=== PATIENT | female | born 1975 | race Caucasian/White ===

== ENCOUNTER 2022-02-15 11:32 | Emergency (ER) | payer BC, OTHER ==
[~2022-02-15] VITALS: Ht 163 cm; Wt 106.0 kg
--- NOTE | 2022-02-15 11:35 | ED Abdominal Pain ---
General Stated Complaint: ABD PAIN Source of Information: Patient, EMS Exam Limitations: No Limitations (BARBRA POPE) History of Present Illness Date Seen by Provider: Feb 15, 2022 Time Seen by Provider: 11:16 Initial Comments Patient to the ER by EMS from [facility] with chief complaint she started having pain last night in her right groin from her right nephrostomy tube and her back down. Mild tenderness in her back most of her pain is severe in her groin. Constant and worsening. She took Tylenol with no improvement. She had a nephrostomy tube for history of ureteral stenosis and kidney stones. This work was done in [place]. She recently moved here in January. She does not have a urologist locally yet. She is having nausea without vomiting. EMS made an attempt at IV unsuccessfully on route. Not having fevers or chills. She has had her gallbladder out, tubal ligation, tonsils and adenoids. (BARBRA POPE) Allergies and Home Medications Allergies Coded Allergies: shellfish derived (Verified Allergy, Severe, 02/15/22) Iodinated Contrast Media (Verified Allergy, Unknown, 02/15/22) aspirin (Verified Allergy, Unknown, 02/15/22) Uncoded Allergies: IODINE CONTRAST (Allergy, Mild, 02/15/22) Patient Home Medication List Home Medication List Reviewed: Yes (BARBRA POPE) Review of Systems Review of Systems Constitutional: No chills, No fever, No malaise EENTM: No Blurred Vision, No Double Vision Respiratory: Denies Cough, Denies Shortness of Air Cardiovascular: Denies Chest Pain, Denies Lightheadedness Gastrointestinal: Denies Constipated, Denies Diarrhea; Nausea; Denies Poor Fluid Intake, Denies Vomiting Genitourinary: Denies Burning, Denies Discharge, Denies Drainage Musculoskeletal: No back pain, No joint pain (BARBRA POPE) All Other Systems Reviewed Negative Unless Noted: Yes (BARBRA POPE) Past Ohdlxnm-Mnlcqj-Fafmfg Hx Patient Social History Tobacco Use?: No Use of E-Cig and/or Vaping dev: No (BARBRA POPE) Physical Exam Vital Signs Vital Signs - First Documented 02/15/22 11:35 Temp 36.8 Pulse 90 Resp 22 B/P (MAP) 211/145 (167) Pulse Ox 98 O2 Delivery Room Air (KATHI PAK MD) Vital Signs Capillary Refill : (BARBRA POPE) Height/Weight/BMI Height: '" Weight: lbs. oz. kg; BMI Method: General Appearance: WD/WN, no apparent distress HEENT: PERRL/EOMI, pharynx normal Neck: full range of motion, normal inspection Respiratory: lungs clear, normal breath sounds, no respiratory distress, no accessory muscle use Cardiovascular: normal peripheral pulses, regular rate, rhythm, tachycardia Peripheral Pulses: 2+ Radial Pulses (R), 2+ Radial Pulses (L) Gastrointestinal: normal bowel sounds, no organomegaly; No distended; tenderness Extremities: normal range of motion, non-tender, normal capillary refill Back: normal inspection, no vertebral tenderness, CVA tenderness (R) Neurologic/Psychiatric: alert, normal mood/affect, oriented x 3 (BARBRA POPE) Focused Exam Lactate Level 02/15/22 11:40: Lactic Acid Level 2.74*H 02/15/22 14:00: Lactic Acid Level 1.41 (KATHI PAK MD) Lactic Acid Level Laboratory Tests Test 02/15/22 11:40 02/15/22 14:00 Lactic Acid Level 2.74 MMOL/L (0.50-2.00) *H 1.41 MMOL/L (0.50-2.00) (KATHI PAK MD) Progress/Results/Core Measures Results/Orders Lab Results Laboratory Tests Test 02/15/22 11:40 02/15/22 12:29 02/15/22 14:00 Range/Units White Blood Count 13.6 H 4.3-11.0 10^3/uL Red Blood Count 4.84 3.80-5.11 10^6/uL Hemoglobin 15.1 11.5-16.0 g/dL Hematocrit 42 35-52 % Mean Corpuscular Volume 88 80-99 fL Mean Corpuscular Hemoglobin 31 25-34 pg Mean Corpuscular Hemoglobin Concent 36 32-36 g/dL Red Cell Distribution Width 13.3 10.0-14.5 % Platelet Count 349 130-400 10^3/uL Mean Platelet Volume 9.8 9.0-12.2 fL Immature Granulocyte % (Auto) 0 % Neutrophils (%) (Auto) 72 42-75 % Lymphocytes (%) (Auto) 19 12-44 % Monocytes (%) (Auto) 6 0-12 % Eosinophils (%) (Auto) 3 0-10 % Basophils (%) (Auto) 1 0-10 % Neutrophils # (Auto) 9.7 H 1.8-7.8 10^3/uL Lymphocytes # (Auto) 2.5 1.0-4.0 10^3/uL Monocytes # (Auto) 0.8 0.0-1.0 10^3/uL Eosinophils # (Auto) 0.4 H 0.0-0.3 10^3/uL Basophils # (Auto) 0.1 0.0-0.1 10^3/uL Immature Granulocyte # (Auto) 0.1 0.0-0.1 10^3/uL Prothrombin Time 21.4 H 12.2-14.7 SEC INR Comment 1.8 H 0.8-1.4 Activated Partial Thromboplast Time 46 H 24-35 SEC Sodium Level 139 135-145 MMOL/L Potassium Level 3.9 3.6-5.0 MMOL/L Chloride Level 107 98-107 MMOL/L Carbon Dioxide Level 19 L 21-32 MMOL/L Anion Gap 13 5-14 MMOL/L Blood Urea Nitrogen 13 7-18 MG/DL Creatinine 0.86 0.60-1.30 MG/DL Estimat Glomerular Filtration Rate 85 BUN/Creatinine Ratio 15 Glucose Level 121 H 70-105 MG/DL Lactic Acid Level 2.74 *H 1.41 0.50-2.00 MMOL/L Calcium Level 9.7 8.5-10.1 MG/DL Corrected Calcium 9.5 8.5-10.1 MG/DL Total Bilirubin 0.4 0.1-1.0 MG/DL Aspartate Amino Transf (AST/SGOT) 24 5-34 U/L Alanine Aminotransferase (ALT/SGPT) 23 0-55 U/L Alkaline Phosphatase 98 40-136 U/L Total Protein 8.1 6.4-8.2 GM/DL Albumin 4.2 3.2-4.5 GM/DL Urine Color YELLOW Urine Clarity CLOUDY Urine pH 6.0 5-9 Urine Specific [place] >=1.030 1.016-1.022 Urine Protein TRACE H NEGATIVE Urine Glucose (UA) NEGATIVE NEGATIVE Urine Ketones NEGATIVE NEGATIVE Urine Nitrite NEGATIVE NEGATIVE Urine Bilirubin NEGATIVE NEGATIVE Urine Urobilinogen 0.2 < = 1.0 MG/DL Urine Leukocyte Esterase NEGATIVE NEGATIVE Urine RBC (Auto) 1+ H NEGATIVE Urine RBC 2-5 H /HPF Urine WBC RARE /HPF Urine Squamous Epithelial Cells 5-10 /HPF Urine Crystals NONE /LPF Urine Bacteria FEW H /HPF Urine Casts NONE /LPF Urine Mucus SMALL H /LPF Urine Culture Indicated NO (KATHI PAK MD) My Orders Orders - KATHI PAK MD Ketamine Injection (Ketalar Injection) (02/15/22 18:15) (KATHI PAK MD) Medications Given in ED Current Medications Medications Dose Ordered Sig/Faustino Route Start Time Stop Time Status Last Admin Dose Admin Cefepime HCl 1000 mg/Sodium Chloride 50 ml @ 100 mls/hr ONCE ONCE IV 02/15/22 11:45 02/15/22 12:14 DC 02/15/22 12:19 100 MLS/HR Fentanyl Citrate 50 mcg ONCE ONCE IVP 02/15/22 11:45 02/15/22 11:46 DC 02/15/22 11:49 50 MCG Fentanyl Citrate 50 mcg ONCE ONCE IVP 02/15/22 12:45 02/15/22 12:46 DC 02/15/22 12:43 50 MCG Fentanyl Citrate 75 mcg ONCE ONCE IVP 02/15/22 15:45 02/15/22 15:46 DC 02/15/22 15:45 75 MCG Hydromorphone HCl 0.25 mg ONCE ONCE IVP 02/15/22 13:15 02/15/22 13:18 DC 02/15/22 13:23 0.25 MG Hydromorphone HCl 0.5 mg ONCE ONCE IV 02/15/22 17:30 02/15/22 17:31 DC 02/15/22 17:56 0.5 MG Ketamine HCl 25 mg ONCE ONCE IV 02/15/22 14:15 02/15/22 14:16 DC 02/15/22 14:20 25 MG Ketamine HCl 25 mg ONCE ONCE IV 02/15/22 15:45 02/15/22 15:46 DC 02/15/22 16:12 25 MG Ondansetron HCl 8 mg ONCE ONCE IVP 02/15/22 11:45 02/15/22 11:46 DC 02/15/22 11:48 8 MG Promethazine HCl 25 mg ONCE ONCE IVP 02/15/22 13:45 02/15/22 13:46 DC 02/15/22 13:45 25 MG Sodium Chloride 1,000 ml @ 0 mls/hr Q0M ONCE IV 02/15/22 11:45 02/15/22 11:46 DC 02/15/22 11:48 1,000 MLS/HR (KATHI PAK MD) Vital Signs/I&O 02/15/22 02/15/22 02/15/22 02/15/22 11:35 12:43 13:23 15:45 Temp 36.8 36.8 36.8 36.8 Pulse 90 Resp 22 B/P (MAP) 211/145 (167) Pulse Ox 98 O2 Delivery Room Air 02/15/22 17:56 Temp 36.8 (KATHI PAK MD) Progress Progress Note : Time: 14:15 Progress Note After fentanyl, dilaudid pain is only temporarily controlled. BP down to 112 systolic so Ketamine 25mg for pain. Zofran 8 mg and Phenergan 25mg. Septic workup revealed lactate elevated. 20 mL/kg of fluid bolus 2 L was ordered. She is working on her second liter now. Cefepime for antibiotics. The CT reveals that there is a little bit of air in the renal pelvis and hydronephrosis making me suspicious that her nephrostomy tube is not draining. She is putting out very little urine through the nephrostomy tube. She only has about 15 or 20 cc in the bag and she states that she drained it at 730 this morning. We will transfer her to a facility with appropriate IR services so she can get the tube either unblocked or replaced. (BARBRA POPE) Progress Note #1: Time: 18:09 Progress Note Patient is awaiting transfer. Pain has been difficult to control. Nursing staff has requested additional orders for pain medication. It has been a few hours since she has had ketamine. Another dose of ketamine 25 mg has been ordered. Progress Note #2: Time: 18:14 Progress Note Additional nausea medicine was also requested. She last received Zofran around noon. An additional Zofran 8 mg dose is being given now. The ketamine will be administered on any infuser while in route. (KATHI PAK MD) Diagnostic Imaging Diagonstic Imaging: CT Plain Films/CT/US/NM/MRI: abdomen, pelvis Comments [facility]. [place], [place] NAME: RUDY THIBODEAUX [facility] REC#: [id number] PT STATUS: REG ER : 1975 PHYSICIAN: BARBRA POPE MD ADMIT DATE: 02/15/22/ER Signed Date of Exam:02/15/22 CT ABDOMEN/PELVIS WO PROCEDURE: CT abdomen and pelvis without contrast. TECHNIQUE: Multiple contiguous axial images were obtained through the abdomen and pelvis without the use of intravenous contrast. Auto Exposure Controls were utilized during the CT exam to meet ALARA standards for radiation dose reduction. INDICATION: Indwelling percutaneous nephrostomy tube. Severe abdominal pain. COMPARISON: None FINDINGS: Included portions of the lung bases are clear. Small hiatal hernia is noted. CT ABDOMEN: There is colonic diverticulosis, but no CT evidence of acute diverticulitis. Small bowel loops are nondistended. Normal appendix is identified. Right-sided percutaneous nephrostomy tube is identified. Patency of the tube cannot be assessed on this exam, but the tube does appear to be in appropriate position. There is moderate distention of the renal pelvis and mild distention of the calyces. Right ureter is nondistended. Small amount of gas is noted within the non-gravity dependent portion of the renal pelvis. Punctate nonobstructive calculus is identified within the inferior pole. There is no evidence of hemorrhage within the renal collecting system. No perinephric hemorrhage is identified. Left kidney has an unremarkable noncontrast CT appearance. The adrenal glands, spleen, pancreas, and liver have an unremarkable noncontrast CT appearance as well. There is no loculated fluid collection, free fluid or free air within the abdomen. No abnormal mesenteric adenopathy is seen. Mildly prominent retroperitoneal lymph node is seen interposed between the aorta and IVC at the level of L3-L4. It measures 1.2 x 1.4 cm. Osseous structures show no acute abnormalities. CT PELVIS: Urinary bladder is unopacified and nondistended. No calculi are seen within urinary bladder. There is no loculated fluid collection, free fluid or free air within the pelvis. No abnormal lymph nodes are seen. Osseous structures show no acute abnormalities. IMPRESSION: 1. Indwelling right-sided percutaneous nephrostomy tube is identified. Tube appears to be in appropriate position, but despite its presence, there is persistent or recurrent moderate right-sided hydronephrosis. This does raise potential for malfunction the tube. Injection of the tube with contrast under fluoroscopy may be of benefit to assess patency. 2. Mildly enlarged retroperitoneal lymph node of uncertain clinical significance and etiology. Dictated by: Dictated on workstation # [id number] Dict: 02/15/22 1253 Trans: 02/15/22 1826 [id number] Interpreted by: LUIS ASTORGA MD Electronically signed by: LUIS ASTORGA MD 02/15/221825 Reviewed: Reviewed by Me Diagonstic Imaging: Xray Plain Films/CT/US/NM/MRI: chest Comments [facility]. [place], [place] NAME: RUDY THIBODEAUX [facility] REC#: [id number] PT STATUS: REG ER : 1975 PHYSICIAN: BARBRA POPE MD ADMIT DATE: 02/15/22/ER Signed Date of Exam:02/15/22 CHEST 1 VIEW, AP/PA ONLY HISTORY: Sepsis. COMPARISON: None. TECHNIQUE: Frontal view of the chest. FINDINGS: Lung volumes are normal. There is eventration of the right hemidiaphragm. No focal consolidation is seen. There is no pleural effusion or pneumothorax. The cardiac silhouette is normal in size. IMPRESSION: 1. No acute pulmonary abnormality. Dictated by: Dictated on workstation # [id number] Dict: 02/15/22 1258 Trans: 02/15/22 160 [id number] Interpreted by: JAIRO JENNINGS MD Electronically signed by: JAIRO JENNINGS MD 02/15/221602 Reviewed: Reviewed by Me (BARBRA POPE) Departure Impression Primary Impression: Urinary tract infection Qualified Codes: T83.512A - Infection and inflammatory reaction due to nephrostomy catheter, initial encounter; N39.0 - Urinary tract infection, site not specified Additional Impressions: Severe sepsis Obstructed nephrostomy tube Disposition: T-TRM HOSP Condition: Stable Transfer Transfer Reason: Exceeds level of care (No IR) Time Spoke to Accepting Phy: 14:30 Transfer Progress Notes 1415: Discussed the case with Rick and they will have Dr. Javier call us back. 1430: Dr. Javier accepts the patient. Transfer Time: 18:30 Transfer Facility: [place], [place] Method of Transfer: EMS (BARBRA POPE) BARBRA POPE Feb 15, 2022 11:35 KATHI PAK MD Feb 15, 2022 18:11
[2022-02-15] MEDS ORDERED: NS IV 1000 ML 1,000 ML IV ONE (11:45)
[2022-02-15] MEDS ORDERED: fentaNYL INJ 100 MCG/2 ML AMP ONE (11:45)
[2022-02-15] MEDS ORDERED: fentaNYL INJ 100 MCG/2 ML AMP IVP ONE ×3 (11:45→15:45)
[2022-02-15] MEDS ORDERED: ONDANSETRON 4 MG/2 ML (SDV) Z0FRAN IVP ONE ×2 (11:45→18:15)
[2022-02-15] MEDS ORDERED: CEFEPIME INJECTION 1,000 MG in NS (IVPB) 50 ML IV ONE (11:45)
[2022-02-15] MEDS ORDERED: NS IV 1000 ML 1,000 ML IV SCH (11:45)
[2022-02-15] MEDS ORDERED: NS IV 1000 ML 1,000 ML ONE (11:45)
[2022-02-15] MEDS ORDERED: ONDANSETRON 4 MG/2 ML (SDV) Z0FRAN ONE (11:45)
[2022-02-15 11:48] LABS: BASOPHILS # (AUTO) 0.1 10^3/uL (0.0-0.1); BASOPHILS % (AUTO) 1 % (0-10); EOSINOPHILS # (AUTO) 0.4 10^3/uL (0.0-0.3); EOSINOPHILS % (AUTO) 3 % (0-10); HEMATOCRIT 42 % (35-52); HEMOGLOBIN 15.1 g/dL (11.5-16.0); LYMPHOCYTES # (AUTO) 2.5 10^3/uL (1.0-4.0); LYMPHOCYTES % (AUTO) 19 % (12-44); MEAN CORPUSCULAR HEMOGLOBIN 31 pg (25-34); MEAN CORPUSCULAR HGB CONC 36 g/dL (32-36); MEAN CORPUSCULAR VOLUME 88 fL (80-99); MEAN PLATELET VOLUME 9.8 fL (9.0-12.2); MONOCYTES # (AUTO) 0.8 10^3/uL (0.0-1.0); MONOCYTES % (AUTO) 6 % (0-12); NEUTROPHILS # (AUTO) 9.7 10^3/uL (1.8-7.8); NEUTROPHILS % (AUTO) 72 % (42-75); PLATELET COUNT 349 10^3/uL (130-400); WHITE BLOOD COUNT 13.6 10^3/uL (4.3-11.0)
[2022-02-15 12:01] LABS: ALBUMIN 4.2 GM/DL (3.2-4.5); POTASSIUM 3.9 MMOL/L (3.6-5.0)
[2022-02-15 12:02] LABS: CALCIUM 9.7 MG/DL (8.5-10.1)
[2022-02-15 12:03] LABS: INR 1.8 (0.8-1.4); PROTHROMBIN TIME PATIENT 21.4 SEC (12.2-14.7); TOTAL PROTEIN 8.1 GM/DL (6.4-8.2)
[2022-02-15 12:05] LABS: BILIRUBIN,TOTAL 0.4 MG/DL (0.1-1.0)
[2022-02-15 12:07] LABS: CREATININE SERUM 0.86 MG/DL (0.60-1.30)
[2022-02-15 12:35] LABS: BILIRUBIN,URINE NEGATIVE (NEGATIVE); CLARITY,URINE CLOUDY; COLOR,URINE YELLOW; GLUCOSE, URINE (UA) NEGATIVE (NEGATIVE); KETONES,URINE NEGATIVE (NEGATIVE); LEUKOCYTE ESTERASE ,URINE NEGATIVE (NEGATIVE); NITRITE,URINE NEGATIVE (NEGATIVE); PROTEIN,URINE TRACE (NEGATIVE)
[2022-02-15 12:46] LABS: BACTERIA,URINE FEW /HPF; WBC,URINE RARE /HPF
--- NOTE | 2022-02-15 13:01 | Diagnostic Imaging Report ---
HISTORY: Sepsis. COMPARISON: None. TECHNIQUE: Frontal view of the chest. FINDINGS: Lung volumes are normal. There is eventration of the right hemidiaphragm. No focal consolidation is seen. There is no pleural effusion or pneumothorax. The cardiac silhouette is normal in size. IMPRESSION: 1. No acute pulmonary abnormality. Dictated by: Dictated on workstation # [id number]
--- NOTE | 2022-02-15 13:04 | Diagnostic Imaging Report ---
PROCEDURE: CT abdomen and pelvis without contrast. TECHNIQUE: Multiple contiguous axial images were obtained through the abdomen and pelvis without the use of intravenous contrast. Auto Exposure Controls were utilized during the CT exam to meet ALARA standards for radiation dose reduction. INDICATION: Indwelling percutaneous nephrostomy tube. Severe abdominal pain. COMPARISON: None FINDINGS: Included portions of the lung bases are clear. Small hiatal hernia is noted. CT ABDOMEN: There is colonic diverticulosis, but no CT evidence of acute diverticulitis. Small bowel loops are nondistended. Normal appendix is identified. Right-sided percutaneous nephrostomy tube is identified. Patency of the tube cannot be assessed on this exam, but the tube does appear to be in appropriate position. There is moderate distention of the renal pelvis and mild distention of the calyces. Right ureter is nondistended. Small amount of gas is noted within the non-gravity dependent portion of the renal pelvis. Punctate nonobstructive calculus is identified within the inferior pole. There is no evidence of hemorrhage within the renal collecting system. No perinephric hemorrhage is identified. Left kidney has an unremarkable noncontrast CT appearance. The adrenal glands, spleen, pancreas, and liver have an unremarkable noncontrast CT appearance as well. There is no loculated fluid collection, free fluid or free air within the abdomen. No abnormal mesenteric adenopathy is seen. Mildly prominent retroperitoneal lymph node is seen interposed between the aorta and IVC at the level of L3-L4. It measures 1.2 x 1.4 cm. Osseous structures show no acute abnormalities. CT PELVIS: Urinary bladder is unopacified and nondistended. No calculi are seen within urinary bladder. There is no loculated fluid collection, free fluid or free air within the pelvis. No abnormal lymph nodes are seen. Osseous structures show no acute abnormalities. IMPRESSION: 1. Indwelling right-sided percutaneous nephrostomy tube is identified. Tube appears to be in appropriate position, but despite its presence, there is persistent or recurrent moderate right-sided hydronephrosis. This does raise potential for malfunction the tube. Injection of the tube with contrast under fluoroscopy may be of benefit to assess patency. 2. Mildly enlarged retroperitoneal lymph node of uncertain clinical significance and etiology. Dictated by: Dictated on workstation # [id number]
[2022-02-15] MEDS ORDERED: HYDROmorphone 2 MG/ML VIAL (DILAUDID) IVP ONE (13:15)
[2022-02-15] MEDS ORDERED: PROMETHAZINE INJ 25 MG/ML (PHENERGAN) AMP IVP ONE (13:45)
[2022-02-15] MEDS ORDERED: KETAMINE 50 MG/5 ML SYRINGE IV ONE ×2 (14:15→15:45)
[2022-02-15] MEDS ORDERED: HYDROmorphone 2 MG/ML VIAL (DILAUDID) IV ONE (17:30)
[2022-02-15] MEDS ORDERED: KETAMINE HCL 100 MG/ML 5 ML VIAL IV ONE (18:15)
[2022-02-15 18:33] VITALS: BP 147/110
== END 2022-02-15 18:33 | disposition short-term general hospital (02) ==
LOC: EDUNIT# 11:32 → ER 11:34
DX: T83.092A Other mechanical complication of nephrostomy catheter, initial encounter (principal); N13.6 Pyonephrosis; A41.9 Sepsis, unspecified organism; R65.20 Severe sepsis without septic shock; Z90.49 Acquired absence of other specified parts of digestive tract; Z87.442 Personal history of urinary calculi; Z87.448 Personal history of other diseases of urinary system
CPT/HCPCS: 36415; 71045; 74176; 80053; 81000; 83605; 85025; 85610; 85730; 87040; 87088; 96361; 96365; 96375; 96376

== ENCOUNTER 2022-02-19 20:01 | Emergency (ER) | payer SELFPAY ==
[~2022-02-19] VITALS: Ht 162.6 cm; Wt 107.2 kg
[2022-02-19 22:28] LABS: BILIRUBIN,URINE NEGATIVE (NEGATIVE); CLARITY,URINE CLEAR; COLOR,URINE YELLOW; GLUCOSE, URINE (UA) NEGATIVE (NEGATIVE); KETONES,URINE NEGATIVE (NEGATIVE); LEUKOCYTE ESTERASE ,URINE TRACE (NEGATIVE); NITRITE,URINE NEGATIVE (NEGATIVE); PROTEIN,URINE TRACE (NEGATIVE)
[2022-02-19 22:35] LABS: BACTERIA,URINE NEGATIVE /HPF; SQUAMOUS EPITHELIAL CELL,UR 0-2 /HPF
--- NOTE | 2022-02-19 22:39 | ED Abdominal Pain ---
General Chief Complaint: General Problems/Pain Stated Complaint: CHEST PAIN,FEVER,SIDE PAIN,WEAK Nursing Triage Note: Pt states that she just got out of [facility] in [place] yesterday and has not had any urine output from her right nephrostomy tube since she left the hospital. She also has in indwelling catheter. She was being treated for sepsis and states that she feels like what she did when she was admitted. She is having some weakness, shakiness, sweating, some chest pain and reports feeling like she is running a fever at home. She is taking Cipro currently and she sees Dr. Hennessy for nephrology. Source of Information: Patient Exam Limitations: No Limitations History of Present Illness Date Seen by Provider: Feb 19, 2022 Time Seen by Provider: 21:56 Initial Comments Patient ER by private conveyance from home with chief complaint she is got dismissed from [facility] after having a nephrostomy tube placed yesterday. She has not had any output in her urostomy/nephrostomy tube for the past 24 hours. She still putting out urine through her Wise catheter. She is having some pain centered around her right back. She had these placed initially in [place] but she moved up here so she did not complete a work-up. 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 No stent was placed. She is not having a ny fevers nausea vomiting just malaise. Allergies and Home Medications Allergies Coded Allergies: shellfish derived (Verified Allergy, Severe, 02/15/22) Iodinated Contrast Media (Verified Allergy, Unknown, 02/15/22) aspirin (Verified Allergy, Unknown, 02/15/22) Uncoded Allergies: IODINE CONTRAST (Allergy, Mild, 02/15/22) Patient Home Medication List Home Medication List Reviewed: Yes Review of Systems Review of Systems Constitutional: No chills, No diaphoresis, No fever; malaise EENTM: No Blurred Vision, No Double Vision Respiratory: Denies Cough, Denies Orthopnea, Denies Shortness of Air Cardiovascular: Denies Chest Pain, Denies Lightheadedness Gastrointestinal: See HPI, Abdominal Pain; Denies Constipated, Denies Diarrhea, Denies Nausea Genitourinary: See HPI; Denies Burning, Denies Discharge Musculoskeletal: see HPI, back pain; No joint pain All Other Systems Reviewed Negative Unless Noted: Yes Past Nimkfhp-Tldfeh-Hizrnw Hx Patient Social History Tobacco Use?: Yes Tobacco type used: Cigarettes Smoking Status: Current Everyday Smoker Use of E-Cig and/or Vaping dev: No Substance use?: No Alcohol Use?: No Pt feels they are or have been: No Immunizations Up To Date Third COVID19 Vaccination Date: 09/24/2021 Past Medical History Surgery/Hospitalization HX: RT KIDNEY DRAIN, HX OF KIDNEY DISEASE, HYPERTENSION, T&A, LYMPH NODES REMOVED FROM GROIN, GALLBLADDER, TUBAL LIGATION Last Menstrual Period: Jan 22, 2022 Physical Exam Vital Signs Vital Signs - First Documented 02/19/22 20:38 Temp 36.5 Pulse 65 Resp 18 B/P (MAP) 155/104 (121) Pulse Ox 98 O2 Delivery Room Air Capillary Refill : Less Than 3 Seconds Height/Weight/BMI Height: '" Weight: lbs. oz. kg; 40.00 BMI Method: General Appearance: WD/WN, moderate distress HEENT: PERRL/EOMI, pharynx normal Neck: full range of motion, normal inspection Respiratory: lungs clear, normal breath sounds, no respiratory distress, no accessory muscle use Cardiovascular: normal peripheral pulses, regular rate, rhythm, no edema Peripheral Pulses: 2+ Radial Pulses (R), 2+ Radial Pulses (L) Gastrointestinal: normal bowel sounds, non tender, soft Back: normal inspection, CVA tenderness (R) Neurologic/Psychiatric: alert, normal mood/affect, oriented x 3 Skin: normal color, warm/dry, other (Skin around the right nephrostomy tube unremarkable without discharge or drainage) Progress/Results/Core Measures Results/Orders Lab Results Laboratory Tests Test 02/19/22 21:00 02/19/22 22:22 02/19/22 23:56 Range/Units Influenza Type A (RT-PCR) Not Detected Not Detecte Influenza Type B (RT-PCR) Not Detected Not Detecte SARS-CoV-2 RNA (RT-PCR) Not Detected Not Detecte Urine Color YELLOW Urine Clarity CLEAR Urine pH 6.0 5-9 Urine Specific Craig 1.020 1.016-1.022 Urine Protein TRACE H NEGATIVE Urine Glucose (UA) NEGATIVE NEGATIVE Urine Ketones NEGATIVE NEGATIVE Urine Nitrite NEGATIVE NEGATIVE Urine Bilirubin NEGATIVE NEGATIVE Urine Urobilinogen 1.0 < = 1.0 MG/DL Urine Leukocyte Esterase TRACE H NEGATIVE Urine RBC (Auto) 1+ H NEGATIVE Urine RBC 5-10 H /HPF Urine WBC 5-10 H /HPF Urine Squamous Epithelial Cells 0-2 /HPF Urine Renal Epithelial Cells NONE /HPF Urine Crystals NONE /LPF Urine Bacteria NEGATIVE /HPF Urine Casts NONE /LPF Urine Mucus SMALL H /LPF Urine Culture Indicated YES White Blood Count 10.8 4.3-11.0 10^3/uL Red Blood Count 4.03 3.80-5.11 10^6/uL Hemoglobin 12.5 11.5-16.0 g/dL Hematocrit 35 35-52 % Mean Corpuscular Volume 87 80-99 fL Mean Corpuscular Hemoglobin 31 25-34 pg Mean Corpuscular Hemoglobin Concent 36 32-36 g/dL Red Cell Distribution Width 13.2 10.0-14.5 % Platelet Count 296 130-400 10^3/uL Mean Platelet Volume 9.2 9.0-12.2 fL Immature Granulocyte % (Auto) 1 % Neutrophils (%) (Auto) 58 42-75 % Lymphocytes (%) (Auto) 28 12-44 % Monocytes (%) (Auto) 9 0-12 % Eosinophils (%) (Auto) 4 0-10 % Basophils (%) (Auto) 1 0-10 % Neutrophils # (Auto) 6.2 1.8-7.8 10^3/uL Lymphocytes # (Auto) 3.0 1.0-4.0 10^3/uL Monocytes # (Auto) 1.0 0.0-1.0 10^3/uL Eosinophils # (Auto) 0.4 H 0.0-0.3 10^3/uL Basophils # (Auto) 0.1 0.0-0.1 10^3/uL Immature Granulocyte # (Auto) 0.1 0.0-0.1 10^3/uL Sodium Level 141 135-145 MMOL/L Potassium Level 3.2 L 3.6-5.0 MMOL/L Chloride Level 103 98-107 MMOL/L Carbon Dioxide Level 23 21-32 MMOL/L Anion Gap 15 H 5-14 MMOL/L Blood Urea Nitrogen 15 7-18 MG/DL Creatinine 0.90 0.60-1.30 MG/DL Estimat Glomerular Filtration Rate 81 BUN/Creatinine Ratio 17 Glucose Level 85 70-105 MG/DL Calcium Level 8.8 8.5-10.1 MG/DL Corrected Calcium 9.3 8.5-10.1 MG/DL Total Bilirubin 0.3 0.1-1.0 MG/DL Aspartate Amino Transf (AST/SGOT) 15 5-34 U/L Alanine Aminotransferase (ALT/SGPT) 15 0-55 U/L Alkaline Phosphatase 83 40-136 U/L Troponin I 0.032 H <0.028 NG/ML C-Reactive Protein High Sensitivity 3.08 H 0.00-0.50 MG/DL Total Protein 6.6 6.4-8.2 GM/DL Albumin 3.4 3.2-4.5 GM/DL My Orders Orders - BARBRA POPE Covid 19 Inhouse Test (02/19/22 20:24) Influenza A And B By Pcr (02/19/22 20:24) Ekg Tracing (02/19/22 20:45) Ua Culture If Indicated (02/19/22 21:01) Urine Bedside (02/19/22 21:01) Cbc With Automated Diff (02/19/22 21:01) Comprehensive Metabolic Panel (02/19/22 21:01) Hs C Reactive Protein (02/19/22 21:01) Troponin I [place]ica (02/19/22 21:02) Urine Culture (02/19/22 22:22) Fentanyl Inj (Sublimaze Injection) (02/19/22 22:45) Ed Iv/Invasive Line Start (02/19/22 22:35) Ns Iv 1000 Ml (Sodium Chloride 0.9%) (02/19/22 22:45) Ct Abdomen/Pelvis Wo (02/19/22 22:36) Blood Culture (02/19/22 23:56) Ceftriaxone 1 Gm Pre-Mix (Rocephin 1 Gm (02/20/22 00:30) Morphine Injection (Morphine Injection (02/20/22 02:32) Nothing By Mouth (02/20/22 Breakfast) Medications Given in ED Current Medications Medications Dose Ordered Sig/Faustino Route Start Time Stop Time Status Last Admin Dose Admin Ceftriaxone Sodium/Dextrose 50 ml @ 100 mls/hr ONCE ONCE IV 02/20/22 00:30 02/20/22 00:59 DC 02/20/22 02:07 100 MLS/HR Fentanyl Citrate 50 mcg ONCE ONCE IVP 02/19/22 22:45 02/19/22 22:46 DC 02/20/22 00:00 50 MCG Vital Signs/I&O 02/19/22 20:38 Temp 36.5 Pulse 65 Resp 18 B/P (MAP) 155/104 (121) Pulse Ox 98 O2 Delivery Room Air Blood Pressure Mean: 121 Progress Progress Note #1: Time: 22:38 Progress Note Give her 50 mcg of fentanyl, liter of fluids and check some labs to see what her kidney functions doing. When she was here before her kidney function was okay. Says she has been to [facility] and if symptoms or not improving it may be cordero to send her for higher echelon of care. Get a CT of her abdomen pelvis. We did check a COVID and influenza since she was at the hospital and those were both negative. Her lungs sound clear and her vital signs are aseptic. Progress Note #2: Time: 00:17 Progress Note Discussed going to a higher level of care for nephrostomy tube replacement and the patient is in agreement with this plan. Her pain is better after some pain medicines. Initial ECG Impression Date: Feb 19, 2022 Initial ECG Impression Time: 20:47 Initial ECG Rate: 62 Initial ECG Rhythm: Normal Sinus Initial ECG Intervals: Normal Initial ECG Impression: Normal Comment Normal sinus rhythm without clinically relevant ST elevation or depression Diagnostic Imaging Diagonstic Imaging: CT (noncontrast) Plain Films/CT/US/NM/MRI: abdomen, pelvis Comments [facility] [place] NAME: RUDY THIBODEAUX [facility] REC#: [id number] PT STATUS: REG ER : 1975 PHYSICIAN: BARBRA POPE MD ADMIT DATE: 02/19/22/ER Draft Date of Exam:02/19/22 CT ABDOMEN/PELVIS WO PROCEDURE: CT abdomen and pelvis without contrast. TECHNIQUE: Multiple contiguous axial images were obtained through the abdomen and pelvis without the use of intravenous contrast. Auto Exposure Controls were utilized during the CT exam to meet ALARA standards for radiation dose reduction. DATE: February 19, 2022. COMPARISON: CT abdomen and pelvis of February 15, 2022. INDICATION: 46-year-old female, nephrostomy pain and decreased urine output. Sepsis. FINDINGS: There are limitations for evaluation of the abdominal organs, neoplastic processes, abscess, and limited evaluation of the vasculature relating to the lack of intravenous contrast. There is mild atelectasis in the right lower lobe. The heart is not enlarged. There is no pericardial effusion. The liver is unremarkable in size and contour. The gallbladder is surgically absent. There is no biliary ductal dilation. The main pancreatic duct is not grossly dilated. Limited noncontrast assessment of the pancreatic parenchyma is unremarkable. The spleen is normal in size. The adrenal glands are unremarkable. The right-sided nephrostomy tube is at the level of the right posterior abdominal wall and does not extend within the urinary collecting system. There is a nonobstructing right renal stone measuring 8 mm in size. The nephrostomy tube has changed in position since the comparison study. There is mild to moderate right hydronephrosis. There is inflammatory stranding adjacent to the renal pelvis. There is gas in the right urinary collecting system. There is no identified ureteral stone. The Wise catheter may not necessarily extend within the urinary bladder. Urinary bladder is collapsed and not well evaluated. There is no left hydronephrosis. The intestinal tract is not distended. There is no evidence to suggest acute appendicitis. There is no free intraperitoneal air. There is no drainable fluid collection. There is no free fluid in the abdomen or pelvis. There is no identified abnormally enlarged lymph node in the abdomen or pelvis which meets CT size criteria for adenopathy. There are degenerative changes of the spine. There is no identified acute bony abnormality. IMPRESSION: CT ABDOMEN AND PELVIS. 1. The right-sided nephrostomy tube has been retracted in location and does not enter the abdominal cavity currently. 2. [id number] right hydronephrosis with small focus of gas in the collecting system. The hydronephrosis is largely similar to the prior exam. There is stranding at the level of the renal pelvis and proximal ureter. Correlation for possible upper tract infection is recommended. 3. A 6 mm nonobstructing right renal stone. 4. Wise catheter appears somewhat low in position. This may not necessarily be within the urinary bladder. Consider repositioning. Dictated on workstation # [id number] Dict: 02/19/22 [id number] Trans: 02/19/22 [id number] [facility] [id number] Interpreted by: ELENI FREDERICK MD Electronically signed by: Reviewed: Reviewed by Me Transfer of Care Time: 06:30 Care transferred to: Dr. Rutledge Departure Impression Primary Impression: Nephrostomy tube displaced Disposition: 02 XFER SHT-TRM HOSP Condition: Stable Transfer Transfer Reason: Exceeds level of care (no IR) Time Spoke to Accepting Phy: 01:54 Transfer Progress Notes 0015: [facility] Transfer initiated. Dr. Hudson, urology accepts the patient in transfer to [facility]. Transfer Facility: [facility] Method of Transfer: EMS Departure-Patient Inst. Referrals: [facility] (PCP/Family) Primary Care Physician BARBRA POPE Feb 19, 2022 22:39
[2022-02-19] MEDS ORDERED: fentaNYL INJ 100 MCG/2 ML AMP IVP ONE (22:45)
[2022-02-19] MEDS ORDERED: NS IV 1000 ML 1,000 ML IV SCH (22:45)
--- NOTE | 2022-02-19 23:17 | Diagnostic Imaging Report ---
PROCEDURE: CT abdomen and pelvis without contrast. TECHNIQUE: Multiple contiguous axial images were obtained through the abdomen and pelvis without the use of intravenous contrast. Auto Exposure Controls were utilized during the CT exam to meet ALARA standards for radiation dose reduction. DATE: February 19, 2022. COMPARISON: CT abdomen and pelvis of February 15, 2022. INDICATION: 46-year-old female, nephrostomy pain and decreased urine output. Sepsis. FINDINGS: There are limitations for evaluation of the abdominal organs, neoplastic processes, abscess, and limited evaluation of the vasculature relating to the lack of intravenous contrast. There is mild atelectasis in the right lower lobe. The heart is not enlarged. There is no pericardial effusion. The liver is unremarkable in size and contour. The gallbladder is surgically absent. There is no biliary ductal dilation. The main pancreatic duct is not grossly dilated. Limited noncontrast assessment of the pancreatic parenchyma is unremarkable. The spleen is normal in size. The adrenal glands are unremarkable. The right-sided nephrostomy tube is at the level of the right posterior abdominal wall and does not extend within the urinary collecting system. There is a nonobstructing right renal stone measuring 8 mm in size. The nephrostomy tube has changed in position since the comparison study. There is mild to moderate right hydronephrosis. There is inflammatory stranding adjacent to the renal pelvis. There is gas in the right urinary collecting system. There is no identified ureteral stone. The Wise catheter may not necessarily extend within the urinary bladder. Urinary bladder is collapsed and not well evaluated. There is no left hydronephrosis. The intestinal tract is not distended. There is no evidence to suggest acute appendicitis. There is no free intraperitoneal air. There is no drainable fluid collection. There is no free fluid in the abdomen or pelvis. There is no identified abnormally enlarged lymph node in the abdomen or pelvis which meets CT size criteria for adenopathy. There are degenerative changes of the spine. There is no identified acute bony abnormality. IMPRESSION: CT ABDOMEN AND PELVIS. 1. The right-sided nephrostomy tube has been retracted in location and does not enter the abdominal cavity currently. 2. [id number] right hydronephrosis with small focus of gas in the collecting system. The hydronephrosis is largely similar to the prior exam. There is stranding at the level of the renal pelvis and proximal ureter. Correlation for possible upper tract infection is recommended. 3. A 6 mm nonobstructing right renal stone. 4. Wise catheter appears somewhat low in position. This may not necessarily be within the urinary bladder. Consider repositioning. Dictated by: Dictated on workstation # [id number]
[2022-02-20 00:06] LABS: BASOPHILS # (AUTO) 0.1 10^3/uL (0.0-0.1); BASOPHILS % (AUTO) 1 % (0-10); EOSINOPHILS # (AUTO) 0.4 10^3/uL (0.0-0.3); EOSINOPHILS % (AUTO) 4 % (0-10); HEMATOCRIT 35 % (35-52); HEMOGLOBIN 12.5 g/dL (11.5-16.0); LYMPHOCYTES % (AUTO) 28 % (12-44); MEAN CORPUSCULAR HEMOGLOBIN 31 pg (25-34); MEAN CORPUSCULAR HGB CONC 36 g/dL (32-36); MEAN CORPUSCULAR VOLUME 87 fL (80-99); MEAN PLATELET VOLUME 9.2 fL (9.0-12.2); MONOCYTES % (AUTO) 9 % (0-12); NEUTROPHILS # (AUTO) 6.2 10^3/uL (1.8-7.8); NEUTROPHILS % (AUTO) 58 % (42-75); PLATELET COUNT 296 10^3/uL (130-400); WHITE BLOOD COUNT 10.8 10^3/uL (4.3-11.0)
[2022-02-20 00:15] LABS: ALBUMIN 3.4 GM/DL (3.2-4.5); POTASSIUM 3.2 MMOL/L (3.6-5.0)
[2022-02-20 00:16] LABS: CALCIUM 8.8 MG/DL (8.5-10.1)
[2022-02-20 00:17] LABS: TOTAL PROTEIN 6.6 GM/DL (6.4-8.2)
[2022-02-20 00:19] LABS: BILIRUBIN,TOTAL 0.3 MG/DL (0.1-1.0)
[2022-02-20 00:21] LABS: CREATININE SERUM 0.9 MG/DL (0.60-1.30)
[2022-02-20] MEDS ORDERED: cefTRIAXone 1 GM PRE-MIX 50 ML IV ONE (00:30)
[2022-02-20] MEDS ORDERED: morphine INJ 10 MG/ML 1ML (SYR OR VIAL) IVP STA ×2 (02:32→08:44)
[2022-02-20] MEDS ORDERED: ONDANSETRON 4 MG/2 ML (SDV) Z0FRAN IVP ONE (08:45)
[2022-02-20 09:20] VITALS: BP 108/76
== END 2022-02-20 09:20 | disposition short-term general hospital (02) ==
LOC: EDUNIT# 20:01 → ER 20:03
DX: T83.022A Displacement of nephrostomy catheter, initial encounter (principal); F17.210 Nicotine dependence, cigarettes, uncomplicated; Z87.442 Personal history of urinary calculi; Z87.448 Personal history of other diseases of urinary system; Z20.822 Contact with and (suspected) exposure to COVID-19
CPT/HCPCS: 36415; 74176; 80053; 81000; 84484; 84703; 85025; 86141; 87040; 87088; 87636; 93005

== ENCOUNTER 2022-02-25 16:21 | Emergency (ER) | payer SELFPAY ==
[~2022-02-25] VITALS: Ht 162.6 cm; Wt 104.3 kg
[2022-02-25 17:00] LABS: BASOPHILS # (AUTO) 0.1 10^3/uL (0.0-0.1); BASOPHILS % (AUTO) 1 % (0-10); EOSINOPHILS # (AUTO) 0.4 10^3/uL (0.0-0.3); EOSINOPHILS % (AUTO) 3 % (0-10); HEMATOCRIT 44 % (35-52); HEMOGLOBIN 15.2 g/dL (11.5-16.0); LYMPHOCYTES # (AUTO) 4.3 X 10^3 (1.0-4.0); LYMPHOCYTES % (AUTO) 35 % (12-44); MEAN CORPUSCULAR HEMOGLOBIN 31 pg (25-34); MEAN CORPUSCULAR HGB CONC 35 g/dL (32-36); MEAN CORPUSCULAR VOLUME 88 fL (80-99); MONOCYTES # (AUTO) 0.7 X 10^3 (0.0-1.0); MONOCYTES % (AUTO) 6 % (0-12); NEUTROPHILS # (AUTO) 6.7 X 10^3 (1.8-7.8); NEUTROPHILS % (AUTO) 54 % (42-75); PLATELET COUNT 507 10^3/uL (130-400); WHITE BLOOD COUNT 12.3 10^3/uL (4.3-11.0)
[2022-02-25] MEDS ORDERED: NS IV 1000 ML 1,000 ML IV SCH (17:00)
[2022-02-25] MEDS ORDERED: KETOROLAC 30 MG/ML VIAL IVP ONE (17:00)
[2022-02-25] MEDS ORDERED: HYDROmorphone 2 MG/ML VIAL (DILAUDID) IV ONE ×3 (17:00→19:15)
[2022-02-25 17:01] LABS: ALBUMIN 4.3 GM/DL (3.2-4.5); POTASSIUM 3.4 MMOL/L (3.6-5.0)
--- NOTE | 2022-02-25 17:01 | ED General ---
General Chief Complaint: General Problems/Pain Stated Complaint: ABD PAIN/PAIN AT KIDNEY DRAIN TUBE SITE Source of Information: Patient Exam Limitations: No Limitations History of Present Illness Date Seen by Provider: Feb 25, 2022 Time Seen by Provider: 16:56 Initial Comments To ER with reports of right flank pain. She has a history of right nephrostomy tube placed in December of this year, revision at [facility] with new insertion site and new tube on Monday of this past week, 02/21/2022. She accidentally caught this on a table last night and felt it pull. She has had increased pain since then. No fevers or chills. 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 Timing/Duration: 1-2 Days Severity: Moderate Associated Systoms: Denies Symptoms Allergies and Home Medications Allergies Coded Allergies: shellfish derived (Verified Allergy, Severe, 02/15/22) Iodinated Contrast Media (Verified Allergy, Unknown, 02/15/22) aspirin (Verified Allergy, Unknown, 02/15/22) Uncoded Allergies: IODINE CONTRAST (Allergy, Mild, 02/15/22) Patient Home Medication List Home Medication List Reviewed: Yes Review of Systems Review of Systems Constitutional: see HPI; No chills, No fever EENTM: see HPI Respiratory: no symptoms reported Cardiovascular: no symptoms reported Genitourinary: no symptoms reported Musculoskeletal: no symptoms reported Skin: no symptoms reported Psychiatric/Neurological: No Symptoms Reported Hematologic/Lymphatic: No Symptoms Reported Past Qndltaw-Glhixv-Zhlfvt Hx Patient Social History Tobacco Use?: Yes Tobacco type used: Cigarettes Smoking Status: Current Everyday Smoker Smokeless Tobacco Frequency: Never a User Use of E-Cig and/or Vaping dev: No Substance use?: No Alcohol Use?: No Pt feels they are or have been: No Immunizations Up To Date Third COVID19 Vaccination Date: 09/24/2021 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 oz. kg; 40.00 BMI Method: General Appearance: No Apparent Distress, WD/WN Eyes: Bilateral Eye Normal Inspection, Bilateral Eye PERRL, Bilateral Eye EOMI Neck: Full Range of Motion, Normal Inspection Respiratory: No Accessory Muscle Use, No Respiratory Distress Cardiovascular: Regular Rate, Rhythm, Normal Peripheral Pulses Gastrointestinal: Non Tender, Soft Back: Other (Percutaneous nephrostomy noted. Old insertion site clean dry without drainage or surrounding erythema. Current percutaneous drain site is clean dry intact. no surrounding cellulitis. Currently at a depth of 17cm, suture remains in place. Well) Extremity: Normal Capillary Refill, Normal Inspection Neurologic/Psychiatric: Alert, Oriented x3 Skin: Normal Color, Warm/Dry Progress/Results/Core Measures Suspected Sepsis SIRS Temperature: Pulse: Respiratory Rate: Laboratory Tests 02/25/22 16:30: White Blood Count 12.3H Blood Pressure / Mean: Laboratory Tests 02/25/22 16:30: Creatinine 1.00, Platelet Count 507H, Total Bilirubin 0.3 Results/Orders Lab Results Laboratory Tests Test 02/25/22 16:30 02/25/22 16:54 Range/Units White Blood Count 12.3 H 4.3-11.0 10^3/uL Red Blood Count 4.99 3.80-5.11 10^6/uL Hemoglobin 15.2 11.5-16.0 g/dL Hematocrit 44 35-52 % Mean Corpuscular Volume 88 80-99 fL Mean Corpuscular Hemoglobin 31 25-34 pg Mean Corpuscular Hemoglobin Concent 35 32-36 g/dL Red Cell Distribution Width 13.4 10.0-14.5 % Platelet Count 507 H 130-400 10^3/uL Mean Platelet Volume 9.0 9.0-12.2 fL Immature Granulocyte % (Auto) 1 % Neutrophils (%) (Auto) 54 42-75 % Lymphocytes (%) (Auto) 35 12-44 % Monocytes (%) (Auto) 6 0-12 % Eosinophils (%) (Auto) 3 0-10 % Basophils (%) (Auto) 1 0-10 % Neutrophils # (Auto) 6.7 1.8-7.8 X 10^3 Lymphocytes # (Auto) 4.3 H 1.0-4.0 X 10^3 Monocytes # (Auto) 0.7 0.0-1.0 X 10^3 Eosinophils # (Auto) 0.4 H 0.0-0.3 10^3/uL Basophils # (Auto) 0.1 0.0-0.1 10^3/uL Immature Granulocyte # (Auto) 0.1 0.0-0.1 10^3/uL Sodium Level 141 135-145 MMOL/L Potassium Level 3.4 L 3.6-5.0 MMOL/L Chloride Level 100 98-107 MMOL/L Carbon Dioxide Level 26 21-32 MMOL/L Anion Gap 15 H 5-14 MMOL/L Blood Urea Nitrogen 15 7-18 MG/DL Creatinine 1.00 0.60-1.30 MG/DL Estimat Glomerular Filtration Rate 71 BUN/Creatinine Ratio 15 Glucose Level 128 H 70-105 MG/DL Calcium Level 10.3 H 8.5-10.1 MG/DL Corrected Calcium 10.1 8.5-10.1 MG/DL Total Bilirubin 0.3 0.1-1.0 MG/DL Aspartate Amino Transf (AST/SGOT) 23 5-34 U/L Alanine Aminotransferase (ALT/SGPT) 21 0-55 U/L Alkaline Phosphatase 99 40-136 U/L Total Protein 8.7 H 6.4-8.2 GM/DL Albumin 4.3 3.2-4.5 GM/DL Urine Color YELLOW Urine Clarity SL CLOUDY Urine pH 7.0 5-9 Urine Specific [place] 1.020 1.016-1.022 Urine Protein 3+ H NEGATIVE Urine Glucose (UA) NEGATIVE NEGATIVE Urine Ketones NEGATIVE NEGATIVE Urine Nitrite NEGATIVE NEGATIVE Urine Bilirubin NEGATIVE NEGATIVE Urine Urobilinogen 0.2 < = 1.0 MG/DL Urine Leukocyte Esterase 1+ H NEGATIVE Urine RBC (Auto) 3+ H NEGATIVE Urine RBC >100 H /HPF Urine WBC 10-25 H /HPF Urine Squamous Epithelial Cells NONE /HPF Urine Crystals NONE /LPF Urine Bacteria FEW H /HPF Urine Casts NONE /LPF Urine Mucus NEGATIVE /LPF Urine Other /HPF Urine Culture Indicated YES My Orders Orders - 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[employer] Cbc With Automated Diff (02/25/22 16:48) Comprehensive Metabolic Panel (02/25/22 16:48) Ed Iv/Invasive Line Start (02/25/22 16:48) Ct Abd/Pelvis Wo(Kidney Stone) (02/25/22 16:48) Ns Iv 1000 Ml (Sodium Chloride 0.9%) (02/25/22 17:00) Ketorolac Injection (Toradol Injection) (02/25/22 17:00) Hydromorphone Injection (Dilaudid Inject (02/25/22 17:00) Ua Culture If Indicated (02/25/22 16:48) Urine Culture (02/25/22 16:54) Cefepime Injection (Maxipime Injection) (02/25/22 18:00) Hydromorphone Injection (Dilaudid Inject (02/25/22 19:15) Ondansetron Injection (Zofran Injectio (02/25/22 19:15) Hydromorphone Injection (Dilaudid Inject (02/25/22 19:15) Medications Given in ED Current Medications Medications Dose Ordered Sig/Faustino Route Start Time Stop Time Status Last Admin Dose Admin Cefepime HCl 1000 mg/Sodium Chloride 50 ml @ 100 mls/hr ONCE ONCE IV 02/25/22 18:00 02/25/22 18:29 DC 02/25/22 18:08 100 MLS/HR Hydromorphone HCl 1 mg ONCE ONCE IV 02/25/22 17:00 02/25/22 17:01 DC 02/25/22 17:06 1 MG Ketorolac Tromethamine 15 mg ONCE ONCE IVP 02/25/22 17:00 02/25/22 17:01 DC 02/25/22 17:06 15 MG Vital Signs/I&O 02/25/22 16:30 Temp 36.2 Pulse 97 Resp 18 B/P (MAP) 201/146 (164) O2 Delivery Room Air Capillary Refill : Departure Communication (Admissions) NAME: RUDY THIBODEAUX [facility] REC#: [id number] PT STATUS: REG ER : 1975 PHYSICIAN: NADIYA ALVAREZ APRN ADMIT DATE: 02/25/22/ER Draft Date of Exam:02/25/22 CT ABD/PELVIS WO(KIDNEY STONE) CLINICAL INDICATION: Patient with pain at left nephrostomy site. Patient reports pain after insertion on Monday at [facility] and states she pulled on tube yesterday causing pain to increase. Exam: CT exam of the abdomen and pelvis is performed without IV or oral contrast using stone protocol. Coronal and sagittal reformatted images were created. Auto Exposure Controls were utilized during the CT exam to meet ALARA standards for radiation dose reduction. COMPARISONS: CT scan of the abdomen and pelvis without contrast dated 02/19/2022. FINDINGS: The right nephrostomy tube is in good position within the right renal collecting system. There is no perinephric fat stranding or fluid collection. There is no right hydronephrosis. There is no stone within the right ureter. Stable 8 mm nonobstructive stone involving the inferior aspect of the right kidney. Right kidney is unremarkable. Left kidney is stable with no hydronephrosis and no urinary tract stone. Bladder is partially fluid filled with no stone or mass. The liver, spleen, pancreas, and adrenal glands are unremarkable. Gallbladder is surgically absent, similar to the prior study. There is no intestinal obstruction. There is no intra-abdominal free air or free fluid. There is no significant lymphadenopathy. Uterus and adnexal structures are unremarkable. The extra-abdominal and extrapelvic soft tissue structures are unremarkable. The remainder of this exam shows no significant interval change compared to the prior study of comparison. IMPRESSION: 1: Right nephrostomy tube is in good position. There is no right hydronephrosis or significant right perinephric fluid. 2: Stable nonobstructive stone involving the right kidney. 3: The remainder of this exam shows no significant interval change compared to the prior study of comparison. Dictated on workstation # [id number] Dict: 02/25/22 1716 Trans: 02/25/22 1723 [id number] Interpreted by: KRUPA FRAZIER MD Electronically signed by: Impression Primary Impression: Flank pain Additional Impression: Urinary tract infection Disposition: HOME, SELF-CARE Condition: Stable Departure-Patient Inst. Decision time for Depature: 18:01 Referrals: [facility] (PCP/Family) Primary Care Physician Patient Instructions: Urinary Tract Infection, Adult (DC) NADIYA ALVAREZ APRN Feb 25, 2022 17:01
[2022-02-25 17:02] LABS: CALCIUM 10.3 MG/DL (8.5-10.1)
[2022-02-25 17:03] LABS: TOTAL PROTEIN 8.7 GM/DL (6.4-8.2)
[2022-02-25 17:05] LABS: BILIRUBIN,TOTAL 0.3 MG/DL (0.1-1.0)
[2022-02-25 17:05] LABS: BILIRUBIN,URINE NEGATIVE (NEGATIVE); CLARITY,URINE SL CLOUDY; COLOR,URINE YELLOW; GLUCOSE, URINE (UA) NEGATIVE (NEGATIVE); KETONES,URINE NEGATIVE (NEGATIVE); LEUKOCYTE ESTERASE ,URINE 1+ (NEGATIVE); NITRITE,URINE NEGATIVE (NEGATIVE); PROTEIN,URINE 3+ (NEGATIVE)
--- NOTE | 2022-02-25 17:24 | Diagnostic Imaging Report ---
CLINICAL INDICATION: Patient with pain at left nephrostomy site. Patient reports pain after insertion on Monday at [facility] and states she pulled on tube yesterday causing pain to increase. Exam: CT exam of the abdomen and pelvis is performed without IV or oral contrast using stone protocol. Coronal and sagittal reformatted images were created. Auto Exposure Controls were utilized during the CT exam to meet ALARA standards for radiation dose reduction. COMPARISONS: CT scan of the abdomen and pelvis without contrast dated 02/19/2022. FINDINGS: The right nephrostomy tube is in good position within the right renal collecting system. There is no perinephric fat stranding or fluid collection. There is no right hydronephrosis. There is no stone within the right ureter. Stable 8 mm nonobstructive stone involving the inferior aspect of the right kidney. Right kidney is unremarkable. Left kidney is stable with no hydronephrosis and no urinary tract stone. Bladder is partially fluid filled with no stone or mass. The liver, spleen, pancreas, and adrenal glands are unremarkable. Gallbladder is surgically absent, similar to the prior study. There is no intestinal obstruction. There is no intra-abdominal free air or free fluid. There is no significant lymphadenopathy. Uterus and adnexal structures are unremarkable. The extra-abdominal and extrapelvic soft tissue structures are unremarkable. The remainder of this exam shows no significant interval change compared to the prior study of comparison. IMPRESSION: 1: Right nephrostomy tube is in good position. There is no right hydronephrosis or significant right perinephric fluid. 2: Stable nonobstructive stone involving the right kidney. 3: The remainder of this exam shows no significant interval change compared to the prior study of comparison. Dictated by: Dictated on workstation # [id number]
[2022-02-25 17:45] LABS: BACTERIA,URINE FEW /HPF; RBC,URINE >100 /HPF
[2022-02-25] MEDS ORDERED: CEFEPIME INJECTION 1,000 MG in NS (IVPB) 50 ML IV ONE (18:00)
[2022-02-25] MEDS ORDERED: ONDANSETRON 4 MG/2 ML (SDV) Z0FRAN IVP ONE (19:15)
[2022-02-25 19:19] VITALS: BP 144/92
== END 2022-02-25 19:19 | disposition home or self-care (01) ==
LOC: EDUNIT# 16:21 → ER 16:24
DX: N39.0 Urinary tract infection, site not specified (principal); F17.210 Nicotine dependence, cigarettes, uncomplicated
CPT/HCPCS: 36415; 74176; 80053; 81000; 85025; 87088

== ENCOUNTER 2022-03-15 08:33 | Emergency (ER) | payer SELFPAY ==
[~2022-03-15] VITALS: Ht 162.5 cm; Wt 104.3 kg
[2022-03-15 09:18] LABS: BILIRUBIN,URINE NEGATIVE (NEGATIVE); CLARITY,URINE CLEAR; COLOR,URINE YELLOW; GLUCOSE, URINE (UA) NEGATIVE (NEGATIVE); KETONES,URINE NEGATIVE (NEGATIVE); LEUKOCYTE ESTERASE ,URINE NEGATIVE (NEGATIVE); NITRITE,URINE NEGATIVE (NEGATIVE); PROTEIN,URINE NEGATIVE (NEGATIVE)
[2022-03-15] MEDS ORDERED: morphine INJ 10 MG/ML 1ML (SYR OR VIAL) IVP STA ×2 (09:23→15:46)
[2022-03-15] MEDS ORDERED: LACTATED RINGERS 1,000 ML IV ONE (09:30)
[2022-03-15] MEDS ORDERED: ONDANSETRON 4 MG (ZOFRAN) ORAL DISSOLVE TAB SL ONE (09:30)
[2022-03-15 09:56] LABS: BACTERIA,URINE NEGATIVE /HPF; RBC,URINE RARE /HPF; WBC,URINE RARE /HPF
[2022-03-15 09:57] LABS: BACTERIA,URINE MODERATE /HPF; BILIRUBIN,URINE NEGATIVE (NEGATIVE); CLARITY,URINE CLEAR; COLOR,URINE YELLOW; GLUCOSE, URINE (UA) NEGATIVE (NEGATIVE); KETONES,URINE NEGATIVE (NEGATIVE); LEUKOCYTE ESTERASE ,URINE 2+ (NEGATIVE); NITRITE,URINE NEGATIVE (NEGATIVE); PROTEIN,URINE 2+ (NEGATIVE)
[2022-03-15 10:20] LABS: BASOPHILS # (AUTO) 0.1 10^3/uL (0.0-0.1); BASOPHILS % (AUTO) 1 % (0-10); EOSINOPHILS # (AUTO) 0.5 10^3/uL (0.0-0.3); EOSINOPHILS % (AUTO) 4 % (0-10); HEMATOCRIT 40 % (35-52); HEMOGLOBIN 14.2 g/dL (11.5-16.0); LYMPHOCYTES # (AUTO) 2.9 10^3/uL (1.0-4.0); LYMPHOCYTES % (AUTO) 21 % (12-44); MEAN CORPUSCULAR HEMOGLOBIN 31 pg (25-34); MEAN CORPUSCULAR HGB CONC 35 g/dL (32-36); MEAN CORPUSCULAR VOLUME 89 fL (80-99); MEAN PLATELET VOLUME 9.6 fL (9.0-12.2); MONOCYTES # (AUTO) 1.1 10^3/uL (0.0-1.0); MONOCYTES % (AUTO) 8 % (0-12); NEUTROPHILS # (AUTO) 9.2 10^3/uL (1.8-7.8); NEUTROPHILS % (AUTO) 66 % (42-75); PLATELET COUNT 323 10^3/uL (130-400); WHITE BLOOD COUNT 13.9 10^3/uL (4.3-11.0)
--- NOTE | 2022-03-15 10:36 | Diagnostic Imaging Report ---
PROCEDURE: CT abdomen and pelvis without contrast. TECHNIQUE: Multiple contiguous axial images were obtained through the abdomen and pelvis without the use of intravenous contrast. Auto Exposure Controls were utilized during the CT exam to meet ALARA standards for radiation dose reduction. INDICATION: Right-sided flank pain. Right nephrostomy. COMPARISON: 02/25/2022. FINDINGS: The heart is unremarkable. The lung bases are clear. Stable right-sided nephrostomy tube is in place. There is a small amount of air in the collecting system, similar to the prior exam. No hydronephrosis bilaterally. The urinary bladder is nondistended. The liver, spleen, pancreas, and adrenal glands have a normal noncontrast CT appearance. The gallbladder is surgically absent. There is no pathologically enlarged mesenteric or retroperitoneal adenopathy. The bowel loops are nondilated. The appendix is visualized in the right lower quadrant and has a normal appearance. There is no free fluid or free air. No acute osseous abnormalities. A small fat-containing left inguinal hernia is seen. There is no free air, loculated collection, or adenopathy in the pelvis. IMPRESSION: 1. Stable appearance of the right-sided nephrostomy. No evidence of hydronephrosis. 2. No acute abnormalities in the abdomen and pelvis. Dictated by: Dictated on workstation # [id number]
[2022-03-15] MEDS ORDERED: fentaNYL INJ 100 MCG/2 ML AMP IVP ONE (11:15)
[2022-03-15 11:18] LABS: ALBUMIN 4.4 GM/DL (3.2-4.5)
[2022-03-15 11:20] LABS: CALCIUM 9.7 MG/DL (8.5-10.1)
[2022-03-15 11:21] LABS: TOTAL PROTEIN 8.3 GM/DL (6.4-8.2)
[2022-03-15 11:23] LABS: BILIRUBIN,TOTAL 0.3 MG/DL (0.1-1.0)
[2022-03-15 11:25] LABS: CREATININE SERUM 0.79 MG/DL (0.60-1.30)
[2022-03-15] MEDS ORDERED: ORPHENADRINE 60 MG/2 ML (NORFLEX) AMP (ED ONLY) IV ONE (13:15)
[2022-03-15] MEDS ORDERED: KETOROLAC 30 MG/ML VIAL IVP ONE (14:45)
[2022-03-15] MEDS ORDERED: cefTRIAXone 1 GM PRE-MIX 50 ML IV STA (15:46)
--- NOTE | 2022-03-15 15:58 | ED Abdominal Pain ---
General Chief Complaint: Abdominal/GI Problems Stated Complaint: RIGHT SIDE ABD PAIN Nursing Triage Note: PT AMB TO [facility] WITH COMPLAINT OF RIGHT SIDE ABD PAIN. STATES WOKE UP AT 4 AM WITH THE PAIN. PT HAS NEPHROSTOMY ON RIGHT SIDE. Source of Information: Patient, Old Records Exam Limitations: No Limitations History of Present Illness Date Seen by Provider: Mar 15, 2022 Allergies and Home Medications Allergies Coded Allergies: shellfish derived (Verified Allergy, Severe, 02/15/22) Iodinated Contrast Media (Verified Allergy, Unknown, 02/15/22) aspirin (Verified Allergy, Unknown, 02/15/22) Uncoded Allergies: IODINE CONTRAST (Allergy, Mild, 02/15/22) Past Xvldsbt-Nvegmp-Molhro Hx Patient Social History Tobacco Use?: Yes Tobacco type used: Cigarettes Smoking Status: Current Everyday Smoker Use of E-Cig and/or Vaping dev: No Substance use?: No Alcohol Use?: No Pt feels they are or have been: No Immunizations Up To Date First/Initial COVID19 Vaccinat: 09/24/2021 Second COVID19 Vaccination Rafita: 09/24/2021 Third COVID19 Vaccination Date: 09/24/2021 Past Medical History Surgery/Hospitalization HX: RT KIDNEY DRAIN, HX OF KIDNEY DISEASE, HYPERTENSION, T&A, LYMPH NODES REMOVED FROM GROIN, GALLBLADDER, TUBAL LIGATION Physical Exam Vital Signs Vital Signs - First Documented 03/15/22 08:40 Temp 36.8 Pulse 94 Resp 16 B/P (MAP) 202/140 (160) Pulse Ox 95 O2 Delivery Room Air Capillary Refill : Less Than 3 Seconds Height/Weight/BMI Height: '" Weight: lbs. oz. kg; 39.00 BMI Method: Progress/Results/Core Measures Results/Orders Lab Results Laboratory Tests Test 03/15/22 08:52 03/15/22 10:11 03/15/22 10:57 Range/Units Urine Color YELLOW Urine Clarity CLEAR Urine pH 6.0 5-9 Urine Specific [place] >=1.030 1.016-1.022 Urine Protein 2+ H NEGATIVE Urine Glucose (UA) NEGATIVE NEGATIVE Urine Ketones NEGATIVE NEGATIVE Urine Nitrite NEGATIVE NEGATIVE Urine Bilirubin NEGATIVE NEGATIVE Urine Urobilinogen 0.2 < = 1.0 MG/DL Urine Leukocyte Esterase 2+ H NEGATIVE Urine RBC (Auto) 2+ H NEGATIVE Urine RBC 2-5 H /HPF Urine WBC 5-10 H /HPF Urine Squamous Epithelial Cells NONE /HPF Urine Crystals NONE /LPF Urine Bacteria MODERATE H /HPF Urine Casts NONE /LPF Urine Mucus NEGATIVE /LPF Urine Culture Indicated YES Urine Test NEGATIVE NEGATIVE White Blood Count 13.9 H 4.3-11.0 10^3/uL Red Blood Count 4.52 3.80-5.11 10^6/uL Hemoglobin 14.2 11.5-16.0 g/dL Hematocrit 40 35-52 % Mean Corpuscular Volume 89 80-99 fL Mean Corpuscular Hemoglobin 31 25-34 pg Mean Corpuscular Hemoglobin Concent 35 32-36 g/dL Red Cell Distribution Width 13.3 10.0-14.5 % Platelet Count 323 130-400 10^3/uL Mean Platelet Volume 9.6 9.0-12.2 fL Immature Granulocyte % (Auto) 0 % Neutrophils (%) (Auto) 66 42-75 % Lymphocytes (%) (Auto) 21 12-44 % Monocytes (%) (Auto) 8 0-12 % Eosinophils (%) (Auto) 4 0-10 % Basophils (%) (Auto) 1 0-10 % Neutrophils # (Auto) 9.2 H 1.8-7.8 10^3/uL Lymphocytes # (Auto) 2.9 1.0-4.0 10^3/uL Monocytes # (Auto) 1.1 H 0.0-1.0 10^3/uL Eosinophils # (Auto) 0.5 H 0.0-0.3 10^3/uL Basophils # (Auto) 0.1 0.0-0.1 10^3/uL Immature Granulocyte # (Auto) 0.0 0.0-0.1 10^3/uL Percent Immature Platelet Fraction 2.3 0.0-7.6 % Sodium Level 140 135-145 MMOL/L Potassium Level 4.0 3.6-5.0 MMOL/L Chloride Level 107 98-107 MMOL/L Carbon Dioxide Level 17 L 21-32 MMOL/L Anion Gap 16 H 5-14 MMOL/L Blood Urea Nitrogen 14 7-18 MG/DL Creatinine 0.79 0.60-1.30 MG/DL Estimat Glomerular Filtration Rate 95 BUN/Creatinine Ratio 18 Glucose Level 84 70-105 MG/DL Calcium Level 9.7 8.5-10.1 MG/DL Corrected Calcium 9.4 8.5-10.1 MG/DL Total Bilirubin 0.3 0.1-1.0 MG/DL Aspartate Amino Transf (AST/SGOT) 21 5-34 U/L Alanine Aminotransferase (ALT/SGPT) 18 0-55 U/L Alkaline Phosphatase 94 40-136 U/L C-Reactive Protein High Sensitivity 1.22 H 0.00-0.50 MG/DL Total Protein 8.3 H 6.4-8.2 GM/DL Albumin 4.4 3.2-4.5 GM/DL Lipase 43 8-78 U/L My Orders Orders - KATHI PAK MD Ua Culture If Indicated (03/15/22 08:38) Cbc With Automated Diff (03/15/22 09:23) Comprehensive Metabolic Panel (03/15/22 09:23) Hs C Reactive Protein (03/15/22 09:23) Lipase (03/15/22 09:23) Ed Iv/Invasive Line Start (03/15/22 09:23) Lactated Ringers (Lr 1000 Ml Iv Solution (03/15/22 09:30) Ondansetron Oral Dissolve Tab (Zofran (03/15/22 09:30) Morphine Injection (Morphine Injection (03/15/22 09:23) Urinalysis (03/15/22 08:52) Urine Culture (03/15/22 08:52) Ct Abdomen/Pelvis Wo (03/15/22 10:09) Fentanyl Inj (Sublimaze Injection) (03/15/22 11:15) Orphenadrine Inj (Ed Only) (Norflex Inje (03/15/22 13:15) Ketorolac Injection (Toradol Injection) (03/15/22 14:45) Hcg,Qualitative Urine (03/15/22 14:48) Ceftriaxone 1 Gm Pre-Mix (Rocephin 1 Gm (03/15/22 15:46) Morphine Injection (Morphine Injection (03/15/22 15:46) Diphenhydramine Injection (Benadryl Inje (03/15/22 16:15) Medications Given in ED Current Medications Medications Dose Ordered Sig/Faustino Route Start Time Stop Time Status Last Admin Dose Admin Fentanyl Citrate 75 mcg ONCE ONCE IVP 03/15/22 11:15 03/15/22 11:16 DC 03/15/22 11:09 75 MCG Ketorolac Tromethamine 30 mg ONCE ONCE IVP 03/15/22 14:45 03/15/22 14:46 DC 03/15/22 14:51 30 MG Lactated Ringer's 1,000 ml @ 0 mls/hr Q0M ONCE IV 03/15/22 09:30 03/15/22 09:31 DC 03/15/22 10:16 0 MLS/HR Ondansetron HCl 8 mg ONCE ONCE SL 03/15/22 09:30 03/15/22 09:31 DC 03/15/22 10:16 8 MG Orphenadrine Citrate 60 mg ONCE ONCE IV 03/15/22 13:15 03/15/22 13:16 DC 03/15/22 13:12 60 MG Vital Signs/I&O 03/15/22 08:40 Temp 36.8 Pulse 94 Resp 16 B/P (MAP) 202/140 (160) Pulse Ox 95 O2 Delivery Room Air Blood Pressure Mean: 160 Departure Impression Primary Impression: Right sided abdominal pain Additional Impressions: Right flank pain Urinary (tract) obstruction Complication of nephrostomy Allergic reaction to drug Qualified Codes: T78.40XA - Allergy, unspecified, initial encounter Disposition: HOME, SELF-CARE Condition: Stable Departure-Patient Inst. Decision time for Depature: 15:55 Referrals: [facility] [place] (PCP/Family) Primary Care Physician Patient Instructions: How to Care for Your Nephrostomy Tube, Urinary Tract Infection, Adult ED Add. Discharge Instructions: Complete your antibiotics as prescribed. Your culture results should be available by Monday. You may call the emergency room to check on culture results to ensure you are taking the most appropriate antibiotic for the type of infection you may have. Take Percocet as prescribed for pain management. Contact your urologist and/or conveyor monitor as soon as possible to discuss your symptoms. Drink plenty of clear liquids to stay well-hydrated. Return to the ER if you have worsening symptoms despite following these instructions. All discharge instructions reviewed with patient and/or family. Voiced understanding. Scripts Hydrocodone/Acetaminophen (Hydrocodone-Acetamin 5-325 mg) 5 Mg-325 Mg Tablet 1-2 TAB PO Q6H PRN for PAIN-MODERATE (5-7), #30 TAB Prov: KATHI PAK MD 03/15/22 Cefdinir (Cefdinir) 300 Mg Capsule 300 MG PO BID, #14 CAP 0 Refills Prov: KATHI PAK MD 03/15/22 KATHI PAK MD Mar 15, 2022 15:58
[2022-03-15] MEDS ORDERED: CEFD300C3 PO (16:09)
[2022-03-15] MEDS ORDERED: ACHD5005 PO (16:10)
[2022-03-15] MEDS ORDERED: diphenhydrAMINE 50 MG/ML INJ (BENADRYL) IVP ONE (16:15)
[2022-03-15] MEDS ORDERED: FAMOTIDINE 20 MG (PEPCID) TABLET PO ONE (16:45)
[2022-03-15 17:15] VITALS: BP 155/128
[2022-03-15] MEDS ORDERED: cloNIDine 0.1 MG (CATAPRES) TAB PO ONE (17:15)
== END 2022-03-15 17:15 | disposition home or self-care (01) ==
LOC: EDUNIT# 08:33 → ER 08:35
DX: N13.9 Obstructive and reflux uropathy, unspecified (principal); T83.092A Other mechanical complication of nephrostomy catheter, initial encounter; T78.40XA Allergy, unspecified, initial encounter; F17.210 Nicotine dependence, cigarettes, uncomplicated
CPT/HCPCS: 36415; 74176; 80053; 81000; 83690; 84703; 85025; 86141; 87077; 87088

== ENCOUNTER 2022-03-25 16:54 | Emergency (ER) | payer SELFPAY ==
[~2022-03-25] VITALS: Ht 162.6 cm; Wt 106.1 kg
[~2022-03-25 16:54] MED LIST: ACHD5005 PO; CEFD300C3 PO
--- NOTE | 2022-03-25 17:23 | ED Back Pain ---
General Chief Complaint: Back Problems Stated Complaint: BACK PAIN Nursing Triage Note: PT AMBULATE TO TRIAGE WITH C/O RIGHT SIDE FLANK PAIN. PT HAS A RIGHT SIDE NEPHROSTOMY TUBE AND STILL URINATES ON THE LEFT. PT STATES SHE WAS SENT FROM PCP. PCP THINK NEPHROSTOMY SITE IS INFECTED. PT REPORTS NEPHROSTOMY IS TO BE REMOVED 04/29/22. PT DENIES PAIN/BURNING WITH URINATION. History of Present Illness Date Seen by Provider: Mar 25, 2022 Time Seen by Provider: 17:23 Initial Comments Patient presents to the emergency department for right sided flank pain and possible infection from nephrostomy tube site. Reports that she had low grade fever today. Is scheduled to have kidney out on the 29 of April. States that they are waiting so long because she had a blood clot in her arm. Has not taken her pain medication since this AM. Denies nausea, vomiting or dysuria. Reports that this nephrostomy tube has been in place since February 19. Is currently on Cefdinir. Severity: Moderate Pain/Injury Location: Back (right flank) Associated Symptoms: fever (low grade); No lower back pain, No loss of bladder control Allergies and Home Medications Allergies Coded Allergies: shellfish derived (Verified Allergy, Severe, 02/15/22) morphine (Verified Allergy, Intermediate, Hives, 03/15/22) Hives and itching locally at IV site Iodinated Contrast Media (Verified Allergy, Unknown, 02/15/22) aspirin (Verified Allergy, Unknown, 02/15/22) Uncoded Allergies: IODINE CONTRAST (Allergy, Mild, 02/15/22) Patient Home Medication List Home Medication List Reviewed: Yes Cefdinir (Cefdinir) 300 Mg Capsule, 300 MG PO BID Prescribed by: KATHI JACKSON on 03/15/22 160 Hydrocodone Bit/Acetaminophen (HYDROcodone/APAP 5 MG/325 MG TAB) 1 Tab Tab, 1 TAB PO Q6H Prescribed by: Kareen Higginbotham on 03/25/222028 Hydrocodone/Acetaminophen (Hydrocodone-Acetamin 5-325 mg) 5 Mg-325 Mg Tablet, 1- 2 TAB PO Q6H PRN for PAIN-MODERATE (5-7) Prescribed by: KATHI JACKSON on 03/15/22 161 Review of Systems Constitutional: No chills, No dizziness; fever (low grade) EENTM: no symptoms reported Respiratory: no symptoms reported Cardiovascular: no symptoms reported Gastrointestinal: No abdominal pain, No constipation, No diarrhea, No nausea, No vomiting Genitourinary: No dysuria, No frequency, No hematuria Musculoskeletal: back pain (right sided flank pain) Skin: no symptoms reported All Other Systems Reviewed Negative Unless Noted: Yes Past Qiidevw-Ywrnzy-Tsrlvc Hx Patient Social History Tobacco Use?: Yes Smoking Status: Current Everyday Smoker Smokeless Tobacco Frequency: Never a User Use of E-Cig and/or Vaping dev: No Use of E-Cig and/or Vaping Fabian: Never a User Substance use?: No Alcohol Use?: No Pt feels they are or have been: No Immunizations Up To Date First/Initial COVID19 Vaccinat: 09/24/2021 Second COVID19 Vaccination Rafita: 09/24/2021 Third COVID19 Vaccination Date: 09/24/2021 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 oz. kg; 40.00 BMI Method: General Appearance: No Apparent Distress, WD/WN Cardiovascular: Regular Rate, Rhythm, No Edema Respiratory: Chest Non Tender, Lungs Clear, Normal Breath Sounds, No Accessory Muscle Use, No Respiratory Distress Gastrointestinal: Normal Bowel Sounds, Non Tender, Soft Back: CVA Tenderness (R) (at insertion site of nephrostomy tube, no drainage, no redness, no signs of infection) Extremity: Normal Capillary Refill, Normal Inspection, Normal Range of Motion, Non Tender, No Calf Tenderness Neurologic/Psychiatric: Alert, Oriented x3, Normal Mood/Affect Skin: Normal Color, Warm/Dry Progress/Results/Core Measures Results/Orders Lab Results Laboratory Tests Test 03/25/22 18:05 03/25/22 19:35 Range/Units Urine Color YELLOW Urine Clarity CLEAR Urine pH 6.0 5-9 Urine Specific Fleming 1.020 1.016-1.022 Urine Protein 2+ H NEGATIVE Urine Glucose (UA) NEGATIVE NEGATIVE Urine Ketones NEGATIVE NEGATIVE Urine Nitrite POSITIVE H NEGATIVE Urine Bilirubin NEGATIVE NEGATIVE Urine Urobilinogen 0.2 < = 1.0 MG/DL Urine Leukocyte Esterase 1+ H NEGATIVE Urine RBC (Auto) 3+ H NEGATIVE Urine RBC 10-25 H /HPF Urine WBC 5-10 H /HPF Urine Squamous Epithelial Cells 0-2 /HPF Urine Crystals NONE /LPF Urine Bacteria MODERATE H /HPF Urine Casts NONE /LPF Urine Mucus NEGATIVE /LPF Urine Culture Indicated YES White Blood Count 9.9 4.3-11.0 10^3/uL Red Blood Count 4.34 3.80-5.11 10^6/uL Hemoglobin 13.3 11.5-16.0 g/dL Hematocrit 39 35-52 % Mean Corpuscular Volume 89 80-99 fL Mean Corpuscular Hemoglobin 31 25-34 pg Mean Corpuscular Hemoglobin Concent 35 32-36 g/dL Red Cell Distribution Width 13.1 10.0-14.5 % Platelet Count 274 130-400 10^3/uL Mean Platelet Volume 9.3 9.0-12.2 fL Immature Granulocyte % (Auto) 0 % Neutrophils (%) (Auto) 60 42-75 % Lymphocytes (%) (Auto) 29 12-44 % Monocytes (%) (Auto) 7 0-12 % Eosinophils (%) (Auto) 3 0-10 % Basophils (%) (Auto) 1 0-10 % Neutrophils # (Auto) 5.9 1.8-7.8 10^3/uL Lymphocytes # (Auto) 2.9 1.0-4.0 10^3/uL Monocytes # (Auto) 0.7 0.0-1.0 10^3/uL Eosinophils # (Auto) 0.3 0.0-0.3 10^3/uL Basophils # (Auto) 0.1 0.0-0.1 10^3/uL Immature Granulocyte # (Auto) 0.0 0.0-0.1 10^3/uL Sodium Level 139 135-145 MMOL/L Potassium Level 4.0 3.6-5.0 MMOL/L Chloride Level 108 H 98-107 MMOL/L Carbon Dioxide Level 21 21-32 MMOL/L Anion Gap 10 5-14 MMOL/L Blood Urea Nitrogen 12 7-18 MG/DL Creatinine 0.84 0.60-1.30 MG/DL Estimat Glomerular Filtration Rate 88 BUN/Creatinine Ratio 14 Glucose Level 79 70-105 MG/DL Calcium Level 8.9 8.5-10.1 MG/DL Corrected Calcium 9.0 8.5-10.1 MG/DL Total Bilirubin 0.2 0.1-1.0 MG/DL Aspartate Amino Transf (AST/SGOT) 17 5-34 U/L Alanine Aminotransferase (ALT/SGPT) 17 0-55 U/L Alkaline Phosphatase 84 40-136 U/L Total Protein 7.2 6.4-8.2 GM/DL Albumin 3.9 3.2-4.5 GM/DL My Orders Orders - KAREEN HIGGINBOTHAM APRN Cbc With Automated Diff (03/25/22 17:29) Comprehensive Metabolic Panel (03/25/22 17:29) Ua Culture If Indicated (03/25/22 17:29) Hydrocodone/Apap 5/325 Tablet (Lortab 5 (03/25/22 17:45) Urine Culture (03/25/22 18:05) Ceftriaxone (Rocephin) (03/25/22 20:30) Lidocaine 1% Inj 20 Ml (Xylocaine 1% Inj (03/25/22 20:30) Medications Given in ED Current Medications Medications Dose Ordered Sig/Faustino Route Start Time Stop Time Status Last Admin Dose Admin Acetaminophen/ Hydrocodone Bitart 2 ea ONCE ONCE PO 03/25/22 17:45 03/25/22 17:46 DC 03/25/22 18:18 2 EA Ceftriaxone Sodium 2,000 mg ONCE ONCE IM 03/25/22 20:30 03/25/22 20:31 DC 03/25/22 20:52 2,000 MG Lidocaine HCl 4.2 ml ONCE ONCE INJ 03/25/22 20:30 03/25/22 20:31 DC 03/25/22 20:52 4.2 ML Vital Signs/I&O 03/25/22 17:04 Temp 37.4 Pulse 53 Resp 16 B/P (MAP) 178/126 (143) O2 Delivery Room Air Blood Pressure Mean: 143 Progress Progress Note : Progress Note Patient sent in by PCP to have nephrostomy site checked out to make sure it was not infected. Reports that she had a low grade fever at home this morning. Is scheduled to have her kidney removed on the 29 of April. Will check labs and urine and determine further treatment from there. Is currently on Cefdinir. 2020: Spoke to patient in regards to labs. Will give 2 grams of IM rocephin prior to discharge. Kidney function looks okay. WBC count is also normal. Has two pills of Cefdinir to take at this time. Instructed to stop that medication. Will go ahead and start on Bactrim BID for 10 days. Patient also requesting pain medication to get thru the weekend. Instructed that I will supply 20 pills at this time. Instructed to follow up with PCP/Urologist next week. Return here if worse or concerns. Departure Impression Primary Impression: Urinary tract infection Qualified Codes: T83.512A - Infection and inflammatory reaction due to nephrostomy catheter, initial encounter; N39.0 - Urinary tract infection, site not specified Disposition: HOME, SELF-CARE Condition: Stable Departure-Patient Inst. Decision time for Depature: 20:26 [place]: [facility] [place] ([place]P/Family) Primary Care Physician Add. Discharge Instructions: 1. Stop the Cefdinir that you were taking. Start the Bactrim and take as directed until finished. 2. Push fluids. 3. Alternate Tylenol/Ibuprofen as needed for pain. Do not take additional Tylenol while taking the Hydrocodone. 4. Hydrocodone as needed for severe pain. This medication can cause constipation so consider taking a stool softner while on this medication. No driving while taking this medication. 5. Follow up with PCP/Urologist next week. 6. Return here if worse or concerns. All discharge instructions reviewed with patient and/or family. Voiced un derstanding. Scripts Hydrocodone Bit/Acetaminophen (HYDROcodone/APAP 5 MG/325 MG TAB) 1 Tab Tab 1 TAB PO Q6H for Pain, #20 TAB 0 Refills Prov: KAREEN HIGGINBOTHAM APRN 03/25/22 KAREEN HIGGINBOTHAM APRN Mar 25, 2022 17:23
[2022-03-25] MEDS ORDERED: HYDROcodone/APAP 5 MG/325 MG (LORTAB) TAB PO ONE (17:45)
[2022-03-25 18:24] LABS: BILIRUBIN,URINE NEGATIVE (NEGATIVE); CLARITY,URINE CLEAR; COLOR,URINE YELLOW; GLUCOSE, URINE (UA) NEGATIVE (NEGATIVE); KETONES,URINE NEGATIVE (NEGATIVE); LEUKOCYTE ESTERASE ,URINE 1+ (NEGATIVE); NITRITE,URINE POSITIVE (NEGATIVE); PROTEIN,URINE 2+ (NEGATIVE)
[2022-03-25 18:32] LABS: BACTERIA,URINE MODERATE /HPF; SQUAMOUS EPITHELIAL CELL,UR 0-2 /HPF
[2022-03-25 19:39] LABS: BASOPHILS # (AUTO) 0.1 10^3/uL (0.0-0.1); BASOPHILS % (AUTO) 1 % (0-10); EOSINOPHILS # (AUTO) 0.3 10^3/uL (0.0-0.3); EOSINOPHILS % (AUTO) 3 % (0-10); HEMATOCRIT 39 % (35-52); HEMOGLOBIN 13.3 g/dL (11.5-16.0); LYMPHOCYTES # (AUTO) 2.9 10^3/uL (1.0-4.0); LYMPHOCYTES % (AUTO) 29 % (12-44); MEAN CORPUSCULAR HEMOGLOBIN 31 pg (25-34); MEAN CORPUSCULAR HGB CONC 35 g/dL (32-36); MEAN CORPUSCULAR VOLUME 89 fL (80-99); MEAN PLATELET VOLUME 9.3 fL (9.0-12.2); MONOCYTES # (AUTO) 0.7 10^3/uL (0.0-1.0); MONOCYTES % (AUTO) 7 % (0-12); NEUTROPHILS # (AUTO) 5.9 10^3/uL (1.8-7.8); NEUTROPHILS % (AUTO) 60 % (42-75); PLATELET COUNT 274 10^3/uL (130-400); WHITE BLOOD COUNT 9.9 10^3/uL (4.3-11.0)
[2022-03-25 20:14] LABS: ALBUMIN 3.9 GM/DL (3.2-4.5); BILIRUBIN,TOTAL 0.2 MG/DL (0.1-1.0); CALCIUM 8.9 MG/DL (8.5-10.1); CREATININE SERUM 0.84 MG/DL (0.60-1.30); TOTAL PROTEIN 7.2 GM/DL (6.4-8.2)
[2022-03-25] MEDS ORDERED: ACHD5005 PO (20:28)
[2022-03-25] MEDS ORDERED: cefTRIAXone 2,000 MG VIAL IM ONE (20:30)
[2022-03-25] MEDS ORDERED: LIDOCAINE 1% INJ 20 ML VIAL INJ ONE (20:30)
[2022-03-25 20:56] VITALS: BP 134/89
== END 2022-03-25 20:56 | disposition home or self-care (01) ==
LOC: EDUNIT# 16:54 → ER 16:56
DX: N39.0 Urinary tract infection, site not specified (principal); F17.200 Nicotine dependence, unspecified, uncomplicated; Z98.890 Other specified postprocedural states
CPT/HCPCS: 36415; 80053; 81000; 85025; 87077; 87088; 87186; 99284

== ENCOUNTER 2022-04-03 15:46 | Emergency (ER) | payer SELFPAY ==
[~2022-04-03] VITALS: Ht 162.5 cm; Wt 104.3 kg
[2022-04-03] MEDS ORDERED: ACHD5005 PO (16:11)
--- NOTE | 2022-04-03 16:12 | ED GU-Female ---
General Chief Complaint: - Reproductive Stated Complaint: KIDNEY PAIN Nursing Triage Note: PT AMB TO RM 7 WITH COMPLAINT OF RUQ PAIN. PT HAS NEPHROSTOMY IN RIGHT KINDEY. STATES PAIN STARTED THIS MORNING. STATES RAN OUT OF HER HYDROCODONE YESTERDAY. IS SUPPOSE TO HAVE KIDNEY REMOVED IN APRIL. History of Present Illness Date Seen by Provider: Apr 03, 2022 Time Seen by Provider: 16:00 Initial Comments Patient arrives to the emergency department for right sided flank pain. Was seen here on the for the same complaints. Currently has a nephrostomy tube in right kidney. Is scheduled to have her kidney removed on the of next month. States that she has tried to get pain medication from her doctor over the phone in and they won't prescribe it for her. States that she was told to go see a physician in [place] but states that her grand mother can not drive that far as the she (the patient) does not currently drive. Was seen here on the by myself and was given 20 Hydrocodone at that time. States that she just recently ran out of the medications. No change in symptoms otherwise. Is currently on Cipro for an infection in the urine. Timing/Duration: constant Severity/Quality: moderate Location: right flank Radiation: none Activities at Onset: none Prior Genitourinary Problems: similar symptoms Modifying Factors: Improves With Analgesics (hydrocodone helps) Associated Symptoms: No dysuria, No fever/chills Allergies and Home Medications Allergies Coded Allergies: shellfish derived (Verified Allergy, Severe, 02/15/22) morphine (Verified Allergy, Intermediate, Hives, 03/15/22) Hives and itching locally at IV site Iodinated Contrast Media (Verified Allergy, Unknown, 02/15/22) Sulfa (Sulfonamide Antibiotics) (Verified Allergy, Unknown, 04/03/22) aspirin (Verified Allergy, Unknown, 02/15/22) Uncoded Allergies: IODINE CONTRAST (Allergy, Mild, 02/15/22) Patient Home Medication List Home Medication List Reviewed: Yes Cefdinir (Cefdinir) 300 Mg Capsule, 300 MG PO BID Prescribed by: KATHI JACKSON on 03/15/221608 Hydrocodone Bit/Acetaminophen (HYDROcodone/APAP 5 MG/325 MG TAB) 1 Tab Tab, 1 TAB PO Q6H Prescribed by: Kareen Higginbotham on 03/25/222028 Hydrocodone Bit/Acetaminophen (HYDROcodone/APAP 5 MG/325 MG TAB) 1 Tab Tab, 1 TAB PO Q6H Prescribed by: Kareen Higginbotham on 04/03/221611 Hydrocodone/Acetaminophen (Hydrocodone-Acetamin 5-325 mg) 5 Mg-325 Mg Tablet, 1- 2 TAB PO Q6H PRN for PAIN-MODERATE (5-7) Prescribed by: KATHI JACKSON on 03/15/221610 Review of Systems Review of Systems Constitutional: No chills, No dizziness, No fever EENTM: no symptoms reported Respiratory: no symptoms reported Cardiovascular: no symptoms reported Gastrointestinal: no symptoms reported Genitourinary: no symptoms reported Musculoskeletal: back pain (right flank) All Other Systemes Reviewed Negative Unless Noted: Yes Past Zuiinpo-Evolxv-Oygqgy Hx Patient Social History Tobacco Use?: Yes Smoking Status: Current Everyday Smoker Use of E-Cig and/or Vaping dev: No Substance use?: No Alcohol Use?: No Pt feels they are or have been: No Immunizations Up To Date First/Initial COVID19 Vaccinat: 09/24/2021 Second COVID19 Vaccination Rafita: 09/24/2021 Third COVID19 Vaccination Date: 09/24/2021 Past Medical History Surgery/Hospitalization HX: RT KIDNEY DRAIN, HX OF KIDNEY DISEASE, HYPERTENSION, T&A, LYMPH NODES REMOVED FROM GROIN, GALLBLADDER, TUBAL LIGATION Family Medical History Reviewed Nursing Family Hx Physical Exam Vital Signs Vital Signs - First Documented 04/03/22 15:52 Pulse 66 Resp 17 B/P (MAP) 201/117 (145) Pulse Ox 100 O2 Delivery Room Air Capillary Refill : Less Than 3 Seconds Height, Weight, BMI Height: '" Weight: lbs. oz. kg; 39.00 BMI Method: General Appearance: WD/WN, no apparent distress Cardiovascular: normal peripheral pulses, regular rate, rhythm Respiratory: chest non-tender, lungs clear, normal breath sounds, no respiratory distress, no accessory muscle use Gastrointestinal: normal bowel sounds, non tender, soft Back: CVA tenderness (R); No CVA tenderness (L); other (nephrostomy tube to right kidney, no signs of infection at insertion site, tube intact and urine draining.) Extremities: normal range of motion, non-tender Neurologic/Psychiatric: alert, normal mood/affect, oriented x 3 Skin: normal color, warm/dry Progress/Results/Core Measures Suspected Sepsis SIRS Temperature: Pulse: 66 Respiratory Rate: 17 Blood Pressure 201 /117 Mean: 145 Results/Orders My Orders Orders - KAREEN HIGGINBOTHAM APRN Hydrocodone/Apap 5/325 Tablet (Lortab 5 (04/03/22 16:15) Medications Given in ED Current Medications Medications Dose Ordered Sig/Faustino Route Start Time Stop Time Status Last Admin Dose Admin Acetaminophen/ Hydrocodone Bitart 1 ea ONCE ONCE PO 04/03/22 16:15 04/03/22 16:16 DC 04/03/22 16:13 1 EA Vital Signs/I&O 04/03/22 04/03/22 15:52 16:15 Pulse 66 66 Resp 17 17 B/P (MAP) 201/117 (145) 182/101 Pulse Ox 100 100 O2 Delivery Room Air Room Air Capillary Refill : Less Than 3 Seconds Blood Pressure Mean: 145 Progress Note : Progress Note K tracs was utilized on patient. She has had 50 Hydrocodone since the of last month. Her OD risk score was 490. I explained to her that this is the last time that she will receive narcotics from the emergency department. Instructed that she needs to follow up with her physicians that are managing her nephrostomy tube. She states that she has been trying to get them to give her medications but they won't because she is trying to get them over the phone. Also is unable to go to [place] to be seen because she does not drive. States that her grandmother drives for her. Instructed that she will get a Hydrocodone here and 8 more and then no additional narcotics will be given as this is an ongoing issue and not acute. She verbalized understanding. Departure Impression Primary Impression: Right flank pain Disposition: HOME, SELF-CARE Condition: Stable Departure-Patient Inst. Decision time for Depature: 16:10 Referrals: [facility] – [place] (PCP/Family) Primary Care Physician Add. Discharge Instructions: 1. This is the last time that you will receive narcotic pain medication from the emergency department. 2. You need to follow up with your physicians for further narcotic pain man agement. 3. Return here if worse or concerns. All discharge instructions reviewed with patient and/or family. Voiced understanding. Scripts Hydrocodone Bit/Acetaminophen (HYDROcodone/APAP 5 MG/325 MG TAB) 1 Tab Tab 1 TAB PO Q6H for Pain, #8 TAB 0 Refills Prov: KAREEN HIGGINBOTHAM APRN 04/03/22 KAREEN HIGGINBOTHAM APRN Apr 03, 2022 16:12
[2022-04-03 16:15] VITALS: BP 182/101
[2022-04-03] MEDS ORDERED: HYDROcodone/APAP 5 MG/325 MG (LORTAB) TAB PO ONE (16:15)
== END 2022-04-03 16:17 | disposition home or self-care (01) ==
LOC: EDUNIT# 15:46 → ER 15:48
DX: R10.9 Unspecified abdominal pain (principal); F17.200 Nicotine dependence, unspecified, uncomplicated; Z93.6 Other artificial openings of urinary tract status; Z88.5 Allergy status to narcotic agent; Z87.448 Personal history of other diseases of urinary system
CPT/HCPCS: 99283

== ENCOUNTER 2022-06-10 13:38 | Emergency (ER) | payer SELFPAY ==
[~2022-06-10] VITALS: Ht 162.6 cm; Wt 110.2 kg
--- NOTE | 2022-06-10 14:35 | ED General ---
General Chief Complaint: Catheter/Drain/Tube Problems Stated Complaint: BLOOD COMING OUT NEPH TUBE Nursing Triage Note: PT AMB TO TRIAGE W C/O BLOOD IN NEPHROSTOMY TUBE SX NIGHT OF 06/08/22. PT ALSO C/O RIGHT FLANK PAIN, STATES "IT FEELS LIKE MY KIDNEY IS FULL AND NOT DRAINING WELL." PT REPORTS UTI LAST WK, STILL TAKING ABX. PT A&OX4. Source of Information: Patient Exam Limitations: No Limitations History of Present Illness Date Seen by Provider: Jun 10, 2022 Time Seen by Provider: 14:25 Initial Comments Patient is a 46-year-old female who presents to the emergency department for evaluation after partially dislodging her right nephrostomy tube when she got it stuck on a chair at home 2 days ago. She states she has had severe pain in the area and her output has been bloody in character. Denies any fever. States the nephrostomy has been in place since January. States she is scheduled for a nephrectomy at in June. Her primary urologist is at . She states her right kidney is atrophied and the tube was placed due to obstruction of the ureter. Denies any nausea/vomiting. Allergies and Home Medications Allergies Coded Allergies: shellfish derived (Verified Allergy, Severe, 02/15/22) morphine (Verified Allergy, Intermediate, Hives, 03/15/22) Hives and itching locally at IV site Iodinated Contrast Media (Verified Allergy, Unknown, 02/15/22) Sulfa (Sulfonamide Antibiotics) (Verified Allergy, Unknown, 04/03/22) aspirin (Verified Allergy, Unknown, 02/15/22) Uncoded Allergies: IODINE CONTRAST (Allergy, Mild, 02/15/22) Patient Home Medication List Home Medication List Reviewed: Yes Cefdinir (Cefdinir) 300 Mg Capsule, 300 MG PO BID Prescribed by: KATHI JACKSON on 03/15/22 160 Hydrocodone Bit/Acetaminophen (HYDROcodone/APAP 5 MG/325 MG TAB) 1 Tab Tab, 1 TAB PO Q6H Prescribed by: Kareen Garcia on 03/25/222028 Hydrocodone Bit/Acetaminophen (HYDROcodone/APAP 5 MG/325 MG TAB) 1 Tab Tab, 1 TAB PO Q6H Prescribed by: Kareen Garcia on 04/03/22 161 Hydrocodone/Acetaminophen (Hydrocodone-Acetamin 5-325 mg) 5 Mg-325 Mg Tablet, 1- 2 TAB PO Q6H PRN for PAIN-MODERATE (5-7) Prescribed by: KATHI JACKSON on 03/15/22 1611 Oxycodone HCl/Acetaminophen (Percocet 7.5-325 mg Tablet) 1 Each Tablet, 1 TAB PO Q6H PRN for PAIN-MODERATE Prescribed by: Dameon Tyler on 06/11/22 1206 Last Action: New Order Review of Systems Review of Systems Constitutional: no symptoms reported EENTM: no symptoms reported Respiratory: no symptoms reported Cardiovascular: no symptoms reported Gastrointestinal: see HPI Genitourinary: see HPI Musculoskeletal: no symptoms reported Skin: no symptoms reported Psychiatric/Neurological: No Symptoms Reported Hematologic/Lymphatic: No Symptoms Reported Immunological/Allergic: no symptoms reported Past Mhhtnjv-[place]-Uosqhc Hx Patient Social History Tobacco Use?: Yes Tobacco type used: Cigarettes Smoking Status: Current Everyday Smoker Use of E-Cig and/or Vaping dev: No Substance use?: No Alcohol Use?: No Immunizations Up To Date Influenza Vaccine Up-to-Date: Yes; Up-to-Date First/Initial COVID19 Vaccinat: 02/2021 Second COVID19 Vaccination Rafita: 02/2021 Third COVID19 Vaccination Date: 09/2021 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 oz. kg; 41.00 BMI Method: General Appearance: No Apparent Distress, WD/WN HEENT: PERRL/EOMI, TMs Normal, Normal ENT Inspection, Pharynx Normal Neck: Full Range of Motion, Normal Inspection, Non Tender, Supple Respiratory: Chest Non Tender, Lungs Clear, Normal Breath Sounds Cardiovascular: Regular Rate, Rhythm Gastrointestinal: Soft, Tenderness Neurologic/Psychiatric: Alert, Oriented x3, No Motor/Sensory Deficits, Normal Mood/Affect Skin: Normal Color, Warm/Dry Comments R flank TTP noted; nephrostomy tube appears partially dislodged Progress/Results/Core Measures Suspected Sepsis SIRS Temperature: Pulse: 100 Respiratory Rate: 20 Laboratory Tests 06/10/22 16:47: White Blood Count 11.4H Blood Pressure 149 /106 Mean: 120 Laboratory Tests 06/10/22 16:47: Creatinine 0.74, Platelet Count 293, Total Bilirubin 0.2 Results/Orders Lab Results Laboratory Tests Test 06/10/22 15:00 06/10/22 16:47 Range/Units Urine Color RED H Urine Clarity CLEAR Urine pH 7.0 5-9 Urine Specific [place] 1.020 1.016-1.022 Urine Protein 3+ H NEGATIVE Urine Glucose (UA) NEGATIVE NEGATIVE Urine Ketones 1+ H NEGATIVE Urine Nitrite POSITIVE H NEGATIVE Urine Bilirubin 2+ H NEGATIVE Urine Urobilinogen 2.0 < = 1.0 MG/DL Urine Leukocyte Esterase 2+ H NEGATIVE Urine RBC (Auto) 3+ H NEGATIVE Urine RBC TNTC H /HPF Urine WBC TNTC H /HPF Urine Squamous Epithelial Cells 5-10 /HPF Urine Crystals NONE /LPF Urine Bacteria LARGE H /HPF Urine Casts NONE /LPF Urine Mucus NEGATIVE /LPF Urine Culture Indicated YES White Blood Count 11.4 H 4.3-11.0 10^3/uL Red Blood Count 4.63 3.80-5.11 10^6/uL Hemoglobin 13.8 11.5-16.0 g/dL Hematocrit 40 35-52 % Mean Corpuscular Volume 86 80-99 fL Mean Corpuscular Hemoglobin 30 25-34 pg Mean Corpuscular Hemoglobin Concent 35 32-36 g/dL Red Cell Distribution Width 12.8 10.0-14.5 % Platelet Count 293 130-400 10^3/uL Mean Platelet Volume 9.5 9.0-12.2 fL Immature Granulocyte % (Auto) 0 % Neutrophils (%) (Auto) 75 42-75 % Lymphocytes (%) (Auto) 15 12-44 % Monocytes (%) (Auto) 6 0-12 % Eosinophils (%) (Auto) 4 0-10 % Basophils (%) (Auto) 1 0-10 % Neutrophils # (Auto) 8.6 H 1.8-7.8 10^3/uL Lymphocytes # (Auto) 1.7 1.0-4.0 10^3/uL Monocytes # (Auto) 0.7 0.0-1.0 10^3/uL Eosinophils # (Auto) 0.4 H 0.0-0.3 10^3/uL Basophils # (Auto) 0.1 0.0-0.1 10^3/uL Immature Granulocyte # (Auto) 0.0 0.0-0.1 10^3/uL Sodium Level 139 135-145 MMOL/L Potassium Level 4.0 3.6-5.0 MMOL/L Chloride Level 108 H 98-107 MMOL/L Carbon Dioxide Level 21 21-32 MMOL/L Anion Gap 10 5-14 MMOL/L Blood Urea Nitrogen 16 7-18 MG/DL Creatinine 0.74 0.60-1.30 MG/DL Estimat Glomerular Filtration Rate 102 BUN/Creatinine Ratio 22 Glucose Level 79 70-105 MG/DL Calcium Level 8.9 8.5-10.1 MG/DL Corrected Calcium 9.0 8.5-10.1 MG/DL Total Bilirubin 0.2 0.1-1.0 MG/DL Aspartate Amino Transf (AST/SGOT) 16 5-34 U/L Alanine Aminotransferase (ALT/SGPT) 13 0-55 U/L Alkaline Phosphatase 91 40-136 U/L Total Protein 7.1 6.4-8.2 GM/DL Albumin 3.9 3.2-4.5 GM/DL Micro Results Microbiology 06/10/22 Urine Culture - Preliminary, Resulted Escherichia coli My Orders Orders - DAMEON TYLER APRN Cbc With Automated Diff (06/10/22 14:29) Comprehensive Metabolic Panel (06/10/22 14:29) Abdomen/Kub 1view (06/10/22 14:29) Ua Culture If Indicated (06/10/22 14:29) Urine Culture (06/10/22 15:00) Fentanyl Inj (Sublimaze Injection) (06/10/22 16:15) Oxycodone/Acet 10/325mg Tablet (Percocet (06/10/22 17:15) Medications Given in ED Vital Signs/I&O 06/10/22 06/10/22 13:45 17:48 Temp 37.2 Pulse 100 104 Resp 20 18 B/P (MAP) 149/106 (120) 174/122 Pulse Ox 97 98 O2 Delivery Room Air Room Air Capillary Refill : Less Than 3 Seconds Blood Pressure Mean: 120 Progress Note : Progress Note Patient is nontoxic and well-hydrated on exam. Left nephrostomy tube does appear to have been dislodged. The sutures on the tube appear to have been pulled approximately 6 inches away from the skin. The area is not erythematous or markedly swollen on exam. Vital signs are reassuring without fever. Laboratory evaluation reassuring without anemia or evidence of kidney dysfunction. Urinalysis was obtained that is difficult to interpret. We will wait on urine culture for further guidance. Patient states she has been Augmentin for a UTI for the last several days and is currently still taking it. KUB shows the right nephrostomy tube appears to still be coiled in the area of the right kidney. Patient has been successfully able to flush the tube without issue. I spoke with patient's primary urologist at , Dr. Gonzalez, who states as long as patient is able to flush the tube and there is continued drainage that it is reasonable to secure the tube in place with dressing and have her follow-up with them. This was relayed to the patient who verbalized understanding. Return precautions for urgent symptomology discussed. Patient verbalized understanding. Consults Consults : Consults Notes Spoke with Dr. Gonzalez with urology who stated as long as the nephrostomy tube was able to be flushed and was still draining but there was no need for acute intervention; if the tube becomes unable to be flushed it will likely need to be replaced by interventional radiology Departure Impression Primary Impression: Nephrostomy tube displaced Disposition: 01 HOME, SELF-CARE Condition: Stable Departure-Patient Inst. Decision time for Depature: 17:25 Referrals: [facility] [place] ([place]) Primary Care Physician Patient Instructions: Flank Pain ED Add. Discharge Instructions: You have been given a short prescription of a stronger pain medication to help with your pain over the weekend. It is very important you follow-up with your regular doctor as soon as possible for discussion of further treatment. Your nephrostomy tube has been taped down. It is no longer sutured in. It is important that you are very careful to avoid further dislodgment of the tube. If you are unable to flush the tube successfully you will need to be reevaluated and likely have the tube replaced. All discharge instructions reviewed with patient and/or family. Voiced understanding. Scripts Oxycodone HCl/Acetaminophen (Percocet 7.5-325 mg Tablet) 1 Each Tablet 1 TAB PO Q6H PRN for PAIN-MODERATE MDD 4 TABS for 4 Days, #16 TAB 0 Refills Prov: DAMEON TYLER APRN 06/11/22 DAMEON TYLER APRN Jun 10, 2022 14:35
[2022-06-10] MEDS ORDERED: fentaNYL INJ 100 MCG/2 ML AMP IVP ONE (14:45)
[2022-06-10 15:11] LABS: CLARITY,URINE CLEAR; COLOR,URINE RED; GLUCOSE, URINE (UA) NEGATIVE (NEGATIVE); KETONES,URINE 1+ (NEGATIVE); LEUKOCYTE ESTERASE ,URINE 2+ (NEGATIVE); NITRITE,URINE POSITIVE (NEGATIVE); PROTEIN,URINE 3+ (NEGATIVE)
[2022-06-10 15:22] LABS: BACTERIA,URINE LARGE /HPF; RBC,URINE TNTC /HPF; WBC,URINE TNTC /HPF
[2022-06-10 16:01] LABS: BILIRUBIN,URINE 2+ (NEGATIVE)
[2022-06-10] MEDS ORDERED: fentaNYL INJ 100 MCG/2 ML AMP IM ONE (16:15)
--- NOTE | 2022-06-10 16:17 | Diagnostic Imaging Report ---
REASON FOR EXAM: Concern for dislodgment of a right-sided nephrostomy tube. COMPARISON: 03/15/2022. TECHNIQUE: Two views of the abdomen FINDINGS: A pigtail right-sided nephrostomy tube is visualized overlying the right kidney. No evidence of bowel obstruction. No free air. No acute osseous abnormalities are seen. IMPRESSION: Right-sided nephrostomy tube overlying the right kidney. Dictated by: Dictated on workstation # [id number]
[2022-06-10 16:54] LABS: BASOPHILS # (AUTO) 0.1 10^3/uL (0.0-0.1); BASOPHILS % (AUTO) 1 % (0-10); EOSINOPHILS # (AUTO) 0.4 10^3/uL (0.0-0.3); EOSINOPHILS % (AUTO) 4 % (0-10); HEMATOCRIT 40 % (35-52); HEMOGLOBIN 13.8 g/dL (11.5-16.0); LYMPHOCYTES # (AUTO) 1.7 10^3/uL (1.0-4.0); LYMPHOCYTES % (AUTO) 15 % (12-44); MEAN CORPUSCULAR HEMOGLOBIN 30 pg (25-34); MEAN CORPUSCULAR HGB CONC 35 g/dL (32-36); MEAN CORPUSCULAR VOLUME 86 fL (80-99); MEAN PLATELET VOLUME 9.5 fL (9.0-12.2); MONOCYTES # (AUTO) 0.7 10^3/uL (0.0-1.0); MONOCYTES % (AUTO) 6 % (0-12); NEUTROPHILS # (AUTO) 8.6 10^3/uL (1.8-7.8); NEUTROPHILS % (AUTO) 75 % (42-75); PLATELET COUNT 293 10^3/uL (130-400); WHITE BLOOD COUNT 11.4 10^3/uL (4.3-11.0)
[2022-06-10 17:07] LABS: ALBUMIN 3.9 GM/DL (3.2-4.5)
[2022-06-10 17:08] LABS: CALCIUM 8.9 MG/DL (8.5-10.1)
[2022-06-10 17:10] LABS: TOTAL PROTEIN 7.1 GM/DL (6.4-8.2)
[2022-06-10 17:11] LABS: BILIRUBIN,TOTAL 0.2 MG/DL (0.1-1.0)
[2022-06-10 17:13] LABS: CREATININE SERUM 0.74 MG/DL (0.60-1.30)
[2022-06-10] MEDS ORDERED: oxyCODONE/APAP 10/325MG (PERCOCET 10) TABLET PO ONE (17:15)
[2022-06-10] MEDS ORDERED: OXYC1TAB16 PO (17:27)
[2022-06-10 17:48] VITALS: BP 174/122
[2022-06-11] MEDS ORDERED: OXYC1TAB16 PO (12:05)
== END 2022-06-10 17:57 | disposition home or self-care (01) ==
LOC: EDUNIT# 13:38 → ER 13:40
DX: T83.022A Displacement of nephrostomy catheter, initial encounter (principal); F17.210 Nicotine dependence, cigarettes, uncomplicated; Z87.448 Personal history of other diseases of urinary system; Z88.5 Allergy status to narcotic agent; Z88.6 Allergy status to analgesic agent
CPT/HCPCS: 36415; 74018; 80053; 81000; 85025; 87077; 87088; 87186

== ENCOUNTER 2022-07-07 03:05 | Emergency (ER) | payer OTHER ==
[~2022-07-07 03:05] MED LIST changes: +OXYC1TAB16 PO
[2022-07-07] MEDS ORDERED: fentaNYL INJ 100 MCG/2 ML AMP IVP STA ×2 (03:38→04:29)
[2022-07-07 03:43] LABS: BASOPHILS # (AUTO) 0.1 10^3/uL (0.0-0.1); BASOPHILS % (AUTO) 1 % (0-10); EOSINOPHILS # (AUTO) 0.4 10^3/uL (0.0-0.3); EOSINOPHILS % (AUTO) 5 % (0-10); HEMATOCRIT 37 % (35-52); HEMOGLOBIN 13.2 g/dL (11.5-16.0); LYMPHOCYTES # (AUTO) 2.9 10^3/uL (1.0-4.0); LYMPHOCYTES % (AUTO) 33 % (12-44); MEAN CORPUSCULAR HEMOGLOBIN 30 pg (25-34); MEAN CORPUSCULAR HGB CONC 36 g/dL (32-36); MEAN CORPUSCULAR VOLUME 84 fL (80-99); MONOCYTES # (AUTO) 0.7 10^3/uL (0.0-1.0); MONOCYTES % (AUTO) 8 % (0-12); NEUTROPHILS # (AUTO) 4.8 10^3/uL (1.8-7.8); NEUTROPHILS % (AUTO) 54 % (42-75); PLATELET COUNT 333 10^3/uL (130-400); WHITE BLOOD COUNT 8.9 10^3/uL (4.3-11.0)
[2022-07-07 03:52] LABS: ALBUMIN 3.8 GM/DL (3.2-4.5); POTASSIUM 3.7 MMOL/L (3.6-5.0)
[2022-07-07 03:53] LABS: CALCIUM 8.9 MG/DL (8.5-10.1)
[2022-07-07 03:54] LABS: TOTAL PROTEIN 7.2 GM/DL (6.4-8.2)
[2022-07-07 03:55] LABS: BILIRUBIN,URINE NEGATIVE (NEGATIVE); CLARITY,URINE CLOUDY; COLOR,URINE YELLOW; GLUCOSE, URINE (UA) NEGATIVE (NEGATIVE); KETONES,URINE NEGATIVE (NEGATIVE); LEUKOCYTE ESTERASE ,URINE 3+ (NEGATIVE); NITRITE,URINE POSITIVE (NEGATIVE); PH,URINE 6.5 (5-9); PROTEIN,URINE TRACE (NEGATIVE)
[2022-07-07 03:56] LABS: BILIRUBIN,TOTAL 0.2 MG/DL (0.1-1.0)
[2022-07-07 03:58] LABS: CREATININE SERUM 0.87 MG/DL (0.60-1.30)
[2022-07-07 04:03] LABS: BACTERIA,URINE LARGE /HPF; RBC,URINE 0-2 /HPF; WBC,URINE 50-100 /HPF
[2022-07-07] MEDS ORDERED: cefTRIAXone 1 GM PRE-MIX 50 ML IV ONE (04:15)
[2022-07-07] MEDS ORDERED: KETOROLAC 30 MG/ML VIAL IVP STA (04:29)
[2022-07-07] MEDS ORDERED: ONDANSETRON 4 MG/2 ML (SDV) Z0FRAN IVP ONE (04:30)
--- NOTE | 2022-07-07 04:37 | ED GU-Female ---
General Chief Complaint: Catheter/Drain/Tube Problems Stated Complaint: LOWER BACK PAIN Nursing Triage Note: TO ED VIA [facility] FROM HOME TO ROOM 6. PT STATES SHE WOKE UP AT APPROX 0200 WITH SEVERE PAIN IN AREA OF RIGHT UROSTOMY. PT STATES SHE TRIED FLUSHING TUBE, BUT "IT JUST WENT DOWN MY BACK". PT EMPTIED APPROX 200CC FROM UROSTOMY BAG AT 2300 LAST NOC. PT STATES MULTIPLE TIMES, "MY KIDNEY IS FULL". UROLOGIST IS AT AND PT IS SCHEDULED FOR RIGHT NEPHRECTOMY LATER THIS MONTH. PT STATES LAST MONDAY SHE HAD E COLI IN URINE AND "[facility] WANTED PCP TO TREAT IT AND PCP WANTED [facility] TO TREAT IT" SO PT STATES SHE "SELF MEDICATED" WITH OLD RX OF CEFDINIR. Source: patient History of Present Illness Date Seen by Provider: Jul 07, 2022 Time Seen by Provider: 03:08 Initial Comments PT ARRIVES VIA POV FROM HOME PT HAS HAD A RIGHT NEPHROSTOMY TUBE IN PLACE SINCE JANUARY, FOR ATROPHIC AND OBSTRUCTED RIGHT KIDNEY. SHE IS SCHEDULED TO HAVE A NEPHRECTOMY 07/22/22 AT , AND HAS A "TELE-HEALTH" VISIT TODAY WITH THE UROLOGIST. SHE WAS SEEN HERE 06/10/22 WHEN IT BECAME DISPLACED, AFTER CATCHING IT ON A CHAIR AND THE SUTURES HAD COME OUT. IT HAD BEEN FUNCTIONING FINE, AND FLUSHED EASILY SHE HAS NOT HAD ANY PROBLEMS WITH IT UNTIL TONIGHT. SHE EMPTIED APPROXIMATELY 200 ML URINE FROM THE UROSTOMY BAG AROUND 2300 BEFORE SHE WENT TO SLEEP SHE WOKE UP AT 0200 WITH SEVERE PAIN IN HER RIGHT FLANK AND HAS BEEN UNABLE TO FLUSH THE TUBE--STATES WATER JUST COMES BACK OUT AROUND THE TUBE AND DOWN HER BACK. STATES THAT HER RIGHT KIDNEY "FEELS FULL" NO FEVER. NO NAUSEA/VOMITING SHE HAS A FUNCTIONING LEFT KIDNEY AND URINATES A NORMALLY, IN ADDITION TO MAKING URINE WITH HER RIGHT KIDNEY WHICH DRAINS INTO THE RIGHT UROSTOMY. SHE HAS NOT HAD ANY TYPICAL UTI SYMPTOMS WHEN SHE URINATES HER URINE FROM HER BLADDER AND FROM HER UROSTOMY HAS BEEN A NORMAL COLOR SHE HAS HAD A PREVIOUS URINE CULTURE THAT GREW OUT E.COLI, AND ON MONDAY SHE STARTED TAKING SOME LEFT OVER CEFDINIR--SELF-TREATED, SHE STATES THAT BOTH AND HER PCP DEFERRED TO THE OTHER FOR TREATMENT. SHE HAS HYDROCODONE AT HOME, BUT SHE HAS NOT TAKEN ANY SINCE SHE WOKE UP AT 0200 SHE HAS BEEN HERE SEVERAL TIMES, IN THE LAST FEW MONTHS, FOR COMPLAINTS OF FLANK PAIN OR ISSUES RELATED TO UROSTOMY. SHE HAS RECEIVED MULTIPLE RX'S FOR NARCOTICS FROM ER. SHE HAS STATED ON PREVIOUS VISITS, THAT SHE WAS SUPPOSED TO HAVE HAD A NEPHRECTOMY 04/29/22. PT DOES NOT MENTION THIS TO ME-STATES TO ME THAT IT IS SCHEDULED FOR JULY 22. PCP: [facility] Allergies and Home Medications Allergies Coded Allergies: shellfish derived (Verified Allergy, Severe, 02/15/22) morphine (Verified Allergy, Intermediate, Hives, 03/15/22) Hives and itching locally at IV site Iodinated Contrast Media (Verified Allergy, Unknown, 02/15/22) Sulfa (Sulfonamide Antibiotics) (Verified Allergy, Unknown, 04/03/22) aspirin (Verified Allergy, Unknown, 02/15/22) Uncoded Allergies: IODINE CONTRAST (Allergy, Mild, 02/15/22) Patient Home Medication List Home Medication List Reviewed: Yes Cefdinir (Cefdinir) 300 Mg Capsule, 300 MG PO BID Prescribed by: KATHI JACKSON on 03/15/22 1609 Cefdinir (Cefdinir) 300 Mg Capsule, 300 MG PO BID Prescribed by: SHANNON ROCHA on 07/07/22 0439 Hydrocodone Bit/Acetaminophen (HYDROcodone/APAP 5 MG/325 MG TAB) 1 Tab Tab, 1 TAB PO Q6H Prescribed by: Kareen Garcia on 03/25/22 202 Hydrocodone Bit/Acetaminophen (HYDROcodone/APAP 5 MG/325 MG TAB) 1 Tab Tab, 1 TAB PO Q6H Prescribed by: Kareen Garcia on 04/03/22 1612 Hydrocodone/Acetaminophen (Hydrocodone-Acetamin 5-325 mg) 5 Mg-325 Mg Tablet, 1- 2 TAB PO Q6H PRN for PAIN-MODERATE (5-7) Prescribed by: KATHI JACKSON on 03/15/22 1611 Hydrocodone/Acetaminophen (Hydrocodone-Acetamin 10-325 mg) 10 Mg-325 Mg Tablet, 1 EACH PO Q4H Prescribed by: SHANNON ROCHA on 07/07/22 0440 Ondansetron (Ondansetron Odt) 8 Mg Tab.rapdis, 8 MG PO Q6H Prescribed by: SHANNON ROCHA on 07/07/22 0439 Oxycodone HCl/Acetaminophen (Percocet 7.5-325 mg Tablet) 1 Each Tablet, 1 TAB PO Q6H PRN for PAIN-MODERATE Prescribed by: Dameon Tyler on 06/11/22 1206 Review of Systems Review of Systems Constitutional: no symptoms reported; No fever Respiratory: no symptoms reported Cardiovascular: no symptoms reported Gastrointestinal: No abdominal pain, No nausea, No vomiting Genitourinary: see HPI, flank pain Musculoskeletal: see HPI, back pain Skin: no symptoms reported Psychiatric/Neurological: No Symptoms Reported Endocrine: No Symptoms Reported Hematologic/Lymphatic: No Symptoms Reported Past Bhqspvy-Ttvzzk-Xtnrlt Hx Patient Social History Tobacco Use?: Yes Tobacco type used: Cigarettes Smoking Status: Current Everyday Smoker Substance use?: No Alcohol Use?: No Immunizations Up To Date Influenza Vaccine Up-to-Date: No; Not Current First/Initial COVID19 Vaccinat: 02/2021 Second COVID19 Vaccination Rafita: 02/2021 Third COVID19 Vaccination Date: 09/2021 Past Medical History Surgery/Hospitalization HX: RT KIDNEY DRAIN, HX OF KIDNEY DISEASE, HYPERTENSION, T&A, LYMPH NODES REMOVED FROM GROIN, GALLBLADDER, TUBAL LIGATION Surgeries: Yes Gallbladder, Renal, Tubal Ligation Respiratory: No Cardiac: Yes (DVT RIGHT ARM IN 2021. `) Deep Vein Thrombosis, Hypertension Neurological: No Genitourinary: Yes (RIGHT KIDNEY OBSTRUCTED AND ATROPHIC. ) UTI-Chronic Gastrointestinal: No Musculoskeletal: No Endocrine: No HEENT: No Cancer: No Physical Exam Vital Signs Vital Signs - First Documented 07/07/22 03:08 Temp 36.3 Pulse 89 Resp 22 B/P (MAP) 198/154 (169) Pulse Ox 100 O2 Delivery Room Air Capillary Refill : Less Than 3 Seconds Height, Weight, BMI Height: '" Weight: lbs. oz. kg; 41.00 BMI Method: General Appearance: WD/WN, other (CRYING, MOANING. ROCKING BACK AND FORTH. ) Neck: normal inspection Cardiovascular: regular rate, rhythm, no murmur Respiratory: normal breath sounds, no respiratory distress, no accessory muscle use Gastrointestinal: non tender, soft Back: other (NEPHROSTOMY TUBE TO RIGHT FLANK AREA, WITH NO PURULENCE, OR SIGNS OF INFECTION TO SURROUNDING SKIN. THERE ARE NO SUTURES PRESENT. UNABLE TO ADVANCE OR RETRACT THE TUBE. ) Extremities: normal inspection Neurologic/Psychiatric: health information coder II-XII nml as tested, no motor/sensory deficits, alert, oriented x 3 Skin: normal color, warm/dry Progress/Results/Core Measures Suspected Sepsis SIRS Temperature: Pulse: 89 Respiratory Rate: 22 Laboratory Tests 07/07/22 03:32: White Blood Count 8.9 Blood Pressure 198 /154 Mean: 169 Laboratory Tests 07/07/22 03:32: Creatinine 0.87, Platelet Count 333, Total Bilirubin 0.2 Results/Orders Lab Results Laboratory Tests Test 07/07/22 03:32 07/07/22 03:50 Range/Units White Blood Count 8.9 4.3-11.0 10^3/uL Red Blood Count 4.41 3.80-5.11 10^6/uL Hemoglobin 13.2 11.5-16.0 g/dL Hematocrit 37 35-52 % Mean Corpuscular Volume 84 80-99 fL Mean Corpuscular Hemoglobin 30 25-34 pg Mean Corpuscular Hemoglobin Concent 36 32-36 g/dL Red Cell Distribution Width 12.8 10.0-14.5 % Platelet Count 333 130-400 10^3/uL Mean Platelet Volume 9.0 9.0-12.2 fL Immature Granulocyte % (Auto) 0 % Neutrophils (%) (Auto) 54 42-75 % Lymphocytes (%) (Auto) 33 12-44 % Monocytes (%) (Auto) 8 0-12 % Eosinophils (%) (Auto) 5 0-10 % Basophils (%) (Auto) 1 0-10 % Neutrophils # (Auto) 4.8 1.8-7.8 10^3/uL Lymphocytes # (Auto) 2.9 1.0-4.0 10^3/uL Monocytes # (Auto) 0.7 0.0-1.0 10^3/uL Eosinophils # (Auto) 0.4 H 0.0-0.3 10^3/uL Basophils # (Auto) 0.1 0.0-0.1 10^3/uL Immature Granulocyte # (Auto) 0.0 0.0-0.1 10^3/uL Sodium Level 140 135-145 MMOL/L Potassium Level 3.7 3.6-5.0 MMOL/L Chloride Level 108 H 98-107 MMOL/L Carbon Dioxide Level 20 L 21-32 MMOL/L Anion Gap 12 5-14 MMOL/L Blood Urea Nitrogen 15 7-18 MG/DL Creatinine 0.87 0.60-1.30 MG/DL Estimat Glomerular Filtration Rate 84 BUN/Creatinine Ratio 17 Glucose Level 114 H 70-105 MG/DL Calcium Level 8.9 8.5-10.1 MG/DL Corrected Calcium 9.1 8.5-10.1 MG/DL Total Bilirubin 0.2 0.1-1.0 MG/DL Aspartate Amino Transf (AST/SGOT) 17 5-34 U/L Alanine Aminotransferase (ALT/SGPT) 12 0-55 U/L Alkaline Phosphatase 93 40-136 U/L Total Protein 7.2 6.4-8.2 GM/DL Albumin 3.8 3.2-4.5 GM/DL Urine Color YELLOW Urine Clarity CLOUDY Urine pH 6.5 5-9 Urine Specific [place] 1.025 H 1.016-1.022 Urine Protein TRACE H NEGATIVE Urine Glucose (UA) NEGATIVE NEGATIVE Urine Ketones NEGATIVE NEGATIVE Urine Nitrite POSITIVE H NEGATIVE Urine Bilirubin NEGATIVE NEGATIVE Urine Urobilinogen 0.2 < = 1.0 MG/DL Urine Leukocyte Esterase 3+ H NEGATIVE Urine RBC (Auto) 1+ H NEGATIVE Urine RBC 0-2 /HPF Urine WBC 50-100 H /HPF Urine Squamous Epithelial Cells 2-5 /HPF Urine Crystals NONE /LPF Urine Bacteria LARGE H /HPF Urine Casts NONE /LPF Urine Mucus NEGATIVE /LPF Urine Culture Indicated YES My Orders Orders - SHANNON ROCHA DO Ed Iv/Invasive Line Start (07/07/22 03:38) Cbc With Automated Diff (07/07/22 03:38) Comprehensive Metabolic Panel (07/07/22 03:38) Ua Culture If Indicated (07/07/22 03:38) Fentanyl Inj (Sublimaze Injection) (07/07/22 03:38) Urine Culture (07/07/22 03:50) Ceftriaxone 1 Gm Pre-Mix (Rocephin 1 Gm (07/07/22 04:15) Ondansetron Injection (Zofran Injectio (07/07/22 04:30) Fentanyl Inj (Sublimaze Injection) (07/07/22 04:29) Ketorolac Injection (Toradol Injection) (07/07/22 04:29) Hydralazine Injection (Apresoline Inject (07/07/22 04:45) Medications Given in ED Vital Signs/I&O Capillary Refill : Less Than 3 Seconds Blood Pressure Mean: 169 Progress Note : Progress Note ATTEMPTED TO FLUSH THE NEPHROSTOMY TUBE WITH STERILE SALINE, WITHOUT SUCCESS. SALINE LEAKS OUT AROUND THE SITE, BUT NO RESISTANCE ON FLUSHING. NO SWELLING OF TISSUES ON IRRITATION ATTEMPTS. GIVEN -TORADOL AND FENTANYL FOR PAIN -ZOFRAN FOR NAUSEA -ROCEPHIN FOR UTI -HYDRALAZINE FOR HTN. NO SIGNS OF SEPSIS NO DETERIORATION IN PT'S CONDITION DURING ER STAY PAIN IS IMPROVED WITH MEDICATIONS, AND BP IS COMING DOWN. WE DO NOT HAVE UROLOGY OR INTERVENTIONAL RADIOLOGY AT THIS TIME AT THIS FACILITY. DISCUSSED OPTIONS WITH PT, CANNOT ACCEPT HER IN TRANSFER AT THIS TIME, AND NEITHER CAN [facility]. SHE DOES NOT WISH TO TRY OTHER FACILITIES, SHE IS ALREADY ESTABLISHED AT FOR THIS PROBLEM SHE IS SCHEDULED TO HAVE A TELE-HEALTH VISIT TODAY, AND SCHEDULED NEPHRECTOMY THIS MONTH, ADVISED HER TO KEEP THE VISIT TODAY, AND ENCOURAGED HER TO GO DIRECTLY TO IF HER SYMPTOMS WORSEN. WILL SEND HER HOME WITH TAKE HOME MEDICATIONS FOR PAIN AND NAUSEA, AND RX FOR HIGHER DOSE HYDROCODONE. ( PT STATES THAT [facility] WILL NOT FILL PRESCRIPTIONS OTHER THAN FOR HYDROCODONE ) Departure Communication (Admissions) 0313--CALLED , THEY ARE [facility] [place] AND CANNOT ACCEPT THE PATIENT. NO INTERVENTIONAL RADIOLOGY AVAILABLE AT THIS TIME FOR CONSULT. ADVISE PT TO KEEP APPOINTMENT TODAY 0317--CALLED [facility], THEY ARE AT [facility], AND CANNOT ACCEPT THE PATIENT, BUT WILL PAGE UROLOGIST FOR CONSULT. 0335--SPOKE WITH DR. HALEY, UROLOGIST AT [facility]. HE ADVISES THAT PT WOULD NEED INTERVENTIONAL RADIOLOGY, WHICH [facility] DOES NOT CURRENTLY HAVE. HE ADVISES TO HAVE PT FOLLOW UP WITH TOMORROW. Impression Primary Impression: Obstructed nephrostomy tube Additional Impressions: Urinary tract infection HTN (hypertension) Disposition: 01 HOME, SELF-CARE Condition: Stable Departure-Patient Inst. Decision time for Depature: 04:33 Referrals: [facility] (PCP/Family) Primary Care Physician Patient Instructions: How to Care for Your Urostomy or Continent Diversion, Urinary Tract Infection, Adult (DC) Add. Discharge Instructions: CALL YOUR UROLOGIST AT THIS MORNING FOR FURTHER INSTRUCTIONS--KEEP YOUR TELE- HEALTH VISIT TODAY, OR YOU MAY GO TO ER IF YOUR SYMPTOMS WORSEN. CONTINUE YOUR REGULAR MEDICATIONS PRESCRIBED. All discharge instructions reviewed with patient and/or family. Voiced understanding. Scripts Ondansetron (Ondansetron Odt) 8 Mg Tab.rapdis 8 MG PO Q6H, #10 TAB Prov: SHANNON ROCHA DO 07/07/22 Cefdinir (Cefdinir) 300 Mg Capsule 300 MG PO BID, #20 CAP Prov: SHANNON ROCHA DO 07/07/22 Hydrocodone/Acetaminophen (Hydrocodone-Acetamin 10-325 mg) 10 Mg-325 Mg Tablet 1 EACH PO Q4H for Pain, #15 TAB Prov: SHANNON ROCHA DO 07/07/22 SHANNON ROCHA DO Jul 07, 2022 04:37
[2022-07-07] MEDS ORDERED: ONDA8TAB13 PO (04:39)
[2022-07-07] MEDS ORDERED: CEFD300C3 PO (04:39)
[2022-07-07] MEDS ORDERED: HYDR-3820 PO (04:39)
[2022-07-07] MEDS ORDERED: hydrALAZINE (APESOLINE) 20 MG/ML VIAL IV ONE (04:45)
[2022-07-07 05:30] VITALS: BP 189/116
[2022-07-08] MEDS ORDERED: CEFD300C3 PO (14:57)
== END 2022-07-07 05:30 | disposition home or self-care (01) ==
LOC: EDUNIT# 03:05 → ER 03:06
DX: N99.528 Other complication of incontinent external stoma of urinary tract (principal); N39.0 Urinary tract infection, site not specified; I10 Essential (primary) hypertension; F17.210 Nicotine dependence, cigarettes, uncomplicated; Z88.5 Allergy status to narcotic agent; Z88.2 Allergy status to sulfonamides; Z88.6 Allergy status to analgesic agent
CPT/HCPCS: 36415; 80053; 81000; 85025; 87077; 87088; 87186; 99283

== ENCOUNTER 2022-07-08 10:31 | Emergency (ER) | payer OTHER ==
[~2022-07-08] VITALS: Ht 162 cm; Wt 108.8 kg
[~2022-07-08 10:31] MED LIST changes: +HYDR-3820 PO; +ONDA8TAB13 PO
[2022-07-08] MEDS ORDERED: fentaNYL INJ 100 MCG/2 ML AMP IVP ONE ×3 (11:00→14:15)
--- NOTE | 2022-07-08 11:05 | ED GU-Female ---
General Chief Complaint: - Reproductive Stated Complaint: ABD ISSUES Nursing Triage Note: PT PRESENTS TO ED WITH COMPLAINTS OF DECREASED URINATION FROM R NEPHROSTOMY TUBE X 2-3 DAYS. PT ALSO REPORST R FLANK PAIN. Source: patient Exam Limitations: no limitations History of Present Illness Date Seen by Provider: Jul 08, 2022 Time Seen by Provider: 11:02 Initial Comments To ER with right flank pain for the past 2 days no fevers or chills. This will be her second nephrostomy tube each of which placed at [facility] for a right ureteral obstruction which she reports is from "scar tissue". She was here within the past 48 hours and there were no beds at , she called her doctor at and was told to come up there but she does not have a car so she would like us to send her up there by ambulance. She provides her own history. Timing/Duration: constant Severity/Quality: moderate Location: unknown Radiation: none Activities at Onset: none Prior Genitourinary Problems: none Allergies and Home Medications Allergies Coded Allergies: shellfish derived (Verified Allergy, Severe, 02/15/22) morphine (Verified Allergy, Intermediate, Hives, 03/15/22) Hives and itching locally at IV site Iodinated Contrast Media (Verified Allergy, Unknown, 02/15/22) Sulfa (Sulfonamide Antibiotics) (Verified Allergy, Unknown, 04/03/22) aspirin (Verified Allergy, Unknown, 02/15/22) Uncoded Allergies: IODINE CONTRAST (Allergy, Mild, 02/15/22) Patient Home Medication List Home Medication List Reviewed: Yes Cefdinir (Cefdinir) 300 Mg Capsule, 300 MG PO BID Prescribed by: KATHI JACKSON on 03/15/221608 Cefdinir (Cefdinir) 300 Mg Capsule, 300 MG PO BID Prescribed by: SHANNON ROCHA on 07/07/22 0439 Hydrocodone Bit/Acetaminophen (HYDROcodone/APAP 5 MG/325 MG TAB) 1 Tab Tab, 1 TAB PO Q6H Prescribed by: Kareen Garcia on 03/25/222028 Hydrocodone Bit/Acetaminophen (HYDROcodone/APAP 5 MG/325 MG TAB) 1 Tab Tab, 1 TAB PO Q6H Prescribed by: Kareen Garcia on 04/03/22 161 Hydrocodone/Acetaminophen (Hydrocodone-Acetamin 5-325 mg) 5 Mg-325 Mg Tablet, 1- 2 TAB PO Q6H PRN for PAIN-MODERATE (5-7) Prescribed by: KATHI JACKSON on 03/15/22 1611 Hydrocodone/Acetaminophen (Hydrocodone-Acetamin 10-325 mg) 10 Mg-325 Mg Tablet, 1 EACH PO Q4H Prescribed by: SHANNON ROCHA on 07/07/22 0440 Ondansetron (Ondansetron Odt) 8 Mg Tab.rapdis, 8 MG PO Q6H Prescribed by: SHANNON ROCHA on 07/07/22 0439 Oxycodone HCl/Acetaminophen (Percocet 7.5-325 mg Tablet) 1 Each Tablet, 1 TAB PO Q6H PRN for PAIN-MODERATE Prescribed by: Dameon Tyler on 06/11/22 1206 Review of Systems Review of Systems Constitutional: see HPI; No chills, No fever Past Wffqqry-Wgkqri-Hghaaq Hx Patient Social History Tobacco Use?: Yes Tobacco type used: Cigarettes Smoking Status: Current Everyday Smoker Substance use?: No Alcohol Use?: No Pt feels they are or have been: No Immunizations Up To Date First/Initial COVID19 Vaccinat: 02/2021 Second COVID19 Vaccination Rafita: 02/2021 Third COVID19 Vaccination Date: 09/2021 Past Medical History Surgery/Hospitalization HX: RT KIDNEY DRAIN, HX OF KIDNEY DISEASE, HYPERTENSION, T&A, LYMPH NODES REMOVED FROM GROIN, GALLBLADDER, TUBAL LIGATION, R NEPHROSTOMY TUBE Surgeries: Yes Gallbladder, Renal, Tubal Ligation Respiratory: No Cardiac: Yes (DVT RIGHT ARM IN 2021. `) Deep Vein Thrombosis, Hypertension Neurological: No Genitourinary: Yes (RIGHT KIDNEY OBSTRUCTED AND ATROPHIC. ) UTI-Chronic Gastrointestinal: No Musculoskeletal: No Endocrine: No HEENT: No Cancer: No Physical Exam Vital Signs Vital Signs - First Documented 07/08/22 10:54 Temp 36.3 Pulse 74 Resp 16 B/P (MAP) 169/108 (128) Pulse Ox 99 Capillary Refill : Less Than 3 Seconds Height, Weight, BMI Height: '" Weight: lbs. oz. kg; 41.00 BMI Method: General Appearance: WD/WN, no apparent distress, other (No distress alert and oriented no tachycardia afebrile) HEENT: PERRL/EOMI, normal ENT inspection Neck: non-tender, full range of motion Respiratory: no respiratory distress, no accessory muscle use Gastrointestinal: normal bowel sounds, non tender Back: normal inspection, other (Nephrostomy tube at the right costovertebral angle. There is no surrounding erythema. When I try to flush the nephrostomy tube this does drain from around the insertion site at the skin. However I am able to aspirate about 10 mL of urine. ) Neurologic/Psychiatric: alert, normal mood/affect, oriented x 3 Skin: normal color, warm/dry Progress/Results/Core Measures Suspected Sepsis SIRS Temperature: Pulse: 74 Respiratory Rate: 16 Laboratory Tests 07/08/22 11:37: White Blood Count 8.7 Blood Pressure 169 /108 Mean: 128 Laboratory Tests 07/08/22 11:37: Creatinine 0.99, Platelet Count 330, Total Bilirubin 0.3 Results/Orders Lab Results Laboratory Tests Test 07/08/22 10:57 07/08/22 11:37 Range/Units Urine Color YELLOW Urine Clarity CLEAR Urine pH 5.5 5-9 Urine Specific [place] >=1.030 1.016-1.022 Urine Protein 2+ H NEGATIVE Urine Glucose (UA) NEGATIVE NEGATIVE Urine Ketones NEGATIVE NEGATIVE Urine Nitrite NEGATIVE NEGATIVE Urine Bilirubin NEGATIVE NEGATIVE Urine Urobilinogen 0.2 < = 1.0 MG/DL Urine Leukocyte Esterase 2+ H NEGATIVE Urine RBC (Auto) 3+ H NEGATIVE Urine RBC 50-100 H /HPF Urine WBC >100 H /HPF Urine Crystals PRESENT H /LPF Urine Amorphous Sediment FEW RUBY URATES H /LPF Urine Bacteria MODERATE H /HPF Urine Casts NONE /LPF Urine Mucus NEGATIVE /LPF Urine Culture Indicated YES White Blood Count 8.7 4.3-11.0 10^3/uL Red Blood Count 4.39 3.80-5.11 10^6/uL Hemoglobin 13.1 11.5-16.0 g/dL Hematocrit 38 35-52 % Mean Corpuscular Volume 86 80-99 fL Mean Corpuscular Hemoglobin 30 25-34 pg Mean Corpuscular Hemoglobin Concent 35 32-36 g/dL Red Cell Distribution Width 13.1 10.0-14.5 % Platelet Count 330 130-400 10^3/uL Mean Platelet Volume 9.3 9.0-12.2 fL Immature Granulocyte % (Auto) 0 % Neutrophils (%) (Auto) 64 42-75 % Lymphocytes (%) (Auto) 24 12-44 % Monocytes (%) (Auto) 6 0-12 % Eosinophils (%) (Auto) 4 0-10 % Basophils (%) (Auto) 1 0-10 % Neutrophils # (Auto) 5.6 1.8-7.8 10^3/uL Lymphocytes # (Auto) 2.1 1.0-4.0 10^3/uL Monocytes # (Auto) 0.6 0.0-1.0 10^3/uL Eosinophils # (Auto) 0.4 H 0.0-0.3 10^3/uL Basophils # (Auto) 0.1 0.0-0.1 10^3/uL Immature Granulocyte # (Auto) 0.0 0.0-0.1 10^3/uL Sodium Level 141 135-145 MMOL/L Potassium Level 3.6 3.6-5.0 MMOL/L Chloride Level 108 H 98-107 MMOL/L Carbon Dioxide Level 21 21-32 MMOL/L Anion Gap 12 5-14 MMOL/L Blood Urea Nitrogen 18 7-18 MG/DL Creatinine 0.99 0.60-1.30 MG/DL Estimat Glomerular Filtration Rate 72 BUN/Creatinine Ratio 18 Glucose Level 146 H 70-105 MG/DL Calcium Level 9.2 8.5-10.1 MG/DL Corrected Calcium 9.2 8.5-10.1 MG/DL Total Bilirubin 0.3 0.1-1.0 MG/DL Aspartate Amino Transf (AST/SGOT) 21 5-34 U/L Alanine Aminotransferase (ALT/SGPT) 14 0-55 U/L Alkaline Phosphatase 91 40-136 U/L Total Protein 7.4 6.4-8.2 GM/DL Albumin 4.0 3.2-4.5 GM/DL My Orders Orders - NADIYA ALVAREZ [employer] Cbc With Automated Diff (07/08/22 11:00) Comprehensive Metabolic Panel (07/08/22 11:00) Ua Culture If Indicated (07/08/22 11:00) Ed Iv/Invasive Line Start (07/08/22 11:00) Fentanyl Inj (Sublimaze Injection) (07/08/22 11:00) Ct Abd/Pelvis Wo(Kidney Stone) (07/08/22 11:00) Urine Culture (07/08/22 10:57) Fentanyl Inj (Sublimaze Injection) (07/08/22 12:30) Medications Given in ED Current Medications Medications Dose Ordered Sig/Faustino Route Start Time Stop Time Status Last Admin Dose Admin Ceftriaxone Sodium/Dextrose 50 ml @ 100 mls/hr ONCE ONCE IV 07/08/22 12:00 07/08/22 12:29 DC 07/08/22 12:02 100 MLS/HR Clonidine HCl 0.2 mg ONCE ONCE PO 07/08/22 14:15 07/08/22 14:16 DC 07/08/22 14:15 0.2 MG Fentanyl Citrate 50 mcg ONCE ONCE IVP 07/08/22 11:00 07/08/22 11:02 DC 07/08/22 11:40 50 MCG Fentanyl Citrate 50 mcg ONCE ONCE IVP 07/08/22 12:30 07/08/22 12:31 DC 07/08/22 13:00 50 MCG Fentanyl Citrate 75 mcg ONCE ONCE IVP 07/08/22 14:15 07/08/22 14:16 DC 07/08/22 14:15 75 MCG Vital Signs/I&O 07/08/22 10:54 Temp 36.3 Pulse 74 Resp 16 B/P (MAP) 169/108 (128) Pulse Ox 99 Capillary Refill : Less Than 3 Seconds Blood Pressure Mean: 128 Departure Communication (Admissions) [id number] spoken with Dr. Conner from neurology services. He is reviewed the patient's case, agrees that she does need to come up to for interventional radiology to perform a nephrostomy tube exchange. This would preferentially be done today if possible. She could come to the emergency room then go to interventional radiology and possible discharge this evening. We do not have an ambulance available to transport, only 2 trucks in the [facility]. She does not warrant a flight to the [facility]. I spoke with [facility] sade Jimenez who could transport today if the patient could pay guerrero as she is not able to bill insurance yet. Spoke with the patient, she states she has no guerrero and could not pay. She states she has no family member to transport her. I will speak with [facility] to see if they have some sort of transportation service. [id number] spoke with [facility], the will be sending out a girl by the name of Valery Watts to transport the patient by private vehicle to the [facility]. Blood pressure down to 157/100, she has no hypertensive emergency. Safe to be transported by private car. Will discharge from the ER. I will give her a prescription for Omnicef 300 mg p.o. twice daily to start tomorrow based on previous urine culture showing sensitive E. coli in May 2022. Patient has multiple social factors such as limited social support and limited financial resources that complicate her care a great deal. Impression Primary Impression: Complication of nephrostomy Additional Impression: Urinary tract infection Disposition: HOME, SELF-CARE Condition: Stable Departure-Patient Inst. Decision time for Depature: 14:56 Referrals: EUFEMIA OSHEA APRN (PCP) Primary Care Physician [facility] (Family) Primary Care Physician Patient Instructions: Urinary Obstruction (DC) Add. Discharge Instructions: Antibiotics twice a day starting tomorrow. I sent this to [facility]. Continue current pain medication. Go directly from here to the emergency [facility]. All discharge instructions reviewed with patient and/or family. Voiced understanding. Scripts Cefdinir (Cefdinir) 300 Mg Capsule 300 MG PO BID, #14 CAP Prov: NADIYA ALVAREZ APRN 07/08/22 Copy Copies To 1: SUNITA SAAVEDRA PETER J APRN Jul 08, 2022 11:05
[2022-07-08 11:06] LABS: BILIRUBIN,URINE NEGATIVE (NEGATIVE); CLARITY,URINE CLEAR; COLOR,URINE YELLOW; GLUCOSE, URINE (UA) NEGATIVE (NEGATIVE); KETONES,URINE NEGATIVE (NEGATIVE); LEUKOCYTE ESTERASE ,URINE 2+ (NEGATIVE); NITRITE,URINE NEGATIVE (NEGATIVE); PH,URINE 5.5 (5-9); PROTEIN,URINE 2+ (NEGATIVE)
[2022-07-08 11:30] LABS: BACTERIA,URINE MODERATE /HPF; RBC,URINE 50-100 /HPF; WBC,URINE >100 /HPF
[2022-07-08 11:31] LABS: AMORPHOUS SEDIMENT,UR FEW AMOR URATES /LPF
--- NOTE | 2022-07-08 11:31 | Diagnostic Imaging Report ---
CT ABD/PELVIS WO (KIDNEY STONE) TECHNIQUE: Unenhanced CT imaging of the abdomen and pelvis was performed. 2-D reformats are created and submitted for interpretation. Automatic exposure controls were utilized to optimize patient dose. INDICATION: Nephrostomy tube placement evaluation. COMPARISON: None available. FINDINGS: Lower chest: The lung bases are clear. No pericardial or pleural effusion. Peritoneum: No free intraperitoneal air or fluid. Liver and biliary system: Unenhanced liver is normal. Cholecystectomy. No biliary duct dilatation. Spleen and Pancreas: Spleen is normal. Unenhanced pancreas is grossly normal. Adrenals: Normal. tract: Stable mild atrophy in the right kidney. The nephrostomy catheter has been retracted now with the metallic marker at the level of the intercostal space and the tip coiled in the lateral margin of the intrarenal pelvis/major calyx. No renal calculi have developed on either side. No hydronephrosis on either side. Urinary bladder is partially filled without wall thickening. The uterus is unremarkable. GI tract: Stomach is partially filled with fluid and food debris. No bowel obstruction. Descending and sigmoid colonic diverticulosis without diverticulitis. Normal appendix. Vasculature and Lymph nodes: Normal caliber aorta. No abdominal or pelvic lymphadenopathy. Musculoskeletal: No concerning osseous lesion. IMPRESSION: 1. No obstructive uropathy has developed. 2. The right-sided percutaneous nephrostomy tube has been partially retracted since prior examination and now is coiled in the margin of the intrarenal pelvis. This repositioning may account for the diminished output. Dictated by: Dictated on workstation # [id number]
[2022-07-08 11:42] LABS: BASOPHILS # (AUTO) 0.1 10^3/uL (0.0-0.1); BASOPHILS % (AUTO) 1 % (0-10); EOSINOPHILS # (AUTO) 0.4 10^3/uL (0.0-0.3); EOSINOPHILS % (AUTO) 4 % (0-10); HEMATOCRIT 38 % (35-52); HEMOGLOBIN 13.1 g/dL (11.5-16.0); LYMPHOCYTES # (AUTO) 2.1 10^3/uL (1.0-4.0); LYMPHOCYTES % (AUTO) 24 % (12-44); MEAN CORPUSCULAR HEMOGLOBIN 30 pg (25-34); MEAN CORPUSCULAR HGB CONC 35 g/dL (32-36); MEAN CORPUSCULAR VOLUME 86 fL (80-99); MEAN PLATELET VOLUME 9.3 fL (9.0-12.2); MONOCYTES # (AUTO) 0.6 10^3/uL (0.0-1.0); MONOCYTES % (AUTO) 6 % (0-12); NEUTROPHILS # (AUTO) 5.6 10^3/uL (1.8-7.8); NEUTROPHILS % (AUTO) 64 % (42-75); PLATELET COUNT 330 10^3/uL (130-400); WHITE BLOOD COUNT 8.7 10^3/uL (4.3-11.0)
[2022-07-08] MEDS ORDERED: cefTRIAXone 1 GM PRE-MIX 50 ML IV ONE (12:00)
[2022-07-08 12:06] LABS: POTASSIUM 3.6 MMOL/L (3.6-5.0)
[2022-07-08 12:08] LABS: CALCIUM 9.2 MG/DL (8.5-10.1)
[2022-07-08 12:09] LABS: TOTAL PROTEIN 7.4 GM/DL (6.4-8.2)
[2022-07-08 12:11] LABS: BILIRUBIN,TOTAL 0.3 MG/DL (0.1-1.0)
[2022-07-08 12:12] LABS: CREATININE SERUM 0.99 MG/DL (0.60-1.30)
[2022-07-08] MEDS ORDERED: cloNIDine 0.2 MG (CATAPRES) TAB PO ONE (14:15)
[2022-07-08] MEDS ORDERED: CEFD300C3 PO (14:57)
[2022-07-08 15:04] VITALS: BP 162/122
== END 2022-07-08 15:04 | disposition home or self-care (01) ==
LOC: EDUNIT# 10:31 → ER 10:33
DX: N99.528 Other complication of incontinent external stoma of urinary tract (principal); N39.0 Urinary tract infection, site not specified; F17.210 Nicotine dependence, cigarettes, uncomplicated; Z88.2 Allergy status to sulfonamides; Z88.6 Allergy status to analgesic agent
CPT/HCPCS: 36415; 74176; 80053; 81000; 85025; 87077; 87088

== ENCOUNTER 2022-08-17 16:05 | Inpatient (IN) | payer OTHER ==
[~2022-08-17] VITALS: Ht 162.6 cm; Wt 110.6 kg
--- NOTE | 2022-08-17 16:36 | ED Abdominal Pain ---
General Chief Complaint: Post OP Complications/Pain Stated Complaint: KIDNEY PAIN FROM REMOVAL Nursing Triage Note: PT AMBULATE TO ROOM 05 WITHOUT DIFFICULTY WITH C/O RIGHT SIDE PAIN X3 DAYS RELATED TO RIGHT KIDNEY REMOVAL 08/05/22. PT STATES SHE CALLED [facility] AND WAS TOLD TO COME TO ED. PT REPORTS OXYCODONE 5MG Q6H FOR PAIN. PT REPORTS TAKING ROBAXIN AND GABAPENTIN. Source of Information: Patient Exam Limitations: No Limitations (KATHI PAK MD) History of Present Illness Date Seen by Provider: Aug 17, 2022 Time Seen by Provider: 16:27 Initial Comments This 46-year-old woman presents to the emergency room with complaints of severe right-sided abdominal pain after nephrectomy. She states her pain has never really been very well controlled since being discharged from [facility] August 14. Her nephrectomy was on August 05. Her urologist at [facility] is Dr. Jarvis. She has been taking oxycodones as prescribed but those are not sufficient for treating her pain. In addition to pain she has had some diarrhea and nausea. She has had some sweats but denies fever. There is a firm fullness superior to the largest incision on her right abdomen. This area is mildly erythematous and washer machine comparison to the surrounding skin. There is no drainage from any of the incisions. Pain has been escalating since discharge from the hospital. Patient's nephrectomy was performed due to ureteral obstruction resulting in nephrostomy tube placement. She had multiple complications including infections with the nephrostomy tubing. Nephrectomy was eventually pursued to alleviate these problems. (KATHI PAK MD) Allergies and Home Medications Allergies Coded Allergies: shellfish derived (Verified Allergy, Severe, 02/15/22) morphine (Verified Allergy, Intermediate, Hives; pt has tolerated diluadid and lortab, 08/18/22) Hives and itching locally at IV site Iodinated Contrast Media (Verified Allergy, Unknown, 02/15/22) Sulfa (Sulfonamide Antibiotics) (Verified Allergy, Unknown, 04/03/22) aspirin (Verified Allergy, Unknown, 02/15/22) Uncoded Allergies: IODINE CONTRAST (Allergy, Mild, 02/15/22) Patient Home Medication List Home Medication List Reviewed: Yes (KATHI PAK MD) Amlodipine Besylate (Amlodipine Besylate) 10 Mg Tablet, 10 MG PO HS, (Reported) Entered as Reported by: CHEY CUMMINGS on 08/18/221537 Last Action: Continued Amoxicillin/Potassium Clav (Amox Tr-K Clv 875-125 mg Tab) 875 Mg-125 Mg Tablet, 1 EACH PO BID Prescribed by: SOLO HICKS on 08/23/22 1305 Atorvastatin Calcium (Atorvastatin Calcium) 20 Mg Tablet, 20 MG PO DAILY, (Reported) Entered as Reported by: CHEY CUMMINGS on 08/18/221536 Last Action: Continued Clonidine (Clonidine TTS 3 Patch) 0.3 Mg/24 Hour Patch.tdwk, 0.3 MG TD WEEK, (Reported) Entered as Reported by: CHEY CUMMINGS on 08/18/221536 Last Action: Held Clonidine HCl (Clonidine HCl) 0.2 Mg Tablet, 0.2 MG PO Q6H PRN for SYSTOLIC BLOOD PRESSURE, (Reported) Entered as Reported by: CHEY CUMMINGS on 08/18/221536 Last Action: Continued Desvenlafaxine Succinate (Pristiq ER) 50 Mg Tab.er.24h, 50 MG PO DAILY, (Reported) Entered as Reported by: CHEY CUMMINGS on 08/18/221536 Last Action: Converted Gabapentin (Gabapentin) 100 Mg Capsule, 100 MG PO Q8H, (Reported) Entered as Reported by: CHEY CUMMINGS on 08/18/221536 Last Action: Continued Hydrocodone/Acetaminophen (Hydrocodone-Acetamin 7.5-325) 7.5 Mg-325 Mg Tablet, 1 EACH PO Q4H Prescribed by: SOLO HICKS on 08/23/22 1305 Methocarbamol (Methocarbamol) 750 Mg Tablet, 750 MG PO Q12H PRN for PAIN BREAKTROUGH, (Reported) Entered as Reported by: CHEY CUMMINGS on 08/18/221536 Last Action: Continued Olmesartan Medoxomil (Olmesartan Medoxomil) 20 Mg Tablet, 20 MG PO DAILY, (Reported) Entered as Reported by: CHEY CUMMINGS on 08/18/221536 Last Action: Converted Ondansetron (Ondansetron Odt) 4 Mg Tab.rapdis, 4 MG PO Q8H PRN for NAUSEA/VOMITING-1ST LINE, (Reported) Entered as Reported by: CHEY CUMMINGS on 08/18/221536 Last Action: Continued Oxycodone HCl (Oxycodone HCl) 5 Mg Tablet, 5 MG PO Q6H, (Reported) Entered as Reported by: CHEY CUMMINGS on 08/18/221536 Last Action: Continued Discontinued Medications Cefdinir (Cefdinir) 300 Mg Capsule, 300 MG PO BID Discontinued Reason: Duplicate Order Prescribed by: KATHI JACKSON on 03/15/22 1609 Last Action: Discontinued Cefdinir (Cefdinir) 300 Mg Capsule, 300 MG PO BID Discontinued Reason: Duplicate Order Prescribed by: SHANNON ROCHA on 07/07/22438 Last Action: Discontinued Cefdinir (Cefdinir) 300 Mg Capsule, 300 MG PO BID Discontinued Reason: Duplicate Order Prescribed by: NADIYA ALVAREZ on 07/08/22 145 Last Action: Discontinued Hydrocodone Bit/Acetaminophen (HYDROcodone/APAP 5 MG/325 MG TAB) 1 Tab Tab, 1 TAB PO Q6H Discontinued Reason: Duplicate Order Prescribed by: Kareen Garcia on 03/25/222028 Last Action: Discontinued Hydrocodone Bit/Acetaminophen (HYDROcodone/APAP 5 MG/325 MG TAB) 1 Tab Tab, 1 TAB PO Q6H Discontinued Reason: Duplicate Order Prescribed by: Kareen Garcia on 04/03/22 161 Last Action: Discontinued Hydrocodone/Acetaminophen (Hydrocodone-Acetamin 5-325 mg) 5 Mg-325 Mg Tablet, 1- 2 TAB PO Q6H PRN for PAIN-MODERATE (5-7) Discontinued Reason: Duplicate Order Prescribed by: KATHI JACKSON on 03/15/22 161 Last Action: Discontinued Hydrocodone/Acetaminophen (Hydrocodone-Acetamin 10-325 mg) 10 Mg-325 Mg Tablet, 1 EACH PO Q4H Discontinued Reason: Duplicate Order Prescribed by: SAHNNON ROCHA on 07/07/22 044 Last Action: Discontinued Ondansetron (Ondansetron Odt) 8 Mg Tab.rapdis, 8 MG PO Q6H Discontinued Reason: Duplicate Order Prescribed by: SHANNON ROCHA on 07/07/22438 Last Action: Discontinued Oxycodone HCl/Acetaminophen (Percocet 7.5-325 mg Tablet) 1 Each Tablet, 1 TAB PO Q6H PRN for PAIN-MODERATE Discontinued Reason: Duplicate Order Prescribed by: Dameon Tyler on 06/11/22 1206 Last Action: Discontinued Review of Systems Review of Systems Constitutional: see HPI EENTM: No Symptoms Reported Respiratory: No Symptoms Reported Cardiovascular: No Symptoms Reported Gastrointestinal: See HPI Genitourinary: See HPI Musculoskeletal: no symptoms reported Skin: no symptoms reported Psychiatric/Neurological: No Symptoms Reported Endocrine: No Symptoms Reported Hematologic/Lymphatic: No Symptoms Reported (KATHI PAK MD) Past Jisehhf-Lwomfd-Lmeebw Hx Patient Social History Tobacco Use?: Yes Tobacco type used: Cigarettes Smoking Status: Heavy Tobacco Smoker Smokeless Tobacco Frequency: Never a User Use of E-Cig and/or Vaping dev: No Use of E-Cig and/or Vaping Fabian: Never a User Substance use?: No Alcohol Use?: No Pt feels they are or have been: No (KATHI PAK MD) Immunizations Up To Date First/Initial COVID19 Vaccinat: 02/2021 Second COVID19 Vaccination Rafita: 02/2021 Third COVID19 Vaccination Date: 09/2021 (KATHI PAK MD) Past Medical History Surgery/Hospitalization HX: RT KIDNEY DRAIN, HX OF KIDNEY DISEASE, HYPERTENSION, T&A, LYMPH NODES REMOVED FROM GROIN, GALLBLADDER, TUBAL LIGATION, R NEPHROSTOMY TUBE Surgeries: Yes Adenoidectomy, Gallbladder, Nephrectomy (Right), Renal, Tonsillectomy, Tubal Ligation Respiratory: No Cardiac: Yes (DVT RIGHT ARM IN 2021. `) Deep Vein Thrombosis, Hypertension Neurological: No : No Genitourinary: Yes (RIGHT KIDNEY OBSTRUCTED AND ATROPHIC followed by nephrectomy) UTI-Chronic Gastrointestinal: No Musculoskeletal: No Endocrine: No HEENT: No Cancer: No Psychosocial: No (KATHI PAK MD) Physical Exam Vital Signs Capillary Refill : Less Than 3 Seconds (KATHI PAK MD) Height/Weight/BMI Height: '" Weight: lbs. oz. kg; 42.00 BMI Method: General Appearance: WD/WN, severe distress, obese HEENT: PERRL/EOMI, normal ENT inspection Neck: normal inspection Respiratory: lungs clear, normal breath sounds, no respiratory distress Cardiovascular: regular rate, rhythm, no edema, no murmur Gastrointestinal: soft, tenderness, other (There is generalized tenderness on the right side of the abdomen, particularly focused around the largest of her surgical incisions. The incision is intact with glue without any drainage. There is mild erythema and warmth surrounding the incision. The area of superior and medial to the incision feels full or firmly indurated.) Extremities: normal inspection, no pedal edema Neurologic/Psychiatric: no motor/sensory deficits, alert, oriented x 3 Skin: warm/dry, other (See above) (KATHI PAK MD) Focused Exam Lactate Level 08/17/22 17:30: Lactic Acid Level 1.50 (WANDA SOLORZANO DO) Lactic Acid Level Laboratory Tests Test 08/17/22 17:30 Lactic Acid Level 1.50 MMOL/L (0.50-2.00) (WANDA SOLORZANO DO) Progress/Results/Core Measures Results/Orders Lab Results Laboratory Tests Test 08/17/22 17:30 Range/Units White Blood Count 18.1 H 4.3-11.0 10^3/uL Red Blood Count 4.03 3.80-5.11 10^6/uL Hemoglobin 11.9 11.5-16.0 g/dL Hematocrit 36 35-52 % Mean Corpuscular Volume 88 80-99 fL Mean Corpuscular Hemoglobin 30 25-34 pg Mean Corpuscular Hemoglobin Concent 33 32-36 g/dL Red Cell Distribution Width 13.8 10.0-14.5 % Platelet Count 421 H 130-400 10^3/uL Mean Platelet Volume 9.4 9.0-12.2 fL Immature Granulocyte % (Auto) 0 % Neutrophils (%) (Auto) 71 42-75 % Lymphocytes (%) (Auto) 15 12-44 % Monocytes (%) (Auto) 8 0-12 % Eosinophils (%) (Auto) 5 0-10 % Basophils (%) (Auto) 0 0-10 % Neutrophils # (Auto) 12.9 H 1.8-7.8 10^3/uL Lymphocytes # (Auto) 2.7 1.0-4.0 10^3/uL Monocytes # (Auto) 1.5 H 0.0-1.0 10^3/uL Eosinophils # (Auto) 0.9 H 0.0-0.3 10^3/uL Basophils # (Auto) 0.1 0.0-0.1 10^3/uL Immature Granulocyte # (Auto) 0.1 0.0-0.1 10^3/uL Neutrophils % (Manual) 75 % Lymphocytes % (Manual) 15 % Monocytes % (Manual) 4 % Eosinophils % (Manual) 6 % Blood Morphology Comment NORMAL Prothrombin Time 13.3 12.2-14.7 SEC INR Comment 1.0 0.8-1.4 Activated Partial Thromboplast Time 36 H 24-35 SEC Sodium Level 137 135-145 MMOL/L Potassium Level 4.3 3.6-5.0 MMOL/L Chloride Level 106 98-107 MMOL/L Carbon Dioxide Level 22 21-32 MMOL/L Anion Gap 9 5-14 MMOL/L Blood Urea Nitrogen 14 7-18 MG/DL Creatinine 1.03 0.60-1.30 MG/DL Estimat Glomerular Filtration Rate 69 BUN/Creatinine Ratio 14 Glucose Level 104 70-105 MG/DL Lactic Acid Level 1.50 0.50-2.00 MMOL/L Calcium Level 8.7 8.5-10.1 MG/DL Corrected Calcium 9.0 8.5-10.1 MG/DL Total Bilirubin 0.2 0.1-1.0 MG/DL Aspartate Amino Transf (AST/SGOT) 17 5-34 U/L Alanine Aminotransferase (ALT/SGPT) 12 0-55 U/L Alkaline Phosphatase 85 40-136 U/L C-Reactive Protein High Sensitivity 10.44 H 0.00-0.50 MG/DL Total Protein 7.2 6.4-8.2 GM/DL Albumin 3.6 3.2-4.5 GM/DL (WANDA SOLORZANO DO) Micro Results Microbiology 08/17/22 Blood Culture - Final, Complete No growth 08/17/22 Blood Culture - Final, Complete No growth (WANDA SOLORZANO DO) My Orders Orders - WANDA SOLORZANO DO Ed Admission (Communication) (08/17/22 21:13) (WANDA SOLORZANO DO) Blood Pressure Mean: 141 Progress Progress Note : Time: 18:10 Progress Note Patient was interviewed and examined. Labs were obtained. CBC demonstrated significant leukocytosis with WBC of 18,000. CMP was unremarkable. CRP was elevated at 10. These labs are suspicious for infection. CT scan of the abdomen and pelvis without contrast was ordered to evaluate for possible abscess. CT was ordered without contrast due to her recent surgery and single kidney after nephrectomy. Care of this patient is being transitioned to Dr. Solorzano at this time. (KATHI PAK MD) Diagnostic Imaging Diagonstic Imaging: CT Plain Films/CT/US/NM/MRI: abdomen, pelvis Comments NAME: [facility] REC#: [id number] PT STATUS: REG ER : 1975 PHYSICIAN: KATHI PAK MD ADMIT DATE: 08/17/22/ER Draft Date of Exam:08/17/22 CT ABDOMEN/PELVIS WO Clinical indication: Patient with right-sided pain x 2 days related to right kidney removal on 08/05/2022. Patient describes a burning feeling, cramping and pain with movement. Exam: CT exam of the abdomen and pelvis is performed without IV or oral contrast using stone protocol. Coronal and sagittal reformatted images were created. Auto Exposure Controls were utilized during the CT exam to meet ALARA standards for radiation dose reduction. Comparisons: CT scan of the abdomen and pelvis performed without IV contrast dated 03/15/2022. Findings: Visualized lung bases are clear. There are small spurs involving both hips. There are lower lumbar spine degenerative spurs. There is lower lumbar spine facet arthropathy. Gallbladder is surgically absent which is noted on prior study. The liver, spleen, pancreas and adrenal glands are unremarkable. Right kidney has been surgically resected in the interim. There is no fluid collection in the right nephrectomy bed. Left kidney is unremarkable with no stone, mass or hydronephrosis. Bladder is fluid-filled and otherwise unremarkable. The uterus and adnexal structures are unremarkable. There is no intra-abdominal free air or free fluid. There is a small to moderate amount of stool throughout the colon. Appendix is unremarkable. There is no lymphadenopathy. There is no intestinal obstruction. There is diverticulosis involving the transverse colon with no CT evidence of diverticulitis. There is interval development of soft tissue fat stranding along the right side of the abdomen and upper pelvis in the extra-abdominal region. There is a small to moderate amount of air within the subcutaneous fat and within the anterior right lateral musculature superficial layer. There is no drainable fluid collection seen. This finding is concerning for infectious process. Impression: 1: There is interval development of a moderate amount of fat stranding involving the extra-abdominal right anterior lateral upper to mid and right upper pelvis region. There is small to moderate amount of air within the subcutaneous fat of the extra-abdominal region. There is also air within the outer muscle layer of the anterior lateral right abdominal musculature of the lower abdomen. There is no drainable fluid collection seen. These findings are concerning for infectious process. This infectious process does not extend intraperitoneal. Given the amount of air in the subcutaneous fat, necrotizing fasciitis should be excluded. 2: There is interval right nephrectomy with no fluid collection in the right renal bed. Dictated on workstation # [id number] Dict: 08/17/22 1825 Trans: 08/17/22 1840 [facility] [id number] Interpreted by: KRUPA FRAZIER MD (KATHI PAK MD) Departure Communication (Admissions) Time/Spoke to Admitting Phy: 21:13 Dr. Azul (KATHI PAK MD) The patient remains tachycardic but is otherwise hemodynamically stable. She does have significant cellulitis with significant pain on exam. CT scan shows no evidence for abscess but does show significant cellulitis. There is some air in the abdominal wall, concern for possible necrotizing fasciitis. She does have a significant leukocytosis however she has been here for significant period of time that her symptoms are unchanged however given the significant amount of pain she is having I am concerned about possible necrotizing fasciitis. I did discuss this with the surgeon after finding air in the area on his CT scan. Dr. Hicks recommends admission for close observation and serial exams. I spoke with Dr. Avila. She wished that I contact [facility] to ensure they do not want her transferred for a postoperative complication. I spoke with them and they state that the patient is fine to be admitted here and actually they are at capacity so could not take her anyway. Spoke with Dr. Avila once again then she excepts the patient in admission. She has had broad-spectrum antibiotics. Lactic acid and cultures were both obtained prior to antibiotic administration. She has been provided pain medication with some improvement. She has been given some IV fluids as well and her tachycardia is only marginally improved. She is admitted in otherwise stable condition. She is comfortable with admission at this time. (WANDA SOLORZANO DO) Impression Primary Impression: Postoperative wound cellulitis Additional Impression: Post-op pain Disposition: ADMITTED INPATIENT Condition: Stable Admissions Decision to Admit Reason: Admit from ER (General) Decision to Admit/Date: Aug 17, 2022 Time/Decision to Admit Time: 21:13 (KATHI PAK MD) Departure-Patient Inst. Referrals: EUFEMIA OSHEA APRN (PCP) Primary Care Physician [facility] (Family) Primary Care Physician Scripts Amoxicillin/Potassium Clav (Amox Tr-K Clv 875-125 mg Tab) 875 Mg-125 Mg Tablet 1 EACH PO BID, #20 TAB Prov: SOLO HICKS MD 08/23/22 Hydrocodone/Acetaminophen (Hydrocodone-Acetamin 7.5-325) 7.5 Mg-325 Mg Tablet 1 EACH PO Q4H, #35 TAB Prov: SOLO HICKS MD 08/23/22 KATHI PAK MD Aug 17, 2022 16:36 WANDA SOLORZANO DO Aug 24, 2022 06:04
[2022-08-17] MEDS ORDERED: fentaNYL INJ 100 MCG/2 ML AMP IVP ONE (16:45)
[2022-08-17] MEDS ORDERED: ONDANSETRON 4 MG/2 ML (SDV) Z0FRAN IVP ONE (16:45)
[2022-08-17 17:41] LABS: BASOPHILS # (AUTO) 0.1 10^3/uL (0.0-0.1); BASOPHILS % (AUTO) 0 % (0-10); EOSINOPHILS # (AUTO) 0.9 10^3/uL (0.0-0.3); EOSINOPHILS % (AUTO) 5 % (0-10); HEMATOCRIT 36 % (35-52); HEMOGLOBIN 11.9 g/dL (11.5-16.0); LYMPHOCYTES # (AUTO) 2.7 10^3/uL (1.0-4.0); LYMPHOCYTES % (AUTO) 15 % (12-44); MEAN CORPUSCULAR HEMOGLOBIN 30 pg (25-34); MEAN CORPUSCULAR HGB CONC 33 g/dL (32-36); MEAN CORPUSCULAR VOLUME 88 fL (80-99); MEAN PLATELET VOLUME 9.4 fL (9.0-12.2); MONOCYTES # (AUTO) 1.5 10^3/uL (0.0-1.0); MONOCYTES % (AUTO) 8 % (0-12); NEUTROPHILS # (AUTO) 12.9 10^3/uL (1.8-7.8); NEUTROPHILS % (AUTO) 71 % (42-75); PLATELET COUNT 421 10^3/uL (130-400); WHITE BLOOD COUNT 18.1 10^3/uL (4.3-11.0)
[2022-08-17 17:53] LABS: ALBUMIN 3.6 GM/DL (3.2-4.5); POTASSIUM 4.3 MMOL/L (3.6-5.0)
[2022-08-17 17:54] LABS: CALCIUM 8.7 MG/DL (8.5-10.1); PROTHROMBIN TIME PATIENT 13.3 SEC (12.2-14.7)
[2022-08-17 17:56] LABS: TOTAL PROTEIN 7.2 GM/DL (6.4-8.2)
[2022-08-17 17:57] LABS: BILIRUBIN,TOTAL 0.2 MG/DL (0.1-1.0)
[2022-08-17 17:59] LABS: CREATININE SERUM 1.03 MG/DL (0.60-1.30)
[2022-08-17 18:16] LABS: EOSINOPHILS % (MANUAL) 6 %; LYMPHOCYTES % (MANUAL) 15 %; MONOCYTES % (MANUAL) 4 %; NEUTROPHILS % (MANUAL) 75 %; RBC MORPH NORMAL
[2022-08-17] MEDS ORDERED: VANCOMYCIN 1000 MG/VIAL ONE (19:01)
[2022-08-17] MEDS ORDERED: PIPERACILLIN/TAZO 4.5 GM VIAL (ZOSYN) IV ONE (19:02)
[2022-08-17] MEDS ORDERED: NS (IVPB) 50 ML ONE (19:02)
[2022-08-17] MEDS ORDERED: NS (IVPB) 250 ML ONE (19:02)
[2022-08-17] MEDS ORDERED: fentaNYL INJ 100 MCG/2 ML AMP ONE (19:45)
--- NOTE | 2022-08-17 19:49 | Diagnostic Imaging Report ---
Clinical indication: Patient with right-sided pain x 2 days related to right kidney removal on 08/05/2022. Patient describes a burning feeling, cramping and pain with movement. Exam: CT exam of the abdomen and pelvis is performed without IV or oral contrast using stone protocol. Coronal and sagittal reformatted images were created. Auto Exposure Controls were utilized during the CT exam to meet ALARA standards for radiation dose reduction. Comparisons: CT scan of the abdomen and pelvis performed without IV contrast dated 03/15/2022. Findings: Visualized lung bases are clear. There are small spurs involving both hips. There are lower lumbar spine degenerative spurs. There is lower lumbar spine facet arthropathy. Gallbladder is surgically absent which is noted on prior study. The liver, spleen, pancreas and adrenal glands are unremarkable. Right kidney has been surgically resected in the interim. There is no fluid collection in the right nephrectomy bed. Left kidney is unremarkable with no stone, mass or hydronephrosis. Bladder is fluid-filled and otherwise unremarkable. The uterus and adnexal structures are unremarkable. There is no intra-abdominal free air or free fluid. There is a small to moderate amount of stool throughout the colon. Appendix is unremarkable. There is no lymphadenopathy. There is no intestinal obstruction. There is diverticulosis involving the transverse colon with no CT evidence of diverticulitis. There is interval development of soft tissue fat stranding along the right side of the abdomen and upper pelvis in the extra-abdominal region. There is a small to moderate amount of air within the subcutaneous fat and within the anterior right lateral musculature superficial layer. There is no drainable fluid collection seen. This finding is concerning for infectious process. Impression: 1: There is interval development of a moderate amount of fat stranding involving the extra-abdominal right anterior lateral upper to mid and right upper pelvis region. There is small to moderate amount of air within the subcutaneous fat of the extra-abdominal region. There is also air within the outer muscle layer of the anterior lateral right abdominal musculature of the lower abdomen. There is no drainable fluid collection seen. These findings are concerning for infectious process. This infectious process does not extend intraperitoneal. Given the amount of air in the subcutaneous fat, necrotizing fasciitis should be excluded. 2: There is interval right nephrectomy with no fluid collection in the right renal bed. Dictated by: Dictated on workstation # [id number]
[2022-08-17 21:44] LABS: BILIRUBIN,URINE NEGATIVE (NEGATIVE); CLARITY,URINE CLOUDY; COLOR,URINE YELLOW; GLUCOSE, URINE (UA) NEGATIVE (NEGATIVE); KETONES,URINE NEGATIVE (NEGATIVE); LEUKOCYTE ESTERASE ,URINE TRACE (NEGATIVE); NITRITE,URINE POSITIVE (NEGATIVE); PROTEIN,URINE NEGATIVE (NEGATIVE)
[2022-08-17 21:57] LABS: BACTERIA,URINE LARGE /HPF
[2022-08-17] MEDS ORDERED: NS IV 1000 ML 1,000 ML ONE (23:57)
[2022-08-17] MEDS: NS IV 1000 ML 1,000 ML IV SCH (23:59)
[2022-08-18] VITALS (7 sets, daily range): BP systolic 91–187; BP diastolic 62–119
[2022-08-18] MEDS ORDERED: ACETAMINOPHEN 325 MG TABLET PO PRN
[2022-08-18] MEDS ORDERED: VANCOMYCIN INJECTION 1,000 MG in NS (IVPB) 250 ML IV SCH ×2
[2022-08-18] MEDS ORDERED: MILK OF MAGNESIA 400 MG/5 ML 30 ML UDC PO PRN
[2022-08-18] MEDS ORDERED: ONDANSETRON 4 MG/2 ML (SDV) Z0FRAN IV PRN
[2022-08-18] MEDS ORDERED: NS IV 500 ML 500 ML IV PRN
[2022-08-18] MEDS ORDERED: diphenhydrAMINE 50 MG/ML INJ (BENADRYL) IVP PRN
[2022-08-18] MEDS ORDERED: ANTACID SUSP 30 ML UDC (MYLANTA) PO PRN
[2022-08-18] MEDS ORDERED: BISACODYL 10 MG SUPP (DULCOLAX) PR PRN
[2022-08-18] MEDS ORDERED: polyethylene glycoL POWDER 17 GM (MIRALAX) PACK PO PRN
[2022-08-18] MEDS ORDERED: CALCIUM CARBONATE 500 MG (TUMS) TAB.CHEW PO PRN
[2022-08-18] MEDS ORDERED: diphenhydrAMINE 25 MG TAB (BENADRYL) PO PRN
[2022-08-18] MEDS ORDERED: LACTULOSE SYRUP 10GM/15ML (ENULOSE) 30ML UDC PO PRN
[2022-08-18] MEDS ORDERED: ONDANSETRON 4 MG (ZOFRAN) ORAL DISSOLVE TAB PO PRN
[2022-08-18] MEDS ORDERED: VANCOMYCIN 1 GM/NS 250 ML IVPB IV ONE ×2 (00:15)
[2022-08-18] MEDS ORDERED: RT-ALBUTEROL SULF 2.5 MG/3 ML PRE-MIX VIAL INH PRN (00:15)
[2022-08-18] MEDS ORDERED: fentaNYL INJ 100 MCG/2 ML AMP IVP PRN (00:30)
--- NOTE | 2022-08-18 00:34 | Tele-ICU Progress Note ---
Progress Note 46F with ureteral obstruction s/p nephrectomy 08/05/22 presented with increasing right side pain since discharge 3 days ago (d/c from [facility] 08/14). She called [facility] who advised ED evaluation. +diarrhea. +nausea. -fever. +sweats. -incisional drainage. Previously had ureteral obstruction secondary to nephrolithiasis and ureteral stenosis requiring neph tube placement. Had complicated course with multiple complications related to the neph tube including recurrent infections. Eventually, nephrectomy done due to these complications. Abdomen with an area of firm fullness just superior to largest incision on her right abdomen, mild erythema and mild warmth. No drainage noted. CT abdomen with findings concerning for infectious process, no fluid collection to drain. Infection does not extend intraperitonea. Can not exclude necrotizing faciitis. 1. sepsis: secondary to post op infection. No discrete abscess. Surgery consulted, per RN report plan is for likely OR with washout tomorrow. Concern for necrotizing fasciitis noted. Will defer to surgery for management, but in my experience patients with necrotizing facisiitis are much sicker and tend to develop severe shock. Clinical suspicion is low. Samueln and jacqueso ongoing. Cultures pending. 2. pain control: pain is severe, requiring multiple medications to control in ED. Has had high opiate requirements in the past. Will give PRN fentanyl for now. May need [employer]. Will give NSAIDs if fentanyl is not adequate, but cautious with recent nephrectomy. Patient assessed via real-time audiovisual communication system. CCT 16 min Focused Exam Lactate Level 08/17/22 17:30: Lactic Acid Level 1.50 Height, Weight, BMI Height: '" Weight: lbs. oz. kg; 42.00 BMI Method: ANTONIO LAWS MD Aug 18, 2022 00:34
[2022-08-18] MEDS: ENOXAPARIN 40 MG/0.4 ML (LOVENOX) SYR SC SCH ×3 (01:10→20:04)
[2022-08-18] MEDS: HYDROmorphone 2 MG/ML VIAL (DILAUDID) IV PRN ×8 (01:11→23:55)
[2022-08-18 01:55] LABS: ABG BASE EXCESS -1.2 MMOL/L (-2.5-2.5); ABG OXYGEN SATURATION 96 % (94-100); ABG PCO2 35 MMHG (35-45); ABG PH 7.43 (7.37-7.43); ABG PO2 73 MMHG (79-93); ABG TCO2 23.6 MMOL/L (21.0-31.0)
[2022-08-18 01:56] LABS: ALLENS TEST YES-POS; INSPIRED O2 ROOM AIR; PATIENT TEMP 37.4; VENTILATOR NO
[2022-08-18] MEDS: PIPERACILLIN SODIUM/TAZOBACTAM 4.5 GM in NS (IVPB) 100 ML IV SCH ×3 (03:00→17:34)
[2022-08-18] MEDS: fentaNYL INJ 100 MCG/2 ML AMP IVP PRN ×7 (03:06→20:04)
[2022-08-18 04:21] LABS: BASOPHILS # (AUTO) 0.1 10^3/uL (0.0-0.1); BASOPHILS % (AUTO) 1 % (0-10); EOSINOPHILS # (AUTO) 0.8 10^3/uL (0.0-0.3); EOSINOPHILS % (AUTO) 5 % (0-10); HEMATOCRIT 31 % (35-52); HEMOGLOBIN 10.4 g/dL (11.5-16.0); LYMPHOCYTES # (AUTO) 2.6 10^3/uL (1.0-4.0); LYMPHOCYTES % (AUTO) 16 % (12-44); MEAN CORPUSCULAR HEMOGLOBIN 30 pg (25-34); MEAN CORPUSCULAR HGB CONC 33 g/dL (32-36); MEAN CORPUSCULAR VOLUME 89 fL (80-99); MEAN PLATELET VOLUME 10.3 fL (9.0-12.2); MONOCYTES # (AUTO) 1.3 10^3/uL (0.0-1.0); MONOCYTES % (AUTO) 8 % (0-12); NEUTROPHILS # (AUTO) 11.3 10^3/uL (1.8-7.8); NEUTROPHILS % (AUTO) 70 % (42-75); PLATELET COUNT 367 10^3/uL (130-400); WHITE BLOOD COUNT 16.1 10^3/uL (4.3-11.0)
[2022-08-18 04:47] LABS: ALBUMIN 3.1 GM/DL (3.2-4.5); POTASSIUM 3.9 MMOL/L (3.6-5.0)
[2022-08-18 04:48] LABS: CALCIUM 8.1 MG/DL (8.5-10.1)
[2022-08-18 04:51] LABS: BILIRUBIN,TOTAL 0.2 MG/DL (0.1-1.0)
[2022-08-18 04:53] LABS: CREATININE SERUM 1.05 MG/DL (0.60-1.30); PHOSPHORUS 2.8 MG/DL (2.3-4.7)
[2022-08-18 04:56] LABS: MAGNESIUM 2.2 MG/DL (1.6-2.4)
[2022-08-18] MEDS: POTASSIUM CL 10MEQ/50ML IVPB 50 ML IV SCH (06:13)
[2022-08-18] MEDS: KCL 20 MEQ TAB (K-DUR) PO SCH (06:13)
[2022-08-18] MEDS: MAGNESIUM 1 GM/100 ML IVPB 100 ML IV SCH (06:13)
[2022-08-18] MEDS ORDERED: KCL 20 MEQ TAB (K-DUR) PO ONE (07:00)
--- NOTE | 2022-08-18 08:06 | Diagnostic Imaging Report ---
EXAM: CHEST 1 VIEW, AP/PA ONLY INDICATION: Fever. COMPARISON: 02/15/2022. FINDINGS: Normal heart size and central pulmonary vascularity. Lungs are clear. No pleural effusion or pneumothorax. No acute osseous findings. IMPRESSION: No acute cardiopulmonary findings. Dictated by: Dictated on workstation # [id number]
[2022-08-18] MEDS: NS IV 1000 ML 1,000 ML IV SCH ×3 (09:22→23:58)
[2022-08-18] MEDS: VANCOMYCIN 1 GM/NS 250 ML IVPB IV SCH ×4 (09:23→20:04)
[2022-08-18] MEDS: SENNOSIDES 8.6 MG (SENOKOT) TAB PO SCH ×2 (09:25→20:04)
[2022-08-18] MEDS: DOCUSATE SODIUM 100 MG (COLACE) CAP PO SCH ×2 (09:25→20:03)
--- NOTE | 2022-08-18 10:46 | Tele-ICU Progress Note ---
Subjective Date Seen by a Provider: Aug 18, 2022 Time Seen by a Provider: 10:45 Subjective/Events-last exam (Tele-ICU Physician , Progress Note ) Service provided via interactive audio and video telecommunCrazidea E-CARE system to a patient admitted to ICU bed in [facility]. Patient is seen today due to persistent need of ICU care Available chart/ vitals / labs / Images reviewed Video assessment done using teleICU camera, rest of exam as per RN Discussed with RN Events overnight : Afebrile hemodynamically stable Respiratory - I/O = + Drips: ns 100 Pressors- no Hospital course: 08/17/22-46F with ureteral obstruction s/p nephrectomy 08/05/22 presented with increasing right side pain since discharge 3 days ago (d/c from [facility] 08/14). She called [facility] who advised ED evaluation. +diarrhea. +nausea. -fever. +sweats. -incisional drainage. Previously had ureteral obstruction secondary to nephrolithiasis and ureteral stenosis requiring neph tube placement. Had complicated course with multiple complications related to the neph tube including recurrent infections. Eventually, nephrectomy done due to these complications. Abdomen with an area of firm fullness just superior to largest incision on her right abdomen, mild erythema and mild warmth. No drainage noted. CT abdomen with findings concerning for infectious process, no fluid collection to drain. Infection does not extend intraperitonea. Can not exclude necrotizing faciitis. A/P sepsis: secondary to post op infection. and UTI -No discrete abscess. -Surgery consulted, per RN -Concern for necrotizing fasciitis noted as per sx -Zosyn and vanco ongoing. Cultures pending. pain control - pain is severe, requiring multiple medications to control in ED. Has had high opiate requirements in the past. Will give PRN fentanyl for now. May need PAINT FACTORY WORKER. Will give NSAIDs if fentanyl is not adequate, but cautious with recent nephrectomy. Lines : periph , (Central Line Necessity Reviewed) Wise: + OG: Nutrition: Analgesia: Anxiety/ delirium VTE Prophylaxis: mayelin 40 Stress Ulcer Prophylaxis: Plans in collaboration with bedside consultants and IM MDs. Discussed with RN to reach out if any questions or concerns A total of 20 minutes of critical care time was devoted to this patient today, required to treat and/or prevent further deterioration of critical care condition ( as above ) . I am remotely monitoring this patient from another state. I am unable to do the bedside exam, and history/physical and pertinent information is taken from other notes in the computer and bedside staff. Sepsis Event Evaluation Height, Weight, BMI Height: '" Weight: lbs. oz. kg; 40.47 BMI Method: Focused Exam Lactate Level 08/17/22 17:30: Lactic Acid Level 1.50 Exam Exam Patient acknowledged, consented, and participated in this virtual visit which was conducted using real time audio/video Vital Signs Date Time Temp Pulse Resp B/P (MAP) Pulse Ox O2 Delivery O2 Flow Rate FiO2 08/18/22 10:00 49 105/71 (82) 97 Room Air 08/18/22 09:00 49 89/69 (76) 97 Room Air 08/18/22 08:00 98 Room Air 08/18/22 08:00 48 111/73 (86) 96 Room Air 08/18/22 07:47 36.5 08/18/22 07:00 45 08/18/22 07:00 45 109/65 (80) 94 Room Air 08/18/22 06:00 48 106/58 (74) 95 Room Air 08/18/22 05:00 52 103/71 (82) 94 Room Air 08/18/22 04:00 46 92/49 (63) 94 Room Air 08/18/22 03:00 50 115/75 (88) 97 Room Air 08/18/22 01:45 52 107/64 (78) 94 Room Air 08/18/22 01:15 63 125/77 (93) 98 Room Air 08/18/22 01:00 60 08/18/22 00:45 56 108/73 (85) 98 Room Air 08/18/22 00:30 59 98 Room Air 08/18/22 00:15 65 97 Room Air 08/18/22 00:07 36.5 83 97 21 08/18/22 00:00 97 Room Air 08/18/22 00:00 65 19 136/88 (104) 97 Room Air 08/17/22 23:45 60 08/17/22 23:40 57 105/59 97 Room Air 08/17/22 16:13 36.5 83 20 187/119 (141) Room Air I & O 08/18/22 07:00 Intake Total 780 ml Output Total 275 ml Balance 505 ml Height & Weight Height: '" Weight: lbs. oz. kg; 40.47 BMI Method: General Appearance: No Apparent Distress Capillary Refill: Less Than 3 Seconds Gastrointestinal: soft, tenderness, other Results Lab Laboratory Tests 08/17/22 17:30 08/18/22 03:12 Assessment/Plan Assessment/Plan 1 GILL GIRARD MD Aug 18, 2022 10:46
[2022-08-18] MEDS ORDERED: proPOfol 200 MG/20 ML (DIPRIVAN) VIAL IV ONE (12:00)
[2022-08-18] MEDS ORDERED: LIDOCAINE PF 2% 5 ML (XYLOCAINE) VIAL ONE (12:00)
[2022-08-18] MEDS ORDERED: fentaNYL INJ 100 MCG/2 ML AMP ONE (12:01)
[2022-08-18] MEDS ORDERED: MIDAZOLAM 2 MG/2 ML (VERSED) VIAL ONE (12:01)
--- NOTE | 2022-08-18 12:03 | Progress Note-Pre Operative ---
Pre-Operative Progress Note Date of Available H&P: Aug 18, 2022 Date H&P Reviewed: Aug 18, 2022 Time H&P Reviewed: 11:00 History & Physical: No changes noted Pre-Operative Diagnosis: right abdominal wall abscess SOLO SWEENEY MD Aug 18, 2022 12:03
[2022-08-18] MEDS ORDERED: BUP/EPI 0.5% 1:200,000 (SENSORCAINE) 30 ML VIAL ONE (12:07)
[2022-08-18] MEDS: LACTATED RINGERS 1,000 ML IV PRN ×2 (12:15→13:29)
[2022-08-18] MEDS ORDERED: ROCURONIUM 50 MG/5 ML (ZEMURON) VIAL IV ONE (12:19)
--- NOTE | 2022-08-18 12:31 | History & Physical-Hospitalist ---
IVETH CHRISTIANSEN 08/18/22 1231: History of Present Illness HPI/Chief Complaint Marilyn Naranjo is a 46F with past medical history of HTN, DVT, recurrent kidney infections and ureteral obstruction s/p R nephrectomy. She presented to the ER complaining of abdominal pain for several days. CT ab/pelv in the ER revealed fat stranding and free air in the subcutaneous tissue in the right abdominal wall. She recently had R nephrectomy done at on 08/05 due to ureteral obstruction and recurrent infection. She was discharged on 08/14 from and has had abdominal pain, warmth, and minimal erythema since. She denies any purulent drainage from her wounds. This morning she is seen at bedside. She reports 03/05 pain at her R abdomen that is improved from arrival. She denies fever or chills overnight. She is draining clear yellow urine via catheter and has not had a BM since admission. Has been made NPO for OR this afternoon. Dr Hicks has seen patient and plans debridement/drainage this afternoon. Source: patient Exam Limitations: no limitations Date Seen 08/18/22 Time Seen by a Provider: 10:00 Attending Physician Madai Parker Aprn PCP Admitting Physician: Robina Duran DO Attending Physician: Robina Duran DO Referring Physician Date of Admission Aug 17, 2022 at 21:13 Home Medications & Allergies Home Medications Reviewed patient Home Medication Reconciliation performed by pharmacy medication reconciliations networking technician and/or nursing. Patients Allergies have been reviewed. Allergies Allergies Coded Allergies shellfish derived (Verified Allergy, Severe, 02/15/22) morphine (Verified Allergy, Intermediate, Hives, 03/15/22) Hives and itching locally at IV site Iodinated Contrast Media (Verified Allergy, Unknown, 02/15/22) Sulfa (Sulfonamide Antibiotics) (Verified Allergy, Unknown, 04/03/22) aspirin (Verified Allergy, Unknown, 02/15/22) Uncoded Allergies IODINE CONTRAST ( Allergy, Mild, 02/15/22) Past Qwozeya-Hmrunr-Rswrvi Hx Patient Social History Tobacco Use?: Yes Tobacco type used: Cigarettes Smoking Status: Current Everyday Smoker (currently smokes less than a pack a day. Smoked for 20 years) Smokeless Tobacco Frequency: Never a User Use of E-Cig and/or Vaping dev: No Use of E-Cig and/or Vaping Fabian: Never a User Substance use?: No Alcohol Use?: No Pt feels they are or have been: No Immunizations Up To Date First/Initial COVID19 Vaccinat: 02/2021 Second COVID19 Vaccination Rafita: 02/2021 Tetanus Booster (TDap): Unknown Current Status status: No status: No Advance Directives: No Communicates: Verbally Primary Language: South Korean Preferred Spoken Language: South Korean Is interpretation needed?: No Sensory deficits: Vision impairment Implanted or Applied Medical D: None Past Medical History Surgeries: Adenoidectomy, Gallbladder, Nephrectomy (Right), Renal, Tonsillectomy, Tubal Ligation Deep Vein Thrombosis, Hypertension UTI-Chronic Family Medical History Cancer (colon cancer in grandparents, no fam hx of kidney cancer or kidney dz) Review of Systems Constitutional: No chills, No fever Respiratory: No cough, No short of breath Cardiovascular: No chest pain, No palpitations, No syncope Gastrointestinal: abdominal pain (RUQ); No jaundice, No vomiting Genitourinary: No hematuria; other (yellow clear urine via catheter) Musculoskeletal: back pain Skin: other (surgical wounds clean dry and intact, no drainage or erythema noted) Psychiatric/Neurological: Denies Headache Physical Exam Physical Exam Vital Signs Vital Signs - First Documented 08/17/22 08/17/22 08/18/22 16:13 23:40 00:07 Temp 36.5 Pulse 83 Resp 20 B/P (MAP) 187/119 (141) Pulse Ox 97 O2 Delivery Room Air FiO2 21 Capillary Refill : Less Than 3 Seconds Height, Weight, BMI Height: '" Weight: lbs. oz. kg; 40.47 BMI Method: General Appearance: No Apparent Distress, WD/WN HEENT: PERRL/EOMI, Moist Mucous Membranes Neck: Supple Respiratory: Chest Non Tender, Lungs Clear, No Accessory Muscle Use Cardiovascular: Regular Rate, Rhythm, Normal Peripheral Pulses Gastrointestinal: Soft, Tenderness (at surgical site. Firm skin around superior incisions) Rectal: Deferred Extremity: Normal Capillary Refill, No Pedal Edema Neurologic/Psychiatric: Alert, Oriented x3, Normal Mood/Affect Skin: Other (incisons clean, dry and itact, no purulence or erythema. Firmness noted on R side of abdomen) Results Results/Procedures Labs Laboratory Tests 08/17/22 17:30 08/18/22 03:12 Patient resulted labs reviewed. Imaging [facility]. [place], [place] NAME: MARILYN NARANJO [facility] REC#: [id number] PT STATUS: REG ER : 1975 PHYSICIAN: KATHI PAK MD ADMIT DATE: 08/17/22/ER Signed Date of Exam:08/17/22 CT ABDOMEN/PELVIS WO Clinical indication: Patient with right-sided pain x 2 days related to right kidney removal on 08/05/2022. Patient describes a burning feeling, cramping and pain with movement. Exam: CT exam of the abdomen and pelvis is performed without IV or oral contrast using stone protocol. Coronal and sagittal reformatted images were created. Auto Exposure Controls were utilized during the CT exam to meet ALARA standards for radiation dose reduction. Comparisons: CT scan of the abdomen and pelvis performed without IV contrast dated 03/15/2022. Findings: Visualized lung bases are clear. There are small spurs involving both hips. There are lower lumbar spine degenerative spurs. There is lower lumbar spine facet arthropathy. Gallbladder is surgically absent which is noted on prior study. The liver, spleen, pancreas and adrenal glands are unremarkable. Right kidney has been surgically resected in the interim. There is no fluid collection in the right nephrectomy bed. Left kidney is unremarkable with no stone, mass or hydronephrosis. Bladder is fluid-filled and otherwise unremarkable. The uterus and adnexal structures are unremarkable. There is no intra-abdominal free air or free fluid. There is a small to moderate amount of stool throughout the colon. Appendix is unremarkable. There is no lymphadenopathy. There is no intestinal obstruction. There is diverticulosis involving the transverse colon with no CT evidence of diverticulitis. There is interval development of soft tissue fat stranding along the right side of the abdomen and upper pelvis in the extra-abdominal region. There is a small to moderate amount of air within the subcutaneous fat and within the anterior right lateral musculature superficial layer. There is no drainable fluid collection seen. This finding is concerning for infectious process. Impression: 1: There is interval development of a moderate amount of fat stranding involving the extra-abdominal right anterior lateral upper to mid and right upper pelvis region. There is small to moderate amount of air within the subcutaneous fat of the extra-abdominal region. There is also air within the outer muscle layer of the anterior lateral right abdominal musculature of the lower abdomen. There is no drainable fluid collection seen. These findings are concerning for infectious process. This infectious process does not extend intraperitoneal. Given the amount of air in the subcutaneous fat, necrotizing fasciitis should be excluded. 2: There is interval right nephrectomy with no fluid collection in the right renal bed. Dictated by: Dictated on workstation # [id number] Dict: 08/17/221824 Trans: 08/17/222320 [id number] Interpreted by: KRUPA FRAZIER MD Electronically signed by: KRUPA FRAZIER MD 08/17/222320 Assessment/Plan Admission Diagnosis R sided cellulitis s/p nephrectomy Admission Status: Inpatient Order (span 2 midnights) Reason for Inpatient Admission: Soft tissue infection s/p R nephrectomy Assessment and Plan Soft tissue infxn S/P R nephrectomy on 08/05 CT revealed soft tissue infxn on right side of abdomen around surgical site General surgery consulted- Dr Hicks plans debridement/drainage this afternoon Elevated WBC at 18.1 on admission now 16.1 Elevated CRP Normal lactic acid On pip/tazo and vanc Fentanyl and dilaudid for pain control as needed UTI Continue abx and fluids Cx grew gram - gordo Chronic/recurrent UTIs in the setting of her kidney hx Hyperglycemia No hx of DM, one mildly elevated value at 148, continue to monitor Anemia Mild, continue to monitor CBC, likely due to dilution ROBINA DURAN DO 08/19/22 0513: Assessment/Plan Admission Diagnosis Sepsis Post op cellulitis/abscess Recent nephrectomy Admission Status: Inpatient Order (span 2 midnights) Reason for Inpatient Admission: sepsis Supervisory-Addendum Brief Verification & Attestation Participated in pt care: history, MDM, physical Personally performed: exam, history, MDM, supervision of care Care discussed with: Medical Student Procedures: n/a Results interpretation: Verified all documentation Verification and Attestation of Medical Student E/M Service A medical student performed and documented this service in my presence. I reviewed and verified all information documented by the medical student and made modifications to such information, when appropriate. I personally performed the physical exam and medical decision making. Robina Duran Aug 19, 2022,05:12 IVETH CHRISTIANSEN Aug 18, 2022 12:31 ROBINA DURAN DO Aug 19, 2022 05:13
--- NOTE | 2022-08-18 13:02 | Progress Note-Post Operative ---
Post-Operative Progess Note Surgeon (s)/Pile Driver Operator Barge Mounted (s) Surgeon SOLO SWEENEY MD Pile Driver Operator Barge Mounted: clive mobley ACCOUNTING MANAGER Pre-Operative Diagnosis right abdominal wall abscess Post-Operative Diagnosis same, no necrotizing fasciitis Procedure & Operative Findings Date of Procedure 08/18/22 Procedure Performed/Findings incision and drainage complex abd wall abscess. Anesthesia Type get Estimated Blood Loss Estimated blood loss (mL): minmal Specimens/Packing Specimens Removed abd wall abscess. SOLO SWEENEY MD Aug 18, 2022 13:02
[2022-08-18] MEDS ORDERED: SUGAMMADEX 500 MG/5 ML VIAL (BRIDION) IV ONE (13:09)
--- NOTE | 2022-08-18 13:27 | CONSULTATION REPORT ---
DATE OF SERVICE: 08/18/2022 ATTENDING SEGMENTAL PAVING SUPERVISOR: Madai Parker APRN. INDICATIONS: The patient is a 46-year-old female with history of severe nephrolithiasis as well as eventual right ureteral obstruction and chronic urinary tract infections. This caused the atrophy of the kidney and on 08/05/2022, she underwent what appears to be a laparoscopic retroperitoneal right nephrectomy at [facility] by Dr. Jarvis. The patient states that she was doing well; however, at the largest right lower abdominal incision, she developed some pain and some hardness in that region. She presented to the Emergency Department where a CT scan was performed, which did show some inflammation of the subcutaneous tissue as well as some subcutaneous air, which may indicate developing abscess versus necrotic debris versus early necrotizing fasciitis. PAST MEDICAL HISTORY: Chronic right severe nephrolithiasis and results in right kidney disease and atrophy, hypertension, history of DVT, chronic urinary tract infection. PAST SURGERIES: Laparoscopic right nephrectomy, tubal ligation, right nephrostomy tube placement and tonsillectomy. ALLERGIES: IV IODINE, SULFA AND ASPIRIN. MEDICATIONS: Cefdinir 300 mg b.i.d., hydrocodone p.r.n. SOCIAL HISTORY: Positive smoke, greater than 40 pack years, negative alcohol. FAMILY HISTORY: Noncontributory. VITAL SIGNS: Temperature 36.5, blood pressure 102/60, pulse 68, respirations 19, pulse ox 95% on room air. REVIEW OF SYSTEMS: A well-nourished female, currently in no acute distress. She is not experiencing any shortness of breath or difficulty breathing. No chest pain, palpitations, diaphoresis. No nausea or vomiting. No diarrhea or constipation. She states there is development of pain in the right lower abdominal quadrant as well as a hardening sensation. She does not report any systemic symptoms of fever, no chills as well as no recent inadvertent weight loss. There is no crepitance along the abdominal wall. Skin is warm, dry. PHYSICAL EXAMINATION: CHEST: Distant breath sounds and scattered wheezes bilaterally. HEART: Regular, no murmurs. EXTREMITIES: No lower extremity edema. Negative Homans sign. HEENT: No scleral icterus. No cervical lymphadenopathy. ABDOMEN: Soft, nontender, nondistended. There is a pain and swelling in the right lower abdominal incision. There was some hardness which may indicate an abscess versus early tissue necrosis. SKIN: Warm and dry. LABS: WBC 16.1, hemoglobin 10.4, hematocrit 31, platelets 367, BUN 13, creatinine 1.05. ASSESSMENT AND PLAN: A 46-year-old female with surgical site infection. Due to the findings on the CT scan, this may indicate early tissue necrosis or early necrotizing fasciitis and we will proceed with incision and drainage and exploration under MAC anesthesia as well as a possible tissue debridement if necessary. Job ID: [id number] DocumentID: [id number] Dictated Date: 08/18/2022 12:31:26 Blood Donor Recruiter Supervisor Date: 08/18/2022 13:25:00 Dictated By: SOLO SWEENEY MD
[2022-08-18] MEDS ORDERED: fentaNYL INJ 100 MCG/2 ML AMP IVP ONE (13:45)
[2022-08-18] MEDS ORDERED: ONDANSETRON 4 MG/2 ML (SDV) Z0FRAN IVP PRN (13:45)
[2022-08-18] MEDS ORDERED: HYDROmorphone 2 MG/ML VIAL (DILAUDID) IV ONE (13:45)
[2022-08-18] MEDS ORDERED: SEVOFLURANE (ULTANE) 15 ML INHAL SOLN ONE (13:49)
--- NOTE | 2022-08-18 13:53 | Anesthesia-General Post-Op ---
General Patient Condition Mental Status/LOC: Same as Preop Cardiovascular: Satisfactory Nausea/Vomiting: Absent Respiratory: Satisfactory Pain: Controlled Complications: Absent Post Op Complications Complications None Follow Up Care/Instructions Patient Instructions None needed. Anesthesia/Patient Condition Patient Condition Patient is doing well in PACU. She does C/O abd pain which is unfortunately to be expected, stable vital signs, no apparent adverse anesthesia problems. No complications reported per nursing. ORACIO STRINGER DO Aug 18, 2022 13:53
[2022-08-18] MEDS ORDERED: CLN.2T PO (15:37)
[2022-08-18] MEDS ORDERED: METH-732 PO (15:37)
[2022-08-18] MEDS ORDERED: CLON1PAT16 TD (15:37)
[2022-08-18] MEDS ORDERED: ONDA4TAB11 PO (15:37)
[2022-08-18] MEDS ORDERED: ATOR20TA66 PO (15:37)
[2022-08-18] MEDS ORDERED: OXYC5TAB PO (15:37)
[2022-08-18] MEDS ORDERED: OLME20TA24 PO (15:37)
[2022-08-18] MEDS ORDERED: DESV50TA PO (15:37)
[2022-08-18] MEDS ORDERED: GABA-486 PO (15:37)
[2022-08-18] MEDS ORDERED: AMLO-251 PO (15:38)
--- NOTE | 2022-08-18 17:09 | OPERATIVE REPORT ---
DATE OF SERVICE: 08/18/2022 ATTENDING PRIMARY QC MANAGER: Madai Parker APRN. PREOPERATIVE DIAGNOSIS: Right abdominal wall abscess versus necrosis versus early necrotizing fasciitis. POSTOPERATIVE DIAGNOSIS: Abdominal wall early abscess. No necrotizing fasciitis. PROCEDURE: Incision and drainage of complex abdominal wall abscess and exploration. SURGEON: Solo Hicks MD WAFER POLISHING LEAD WORKER: Dakota Arias APRN ANESTHESIA: General endotracheal with local. ESTIMATED BLOOD LOSS: Minimal. FINDINGS: A small fluid collections, which were more loculated within subcutaneous tissue. There was turbid fluid. There was no structural loss of integrity of the subcutaneous tissue or necrotic or gangrenous tissue to indicate any necrotizing soft tissue infection. DISPOSITION: The patient tolerated the procedure well . INDICATIONS: The patient is a 46-year-old female who presented to the Emergency Department with right sided abdominal wall pain. She is status post a laparoscopic what appears to be retroperitoneal nephrectomy on 08/05. This was done at [facility] by Dr. Jarvis. She reports that she had initially done well; however, she felt a fullness along the superior aspect of the largest incision along the right lower abdominal quadrant as well as erythema compared to the other skin. A CT scan was performed, which showed air in the subcutaneous tissue, which may have indicated abscess formation versus early necrosis as well as early necrotizing fasciitis. Her white count was 18,000. DESCRIPTION OF PROCEDURE: The patient was brought to the operating room, laid supine on the table. After adequate IV pain and sedative medications and general endotracheal intubation, the abdomen was prepped and draped in standard surgical fashion. 0.5% Marcaine with epinephrine was used to anesthetize the previous incision along the right lower abdominal quadrant and this was opened using a #15 blade. We then proceeded with blunt dissection within the subcutaneous tissue. There were small as of turbid fluid, which may indicate an early infection. There was no necrotic subcutaneous tissue or fascia to indicate any necrotizing soft tissue infection. We dissected superiorly where the air pockets were again no signs of necrotizing fasciitis. The wound cavity was then copiously irrigated with a power copper miner. Good hemostasis was observed and the wound cavity was packed with saline-soaked Kerlix, followed by 4 x 4 gauze followed by ABD pad and abdominal binder. The patient tolerated the procedure well. We will admit her back to the ICU and continue with IV antibiotics and continue with wet-to-dry dressings on a b.i.d. basis and potentially wound VAC for 2 Increased time to closure of the wound, decrease time to closure of the wound. Job ID: [id number] DocumentID: [id number] Dictated Date: 08/18/2022 13:08:45 Salesforce Trainer Date: 08/18/2022 17:07:00 Dictated By: SOLO HICKS MD
[2022-08-19] MEDS: PIPERACILLIN SODIUM/TAZOBACTAM 4.5 GM in NS (IVPB) 100 ML IV SCH ×3 (01:53→17:00)
[2022-08-19] MEDS: HYDROmorphone 2 MG/ML VIAL (DILAUDID) IV PRN ×6 (03:18→19:46)
[2022-08-19] MEDS: POTASSIUM CL 10MEQ/50ML IVPB 50 ML IV SCH (05:39)
[2022-08-19] MEDS: MAGNESIUM 1 GM/100 ML IVPB 100 ML IV SCH (05:39)
[2022-08-19] MEDS: KCL 20 MEQ TAB (K-DUR) PO SCH (05:39)
--- NOTE | 2022-08-19 06:56 | Diagnostic Imaging Report ---
Indication: Shortness of breath Portable chest 4:17 AM Heart size and pulmonary vascularity are normal. Lungs are clear. There are no effusions or pneumothoraces. IMPRESSION: Negative chest Dictated by: Dictated on workstation # [id number]
[2022-08-19] MEDS ORDERED: TROUGH ORDER-PHARMACY XX NR (07:00)
[2022-08-19] MEDS: NS IV 1000 ML 1,000 ML IV SCH ×3 (08:07→20:06)
[2022-08-19] MEDS: ENOXAPARIN 40 MG/0.4 ML (LOVENOX) SYR SC SCH ×2 (08:07→19:46)
[2022-08-19] MEDS: DOCUSATE SODIUM 100 MG (COLACE) CAP PO SCH ×2 (08:07→19:46)
[2022-08-19] MEDS: SENNOSIDES 8.6 MG (SENOKOT) TAB PO SCH ×2 (08:07→19:46)
[2022-08-19 08:41] LABS: BASOPHILS # (AUTO) 0.1 10^3/uL (0.0-0.1); BASOPHILS % (AUTO) 1 % (0-10); EOSINOPHILS # (AUTO) 0.9 10^3/uL (0.0-0.3); EOSINOPHILS % (AUTO) 7 % (0-10); HEMATOCRIT 33 % (35-52); HEMOGLOBIN 10.7 g/dL (11.5-16.0); LYMPHOCYTES # (AUTO) 2.1 10^3/uL (1.0-4.0); LYMPHOCYTES % (AUTO) 16 % (12-44); MEAN CORPUSCULAR HEMOGLOBIN 30 pg (25-34); MEAN CORPUSCULAR HGB CONC 33 g/dL (32-36); MEAN CORPUSCULAR VOLUME 90 fL (80-99); MONOCYTES # (AUTO) 1.3 10^3/uL (0.0-1.0); MONOCYTES % (AUTO) 10 % (0-12); NEUTROPHILS # (AUTO) 8.8 10^3/uL (1.8-7.8); NEUTROPHILS % (AUTO) 66 % (42-75); PLATELET COUNT 332 10^3/uL (130-400); WHITE BLOOD COUNT 13.3 10^3/uL (4.3-11.0)
[2022-08-19 08:42] LABS: SMEAR SCAN COMMENT YES
[2022-08-19] MEDS: fentaNYL INJ 100 MCG/2 ML AMP IVP PRN ×4 (08:49→22:45)
--- NOTE | 2022-08-19 09:03 | Tele-ICU Progress Note ---
Subjective Date Seen by a Provider: Aug 19, 2022 Time Seen by a Provider: 08:58 Subjective/Events-last exam (Tele-ICU Physician , consultation) Available chart/ vitals / labs / Images reviewed H&P is from ER notes Patient's information available about PMH, allergy reviewed in EMR. ROS as per chart and RN report Video assessment done using teleICU camera, rest of exam as per RN Discussed with RN. She is a 46-year-old female who is morbidly obese has a history of for ureteral obstruction for which she underwent nephrectomy on the right side on 08/05/2022 at and now presented with right-sided pain started after 3 days discharge from . CT of the abdomen and pelvis revealed fat stranding and subcutaneous air suggestive of an abscess formation or necrotizing fasciitis for which she underwent incision and drainage and she had found to be having turbid fluid which were sent for cultures. Today she feels sore still she did not have any diarrhea or bowel movement today. Impression 1. Postop subcutaneous abscess possibly anaerobic. Status post I&D. Currently receiving Zosyn and vancomycin. Cultures are pending. Urine cultures grew E. coli. 2. Postoperative pain moderately controlled. 3. VTE prophylaxis. On Lovenox 40 mg subcutaneously. Collaboration of care with bedside consultants and primary care physician. Critical care time 15 minutes. Sepsis Event Evaluation Height, Weight, BMI Height: '" Weight: lbs. oz. kg; 40.73 BMI Method: Focused Exam Lactate Level 08/17/22 17:30: Lactic Acid Level 1.50 Exam Exam Patient acknowledged, consented, and participated in this virtual visit which was conducted using real time audio/video Vital Signs Date Time Temp Pulse Resp B/P (MAP) Pulse Ox O2 Delivery O2 Flow Rate FiO2 08/19/22 08:16 37.3 08/19/22 08:00 98 Room Air 08/19/22 07:00 51 16 97/55 (69) 100 Room Air 08/19/22 07:00 51 08/19/22 06:00 48 12 96/54 (68) 100 Room Air 08/19/22 05:00 48 15 99 Room Air 08/19/22 04:00 49 12 94/57 (69) 99 Room Air 08/19/22 03:20 98 Nasal Cannula 2.00 08/19/22 03:00 52 14 95/63 (74) 99 Room Air 08/19/22 03:00 37.0 58 16 95/63 (74) 98 Room Air 08/19/22 02:00 52 14 95/60 (72) 96 Nasal Cannula 2.00 08/19/22 01:00 55 13 97/56 (70) 96 Nasal Cannula 2.00 08/19/22 01:00 60 08/19/22 00:25 Nasal Cannula 2.00 08/19/22 00:00 59 13 153/84 (107) 96 Room Air 08/18/22 23:45 37.3 57 14 113/79 (90) 97 Room Air 08/18/22 23:40 97 Room Air 08/18/22 23:00 53 11 113/79 (90) 97 Room Air 08/18/22 22:05 96 Room Air 0.00 08/18/22 22:00 52 15 123/76 (92) 94 Room Air 08/18/22 21:00 47 14 112/81 (91) 95 Room Air 08/18/22 20:13 95 Room Air 0.00 08/18/22 20:00 49 13 123/89 (100) 96 Room Air 08/18/22 19:45 96 Room Air 08/18/22 19:00 60 08/18/22 19:00 37.0 50 16 125/78 (94) 96 Room Air 08/18/22 18:00 46 127/74 (91) 94 Room Air 08/18/22 17:00 49 109/66 (80) 95 Room Air 08/18/22 16:15 95 Room Air 08/18/22 16:00 50 35 108/74 (85) 94 Room Air 08/18/22 15:52 36.4 08/18/22 15:15 58 08/18/22 15:14 58 118/72 (87) 92 Room Air 08/18/22 14:15 Room Air 08/18/22 14:10 36.9 16 107/74 (85) 97 Room Air 08/18/22 14:00 OxyMask 2.00 08/18/22 14:00 16 113/79 (90) 95 OxyMask 2.00 08/18/22 13:50 16 125/86 (99) 98 OxyMask 2.00 08/18/22 13:45 OxyMask 4.00 08/18/22 13:40 20 135/83 (100) 98 OxyMask 4.00 08/18/22 13:30 OxyMask 6.00 08/18/22 13:30 14 122/79 (93) 98 OxyMask 6.00 08/18/22 13:17 OxyMask 6.00 08/18/22 13:17 37.4 20 91/62 (72) 98 OxyMask 6.00 08/18/22 12:00 48 103/66 (78) 97 Room Air 08/18/22 12:00 36.8 08/18/22 11:30 97 Room Air 08/18/22 11:00 48 102/60 (74) 95 Room Air 08/18/22 10:00 49 105/71 (82) 97 Room Air 08/18/22 09:00 49 89/69 (76) 97 Room Air I & O 08/19/22 07:00 Intake Total 3950 ml Output Total 2595 ml Balance 1355 ml Height & Weight Height: '" Weight: lbs. oz. kg; 40.73 BMI Method: General Appearance: No Apparent Distress, WD/WN HEENT: PERRL/EOMI, Moist Mucous Membranes Neck: Supple Respiratory: Chest Non Tender, Lungs Clear, No Accessory Muscle Use Cardiovascular: Regular Rate, Rhythm, Normal Peripheral Pulses Capillary Refill: Less Than 3 Seconds Gastrointestinal: soft, tenderness, other (There is generalized tenderness on the right side of the abdomen, particularly focused around the largest of her surgical incisions. The incision is intact with glue without any drainage. There is mild erythema and warmth surrounding the incision. The area of superior and medial to the incision feels full or firmly indurated.) Extremity: Normal Capillary Refill, No Pedal Edema Neurologic/Psychiatric: Alert, Oriented x3, Normal Mood/Affect Skin: Other (incisons clean, dry and itact, no purulence or erythema. Firmness noted on R side of abdomen) Other comments I am remotely monitoring this patient from another state. I am unable to do the bedside exam, and history/physical and pertinent information is taken from other notes in the computer and bedside staff. Results Lab Laboratory Tests 08/17/22 17:30 08/18/22 03:12 08/19/22 08:25 Assessment/Plan Assessment/Plan as above Critical Care: Critically Ill Patient MELANIE MERRILL MD Aug 19, 2022 09:03
[2022-08-19 09:12] LABS: POTASSIUM 4.2 MMOL/L (3.6-5.0)
[2022-08-19 09:16] LABS: BILIRUBIN,TOTAL 0.4 MG/DL (0.1-1.0)
[2022-08-19 09:18] LABS: CREATININE SERUM 1.03 MG/DL (0.60-1.30); PHOSPHORUS 2.9 MG/DL (2.3-4.7)
[2022-08-19] MEDS: VANCOMYCIN 1 GM/NS 250 ML IVPB IV SCH ×2 (09:33)
[2022-08-19] MEDS ORDERED: ONDANSETRON 4 MG (ZOFRAN) ORAL DISSOLVE TAB PO PRN (11:15)
[2022-08-19] MEDS ORDERED: GABAPENTIN 100 MG (NEURONTIN) CAP PO SCH (11:15)
[2022-08-19] MEDS ORDERED: cloNIDine 0.2 MG (CATAPRES) TAB PO PRN (11:15)
--- NOTE | 2022-08-19 11:40 | Progress Note ---
Subjective Date Seen by a Provider: Aug 19, 2022 Time Seen by a Provider: 11:00 Subjective/Events-last exam doing well. no fever/chills. tolerating diet. Focused Exam Lactate Level 08/17/22 17:30: Lactic Acid Level 1.50 Objective Exam Vital Signs Date Time Temp Pulse Resp B/P (MAP) Pulse Ox O2 Delivery O2 Flow Rate FiO2 08/19/22 11:04 100 Room Air 08/19/22 10:00 59 14 115/70 (85) 100 Room Air 08/19/22 09:00 55 13 110/77 (88) 100 Room Air 08/19/22 08:16 37.3 08/19/22 08:00 50 16 146/90 (108) 100 Room Air 08/19/22 08:00 98 Room Air 08/19/22 07:00 51 16 97/55 (69) 100 Room Air 08/19/22 07:00 51 08/19/22 06:00 48 12 96/54 (68) 100 Room Air 08/19/22 05:00 48 15 99 Room Air 08/19/22 04:00 49 12 94/57 (69) 99 Room Air 08/19/22 03:20 98 Nasal Cannula 2.00 08/19/22 03:00 52 14 95/63 (74) 99 Room Air 08/19/22 03:00 37.0 58 16 95/63 (74) 98 Room Air 08/19/22 02:00 52 14 95/60 (72) 96 Nasal Cannula 2.00 08/19/22 01:00 55 13 97/56 (70) 96 Nasal Cannula 2.00 08/19/22 01:00 60 08/19/22 00:25 Nasal Cannula 2.00 08/19/22 00:00 59 13 153/84 (107) 96 Room Air 08/18/22 23:45 37.3 57 14 113/79 (90) 97 Room Air 08/18/22 23:40 97 Room Air 08/18/22 23:00 53 11 113/79 (90) 97 Room Air 08/18/22 22:05 96 Room Air 0.00 08/18/22 22:00 52 15 123/76 (92) 94 Room Air 08/18/22 21:00 47 14 112/81 (91) 95 Room Air 08/18/22 20:13 95 Room Air 0.00 08/18/22 20:00 49 13 123/89 (100) 96 Room Air 08/18/22 19:45 96 Room Air 08/18/22 19:00 60 08/18/22 19:00 37.0 50 16 125/78 (94) 96 Room Air 08/18/22 18:00 46 127/74 (91) 94 Room Air 08/18/22 17:00 49 109/66 (80) 95 Room Air 08/18/22 16:15 95 Room Air 08/18/22 16:00 50 35 108/74 (85) 94 Room Air 08/18/22 15:52 36.4 08/18/22 15:15 58 08/18/22 15:14 58 118/72 (87) 92 Room Air 08/18/22 14:15 Room Air 08/18/22 14:10 36.9 16 107/74 (85) 97 Room Air 08/18/22 14:00 OxyMask 2.00 08/18/22 14:00 16 113/79 (90) 95 OxyMask 2.00 08/18/22 13:50 16 125/86 (99) 98 OxyMask 2.00 08/18/22 13:45 OxyMask 4.00 08/18/22 13:40 20 135/83 (100) 98 OxyMask 4.00 08/18/22 13:30 OxyMask 6.00 08/18/22 13:30 14 122/79 (93) 98 OxyMask 6.00 08/18/22 13:17 OxyMask 6.00 08/18/22 13:17 37.4 20 91/62 (72) 98 OxyMask 6.00 08/18/22 12:00 48 103/66 (78) 97 Room Air 08/18/22 12:00 36.8 I & O 08/19/22 07:00 Intake Total 3950 ml Output Total 2595 ml Balance 1355 ml Capillary Refill : Less Than 3 Seconds General Appearance: No Apparent Distress HEENT: PERRL/EOMI Neck: Full Range of Motion Respiratory: Chest Non Tender, Wheezing Cardiovascular: Regular Rate, Rhythm Gastrointestinal: normal bowel sounds, soft, tenderness Extremity: Normal Capillary Refill Neurologic/Psychiatric: Alert, Oriented x3 Skin: Normal Color Lymphatic: No Adenopathy Results Lab Laboratory Tests 08/19/22 08:25: White Blood Count 13.3H, Red Blood Count 3.62L, Hemoglobin 10.7L, Hematocrit 33L , Mean Corpuscular Volume 90, Mean Corpuscular Hemoglobin 30, Mean Corpuscular Hemoglobin Concent 33, Red Cell Distribution Width 13.8, Platelet Count 332, Mean Platelet Volume 10.0, Immature Granulocyte % (Auto) 1, Neutrophils (%) (Auto) 66, Lymphocytes (%) (Auto) 16, Monocytes (%) (Auto) 10, Eosinophils (%) (Auto) 7, Basophils (%) (Auto) 1, Neutrophils # (Auto) 8.8H, Lymphocytes # (Auto) 2.1, Monocytes # (Auto) 1.3H, Eosinophils # (Auto) 0.9H, Basophils # (Auto) 0.1, Immature Granulocyte # (Auto) 0.1, Percent Immature Platelet Fraction 3.3, Sodium Level 137, Potassium Level 4.2, Chloride Level 108H, Carbon Dioxide Level 19L, Anion Gap 10, Blood Urea Nitrogen 7, Creatinine 1.03, Estimat Glomerular Filtration Rate 69, BUN/Creatinine Ratio 7, Glucose Level 94, Calcium Level 8.0L, Corrected Calcium 8.8, Phosphorus Level 2.9, Magnesium Level 2.0, Total Bilirubin 0.4, Aspartate Amino Transf (AST/SGOT) 20, Alanine Aminotransferase (ALT/SGPT) 13, Alkaline Phosphatase 80, Total Protein 6.0L, Albumin 3.0L, Vancomycin Level Trough 17.5, Smear Scan YES Microbiology 08/18/22 Gram Stain - Final, Resulted 08/18/22 Anaerobic Culture, Resulted Pending 08/18/22 Surgical Culture - Preliminary, Resulted No growth 08/17/22 MRSA Screen - Final, Complete MRSA not isolated 08/17/22 Urine Culture - Final, Complete Escherichia coli 08/17/22 Blood Culture - Preliminary, Resulted No growth Assessment/Plan Assessment/Plan Assess & Plan/Chief Complaint abd wall post surgical complex abscess. cont vac. cont abx. ss for home health. SOLO SWEENEY MD Aug 19, 2022 11:40
--- NOTE | 2022-08-19 12:28 | Progress Note - Hospitalist ---
IVETH CHRISTIANSEN 08/19/22 1228: Subjective HPI/CC On Admission Date Seen by Provider: Aug 19, 2022 Time Seen by Provider: 09:30 Rudy Naranjo is a 46F with past medical history of HTN, DVT, recurrent kidney infections and ureteral obstruction s/p R nephrectomy. She presented to the ER complaining of abdominal pain for several days. CT ab/pelv in the ER revealed fat stranding and free air in the subcutaneous tissue in the right abdominal wall. She recently had R nephrectomy done at on 08/05 due to ureteral obstruction and recurrent infection. She was discharged on 08/14 from and has had abdominal pain, warmth, and minimal erythema since. She denies any purulent drainage from her wounds. This morning she is seen at bedside. She reports 9/10 pain at her R abdomen that is improved from arrival. She denies fever or chills overnight. She is draining clear yellow urine via catheter and has not had a BM since admission. Has been made NPO for OR this afternoon. Dr Hicks has seen patient and plans debridement/drainage this afternoon. Subjective/Events-last exam Rudy Naranjo is lying in bed this morning somewhat comfortably. She reports moderate pain at 9/10 still in the RUQ around incisions. Despite the same 9/10 score she says her pain is improved from yesterday. Wound vac in place and fun ctioning with no issues. She reports no N/V following surgery. No BM yet. Catheter in place and draining clear yellow urine. Reports use of her incentive spirometer 3 or 4 times since her surgery. Review of Systems General: No Chills, No Night Sweats HEENT: No Head Aches Pulmonary: No Dyspnea, No Cough Cardiovascular: No: Chest Pain, Palpitations Gastrointestinal: Abdominal Pain; No: Nausea, Vomiting Genitourinary: No Dysuria, No Hematuria Musculoskeletal: neck pain Neurological: Weakness; No: Confusion Focused Exam Lactate Level 08/17/22 17:30: Lactic Acid Level 1.50 Objective Exam Vital Signs Vital Signs Date Time Temp Pulse Resp B/P (MAP) Pulse Ox O2 Delivery O2 Flow Rate FiO2 08/19/22 11:04 100 Room Air 08/19/22 11:00 56 20 127/74 (91) 08/19/22 08:16 37.3 08/19/22 03:20 2.00 08/18/22 00:07 21 Capillary Refill : Less Than 3 Seconds General Appearance: No Apparent Distress, WD/WN HEENT: PERRL/EOMI, Moist Mucous Membranes Neck: Supple Respiratory: Chest Non Tender, Lungs Clear, No Accessory Muscle Use Cardiovascular: Regular Rate, Rhythm, Normal Peripheral Pulses Gastrointestinal: Soft, Tenderness (worse in RUQ around incisions) Rectal: Deferred Extremity: Pedal Edema (mild pedal edema bilaterally) Neurologic/Psychiatric: Alert, Oriented x3, Normal Mood/Affect Skin: Other (Wound vac in place draining serosanguinous fluid, incisions clean, dry, and intact) Results/Procedures Lab Laboratory Tests 08/19/22 08:25 Patient resulted labs reviewed. Radiology [facility]. [place], [place] NAME: RUDY NARANJO [facility] REC#: [id number] PT STATUS: ADM IN : 1975 PHYSICIAN: FAIZA DURAN DO ADMIT DATE: 08/17/22/ICU Signed Date of Exam:08/19/22 CHEST 1 VIEW, AP/PA ONLY Indication: Shortness of breath Portable chest 4:17 AM Heart size and pulmonary vascularity are normal. Lungs are clear. There are no effusions or pneumothoraces. IMPRESSION: Negative chest Dictated by: Dictated on workstation # [id number] Dict: 08/19/22 0654 Trans: 08/19/22 0655 [id number] Interpreted by: SUDHA ADAIR MD Electronically signed by: SUDHA ADAIR MD 08/19/22 0655 Assessment/Plan Assessment and Plan Assess & Plan/Chief Complaint Soft tissue infxn, POD1 I/D of abscess in R abdominal wall S/P R nephrectomy on 08/05 CT revealed soft tissue infxn on right side of abdomen around surgical site, early abscess General surgery consulted- Dr Hicks performed I/D yesterday Elevated WBC at 18.1 on admission now 13.3 Elevated CRP Normal lactic acid Cantinue pip/tazo and vanc Wound Vac in place Pending anaerobic cx, surg cx no growth Fentanyl and dilaudid for pain control as needed, moderately controlled as of now UTI Continue abx and fluids Cx grew gram - gordo Chronic/recurrent UTIs in the setting of her kidney hx Hyperglycemia No hx of DM, one mildly elevated value at 142, continue to monitor Anemia Mild, continue to monitor CBC, likely due to dilution, Hgb up to 10.7 today Patient will move to 4th floor today FAIZA DURAN DO 08/20/22 0526: Supervisory-Addendum Brief Verification & Attestation Participated in pt care: history, MDM, physical Personally performed: exam, history, MDM, supervision of care Care discussed with: Medical Student Procedures: n/a Results interpretation: Verified all documentation Verification and Attestation of Medical Student E/M Service A medical student performed and documented this service in my presence. I reviewed and verified all information documented by the medical student and made modifications to such information, when appropriate. I personally performed the physical exam and medical decision making. Faiza Duran, Aug 20, 2022,05:26 IVETH CHRISTIANSEN Aug 19, 2022 12:28 FAIZA DURAN DO Aug 20, 2022 05:26
[2022-08-19] MEDS: METHOCARBAMOL 750 MG (ROBAXIN) TAB PO PRN (12:30)
[2022-08-19] MEDS: GABAPENTIN 100 MG (NEURONTIN) CAP PO SCH (19:46)
[2022-08-19] MEDS: MELATONIN 3 MG TABLET PO PRN (19:46)
[2022-08-19] MEDS: VANCOMYCIN 750 MG/NS 250 ML IVPB IV SCH ×2 (20:04)
[2022-08-20] MEDS: HYDROmorphone 2 MG/ML VIAL (DILAUDID) IV PRN ×4 (03:05→20:13)
[2022-08-20] MEDS: GABAPENTIN 100 MG (NEURONTIN) CAP PO SCH ×3 (03:05→20:12)
[2022-08-20] MEDS: PIPERACILLIN SODIUM/TAZOBACTAM 4.5 GM in NS (IVPB) 100 ML IV SCH ×3 (03:05→18:43)
[2022-08-20] MEDS: NS IV 1000 ML 1,000 ML IV SCH (04:59)
[2022-08-20] MEDS: fentaNYL INJ 100 MCG/2 ML AMP IVP PRN ×2 (05:00→08:28)
[2022-08-20 05:12] LABS: BASOPHILS % (AUTO) 0 % (0-10); EOSINOPHILS # (AUTO) 0.9 10^3/uL (0.0-0.3); EOSINOPHILS % (AUTO) 9 % (0-10); HEMATOCRIT 30 % (35-52); HEMOGLOBIN 10.2 g/dL (11.5-16.0); LYMPHOCYTES # (AUTO) 2.1 10^3/uL (1.0-4.0); LYMPHOCYTES % (AUTO) 19 % (12-44); MEAN CORPUSCULAR HEMOGLOBIN 30 pg (25-34); MEAN CORPUSCULAR HGB CONC 34 g/dL (32-36); MEAN CORPUSCULAR VOLUME 89 fL (80-99); MEAN PLATELET VOLUME 9.6 fL (9.0-12.2); MONOCYTES # (AUTO) 1.1 10^3/uL (0.0-1.0); MONOCYTES % (AUTO) 10 % (0-12); NEUTROPHILS # (AUTO) 6.8 10^3/uL (1.8-7.8); NEUTROPHILS % (AUTO) 62 % (42-75); PLATELET COUNT 314 10^3/uL (130-400)
[2022-08-20 05:26] LABS: ALBUMIN 2.8 GM/DL (3.2-4.5); POTASSIUM 4.4 MMOL/L (3.6-5.0)
[2022-08-20 05:27] LABS: CALCIUM 8.4 MG/DL (8.5-10.1)
[2022-08-20 05:28] LABS: TOTAL PROTEIN 6.4 GM/DL (6.4-8.2)
[2022-08-20 05:30] LABS: BILIRUBIN,TOTAL 0.2 MG/DL (0.1-1.0)
[2022-08-20 05:32] LABS: CREATININE SERUM 0.93 MG/DL (0.60-1.30)
--- NOTE | 2022-08-20 05:44 | Progress Note - Hospitalist ---
Subjective HPI/CC On Admission Date Seen by Provider: Aug 20, 2022 Time Seen by Provider: 11:00 Marilyn Naranjo is a 46F with past medical history of HTN, DVT, recurrent kidney infections and ureteral obstruction s/p R nephrectomy. She presented to the ER complaining of abdominal pain for several days. CT ab/pelv in the ER revealed f at stranding and free air in the subcutaneous tissue in the right abdominal wall. She recently had R nephrectomy done at on 08/05 due to ureteral obstruction and recurrent infection. She was discharged on 08/14 from and has had abdominal pain, warmth, and minimal erythema since. She denies any purulent drainage from her wounds. This morning she is seen at bedside. She reports 9/10 pain at her R abdomen that is improved from arrival. She denies fever or chills overnight. She is draining clear yellow urine via catheter and has not had a BM since admission. Has been made NPO for OR this afternoon. Dr Hicks has seen patient and plans debridement/drainage this afternoon. Subjective/Events-last exam Pt doing ok Complains of the right sided abdominal pain Dr Colin will take her back to surgery to explore tomorrow Catheter in place and will keep in place since she has surgery tomorrow Review of Systems General: Fatigue, Malaise Focused Exam Lactate Level Objective Exam Vital Signs Vital Signs Date Time Temp Pulse Resp B/P (MAP) Pulse Ox O2 Delivery O2 Flow Rate FiO2 08/20/22 15:31 36.0 51 16 139/79 (99) 94 Room Air 08/19/22 03:20 2.00 08/18/22 00:07 21 Capillary Refill : Less Than 3 Seconds General Appearance: No Apparent Distress, WD/WN, Chronically ill Respiratory: Lungs Clear, Normal Breath Sounds Cardiovascular: Regular Rate, Rhythm Neurologic/Psychiatric: Alert, Oriented x3, No Motor/Sensory Deficits, Normal Mood/Affect Results/Procedures Lab Laboratory Tests 08/20/22 05:05 Patient resulted labs reviewed. Assessment/Plan Assessment and Plan Assess & Plan/Chief Complaint Soft tissue infxn, s/p I/D of abscess in R abdominal wall S/P R nephrectomy on 08/05 CT revealed soft tissue infxn on right side of abdomen around surgical site, early abscess General surgery consulted- Dr Hicks performed I/D Elevated WBC at 18.1 on admission now improved Elevated CRP Normal lactic acid Cantinue pip/tazo and vanc Wound Vac in place Pending anaerobic cx, surg cx no growth Fentanyl and dilaudid for pain control as needed, moderately controlled as of now UTI Continue abx and fluids Cx grew gram - gordo Chronic/recurrent UTIs in the setting of her kidney hx Hyperglycemia No hx of DM, one mildly elevated value at 142, continue to monitor Anemia Mild, continue to monitor CBC, likely due to dilution, Hgb up to 10.7 today Critical Care Critically Ill Patient FAIZA DURAN DO Aug 20, 2022 05:44
--- NOTE | 2022-08-20 06:39 | Progress Note - Surgery ---
JOSEPH TAVAREZ 08/20/22 0639: Subjective Date Seen by a Provider: Aug 20, 2022 Time Seen by a Provider: 06:34 Subjective/Events-last exam Patient is laying in bed in mild discomfort this morning. She states that her pain is unchanged from yesterday. Still having pain on her incision site on her right side which is a 9/10, and a 10/10 when she moves. She states she feels much improved from when she originally came in. She has not ambulated since surgery because she says it hurts to walk. She is tolerating diet well. She has not has a BM since surgery but is having flatus. Denies any CP, fever, headache or N/V/D. Wound vac is in place. She is using IS sparingly. No other complaints at this time. Review of Systems General: Chills; No Night Sweats; Fatigue HEENT: No Head Aches, No Sore Throat Pulmonary: No Dyspnea, No Cough Cardiovascular: No: Chest Pain, Edema Gastrointestinal: Abdominal Pain; No: Nausea, Vomiting Genitourinary: No Dysuria, No Hematuria Musculoskeletal: No: back pain Neurological: Weakness; No: Numbness Focused Exam Lactate Level 08/17/22 17:30: Lactic Acid Level 1.50 Objective Exam Vital Signs Date Time Temp Pulse Resp B/P (MAP) Pulse Ox O2 Delivery O2 Flow Rate FiO2 08/20/22 03:48 37.0 58 18 169/90 (116) 93 Room Air 08/20/22 00:14 37.1 60 18 153/87 (109) 93 Room Air 08/19/22 20:53 98 Room Air 08/19/22 19:17 37.4 68 18 171/92 (118) 97 Room Air 08/19/22 15:22 36.6 94 22 158/80 (106) 94 Room Air 08/19/22 14:31 37.2 62 18 172/85 (114) 93 Room Air 08/19/22 13:00 52 08/19/22 13:00 52 15 155/93 (113) 98 Room Air 08/19/22 12:00 51 13 131/83 (99) 96 Room Air 08/19/22 11:04 100 Room Air 08/19/22 11:00 56 20 127/74 (91) 96 Room Air 08/19/22 10:00 59 14 115/70 (85) 100 Room Air 08/19/22 09:00 55 13 110/77 (88) 100 Room Air 08/19/22 08:16 37.3 08/19/22 08:00 50 16 146/90 (108) 100 Room Air 08/19/22 08:00 98 Room Air 08/19/22 07:00 51 16 97/55 (69) 100 Room Air 08/19/22 07:00 51 I & O 08/20/22 07:00 Intake Total 3500 ml Output Total 5300 ml Balance -1800 ml Capillary Refill : Less Than 3 Seconds General Appearance: No Apparent Distress, WD/WN, Obese HEENT: PERRL/EOMI, Moist Mucous Membranes Neck: Non Tender, Supple Respiratory: Chest Non Tender, Lungs Clear, No Accessory Muscle Use, No Respiratory Distress Cardiovascular: Regular Rate, Rhythm, No Murmur Peripheral Pulses: 2+ Radial Pulses (R), 2+ Radial Pulses (L) Gastrointestinal: normal bowel sounds, soft; No distended, No guarding, No rebound; tenderness (Tender to palpaton on right side around incision site. Mild induration around wound vac.) Extremity: No Calf Tenderness, No Pedal Edema, Other (Compression wraps on bilaterally) Neurologic/Psychiatric: Alert, Oriented x3 Skin: Normal Color, Diaphoresis, Other (Wound vac in place on RLQ draining serosanguinous fluid, incisions clean, dry, and intact) Lymphatic: No Adenopathy Results Lab Laboratory Tests 08/19/22 08:25: White Blood Count 13.3H, Red Blood Count 3.62L, Hemoglobin 10.7L, Hematocrit 33L , Mean Corpuscular Volume 90, Mean Corpuscular Hemoglobin 30, Mean Corpuscular Hemoglobin Concent 33, Red Cell Distribution Width 13.8, Platelet Count 332, Mean Platelet Volume 10.0, Immature Granulocyte % (Auto) 1, Neutrophils (%) (Auto) 66, Lymphocytes (%) (Auto) 16, Monocytes (%) (Auto) 10, Eosinophils (%) (Auto) 7, Basophils (%) (Auto) 1, Neutrophils # (Auto) 8.8H, Lymphocytes # (Auto) 2.1, Monocytes # (Auto) 1.3H, Eosinophils # (Auto) 0.9H, Basophils # (Auto) 0.1, Immature Granulocyte # (Auto) 0.1, Percent Immature Platelet Fraction 3.3, Sodium Level 137, Potassium Level 4.2, Chloride Level 108H, Carbon Dioxide Level 19L, Anion Gap 10, Blood Urea Nitrogen 7, Creatinine 1.03, Estimat Glomerular Filtration Rate 69, BUN/Creatinine Ratio 7, Glucose Level 94, Calcium Level 8.0L, Corrected Calcium 8.8, Phosphorus Level 2.9, Magnesium Level 2.0, Total Bilirubin 0.4, Aspartate Amino Transf (AST/SGOT) 20, Alanine Aminotrans ferase (ALT/SGPT) 13, Alkaline Phosphatase 80, Total Protein 6.0L, Albumin 3.0L, Vancomycin Level Trough 17.5, Smear Scan YES 08/20/22 05:05: White Blood Count 11.0, Red Blood Count 3.36L, Hemoglobin 10.2L, Hematocrit 30L, Mean Corpuscular Volume 89, Mean Corpuscular Hemoglobin 30, Mean Corpuscular Hemoglobin Concent 34, Red Cell Distribution Width 13.7, Platelet Count 314, Mean Platelet Volume 9.6, Immature Granulocyte % (Auto) 0, Neutrophils (%) (Auto) 62, Lymphocytes (%) (Auto) 19, Monocytes (%) (Auto) 10, Eosinophils (%) (Auto) 9, Basophils (%) (Auto) 0, Neutrophils # (Auto) 6.8, Lymphocytes # (Auto) 2.1, Monocytes # (Auto) 1.1H, Eosinophils # (Auto) 0.9H, Basophils # (Auto) 0.0, Immature Granulocyte # (Auto) 0.0, Sodium Level 140, Potassium Level 4.4, Chloride Level 108H, Carbon Dioxide Level 21, Anion Gap 11, Blood Urea Nitrogen 6L, Creatinine 0.93, Estimat Glomerular Filtration Rate 78, BUN/Creatinine Ratio 6, Glucose Level 117H, Calcium Level 8.4L, Corrected Calcium 9.4, Magnesium Level 2.0, Total Bilirubin 0.2, Aspartate Amino Transf (AST/SGOT) 27, Alanine Aminotransferase (ALT/SGPT) 14, Alkaline Phosphatase 81, Total Protein 6.4, Albumin 2.8L Microbiology 08/18/22 Gram Stain - Final, Resulted 08/18/22 Anaerobic Culture, Resulted Pending 08/18/22 Surgical Culture - Preliminary, Resulted No growth 08/17/22 MRSA Screen - Final, Complete MRSA not isolated 08/17/22 Urine Culture - Final, Complete Escherichia coli 08/17/22 Blood Culture - Preliminary, Resulted No growth Assessment/Plan Assessment/Plan Assessment/Plan Soft tissue infection/Complex abdominal wall abscess- POD #2 I/D of abscess in R abdominal wall S/P R nephrectomy on 08/05 Plan: Continue pain management Continue IV fluids and Abx Continue wound vac IS Encourage ambulation Awaiting anerobic culture to finalize for [facility] JUNIOR COLIN DO 08/20/22 1327: Subjective Time Seen by a Provider: 12:11 Subjective/Events-last exam Pt seen and examined, states she is having some more pain up above current incision and toward flank. She thinks it feels warm and is getting firm. Review of Systems General: Chills; No Night Sweats; Fatigue HEENT: No Head Aches Pulmonary: No Dyspnea, No Cough Cardiovascular: No: Chest Pain Gastrointestinal: Abdominal Pain; No: Nausea, Vomiting Neurological: Weakness Objective Exam General Appearance: Anxious, Obese HEENT: Moist Mucous Membranes Respiratory: Chest Non Tender, Lungs Clear, Normal Breath Sounds, No Accessory Muscle Use, No Respiratory Distress Cardiovascular: Regular Rate, Rhythm, No Murmur Gastrointestinal: No distended, No guarding, No rebound; tenderness (Tender to palpaton on right side around incision site. Mild firmness above wound vac sponge.), other (wound VAC appears to be functioning, no erythema on skin) Extremity: No Calf Tenderness, No Pedal Edema, Other (Compression wraps on bilaterally) Neurologic/Psychiatric: Alert, Oriented x3 Assessment/Plan Assessment/Plan Assessment/Plan Soft tissue infection/Complex abdominal wall abscess- POD #2 I/D of abscess in R abdominal wall S/P R nephrectomy on 08/05 Plan: Continue pain management, IV fluids and Abx, encourage IS and ambulation Awaiting anerobic culture to finalize Pt ate today and this is not an emergency; therefore, will plan for wound exploration and VAC change tomorrow. Will get consent and already discussed case with pt; risks and complications not limited to pain, bleeding, infection, need for further procedure. Supervisory-Addendum Brief Verification & Attestation Participated in pt care: history, MDM, physical Personally performed: exam, history, MDM, supervision of care Care discussed with: Medical Student Procedures: n/a Verification and Attestation of Medical Student E/M Service A medical student performed and documented this service. I then reviewed and verified all information documented by the medical student and made modifications to such information, when appropriate. I personally performed a physical exam, medical decision making and then discussed any differences between the notes and made revisions as necessary to create one note. Junior Colin , 08/20/22 , 13:43 JOSEPH TAVAREZ Aug 20, 2022 06:39 JUNIOR COLIN DO Aug 20, 2022 13:27
[2022-08-20] MEDS: VANCOMYCIN 750 MG/NS 250 ML IVPB IV SCH ×4 (08:25→20:19)
[2022-08-20] MEDS: LOSARTAN 100 MG (COZAAR) TABLET PO SCH (08:26)
[2022-08-20] MEDS: ENOXAPARIN 40 MG/0.4 ML (LOVENOX) SYR SC SCH ×2 (08:26→20:12)
[2022-08-20] MEDS: VENlafaxine XR 75 MG (EFFEXOR XR) CAP PO SCH (08:26)
[2022-08-20] MEDS: SENNOSIDES 8.6 MG (SENOKOT) TAB PO SCH ×2 (08:27→20:12)
[2022-08-20] MEDS: DOCUSATE SODIUM 100 MG (COLACE) CAP PO SCH ×2 (08:27→20:12)
[2022-08-20] MEDS: METHOCARBAMOL 750 MG (ROBAXIN) TAB PO PRN (09:44)
[2022-08-20] MEDS ORDERED: FUROSEMIDE 40 MG/4 ML INJ (LASIX) IVP NR (11:45)
--- NOTE | 2022-08-20 13:15 | Physical Therapy Evaluation ---
PT Evaluation-General Medical Diagnosis Admission Date Aug 17, 2022 at 21:13 Medical Diagnosis: Abdominal Abscess Onset Date: Aug 20, 2022 Therapy Diagnosis Therapy Diagnosis: weakness Precautions Precautions/Isolations: Standard Precautions Referral Physician: Robina Azul Reason for Referral: Evaluation/Treatment Medical History Additional Medical History kidney disease Current History Pt underwent nephrectomy on 08/05/22 at [facility]. She has had unrelenting pain since that time. Presented to the ER at [facility] 08/13 secondary abdominal pain. Underwent exploratory laparotomy with surgical debridement of abdominal wall ab scess on 08/18/21. Reviewed History: Yes Prior Prior Level of Function SCALE: Activities may be completed with or without assistive devices. 5-Jtjskdluzv-gkulybf completes the activity by him/herself with no assistance from a helper. 5-Set-up or Clean-up Assistance-helper sets up or cleans up; patient completes activity. Morris assists only prior to or following the activity. 4-Supervision or Touching Assistance-helper provides verbal cues and/or touching/steadying and/or contact guard assistance as patient completes activity. Assistance may be provided throughout the activity or intermittently. 3-Partial/Moderate Assistance-helper does LESS THAN HALF the effort. Morris lifts, holds or supports trunk or limbs, but provides less than half the effort. 2-Substantial/Maximal Assistance-helper does MORE THAN HALF the effort. Morris lifts or holds trunk or limbs and provides more than half the effort. 4-Dbdmjvaxn-bscexd does ALL the effort. Patient does none of the effort to complete the activity. Or, the assistance of 2 or more helpers is required for the patient to complete the activity. If activity was not attempted, code reason: 7-Patient Refused. 9-Not Applicable-not attempted and the patient did not perform the activity before the current illness, exacerbation or injury. 10-Not Attempted due to Environmental Limitations-(lack of equipment, weather restraints, etc.). 88-Not Attempted due to Medical Conditions or Safety Concerns. Bed Mobility: 6 Transfers (B,C,W/C): 6 Gait: 6 Stairs: 6 PT Evaluation-Current Subjective Pt reports abdominal pain 9/10 when transitioning in/out of bed. Objective Patient Orientation: Normal For Age Attachments: Drains, IV ROM/Strength Strength Lower Extremities 5/5 Sensory Vision: Functional Hearing: Functional Sensation Right Upper Extremit: Intact Sensation Left Upper Extremity: Intact Sensation Right Lower Extremit: Intact Sensation Left Lower Extremity: Intact Transfers Roll Left to Right (QC): 4 Sit to Lying (QC): 4 Lying to Sitting/Side of Bed(Q: 4 Sit to Stand (QC): 4 Chair/Dvf-kd-Pzckc Xfer(QC): 4 Min A for upper body during bed mobility due to pain with abdominal contraction. Gait Gait Assistive Device: FWW Comments/Gait Description Ambulate 125ft with FWW and SBA. Utilized walker to reduce strain on abdomen. Pt showed good stability. Primary limiitation was cramping in the abdominal wall. Balance Sitting Static: Good Sitting Dynamic: Good Standing Static: Good Standing Dynamic: Good Assessment/Needs Pt slow with bed mobility and gait due to pain. She will beneift from PT to promote (I) function and return to home. Rehab Potential: Good PT Natural Resources Extension Educator Goals Natural Resources Extension Educator Goals PT Natural Resources Extension Educator Goals Time Frame: Aug 23, 2022 Roll Left & Right (QC): 6 Sit to Lying (QC): 6 Lying-Sitting on Side/Bed(QC): 6 Sit to Stand (QC): 6 Chair/Kef-ez-Fouic Xfer(QC): 6 Toilet Transfer (QC): 6 Car Transfer (QC): 6 Walk 150 ft (QC): 6 PT Plan Problem List Problem List: Gait, Transfer, Bed Mobility Treatment/Plan Treatment Plan: Continue Plan of Care Treatment Duration: Aug 23, 2022 Frequency: 6 times per week Estimated Hrs Per Day: .25 hour per day Time Time In: 1255 Time Out: 1316 DATE: Aug 20, 2022 Total Billed Treatment Time: 21 Total Billed Treatment visit, evaluation moderate complexity 21 min WOODROW CERRATO PT Aug 20, 2022 13:15
[2022-08-20] MEDS: MELATONIN 3 MG TABLET PO PRN (20:12)
[2022-08-21] VITALS (7 sets, daily range): BP systolic 110–140; BP diastolic 61–91
[2022-08-21] MEDS: PIPERACILLIN SODIUM/TAZOBACTAM 4.5 GM in NS (IVPB) 100 ML IV SCH ×3 (02:23→17:50)
[2022-08-21] MEDS: GABAPENTIN 100 MG (NEURONTIN) CAP PO SCH ×3 (04:07→20:29)
[2022-08-21] MEDS: cloNIDine 0.2 MG (CATAPRES) TAB PO PRN (04:12)
[2022-08-21] MEDS: HYDROmorphone 2 MG/ML VIAL (DILAUDID) IV PRN ×3 (04:12→12:23)
[2022-08-21 04:24] LABS: BASOPHILS # (AUTO) 0.1 10^3/uL (0.0-0.1); BASOPHILS % (AUTO) 1 % (0-10); EOSINOPHILS # (AUTO) 1.3 10^3/uL (0.0-0.3); EOSINOPHILS % (AUTO) 13 % (0-10); HEMATOCRIT 31 % (35-52); HEMOGLOBIN 10.4 g/dL (11.5-16.0); LYMPHOCYTES % (AUTO) 21 % (12-44); MEAN CORPUSCULAR HEMOGLOBIN 30 pg (25-34); MEAN CORPUSCULAR HGB CONC 34 g/dL (32-36); MEAN CORPUSCULAR VOLUME 88 fL (80-99); MEAN PLATELET VOLUME 9.3 fL (9.0-12.2); MONOCYTES # (AUTO) 0.9 10^3/uL (0.0-1.0); MONOCYTES % (AUTO) 10 % (0-12); NEUTROPHILS # (AUTO) 5.3 10^3/uL (1.8-7.8); NEUTROPHILS % (AUTO) 55 % (42-75); PLATELET COUNT 366 10^3/uL (130-400); WHITE BLOOD COUNT 9.6 10^3/uL (4.3-11.0)
--- NOTE | 2022-08-21 04:35 | Progress Note - Surgery ---
JOSEPH TAVAREZ 08/21/22 0435: Subjective Date Seen by a Provider: Aug 21, 2022 Subjective/Events-last exam Patient is laying in bed this morning in no acute distress. She states her pain is unchanged from yesterday still a 9/10 in her RLQ. Worse when moving. She feels like the tissue around her wound vac is more indurated today. She is NPO for surgery this morning. She was able to ambulate yesterday with PT. She does endorse flatus but no BM which she says is "normal" for her. She denies any N/V/D, SOB, chest pain, fever, or chills. Denies any dysuria or hematuria. No other complaints at this time. Review of Systems General: No Chills, No Night Sweats HEENT: Head Aches; No Sore Throat Pulmonary: No Dyspnea; Cough Cardiovascular: No: Chest Pain, Edema Gastrointestinal: Abdominal Pain; No: Nausea, Vomiting Genitourinary: No Dysuria, No Hematuria Musculoskeletal: back pain; No: leg pain Neurological: No: Weakness, Numbness Objective Exam Vital Signs Date Time Temp Pulse Resp B/P (MAP) Pulse Ox O2 Delivery O2 Flow Rate FiO2 08/21/22 00:30 36.4 51 16 159/82 (107) 97 Room Air 08/20/22 20:58 97 Room Air 08/20/22 19:15 100 Room Air 08/20/22 19:14 36.3 55 16 149/84 (105) 94 Room Air 08/20/22 15:31 36.0 51 16 139/79 (99) 94 Room Air 08/20/22 11:29 36.7 58 18 186/112 (136) 95 Room Air 08/20/22 10:30 55 193/110 (137) 94 Room Air 08/20/22 09:00 Room Air 08/20/22 08:32 37.2 54 18 173/100 (124) 94 Room Air I & O 08/21/22 07:00 Intake Total 3020 ml Output Total 3775 ml Balance -755 ml Capillary Refill : Less Than 3 Seconds General Appearance: No Apparent Distress, WD/WN, Obese HEENT: PERRL/EOMI, Moist Mucous Membranes Neck: Non Tender, Supple Respiratory: Lungs Clear, Normal Breath Sounds, No Accessory Muscle Use Cardiovascular: Regular Rate, Rhythm, No Murmur Peripheral Pulses: 2+ Radial Pulses (R), 2+ Radial Pulses (L) Gastrointestinal: No distended, No guarding, No rebound; tenderness (Tender to palpaton on right side around incision site. Mild firmness above wound vac spong e.), other (wound VAC appears to be functioning, no erythema on skin. Minor induration of tissue around wound vac. ) Extremity: No Calf Tenderness, No Pedal Edema, Other (Compression wraps on bilaterally) Neurologic/Psychiatric: Alert, Oriented x3 Skin: Normal Color, Warm/Dry, Other (Wound vac in place. Incisions are clean, dry, intact.) Lymphatic: No Adenopathy Results Lab Laboratory Tests 08/20/22 05:05: White Blood Count 11.0, Red Blood Count 3.36L, Hemoglobin 10.2L, Hematocrit 30L, Mean Corpuscular Volume 89, Mean Corpuscular Hemoglobin 30, Mean Corpuscular Hemoglobin Concent 34, Red Cell Distribution Width 13.7, Platelet Count 314, Mean Platelet Volume 9.6, Immature Granulocyte % (Auto) 0, Neutrophils (%) (Auto) 62, Lymphocytes (%) (Auto) 19, Monocytes (%) (Auto) 10, Eosinophils (%) (Auto) 9, Basophils (%) (Auto) 0, Neutrophils # (Auto) 6.8, Lymphocytes # (Auto) 2.1, Monocytes # (Auto) 1.1H, Eosinophils # (Auto) 0.9H, Basophils # (Auto) 0.0, Immature Granulocyte # (Auto) 0.0, Sodium Level 140, Potassium Level 4.4, Chloride Level 108H, Carbon Dioxide Level 21, Anion Gap 11, Blood Urea Nitrogen 6L, Creatinine 0.93, Estimat Glomerular Filtration Rate 78, BUN/Creatinine Ratio 6, Glucose Level 117H, Calcium Level 8.4L, Corrected Calcium 9.4, Magnesium Level 2.0, Total Bilirubin 0.2, Aspartate Amino Transf (AST/SGOT) 27, Alanine Aminotransferase (ALT/SGPT) 14, Alkaline Phosphatase 81, Total Protein 6.4, Albumin 2.8L 08/21/22 04:17: Microbiology 08/18/22 Gram Stain - Final, Resulted 08/18/22 Anaerobic Culture, Resulted Pending 08/18/22 Surgical Culture - Preliminary, Resulted No growth 08/17/22 MRSA Screen - Final, Complete MRSA not isolated 08/17/22 Urine Culture - Final, Complete Escherichia coli 08/17/22 Blood Culture - Preliminary, Resulted No growth Assessment/Plan Assessment/Plan Assessment/Plan Soft tissue infection/Complex abdominal wall abscess- POD #3 I/D of abscess in R abdominal wall S/P R nephrectomy on 08/05 Plan: Continue pain management, IV fluids and Abx, Continue IS and ambulation Awaiting anerobic culture to finalize Scheduled for wound exploration and vac change this morning. . JUNIOR COLIN DO 08/21/22 1055: Subjective Time Seen by a Provider: 10:31 Subjective/Events-last exam Pt seen and examined, states her abdmomen is the same (has not gotten better or worse). Review of Systems Pulmonary: No Dyspnea; Cough Cardiovascular: No: Chest Pain Gastrointestinal: Abdominal Pain; No: Nausea, Vomiting Objective Exam General Appearance: No Apparent Distress, WD/WN, Obese HEENT: PERRL/EOMI, Moist Mucous Membranes Respiratory: Lungs Clear, Normal Breath Sounds, No Accessory Muscle Use Cardiovascular: Regular Rate, Rhythm, No Murmur Gastrointestinal: No distended, No guarding, No rebound; tenderness (Tender to palpaton on right side around incision site. Mild firmness above wound vac spong e.), other (wound VAC appears to be functioning, no erythema on skin. Minor induration of tissue around wound vac. ) Extremity: Other (Compression wraps on bilaterally) Assessment/Plan Assessment/Plan Assessment/Plan Soft tissue infection/Complex abdominal wall abscess- POD #3 I/D of abscess in R abdominal wall S/P R nephrectomy on 08/05 Plan: Wound exploration and vac change Continue pain management, IV fluids and Abx, Continue IS and ambulation Awaiting anerobic culture to finalize Supervisory-Addendum Brief Verification & Attestation Participated in pt care: history, MDM, physical Personally performed: exam, history, MDM, supervision of care Care discussed with: Medical Student Procedures: n/a Verification and Attestation of Medical Student E/M Service A medical student performed and documented this service. I then reviewed and verified all information documented by the medical student and made modifications to such information, when appropriate. I personally performed a physical exam, medical decision making and then discussed any differences between the notes and made revisions as necessary to create one note. Junior Colin , 08/21/22 , 10:56 JOSEPH TAVAREZ Aug 21, 2022 04:35 JUNIOR COLIN DO Aug 21, 2022 10:55
[2022-08-21 04:36] LABS: POTASSIUM 3.5 MMOL/L (3.6-5.0)
[2022-08-21 04:37] LABS: CALCIUM 8.6 MG/DL (8.5-10.1)
[2022-08-21 04:38] LABS: TOTAL PROTEIN 6.4 GM/DL (6.4-8.2)
[2022-08-21 04:40] LABS: BILIRUBIN,TOTAL 0.3 MG/DL (0.1-1.0)
[2022-08-21 04:42] LABS: CREATININE SERUM 0.99 MG/DL (0.60-1.30)
[2022-08-21 04:45] LABS: MAGNESIUM 1.9 MG/DL (1.6-2.4)
--- NOTE | 2022-08-21 06:18 | Progress Note - Hospitalist ---
Subjective HPI/CC On Admission Date Seen by Provider: Aug 21, 2022 Time Seen by Provider: 12:00 Marilyn Naranjo is a 46F with past medical history of HTN, DVT, recurrent kidney infections and ureteral obstruction s/p R nephrectomy. She presented to the ER complaining of abdominal pain for several days. CT ab/pelv in the ER revealed fat stranding and free air in the subcutaneous tissue in the right abdominal wall. She recently had R nephrectomy done at on 08/05 due to ureteral obstruction and recurrent infection. She was discharged on 08/14 from and has had abdominal pain, warmth, and minimal erythema since. She denies any purulent drainage from her wounds. This morning she is seen at bedside. She reports 9/10 pain at her R abdomen that is improved from arrival. She denies fever or chills overnight. She is draining clear yellow urine via catheter and has not had a BM since admission. Has been made NPO for OR this afternoon. Dr [facility]/drainage this afternoon. Subjective/Events-last exam Improved overall Surgery did not reveal any abscess recurrent type IV abx maintained Will DC catheter tomorrow after she has recovered from anesthesia Review of Systems General: Fatigue, Malaise Objective Exam Vital Signs Vital Signs Date Time Temp Pulse Resp B/P (MAP) Pulse Ox O2 Delivery O2 Flow Rate FiO2 08/22/22 03:29 37.0 51 20 136/74 (94) 95 Nasal Cannula 1.00 08/18/22 00:07 21 Capillary Refill : Less Than 3 Seconds General Appearance: No Apparent Distress, WD/WN, Chronically ill Respiratory: Lungs Clear, Normal Breath Sounds Cardiovascular: Regular Rate, Rhythm Neurologic/Psychiatric: Alert, Oriented x3 Results/Procedures Lab Patient resulted labs reviewed. Assessment/Plan Assessment and Plan Assess & Plan/Chief Complaint Soft tissue infxn, s/p I/D of abscess in R abdominal wall then s/p I&D today without evidence of recurrent abscess S/P R nephrectomy on 08/05 CT revealed soft tissue infxn on right side of abdomen around surgical site, early abscess General surgery consulted- Dr Hicks performed I/D Elevated WBC at 18.1 on admission now improved Elevated CRP Normal lactic acid Cantinue pip/tazo and vanc Wound Vac in place Pending anaerobic cx, surg cx no growth Fentanyl and dilaudid for pain control as needed, moderately controlled as of now UTI Continue abx and fluids Cx grew gram - gordo Chronic/recurrent UTIs in the setting of her kidney hx Hyperglycemia No hx of DM, one mildly elevated value at 142, continue to monitor Anemia Mild, continue to monitor CBC, likely due to dilution, Hgb stable Critical Care Critically Ill Patient FAIZA DURAN DO Aug 21, 2022 06:18
[2022-08-21] MEDS ORDERED: TROUGH ORDER-PHARMACY XX ONE (08:00)
[2022-08-21] MEDS: VENlafaxine XR 75 MG (EFFEXOR XR) CAP PO SCH (08:38)
[2022-08-21] MEDS: LOSARTAN 100 MG (COZAAR) TABLET PO SCH (08:39)
[2022-08-21] MEDS: DOCUSATE SODIUM 100 MG (COLACE) CAP PO SCH ×2 (08:39→20:29)
[2022-08-21] MEDS: METHOCARBAMOL 750 MG (ROBAXIN) TAB PO PRN (08:39)
[2022-08-21] MEDS: SENNOSIDES 8.6 MG (SENOKOT) TAB PO SCH ×2 (08:39→20:30)
[2022-08-21] MEDS: ENOXAPARIN 40 MG/0.4 ML (LOVENOX) SYR SC SCH ×2 (08:40→20:30)
[2022-08-21] MEDS: VANCOMYCIN 750 MG/NS 250 ML IVPB IV SCH ×4 (09:12→20:30)
[2022-08-21] MEDS ORDERED: BUP/EPI 0.5% 1:200,000 (SENSORCAINE) 30 ML VIAL ONE (10:18)
[2022-08-21] MEDS ORDERED: fentaNYL INJ 100 MCG/2 ML AMP ONE (10:30)
[2022-08-21] MEDS ORDERED: proPOfol 200 MG/20 ML (DIPRIVAN) VIAL IV ONE (10:30)
[2022-08-21] MEDS ORDERED: LIDOCAINE PF 2% 5 ML (XYLOCAINE) VIAL ONE (10:30)
[2022-08-21] MEDS ORDERED: MIDAZOLAM 2 MG/2 ML (VERSED) VIAL ONE (10:30)
[2022-08-21] MEDS ORDERED: SEVOFLURANE (ULTANE) 15 ML INHAL SOLN ONE (10:30)
[2022-08-21] MEDS ORDERED: ONDANSETRON 4 MG/2 ML (SDV) Z0FRAN ONE (10:30)
[2022-08-21] MEDS ORDERED: LACTATED RINGERS 1,000 ML IV PRN (10:45)
--- NOTE | 2022-08-21 12:11 | Progress Note-Post Operative ---
Post-Operative Progess Note Surgeon (s)/Remote Sensing Research Scientist (s) Surgeon JONNY ZARAGOZA DO Remote Sensing Research Scientist: MARY JO Santos Pre-Operative Diagnosis right abdominal wall abscess Post-Operative Diagnosis same Procedure & Operative Findings Date of Procedure 08/21/22 Procedure Performed/Findings Wound VAC change, 10x 10cm Anesthesia Type LMA Estimated Blood Loss Estimated blood loss (mL): scant Specimens/Packing Specimens Removed none JONNY ZARAGOZA DO Aug 21, 2022 12:11
--- NOTE | 2022-08-21 19:43 | OPERATIVE REPORT ---
PREOPERATIVE DIAGNOSIS: Right abdominal wall cellulitis with recent possible worsening. POSTOPERATIVE DIAGNOSIS: Right abdominal wall cellulitis with wound VAC. PROCEDURE: Exploration of right abdominal wall and wound VAC placement 10 x 10 cm wound VAC. SURGEON: Dr. Colin. COOKER PIE FILLING: Brice [ ] MS3. ANESTHESIA: LMA. SPECIMEN: None. BLOOD LOSS: Scant. FLUIDS: Per anesthesia. POSTOPERATIVE CONDITION: Stable. INDICATIONS FOR PROCEDURE: The patient is a 46-year-old female who had an abdominal wall cellulitis from her nephrectomy and had a wound VAC placed. She began having increasing pain and increasing firmness above the opening that had been created, it was a little bit warm, but did not appear erythematous, concerned for a possible abscess formation and she need her wound VAC change. FINDINGS: The patient actually did not have any necrotic tissue. Underneath, it would felt was not very firm, did not see any obvious necrotic tissue and no purulent fluid. DESCRIPTION OF PROCEDURE: After informed consent was obtained, the patient was brought to the operating room and placed on the table in supine position. She was sterilely prepped and draped in normal fashion, removed the sponge and looked inside, did not see any necrotic tissue or purulent fluid. There was some firmness distal to the incision, but this appeared to be healing, washed out and then dried it. I elected to then place an approximately 10 x 10 cm black sponge. This laid in nicely and then protected the skin with a nonstick barrier and then covered the sponge with another nonstick and then cut a small hole and connect this up to suction. There were no leaks. The patient tolerated the procedure well and transferred to recovery room in stable condition. Sponge, instrument and needle count correct at the end of the case. Job ID: [id number] DocumentID: [id number] Dictated Date: 08/21/2022 15:59:03 Huc Ob Date: 08/21/2022 19:40:00 Dictated By: JONNY COLIN DO
[2022-08-21] MEDS: MELATONIN 3 MG TABLET PO PRN (20:29)
[2022-08-22] VITALS (8 sets, daily range): BP systolic 136–175; BP diastolic 66–116
[2022-08-22] MEDS: PIPERACILLIN SODIUM/TAZOBACTAM 4.5 GM in NS (IVPB) 100 ML IV SCH ×3 (02:24→17:17)
[2022-08-22] MEDS: GABAPENTIN 100 MG (NEURONTIN) CAP PO SCH ×3 (03:30→19:29)
[2022-08-22] MEDS: HYDROmorphone 2 MG/ML VIAL (DILAUDID) IV PRN ×5 (03:30→19:32)
[2022-08-22 06:24] LABS: BASOPHILS # (AUTO) 0.1 10^3/uL (0.0-0.1); BASOPHILS % (AUTO) 1 % (0-10); EOSINOPHILS % (AUTO) 11 % (0-10); HEMATOCRIT 29 % (35-52); HEMOGLOBIN 9.9 g/dL (11.5-16.0); LYMPHOCYTES # (AUTO) 1.6 10^3/uL (1.0-4.0); LYMPHOCYTES % (AUTO) 19 % (12-44); MEAN CORPUSCULAR HEMOGLOBIN 30 pg (25-34); MEAN CORPUSCULAR HGB CONC 34 g/dL (32-36); MEAN CORPUSCULAR VOLUME 88 fL (80-99); MEAN PLATELET VOLUME 9.6 fL (9.0-12.2); MONOCYTES # (AUTO) 0.7 10^3/uL (0.0-1.0); MONOCYTES % (AUTO) 9 % (0-12); NEUTROPHILS # (AUTO) 5.1 10^3/uL (1.8-7.8); NEUTROPHILS % (AUTO) 60 % (42-75); PLATELET COUNT 338 10^3/uL (130-400); WHITE BLOOD COUNT 8.6 10^3/uL (4.3-11.0)
[2022-08-22 06:38] LABS: ALBUMIN 2.8 GM/DL (3.2-4.5); BILIRUBIN,TOTAL 0.3 MG/DL (0.1-1.0); CALCIUM 8.6 MG/DL (8.5-10.1); CREATININE SERUM 1.21 MG/DL (0.60-1.30); POTASSIUM 4.5 MMOL/L (3.6-5.0); TOTAL PROTEIN 6.1 GM/DL (6.4-8.2)
[2022-08-22] MEDS: VANCOMYCIN 750 MG/NS 250 ML IVPB IV SCH ×2 (07:40)
[2022-08-22] MEDS: ENOXAPARIN 40 MG/0.4 ML (LOVENOX) SYR SC SCH ×2 (07:40→19:28)
[2022-08-22] MEDS: SENNOSIDES 8.6 MG (SENOKOT) TAB PO SCH ×2 (07:41→19:56)
[2022-08-22] MEDS: VENlafaxine XR 75 MG (EFFEXOR XR) CAP PO SCH (07:41)
[2022-08-22] MEDS: DOCUSATE SODIUM 100 MG (COLACE) CAP PO SCH ×2 (07:41→19:56)
[2022-08-22] MEDS: LOSARTAN 100 MG (COZAAR) TABLET PO SCH (07:41)
--- NOTE | 2022-08-22 07:44 | Anesthesia-General Post-Op ---
General Patient Condition Mental Status/LOC: Same as Preop Cardiovascular: Satisfactory Nausea/Vomiting: Absent Respiratory: Satisfactory Pain: Controlled Complications: Absent Post Op Complications Complications None Follow Up Care/Instructions Patient Instructions None needed. Anesthesia/Patient Condition Patient Condition Patient is doing well, no complaints, stable vital signs, no apparent adverse anesthesia problems. No complications reported per nursing. D/C home per [facility] Criteria: Yes JONNIE RAMIREZ CRNA Aug 22, 2022 07:44
--- NOTE | 2022-08-22 09:21 | Occupational Therapy Eval ---
OT Evaluation-General/PLF Medical Diagnosis Admission Date Aug 17, 2022 at 21:13 Medical Diagnosis: Abdominal Abscess Onset Date: Aug 20, 2022 Therapy Diagnosis Therapy Diagnosis: weakness Precautions Precautions/Isolations: Standard Precautions Comments wound vac Weight Bear Status Weight Bearing Restriction: Weight Bearing/Tolerated Referral Physician: Robina Azul Referral Reason: Evaluation/Treatment Medical History Additional Medical History DVT, HTN Current History Admission d/t pain, wound care, s/p surgery ADL-Prior Level of Function SCALE: Activities may be completed with or without assistive devices. 5-Ibtruxjcbp-kxoload completes the activity by him/herself with no assistance from a helper. 5-Set-up or Clean-up Assistance-helper sets up or cleans up; patient completes activity. [place] assists only prior to or following the activity. 4-Supervision or Touching Assistance-helper provides verbal cues and/or touching/steadying and/or contact guard assistance as patient completes activity. Assistance may be provided throughout the activity or intermittently. 3-Partial/Moderate Assistance-helper does LESS THAN HALF the effort. [place] lifts, holds or supports trunk or limbs, but provides less than half the effort. 2-Substantial/Maximal Assistance-helper does MORE THAN HALF the effort. [place] lifts or holds trunk or limbs and provides more than half the effort. 0-Meaugkvgc-ziicdx does ALL the effort. Patient does none of the effort to complete the activity. Or, the assistance of 2 or more helpers is required for the patient to complete the activity. If activity was not attempted, code reason: 7-Patient Refused. 9-Not Applicable-not attempted and the patient did not perform the activity before the current illness, exacerbation or injury. 10-Not Attempted due to Environmental Limitations-(lack of equipment, weather restraints, etc.). 88-Not Attempted due to Medical Conditions or Safety Concerns. Self Care: Independent Functional Cognition: Independent Drive Self: Yes OT Current Status Subjective Agreeable to OT Mental Status/Objective Patient Orientation: Person, Place, Time, Situation Attachments: Other-See Comments Current Upper Extremity ROM BUE ROM WFLS Upper Extremity Strength BUE strength WFLs ADL-Treatment Eating (QC): 6 Oral Hygiene (QC): 6 Shower/Bathe Self (QC): 88 Upper Body Dressing (QC): 5 Lower Body Dressing (QC): 5 On/Off Footwear (QC): 6 Toileting Hygiene (QC): 5 Education OT Patient Education: Correct positioning, Exercise program, Modified ADL techniques, Progress toward Goal/Update tx plan, Purpose of tx/functional activities, Reviewed precautions, Rehab process, Safety issues, Transfer techniques, Use of adapted equipment Teaching Recipient: Patient Teaching Methods: Demonstration, Discussion Response to Teaching: Verbalize Understanding, Reinforcement Needed OT Post Doctoral Researcher Goals Shelter Goals Eating (QC): 6 Oral Hygiene (QC): 6 Toileting Hygiene (QC): 6 Shower/Bathe Self (QC): 6 Upper Body Dressing (QC): 6 Lower Body Dressing (QC): 6 On/Off Footwear (QC): 6 1=Demonstrate adherence to instructed precautions during ADL tasks. 2=Patient will verbalize/demonstrate understanding of assistive devices/modifications for ADL. 3=Patient will improve strength/tolerance for activity to enable patient to perform ADL's. OT Education/Plan Problem List/Assessment Assessment: Decreased Activ Tolerance, Impaired Self-Care Skills Discharge Recommendations Plan/Recommendations: Continue POC Therapy Discharge Recommendati: Post Acute OT (pt would like home health) Treatment Plan/Plan of Care Treatment,Training & Education: Yes Patient would benefit from OT for education, treatment and training to promote independence in ADL's, mobility, safety and/or upper extremity function for ADL's. Plan of Care: ADL Retraining, Functional Mobility, Group Exercise/Act as Ind Treatment Duration: Aug 27, 2022 Frequency: 3 times per week (3-5 times per week) Rehab Potential: Good Time Start Time: 08:57 Stop Time: 09:12 DATE: Aug 22, 2022 Total Time Billed (hr/min): 15 Billed Treatment Time 1 visit EVL 1 15 min OMID MENDEZ OT Aug 22, 2022 09:21
--- NOTE | 2022-08-22 11:43 | Physical Therapy Daily Note ---
PT Daily Note-Current Subjective Patient agrees to PT. Pain Section J - Health Conditions 1. Rarely or not at all 2. Occasionally 3. Frequently 4. Almost constantly 8. Unable to answer Pain Effect on Sleep: 1 Pain Interference with Therapy: 1 Pain Interference w/Day-to-Day: 1 Mental Status Patient Orientation: Normal For Age Attachments: Santiago Catheter, IV wound vac Transfers SCALE: Activities may be completed with or without assistive devices. 2-Kmtwwxaoww-cpvxcox completes the activity by him/herself with no assistance from a helper. 5-Set-up or Clean-up Assistance-helper sets up or cleans up; patient completes activity. [place] assists only prior to or following the activity. 4-Supervision or Touching Assistance-helper provides verbal cues and/or touching/steadying and/or contact guard assistance as patient completes activity. Assistance may be provided throughout the activity or intermittently. 3-Partial/Moderate Assistance-helper does LESS THAN HALF the effort. [place] lifts, holds or supports trunk or limbs, but provides less than half the effort. 2-Substantial/Maximal Assistance-helper does MORE THAN HALF the effort. [place] lifts or holds trunk or limbs and provides more than half the effort. 1-Xuuogwnvw-oevcnm does ALL the effort. Patient does none of the effort to complete the activity. Or, the assistance of 2 or more helpers is required for the patient to complete the activity. If activity was not attempted, code reason: 7-Patient Refused. 9-Not Applicable-not attempted and the patient did not perform the activity before the current illness, exacerbation or injury. 10-Not Attempted due to Environmental Limitations-(lack of equipment, weather restraints, etc.). 88-Not Attempted due to Medical Conditions or Safety Concerns. Sit to Stand (QC): 6 Gait Training Distance: 500' Walk 10 feet (QC): 6 Walk 50 ft with 2 Turns(QC): 6 Walk 150 ft (QC): 6 Gait Assistive Device: FWW safe and functional with no deviation Assessment PT to dismiss patient from services at this time due to independence. Patient and RN instructed to ambulate PRN in hallway as it. Assist for IV pole only and to place wound vac and santiago on FWW. PT [place] Set Up Operator Goals [place] Set Up Operator Goals PT Custodial Goals Time Frame: Aug 23, 2022 Roll Left & Right (QC): 6 Sit to Lying (QC): 6 Lying-Sitting on Side/Bed(QC): 6 Sit to Stand (QC): 6 Chair/Gbo-fw-Hpfvs Xfer(QC): 6 Toilet Transfer (QC): 6 Car Transfer (QC): 6 Walk 150 ft (QC): 6 PT Plan Treatment/Plan Treatment Plan: Discontinue PT Treatment Duration: Aug 23, 2022 Frequency: 6 times per week Estimated Hrs Per Day: .25 hour per day Time Time In: 1024 Time Out: 1034 DATE: Aug 22, 2022 Total Billed Treatment Time: 10 Total Billed Treatment 1 visit FA 10 min FEMI CADENA PT Aug 22, 2022 11:43
[2022-08-22] MEDS: cloNIDine 0.2 MG (CATAPRES) TAB PO PRN ×2 (12:31→19:33)
[2022-08-22] MEDS ORDERED: CATHETER FLUSH 10 ML SYR IVP PRN (13:00)
[2022-08-22] MEDS: CATHETER FLUSH 10 ML SYR IVP SCH ×2 (13:25→21:00)
--- NOTE | 2022-08-22 15:41 | Progress Note ---
Subjective Date Seen by a Provider: Aug 22, 2022 Time Seen by a Provider: 15:00 Subjective/Events-last exam doing ok. VAC changed in OR by covering surgeon yesterday. no redness/e rythema/necrosis/abscess. WBC normal. Objective Exam Vital Signs Date Time Temp Pulse Resp B/P (MAP) Pulse Ox O2 Delivery O2 Flow Rate FiO2 08/22/22 14:11 36.6 56 95 21 08/22/22 12:07 36.6 56 17 171/98 (122) 95 Room Air 08/22/22 08:49 Room Air 08/22/22 08:06 Room Air 0.00 08/22/22 08:03 94 Nasal Cannula 1.00 08/22/22 07:56 36.9 65 19 150/66 (94) 94 Nasal Cannula 1.00 08/22/22 03:29 37.0 51 20 136/74 (94) 95 Nasal Cannula 1.00 08/21/22 23:00 37.2 52 20 119/65 (83) 94 Nasal Cannula 1.00 08/21/22 20:57 Room Air 08/21/22 19:24 36.9 48 18 110/61 (77) 95 Nasal Cannula 2.00 08/21/22 19:09 36.9 48 19 110/61 (77) 95 Nasal Cannula 2.00 08/21/22 16:21 36.7 47 18 105/58 (74) 95 Nasal Cannula 2.00 I & O 08/22/22 07:00 Intake Total 2160 ml Output Total 2400 ml Balance -240 ml Capillary Refill : Less Than 3 Seconds General Appearance: No Apparent Distress Neck: Full Range of Motion Respiratory: Chest Non Tender, Rhonci, Wheezing Cardiovascular: Regular Rate, Rhythm Gastrointestinal: normal bowel sounds, tenderness Extremity: Normal Capillary Refill Neurologic/Psychiatric: Alert, Oriented x3 Skin: Normal Color Lymphatic: No Adenopathy Results Lab Laboratory Tests 08/22/22 06:10: White Blood Count 8.6, Red Blood Count 3.33L, Hemoglobin 9.9L, Hematocrit 29L, Mean Corpuscular Volume 88, Mean Corpuscular Hemoglobin 30, Mean Corpuscular Hemoglobin Concent 34, Red Cell Distribution Width 13.3, Platelet Count 338, Mean Platelet Volume 9.6, Immature Granulocyte % (Auto) 1, Neutrophils (%) (Auto) 60, Lymphocytes (%) (Auto) 19, Monocytes (%) (Auto) 9, Eosinophils (%) (A uto) 11H, Basophils (%) (Auto) 1, Neutrophils # (Auto) 5.1, Lymphocytes # (Auto) 1.6, Monocytes # (Auto) 0.7, Eosinophils # (Auto) 1.0H, Basophils # (Auto) 0.1, Immature Granulocyte # (Auto) 0.0, Sodium Level 140, Potassium Level 4.5, Chloride Level 107, Carbon Dioxide Level 23, Anion Gap 10, Blood Urea Nitrogen 10, Creatinine 1.21, Estimat Glomerular Filtration Rate 57, BUN/Creatinine Ratio 8, Glucose Level 92, Calcium Level 8.6, Corrected Calcium 9.6, Magnesium Level 2.0, Total Bilirubin 0.3, Aspartate Amino Transf (AST/SGOT) 19, Alanine Aminotransferase (ALT/SGPT) 13, Alkaline Phosphatase 69, Total Protein 6.1L, Albumin 2.8L Microbiology 08/18/22 Gram Stain - Final, Complete 08/18/22 Anaerobic Culture - Final, Complete No anaerobes isolated 08/18/22 Surgical Culture - Final, Complete No growth 08/17/22 MRSA Screen - Final, Complete MRSA not isolated 08/17/22 Urine Culture - Final, Complete Escherichia coli 08/17/22 Blood Culture - Preliminary, Resulted No growth Assessment/Plan Assessment/Plan Assess & Plan/Chief Complaint abd wall post surgical complex abscess. cont vac. cont abx. for home health. SOLO SWEENEY MD Aug 22, 2022 15:41
--- NOTE | 2022-08-22 15:50 | Progress Note ---
Subjective Date Seen by a Provider: Aug 22, 2022 Time Seen by a Provider: 15:00 Subjective/Events-last exam doing well. wound vac changed in OR yesterday. wound bed granulating. Objective Exam Vital Signs Date Time Temp Pulse Resp B/P (MAP) Pulse Ox O2 Delivery O2 Flow Rate FiO2 08/22/22 14:11 36.6 56 95 21 08/22/22 12:07 36.6 56 17 171/98 (122) 95 Room Air 08/22/22 08:49 Room Air 08/22/22 08:06 Room Air 0.00 08/22/22 08:03 94 Nasal Cannula 1.00 08/22/22 07:56 36.9 65 19 150/66 (94) 94 Nasal Cannula 1.00 08/22/22 03:29 37.0 51 20 136/74 (94) 95 Nasal Cannula 1.00 08/21/22 23:00 37.2 52 20 119/65 (83) 94 Nasal Cannula 1.00 08/21/22 20:57 Room Air 08/21/22 19:24 36.9 48 18 110/61 (77) 95 Nasal Cannula 2.00 08/21/22 19:09 36.9 48 19 110/61 (77) 95 Nasal Cannula 2.00 08/21/22 16:21 36.7 47 18 105/58 (74) 95 Nasal Cannula 2.00 I & O 08/22/22 07:00 Intake Total 2160 ml Output Total 2400 ml Balance -240 ml Capillary Refill : Less Than 3 Seconds General Appearance: No Apparent Distress HEENT: PERRL/EOMI Neck: Full Range of Motion Respiratory: Chest Non Tender, Rhonci, Wheezing Cardiovascular: Regular Rate, Rhythm Gastrointestinal: normal bowel sounds, tenderness Extremity: Normal Capillary Refill Neurologic/Psychiatric: Alert, Oriented x3 Skin: Normal Color Lymphatic: No Adenopathy Results Lab Laboratory Tests 08/22/22 06:10: White Blood Count 8.6, Red Blood Count 3.33L, Hemoglobin 9.9L, Hematocrit 29L, Mean Corpuscular Volume 88, Mean Corpuscular Hemoglobin 30, Mean Corpuscular Hemoglobin Concent 34, Red Cell Distribution Width 13.3, Platelet Count 338, Mean Platelet Volume 9.6, Immature Granulocyte % (Auto) 1, Neutrophils (%) (Auto) 60, Lymphocytes (%) (Auto) 19, Monocytes (%) (Auto) 9, Eosinophils (%) ( Auto) 11H, Basophils (%) (Auto) 1, Neutrophils # (Auto) 5.1, Lymphocytes # (Auto) 1.6, Monocytes # (Auto) 0.7, Eosinophils # (Auto) 1.0H, Basophils # (Auto) 0.1, Immature Granulocyte # (Auto) 0.0, Sodium Level 140, Potassium Level 4.5, Chloride Level 107, Carbon Dioxide Level 23, Anion Gap 10, Blood Urea Nitrogen 10, Creatinine 1.21, Estimat Glomerular Filtration Rate 57, BUN/Creatinine Ratio 8, Glucose Level 92, Calcium Level 8.6, Corrected Calcium 9.6, Magnesium Level 2.0, Total Bilirubin 0.3, Aspartate Amino Transf (AST/SGOT) 19, Alanine Aminotransferase (ALT/SGPT) 13, Alkaline Phosphatase 69, Total Protein 6.1L, Albumin 2.8L Microbiology 08/18/22 Gram Stain - Final, Complete 08/18/22 Anaerobic Culture - Final, Complete No anaerobes isolated 08/18/22 Surgical Culture - Final, Complete No growth 08/17/22 MRSA Screen - Final, Complete MRSA not isolated 08/17/22 Urine Culture - Final, Complete Escherichia coli 08/17/22 Blood Culture - Preliminary, Resulted No growth Assessment/Plan Assessment/Plan Assess & Plan/Chief Complaint abd wall post surgical complex abscess. cont vac. cont abx. ss for home health. SOLO SWEENEY MD Aug 22, 2022 15:50
--- NOTE | 2022-08-22 17:32 | Progress Note ---
Subjective Subjective/Events-last exam Seen at 1155. States she is feeling good and ready to go home. Objective Exam Last Set of Vital Signs Vital Signs Date Time Temp Pulse Resp B/P (MAP) Pulse Ox O2 Delivery O2 Flow Rate FiO2 08/22/22 16:47 36.6 50 18 156/94 (114) 94 Room Air 08/22/22 14:11 21 08/22/22 08:06 0.00 Capillary Refill : Less Than 3 Seconds I&O Intake and Output 08/22/22 00:00 Intake Total 860 ml Output Total 1475 ml Balance -615 ml Intake Oral 860 ml Output Urine Total 1475 ml General: Alert, No Acute Distress Lungs: Clear to Auscultation, Normal Air Movement Heart: Regular Rate Abdomen: Other (wound vac in place to right side of abdomen) Psych/Mental Status: Mood NL Results/Procedures Lab Laboratory Tests 08/22/22 06:10: White Blood Count 8.6, Red Blood Count 3.33L, Hemoglobin 9.9L, Hematocrit 29L, Mean Corpuscular Volume 88, Mean Corpuscular Hemoglobin 30, Mean Corpuscular Hemoglobin Concent 34, Red Cell Distribution Width 13.3, Platelet Count 338, Mean Platelet Volume 9.6, Immature Granulocyte % (Auto) 1, Neutrophils (%) (Auto) 60, Lymphocytes (%) (Auto) 19, Monocytes (%) (Auto) 9, Eosinophils (%) ( Auto) 11H, Basophils (%) (Auto) 1, Neutrophils # (Auto) 5.1, Lymphocytes # (Auto) 1.6, Monocytes # (Auto) 0.7, Eosinophils # (Auto) 1.0H, Basophils # (Auto) 0.1, Immature Granulocyte # (Auto) 0.0, Sodium Level 140, Potassium Level 4.5, Chloride Level 107, Carbon Dioxide Level 23, Anion Gap 10, Blood Urea Nitrogen 10, Creatinine 1.21, Estimat Glomerular Filtration Rate 57, BUN/Creatinine Ratio 8, Glucose Level 92, Calcium Level 8.6, Corrected Calcium 9.6, Magnesium Level 2.0, Total Bilirubin 0.3, Aspartate Amino Transf (AST/SGOT) 19, Alanine Aminotransferase (ALT/SGPT) 13, Alkaline Phosphatase 69, Total Protein 6.1L, Albumin 2.8L Microbiology 08/18/22 Gram Stain - Final, Complete 08/18/22 Anaerobic Culture - Final, Complete No anaerobes isolated 08/18/22 Surgical Culture - Final, Complete No growth 08/17/22 MRSA Screen - Final, Complete MRSA not isolated 08/17/22 Urine Culture - Final, Complete Escherichia coli 08/17/22 Blood Culture - Preliminary, Resulted No growth Assessment/Plan Assessment/Plan (1) Abdominal wall abscess Status: Acute Assessment & Plan: post nephrectomy at another facility. s/p I and D on 08/17. Wound vac now in place. Appreciate Surgery recommendations. On Zosyn and vancomycin since admission, d/c vanc with no MRSA growth. (2) Postoperative wound cellulitis Status: Acute (3) Urinary tract infection Status: Acute Assessment & Plan: Culture with E coli resistant to ampicillin and floxacins. Covered with Zosyn (4) HTN (hypertension) Status: Chronic Assessment & Plan: Home olmesartan continued/replaced with losartan. Still hypertensive, add amlodipine. Qualifiers: Qualified Codes: I10 - Essential (primary) hypertension (5) Post-op pain Status: Acute (6) Hyperlipidemia Status: Chronic (7) DVT prophylaxis Status: Acute Assessment & Plan: Enoxaparin ALEXA THOMPSON MD Aug 22, 2022 17:32
[2022-08-22] MEDS ORDERED: amLODIPine 10 MG (NORVASC) TAB PO SCH (21:00)
[2022-08-23 04:11] VITALS: BP 147/92
[2022-08-23] MEDS: GABAPENTIN 100 MG (NEURONTIN) CAP PO SCH ×2 (04:15→12:27)
[2022-08-23] MEDS: CATHETER FLUSH 10 ML SYR IVP SCH ×2 (04:15→14:06)
[2022-08-23] MEDS: HYDROmorphone 2 MG/ML VIAL (DILAUDID) IV PRN ×3 (05:03→13:30)
[2022-08-23 05:19] LABS: BASOPHILS # (AUTO) 0.1 10^3/uL (0.0-0.1); BASOPHILS % (AUTO) 1 % (0-10); EOSINOPHILS # (AUTO) 0.9 10^3/uL (0.0-0.3); EOSINOPHILS % (AUTO) 12 % (0-10); HEMATOCRIT 29 % (35-52); HEMOGLOBIN 9.7 g/dL (11.5-16.0); LYMPHOCYTES # (AUTO) 1.9 10^3/uL (1.0-4.0); LYMPHOCYTES % (AUTO) 23 % (12-44); MEAN CORPUSCULAR HEMOGLOBIN 29 pg (25-34); MEAN CORPUSCULAR HGB CONC 33 g/dL (32-36); MEAN CORPUSCULAR VOLUME 87 fL (80-99); MEAN PLATELET VOLUME 10.2 fL (9.0-12.2); MONOCYTES # (AUTO) 0.7 10^3/uL (0.0-1.0); MONOCYTES % (AUTO) 9 % (0-12); NEUTROPHILS # (AUTO) 4.5 10^3/uL (1.8-7.8); NEUTROPHILS % (AUTO) 55 % (42-75); PLATELET COUNT 340 10^3/uL (130-400); WHITE BLOOD COUNT 8.2 10^3/uL (4.3-11.0)
[2022-08-23 05:33] LABS: ALBUMIN 2.8 GM/DL (3.2-4.5); BILIRUBIN,TOTAL 0.1 MG/DL (0.1-1.0); CREATININE SERUM 1.05 MG/DL (0.60-1.30); MAGNESIUM 2.2 MG/DL (1.6-2.4); POTASSIUM 4.6 MMOL/L (3.6-5.0); TOTAL PROTEIN 6.7 GM/DL (6.4-8.2)
[2022-08-23] MEDS: ENOXAPARIN 40 MG/0.4 ML (LOVENOX) SYR SC SCH (08:20)
[2022-08-23] MEDS: VENlafaxine XR 75 MG (EFFEXOR XR) CAP PO SCH (08:20)
[2022-08-23] MEDS: LOSARTAN 100 MG (COZAAR) TABLET PO SCH (08:21)
[2022-08-23] MEDS: DOCUSATE SODIUM 100 MG (COLACE) CAP PO SCH (08:21)
[2022-08-23] MEDS: SENNOSIDES 8.6 MG (SENOKOT) TAB PO SCH (08:21)
[2022-08-23 08:22] VITALS: BP 152/90
--- NOTE | 2022-08-23 11:10 | Occupational Ther Daily Note ---
OT Current Status-Daily Note Subjective Up in chair requesting to get dressed Pain Numeric Pain Scale: 5-Moderate Pain Location: Incisional Location Body Site: Abdomen Comment: pain post ADLS Mental Status/Objective Patient Orientation: Normal For Age wound vac ADL-Treatment Therapy Code Descriptions/Definitions Functional Real Measure: 0=Not Assessed/NA 4=Minimal Assistance 1=Total Assistance 5=Supervision or Setup 2=Maximal Assistance 6=Modified Real 3=Moderate Assistance 7=Complete IndependenceSCALE: Activities may be completed with or without assistive devices. 7-Qslwpiqnjx-sviiytj completes the activity by him/herself with no assistance from a helper. 5-Set-up or Clean-up Assistance-helper sets up or cleans up; patient completes activity. [place] assists only prior to or following the activity. 4-Supervision or Touching Assistance-helper provides verbal cues and/or touching/steadying and/or contact guard assistance as patient completes ac tivity. Assistance may be provided throughout the activity or intermittently. 3-Partial/Moderate Assistance-helper does LESS THAN HALF the effort. [place] lifts, holds or supports trunk or limbs, but provides less than half the effort. 2-Substantial/Maximal Assistance-helper does MORE THAN HALF the effort. [place] lifts or holds trunk or limbs and provides more than half the effort. 1-Ihazgdkzi-iypqij does ALL the effort. Patient does none of the effort to complete the activity. Or, the assistance of 2 or more helpers is required for the patient to complete the activity. If activity was not attempted, code reason: 7-Patient Refused. 9-Not Applicable-not attempted and the patient did not perform the activity before the current illness, exacerbation or injury. 10-Not Attempted due to Environmental Limitations-(lack of equipment, weather restraints, etc.). 88-Not Attempted due to Medical Conditions or Safety Concerns. Eating (QC): 6 Oral Hygiene (QC): 6 Shower/Bathe Self (QC): 7 (declined, enocuraged at minial sponge bathing, declined) Upper Body Dressing (QC): 5 Lower Body Dressing (QC): 5 On/Off Footwear: 6 Toileting Hygiene (QC): 6 Toilet Transfer (QC): 6 wound vac on FWW, precaution d/t front load weight Education OT Patient Education: Correct positioning, Energy conservation, Modified ADL techniques, Progress toward Goal/Update tx plan, Purpose of tx/functional activities, Reviewed precautions, Rehab process, Safety issues, Transfer techniques, Use of adapted equipment Teaching Recipient: Patient Teaching Methods: Demonstration, Discussion Response to Teaching: Return Demonstration OT Mcc Goals Flat Machine Cutter Goals Eating (QC): 6 Oral Hygiene (QC): 6 Toileting Hygiene (QC): 6 Shower/Bathe Self (QC): 6 Upper Body Dressing (QC): 6 Lower Body Dressing (QC): 6 On/Off Footwear (QC): 6 1=Demonstrate adherence to instructed precautions during ADL tasks. 2=Patient will verbalize/demonstrate understanding of assistive devices/modifications for ADL. 3=Patient will improve strength/tolerance for activity to enable patient to perform ADL's. OT Education/Plan Problem List/Assessment Assessment: Decreased Activ Tolerance, Impaired Self-Care Skills (requires set up /supervison for wound vac) Discharge Recommendations Plan/Recommendations: Continue POC Patient/Family Goals Patient reports plan for home w/ home health Treatment Plan/Plan of Care Treatment,Training & Education: Yes Patient would benefit from OT for education, treatment and training to promote independence in ADL's, mobility, safety and/or upper extremity function for ADL's. Plan of Care: ADL Retraining, Functional Mobility, Group Exercise/Act as Ind Treatment Duration: Aug 27, 2022 Frequency: 3 times per week (3-5 times per week) Rehab Potential: Good Time Start Time: 10:50 Stop Time: 11:03 DATE: Aug 23, 2022 Total Time Billed (hr/min): 13 Billed Treatment Time 1 ADL 1 13 min OMID MENDEZ OT Aug 23, 2022 11:09
[2022-08-23 12:38] VITALS: BP 142/82
[2022-08-23] MEDS ORDERED: AMOX1TAB12 PO (13:05)
[2022-08-23] MEDS ORDERED: HYDR-3817 PO (13:05)
--- NOTE | 2022-08-23 13:06 | Discharge Inst-Surgical ---
D/C Lap Instructions-KIDO New, Converted, or Re-Newed RX: RX on Chart Follow Up Appt in 2 weeks Activity as tolerated VAC change as directed. Regular Diet Symptoms to Report: Fever over 101 degree F, Nausea/Vomiting Infection Signs and Symptoms to report: Increased redness, Foul odor of wound, Increased drainage Bathing instructions: May shower Operative Area Clean/Dry; Keep incision clean/dry If any problems/questions: Contact your physician or go to Emergency Room SOLO SWEENEY MD Aug 23, 2022 13:06
--- NOTE | 2022-08-23 13:08 | Progress Note ---
Subjective Date Seen by a Provider: Aug 23, 2022 Time Seen by a Provider: 12:00 Subjective/Events-last exam doing well. tolerating diet. pain controlled. ambulating well. awaiting home VAC. Objective Exam Vital Signs Date Time Temp Pulse Resp B/P (MAP) Pulse Ox O2 Delivery O2 Flow Rate FiO2 08/23/22 12:38 36.2 61 19 142/82 (102) 97 Room Air 08/23/22 12:36 36.2 61 19 97 Room Air 08/23/22 08:26 Room Air 08/23/22 08:22 36.4 53 18 152/90 (110) 94 Room Air 08/23/22 04:11 36.5 48 18 147/92 (110) 95 Room Air 08/22/22 23:54 36.3 46 20 139/80 (99) 98 Room Air 08/22/22 20:25 51 158/89 (112) 08/22/22 20:18 Room Air 0.00 08/22/22 19:35 Room Air 08/22/22 19:34 36.6 60 18 175/116 (135) 96 Room Air 08/22/22 16:47 36.6 50 18 156/94 (114) 94 Room Air 08/22/22 14:11 36.6 56 95 21 I & O 08/23/22 07:00 Intake Total 1950 ml Output Total 3950 ml Balance -2000 ml Capillary Refill : Less Than 3 Seconds General Appearance: No Apparent Distress HEENT: PERRL/EOMI Neck: Full Range of Motion Respiratory: Rhonci, Wheezing Cardiovascular: Regular Rate, Rhythm Gastrointestinal: normal bowel sounds, soft, other (vac intact) Extremity: Normal Capillary Refill Neurologic/Psychiatric: Alert, Oriented x3 Skin: Normal Color Lymphatic: No Adenopathy Results Lab Laboratory Tests 08/23/22 05:05: White Blood Count 8.2, Red Blood Count 3.34L, Hemoglobin 9.7L, Hematocrit 29L, M sabrina Corpuscular Volume 87, Mean Corpuscular Hemoglobin 29, Mean Corpuscular Hemoglobin Concent 33, Red Cell Distribution Width 13.2, Platelet Count 340, Mean Platelet Volume 10.2, Immature Granulocyte % (Auto) 1, Neutrophils (%) (Auto) 55, Lymphocytes (%) (Auto) 23, Monocytes (%) (Auto) 9, Eosinophils (%) (Auto) 12H, Basophils (%) (Auto) 1, Neutrophils # (Auto) 4.5, Lymphocytes # (Auto) 1.9, Monocytes # (Auto) 0.7, Eosinophils # (Auto) 0.9H, Basophils # (Auto) 0.1, Immature Granulocyte # (Auto) 0.0, Percent Immature Platelet Fraction 4.1, Sodium Level 143, Potassium Level 4.6, Chloride Level 110H, Carbon Dioxide Level 20L, Anion Gap 13, Blood Urea Nitrogen 11, Creatinine 1.05, Estimat Glomerular Filtration Rate 67, BUN/Creatinine Ratio 10, Glucose Level 102, Calcium Level 9.0, Corrected Calcium 10.0, Magnesium Level 2.2, Total Bilirubin 0.1, Aspartate Amino Transf (AST/SGOT) 18, Alanine Aminotransferase (ALT/SGPT) 10, Alkaline Phosphatase 70, Total Protein 6.7, Albumin 2.8L Microbiology 08/18/22 Gram Stain - Final, Complete 08/18/22 Anaerobic Culture - Final, Complete No anaerobes isolated 08/18/22 Surgical Culture - Final, Complete No growth 08/17/22 MRSA Screen - Final, Complete MRSA not isolated 08/17/22 Urine Culture - Final, Complete Escherichia coli 08/17/22 Blood Culture - Preliminary, Resulted No growth Assessment/Plan Assessment/Plan Assess & Plan/Chief Complaint abd wall post surgical complex abscess. cont vac. cont abx. for home health. await home vac. SOLO SWEENEY MD Aug 23, 2022 13:08
[2022-08-23 16:00] VITALS: BP 142/82
--- NOTE | 2022-08-23 16:19 | Discharge Summary ---
Discharge Summary Hospital Course Problems/Diagnosis: (1) Abdominal wall abscess Status: Acute Assessment & Plan: post nephrectomy at another facility. s/p I and D on 08/17. Wound vac now in place. Appreciate Surgery recommendations. On Zosyn and vancomycin since admission, d/c vanc with no MRSA growth. 08/23 discharged with home wound vac and Augmentin per Surgery (2) Postoperative wound cellulitis Status: Acute (3) Urinary tract infection Status: Acute Assessment & Plan: Culture with E coli resistant to ampicillin and floxacins. Covered with Augmentin. (4) HTN (hypertension) Status: Chronic Assessment & Plan: Home olmesartan continued/replaced with losartan. Still hypertensive, added amlodipine. Qualifiers: Qualified Codes: I10 - Essential (primary) hypertension (5) Post-op pain Status: Acute (6) Hyperlipidemia Status: Chronic Hospital Course Date of Admission: Aug 17, 2022 at 21:13 Admission Diagnosis : Family Physician/Provider: [place] [place] Date of Discharge: 08/23/22 Discharge Diagnosis: See problem list Hospital Course: See problem list Labs and Pending Lab Test: Laboratory Tests 08/23/22 05:05: White Blood Count 8.2, Red Blood Count 3.34L, Hemoglobin 9.7L, Hematocrit 29L, Mean Corpuscular Volume 87, Mean Corpuscular Hemoglobin 29, Mean Corpuscular Hemoglobin Concent 33, Red Cell Distribution Width 13.2, Platelet Count 340, Mean Platelet Volume 10.2, Immature Granulocyte % (Auto) 1, Neutrophils (%) (Auto) 55, Lymphocytes (%) (Auto) 23, Monocytes (%) (Auto) 9, Eosinophils (%) (Auto) 12H, Basophils (%) (Auto) 1, Neutrophils # (Auto) 4.5, Lymphocytes # (Aut o) 1.9, Monocytes # (Auto) 0.7, Eosinophils # (Auto) 0.9H, Basophils # (Auto) 0.1, Immature Granulocyte # (Auto) 0.0, Percent Immature Platelet Fraction 4.1, Sodium Level 143, Potassium Level 4.6, Chloride Level 110H, Carbon Dioxide Level 20L, Anion Gap 13, Blood Urea Nitrogen 11, Creatinine 1.05, Estimat Glomerular Filtration Rate 67, BUN/Creatinine Ratio 10, Glucose Level 102, Calcium Level 9.0, Corrected Calcium 10.0, Magnesium Level 2.2, Total Bilirubin 0.1, Aspartate Amino Transf (AST/SGOT) 18, Alanine Aminotransferase (ALT/SGPT) 10, Alkaline Phosphatase 70, Total Protein 6.7, Albumin 2.8L Microbiology 08/18/22 Gram Stain - Final, Complete 08/18/22 Anaerobic Culture - Final, Complete No anaerobes isolated 08/18/22 Surgical Culture - Final, Complete No growth 08/17/22 MRSA Screen - Final, Complete MRSA not isolated 08/17/22 Urine Culture - Final, Complete Escherichia coli 08/17/22 Blood Culture - Preliminary, Resulted No growth Home Meds Active Amox Tr-K Clv 875-125 mg Tab (Amoxicillin/Potassium Clav) 875 Mg-125 Mg Tablet 1 Each PO BID Hydrocodone-Acetamin 7.5-325 (Hydrocodone/Acetaminophen) 7.5 Mg-325 Mg Tablet 1 Each PO Q4H Reported Amlodipine Besylate 10 Mg Tablet 10 Mg PO HS LAST FILLED 10-26-2021 #90/90 DAY SUPPLY Clonidine HCl 0.2 Mg Tablet 0.2 Mg PO Q6H PRN Clonidine TTS 3 Patch (Clonidine) 0.3 Mg/24 Hour Patch.tdwk 0.3 Mg TD WEEK LAST FILLED 12-01-2021 #12/84 DAY SUPPLY Atorvastatin Calcium 20 Mg Tablet 20 Mg PO DAILY Olmesartan Medoxomil 20 Mg Tablet 20 Mg PO DAILY Pristiq ER (Desvenlafaxine Succinate) 50 Mg Tab.er.24h 50 Mg PO DAILY Ondansetron Odt (Ondansetron) 4 Mg Tab.rapdis 4 Mg PO Q8H PRN Methocarbamol 750 Mg Tablet 750 Mg PO Q12H PRN Oxycodone HCl 5 Mg Tablet 5 Mg PO Q6H Gabapentin 100 Mg Capsule 100 Mg PO Q8H Assessment/Pt DC Instructions Follow up with primary provider within a week of discharge. Discharge Diet: No Restrictions Activity as Tolerated: Yes Discharge Physical Examination Allergies: Coded Allergies: shellfish derived (Verified Allergy, Severe, 02/15/22) morphine (Verified Allergy, Intermediate, Hives; pt has tolerated diluadid and lortab, 08/18/22) Hives and itching locally at IV site Iodinated Contrast Media (Verified Allergy, Unknown, 02/15/22) Sulfa (Sulfonamide Antibiotics) (Verified Allergy, Unknown, 04/03/22) aspirin (Verified Allergy, Unknown, 02/15/22) Uncoded Allergies: IODINE CONTRAST (Allergy, Mild, 02/15/22) General Appearance: No Apparent Distress Respiratory: Lungs Clear, Normal Breath Sounds Cardiovascular: Regular Rate, Rhythm, No Murmur Skin: Normal Color, Warm/Dry Neurologic/Psychiatric: Alert, Normal Mood/Affect ALEXA THOMPSON MD Aug 23, 2022 16:19
== END 2022-08-23 16:00 | disposition home or self-care (01) | DRG 862 ==
LOC: EDUNIT# 16:05 → ER 16:06 → ICU 21:13 → 4TH 08-19 14:21
PROVIDERS: ADMIT Internal Medicine; ATTEND Family Medicine
PROC: 0J980ZZ Drainage of Abdomen Subcutaneous Tissue and Fascia, Open Approach (ICD-10-PCS; principal; 2022-08-18 12:26)
PROC: 2W13X6Z Compression of Abdominal Wall using Pressure Dressing (ICD-10-PCS; 2022-08-22)
DX: T81.41XA Infection following a procedure, superficial incisional surgical site, initial encounter (principal); A41.9 Sepsis, unspecified organism; N39.0 Urinary tract infection, site not specified; L02.211 Cutaneous abscess of abdominal wall; Z90.5 Acquired absence of kidney; I10 Essential (primary) hypertension; Z86.718 Personal history of other venous thrombosis and embolism; F17.210 Nicotine dependence, cigarettes, uncomplicated; D64.9 Anemia, unspecified; R73.9 Hyperglycemia, unspecified; E66.01 Morbid (severe) obesity due to excess calories; B96.20 Unspecified Escherichia coli [E. coli] as the cause of diseases classified elsewhere; E78.5 Hyperlipidemia, unspecified
CPT/HCPCS: 36410; 36415; 71045; 74176; 76937; 80053; 80202; 81000; 82805; 83605; 83735; 84100; 85007; 85025; 85027; 85610; 85730; 86141; 87040; 87070; 87075; 87077; 87081; 87088; 87186; 87205; 94664; 94760

== ENCOUNTER 2022-08-27 10:29 | Emergency (ER) | payer OTHER ==
[~2022-08-27] VITALS: Ht 162 cm; Wt 113.3 kg
[~2022-08-27 10:29] MED LIST changes: +AMLO-251 PO; +AMOX1TAB12 PO; +ATOR20TA66 PO; +CLN.2T PO; +CLON1PAT16 TD; +DESV50TA PO; +GABA-486 PO; +HYDR-3817 PO; +METH-732 PO; +OLME20TA24 PO; +ONDA4TAB11 PO; +OXYC5TAB PO
--- NOTE | 2022-08-27 11:07 | ED Abdominal Pain ---
General Stated Complaint: WOUND DRESSING, PAIN IN SIDE Source of Information: Patient Exam Limitations: No Limitations History of Present Illness Date Seen by Provider: Aug 27, 2022 Time Seen by Provider: 11:05 Initial Comments Patient is a 46-year-old female presents the ED for wound dressing. Patient had a nephrectomy at [facility] [address] Jarvis. She was admitted to our hospital August [address] Hicks drained a abdominal wall abscess during her stay. She currently has a wound VAC. She states this morning when she woke up she rolled to the side and her tube got caught pulling her wound VAC sponge out of the wound. This resulted in immediate pain. She states her mother attempted to replace the wound VAC but this was unsuccessful and resulted in increasing pain. She reports some bloody drainage from the wound. Denies of any purulent drainage. She states she is urinating. Denies any fever, vomiting, diarrhea. She does report pain to the right side near the incision. She is currently taking hydrocodone for pain but no improvement of her pain this morning after taking a dose. She denies fever, chills, bodyaches, headache, dizziness, dysuria Allergies and Home Medications Allergies Coded Allergies: shellfish derived (Verified Allergy, Severe, 02/15/22) morphine (Verified Allergy, Intermediate, Hives; pt has tolerated diluadid and lortab, 08/18/22) Hives and itching locally at IV site Iodinated Contrast Media (Verified Allergy, Unknown, 02/15/22) Sulfa (Sulfonamide Antibiotics) (Verified Allergy, Unknown, 04/03/22) aspirin (Verified Allergy, Unknown, 02/15/22) Uncoded Allergies: IODINE CONTRAST (Allergy, Mild, 02/15/22) Patient Home Medication List Home Medication List Reviewed: Yes Amlodipine Besylate (Amlodipine Besylate) 10 Mg Tablet, 10 MG PO HS, (Reported) Entered as Reported by: CHEY CUMMINGS on 08/18/22 1538 Amoxicillin/Potassium Clav (Amox Tr-K Clv 875-125 mg Tab) 875 Mg-125 Mg Tablet, 1 EACH PO BID Prescribed by: SOLO HICKS on 08/23/22 1305 Atorvastatin Calcium (Atorvastatin Calcium) 20 Mg Tablet, 20 MG PO DAILY, (Reported) Entered as Reported by: CHEY CUMMINGS on 2/23/23 1537 Clonidine (Clonidine TTS 3 Patch) 0.3 Mg/24 Hour Patch.tdwk, 0.3 MG TD WEEK, (Reported) Entered as Reported by: CHEY CUMMINGS on 08/18/221536 Clonidine HCl (Clonidine HCl) 0.2 Mg Tablet, 0.2 MG PO Q6H PRN for SYSTOLIC BLOOD PRESSURE, (Reported) Entered as Reported by: CHEY CUMMINGS on 08/18/221536 Desvenlafaxine Succinate (Pristiq ER) 50 Mg Tab.er.24h, 50 MG PO DAILY, (Reported) Entered as Reported by: CHEY CUMMINGS on 08/18/221536 Gabapentin (Gabapentin) 100 Mg Capsule, 100 MG PO Q8H, (Reported) Entered as Reported by: CHEY CUMMINGS on 08/18/221536 Hydrocodone/Acetaminophen (Hydrocodone-Acetamin 7.5-325) 7.5 Mg-325 Mg Tablet, 1 EACH PO Q4H Prescribed by: SOLO HICKS on 08/23/22 130 Methocarbamol (Methocarbamol) 750 Mg Tablet, 750 MG PO Q12H PRN for PAIN BREAKTROUGH, (Reported) Entered as Reported by: CHEY CUMMINGS on 08/18/221536 Olmesartan Medoxomil (Olmesartan Medoxomil) 20 Mg Tablet, 20 MG PO DAILY, (Reported) Entered as Reported by: CHEY CUMMINGS on 08/18/221536 Ondansetron (Ondansetron Odt) 4 Mg Tab.rapdis, 4 MG PO Q8H PRN for NAUSEA/VOMITING-1ST LINE, (Reported) Entered as Reported by: CHEY CUMMINGS on 08/18/221536 Oxycodone HCl (Oxycodone HCl) 5 Mg Tablet, 5 MG PO Q6H, (Reported) Entered as Reported by: CHEY CUMMINGS on 08/18/221536 Review of Systems Review of Systems Constitutional: No chills, No diaphoresis, No fever, No weakness EENTM: No Double Vision, No Eye Pain, No Ear Pain, No Mouth Pain Respiratory: Denies Cough Cardiovascular: Denies Chest Pain Gastrointestinal: Abdominal Pain; Denies Diarrhea, Denies Nausea, Denies Vomiting Genitourinary: Denies Frequency, Denies Flank Pain Musculoskeletal: No back pain, No joint pain Skin: No change in color, No change in hair/nails; other (Bloody drainage from right side abdominal wound) Hematologic/Lymphatic: Denies Anemia All Other Systems Reviewed Negative Unless Noted: Yes Past Rzczkmm-Xajrex-Qthdps Hx Immunizations Up To Date First/Initial COVID19 Vaccinat: 02/2021 Second COVID19 Vaccination Rafita: 02/2021 Third COVID19 Vaccination Date: 09/2021 Past Medical History Surgery/Hospitalization HX: RT KIDNEY DRAIN, HX OF KIDNEY DISEASE, HYPERTENSION, T&A, LYMPH NODES REMOVED FROM GROIN, GALLBLADDER, TUBAL LIGATION, R NEPHROSTOMY TUBE Surgeries: Yes Adenoidectomy, Gallbladder, Nephrectomy, Renal, Tonsillectomy, Tubal Ligation Respiratory: No Currently Using CPAP: No Currently Using BIPAP: No Cardiac: Yes (DVT RIGHT ARM IN 2021. `) Deep Vein Thrombosis, Hypertension Neurological: No Genitourinary: Yes (RIGHT KIDNEY OBSTRUCTED AND ATROPHIC followed by nephrectomy) UTI-Chronic Gastrointestinal: No Musculoskeletal: No Endocrine: No HEENT: No Cancer: No Psychosocial: No Family Medical History Cancer Physical Exam Vital Signs Vital Signs - First Documented 08/27/22 11:06 Temp 35.4 Pulse 123 Resp 16 B/P (MAP) 190/144 (159) Pulse Ox 98 Capillary Refill : Height/Weight/BMI Height: '" Weight: lbs. oz. kg; 41.83 BMI Method: General Appearance: WD/WN, no apparent distress HEENT: PERRL/EOMI, normal ENT inspection, TMs normal, pharynx normal Neck: non-tender, full range of motion, supple, normal inspection Respiratory: chest non-tender, lungs clear, normal breath sounds, no respiratory distress, no accessory muscle use Cardiovascular: regular rate, rhythm, no edema, no gallop, no JVD Gastrointestinal: normal bowel sounds, soft, no organomegaly, other (Right- sided abdominal wound open with mild serosanguineous fluid. No purulent drainage. No surrounding erythema. 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 nml as tested, no motor/sensory deficits, alert, normal mood/affect, oriented x 3 Progress/Results/Core Measures Results/Orders Lab Results Laboratory Tests Test 08/27/22 11:45 08/27/22 12:15 08/27/22 12:50 Range/Units White Blood Count 9.4 4.3-11.0 10^3/uL Red Blood Count 4.34 3.80-5.11 10^6/uL Hemoglobin 13.0 # 11.5-16.0 g/dL Hematocrit 38 35-52 % Mean Corpuscular Volume 87 80-99 fL Mean Corpuscular Hemoglobin 30 25-34 pg Mean Corpuscular Hemoglobin Concent 34 32-36 g/dL Red Cell Distribution Width 13.8 10.0-14.5 % Platelet Count 404 H 130-400 10^3/uL Mean Platelet Volume 10.1 9.0-12.2 fL Immature Granulocyte % (Auto) 0 % Neutrophils (%) (Auto) 50 42-75 % Lymphocytes (%) (Auto) 32 12-44 % Monocytes (%) (Auto) 8 0-12 % Eosinophils (%) (Auto) 9 0-10 % Basophils (%) (Auto) 1 0-10 % Neutrophils # (Auto) 4.7 1.8-7.8 10^3/uL Lymphocytes # (Auto) 3.0 1.0-4.0 10^3/uL Monocytes # (Auto) 0.8 0.0-1.0 10^3/uL Eosinophils # (Auto) 0.9 H 0.0-0.3 10^3/uL Basophils # (Auto) 0.1 0.0-0.1 10^3/uL Immature Granulocyte # (Auto) 0.0 0.0-0.1 10^3/uL Sodium Level 141 135-145 MMOL/L Potassium Level 3.9 3.6-5.0 MMOL/L Chloride Level 108 H 98-107 MMOL/L Carbon Dioxide Level 18 L 21-32 MMOL/L Anion Gap 15 H 5-14 MMOL/L Blood Urea Nitrogen 11 7-18 MG/DL Creatinine 0.99 0.60-1.30 MG/DL Estimat Glomerular Filtration Rate 72 BUN/Creatinine Ratio 11 Glucose Level 108 H 70-105 MG/DL Calcium Level 9.1 8.5-10.1 MG/DL Corrected Calcium 9.1 8.5-10.1 MG/DL Total Bilirubin 0.3 0.1-1.0 MG/DL Aspartate Amino Transf (AST/SGOT) 24 5-34 U/L Alanine Aminotransferase (ALT/SGPT) 15 0-55 U/L Alkaline Phosphatase 88 40-136 U/L C-Reactive Protein High Sensitivity 1.00 H 0.00-0.50 MG/DL Total Protein 8.1 6.4-8.2 GM/DL Albumin 4.0 3.2-4.5 GM/DL Urine Color YELLOW Urine Clarity CLEAR Urine pH 5.5 5-9 Urine Specific Millen 1.025 H 1.016-1.022 Urine Protein 1+ H NEGATIVE Urine Glucose (UA) NEGATIVE NEGATIVE Urine Ketones NEGATIVE NEGATIVE Urine Nitrite NEGATIVE NEGATIVE Urine Bilirubin 1+ H NEGATIVE Urine Urobilinogen 1.0 < = 1.0 MG/DL Urine Leukocyte Esterase NEGATIVE NEGATIVE Urine RBC (Auto) 3+ H NEGATIVE Urine RBC 10-25 H /HPF Urine WBC NONE /HPF Urine Squamous Epithelial Cells 5-10 /HPF Urine Crystals NONE /LPF Urine Bacteria NEGATIVE /HPF Urine Casts NONE /LPF Urine Mucus NEGATIVE /LPF Urine Culture Indicated NO My Orders Orders - WAYNE NEGRETE Cbc With Automated Diff (08/27/22 11:07) Comprehensive Metabolic Panel (08/27/22 11:07) Hs C Reactive Protein (08/27/22 11:07) Urinalysis (08/27/22 11:09) Hydrocodone/Apap 10/325 Tablet (Lortab 1 (08/27/22 11:09) Vital Signs/I&O 08/27/22 08/27/22 11:06 12:57 Temp 35.4 35.4 Pulse 123 110 Resp 16 16 B/P (MAP) 190/144 (159) 186/120 Pulse Ox 98 99 Departure Communication (PCP) Reviewed previous H&P's, ER visits, hospital and surgical reports, surgical procedures. Dr. Hicks drained a abdominal wall abscess post surgical complications from right nephrectomy. There was no evidence of necrotizing tissue. Patient was discharged 2 days ago. Currently on Augmentin secondary to urinary tract infection positive for E. coli. Wound VAC was placed. Performed patient encounter for wound VAC change. Patient accidentally pulled out her wound VAC this morning. Wound appears to be healing. No surrounding erythema. She is afebrile. CBC and CMP was ordered secondary to the chronic wound to rule out any acute infection. CBC was unremarkable. CMP otherwise unremarkable. Normal kidney function. CRP 1 and nonspecific. urinalysis was negative for white blood cells, nitrates but did note some hematuria. She has had previous hematuria with her urinalysis. She has no suprapubic tenderness, right flank tenderness. CT abdomen pelvis on August 17 did not show any left nephrolithiasis. Pain along the surgical site. No evidence suggesting cellulitis at this time recommend recheck with urinalysis with primary care physician 2 to 3 days. Reviewed previous visits, surgical procedures, testing. Improvement of her lab work. Patient was given a dose of pain medication with improvement of pain. Wound care nurse was contacted. She came to the ER and replaced her wound VAC. Wound care nurse states the incision site has decreased in length and is improving. No purulent draining suggesting infectious etiology. 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 She states there was an issue of getting home health to help with her wound VAC and dressing changes. Patient will receive a call regarding home health. Follow-up with your general surgery for reevaluation. If any worsening pain, fever, v omiting to return back to ED Impression Primary Impression: Encounter for surgical wound dressing change Disposition: HOME, SELF-CARE Condition: Stable Departure-Patient Inst. Decision time for Depature: 12:24 Referrals: EUFEMIA OSHEA APRN (PCP) Primary Care Physician [facility] [place] (Family) Primary Care Physician SOLO HICKS MD Patient Instructions: Wound Care (DC) Add. Discharge Instructions: If any worsening symptoms such as pain, fever to return back to ED. Continue with your wound VAC. Should be receiving a call for home health WAYNE NEGRETE Aug 27, 2022 11:07
[2022-08-27 11:50] LABS: BASOPHILS # (AUTO) 0.1 10^3/uL (0.0-0.1); BASOPHILS % (AUTO) 1 % (0-10); EOSINOPHILS # (AUTO) 0.9 10^3/uL (0.0-0.3); EOSINOPHILS % (AUTO) 9 % (0-10); HEMATOCRIT 38 % (35-52); LYMPHOCYTES % (AUTO) 32 % (12-44); MEAN CORPUSCULAR HEMOGLOBIN 30 pg (25-34); MEAN CORPUSCULAR HGB CONC 34 g/dL (32-36); MEAN CORPUSCULAR VOLUME 87 fL (80-99); MEAN PLATELET VOLUME 10.1 fL (9.0-12.2); MONOCYTES # (AUTO) 0.8 10^3/uL (0.0-1.0); MONOCYTES % (AUTO) 8 % (0-12); NEUTROPHILS # (AUTO) 4.7 10^3/uL (1.8-7.8); NEUTROPHILS % (AUTO) 50 % (42-75); PLATELET COUNT 404 10^3/uL (130-400); WHITE BLOOD COUNT 9.4 10^3/uL (4.3-11.0)
[2022-08-27 12:31] LABS: POTASSIUM 3.9 MMOL/L (3.6-5.0)
[2022-08-27 12:32] LABS: CALCIUM 9.1 MG/DL (8.5-10.1)
[2022-08-27 12:33] LABS: TOTAL PROTEIN 8.1 GM/DL (6.4-8.2)
[2022-08-27 12:35] LABS: BILIRUBIN,TOTAL 0.3 MG/DL (0.1-1.0)
[2022-08-27 12:37] LABS: CREATININE SERUM 0.99 MG/DL (0.60-1.30)
[2022-08-27 12:57] VITALS: BP 186/120
[2022-08-27 13:12] LABS: CLARITY,URINE CLEAR; COLOR,URINE YELLOW; GLUCOSE, URINE (UA) NEGATIVE (NEGATIVE); KETONES,URINE NEGATIVE (NEGATIVE); LEUKOCYTE ESTERASE ,URINE NEGATIVE (NEGATIVE); NITRITE,URINE NEGATIVE (NEGATIVE); PH,URINE 5.5 (5-9); PROTEIN,URINE 1+ (NEGATIVE)
[2022-08-27 13:34] LABS: BILIRUBIN,URINE 1+ (NEGATIVE)
[2022-08-27 13:35] LABS: BACTERIA,URINE NEGATIVE /HPF
== END 2022-08-27 12:57 | disposition home or self-care (01) ==
LOC: EDUNIT# 10:29 → ER 10:31
DX: Z48.01 Encounter for change or removal of surgical wound dressing (principal); Z90.5 Acquired absence of kidney
CPT/HCPCS: 36415; 80053; 81000; 85025; 86141; 99283

== ENCOUNTER → 2022-09-12 | Outpatient (CLI) | payer OTHER ==
[~2022-09-12] MED LIST changes: +RIVA20TA PO
[2022-09-12 15:27] LABS: BASOPHILS # (AUTO) 0.1 10^3/uL (0.0-0.1); BASOPHILS % (AUTO) 1 % (0-10); EOSINOPHILS # (AUTO) 0.4 10^3/uL (0.0-0.3); EOSINOPHILS % (AUTO) 4 % (0-10); HEMATOCRIT 37 % (35-52); HEMOGLOBIN 12.8 g/dL (11.5-16.0); LYMPHOCYTES # (AUTO) 2.6 10^3/uL (1.0-4.0); LYMPHOCYTES % (AUTO) 26 % (12-44); MEAN CORPUSCULAR HEMOGLOBIN 30 pg (25-34); MEAN CORPUSCULAR HGB CONC 34 g/dL (32-36); MEAN CORPUSCULAR VOLUME 87 fL (80-99); MEAN PLATELET VOLUME 9.5 fL (9.0-12.2); MONOCYTES # (AUTO) 0.8 10^3/uL (0.0-1.0); MONOCYTES % (AUTO) 8 % (0-12); NEUTROPHILS # (AUTO) 6.1 10^3/uL (1.8-7.8); NEUTROPHILS % (AUTO) 61 % (42-75); PLATELET COUNT 298 10^3/uL (130-400); WHITE BLOOD COUNT 9.9 10^3/uL (4.3-11.0)
[2022-09-12 15:40] LABS: POTASSIUM 3.9 MMOL/L (3.6-5.0)
[2022-09-12 15:41] LABS: CALCIUM 9.2 MG/DL (8.5-10.1)
[2022-09-12 15:42] LABS: TOTAL PROTEIN 7.8 GM/DL (6.4-8.2)
[2022-09-12 15:44] LABS: BILIRUBIN,TOTAL 0.2 MG/DL (0.1-1.0)
[2022-09-12 15:46] LABS: CREATININE SERUM 0.94 MG/DL (0.60-1.30)
== END ==
LOC: WOUNDCARE 13:51
PROVIDERS: ATTEND Family Medicine
DX: T81.31XA Disruption of external operation (surgical) wound, not elsewhere classified, initial encounter (principal); A49.8 Other bacterial infections of unspecified site; L02.211 Cutaneous abscess of abdominal wall; T65.292A Toxic effect of other tobacco and nicotine, intentional self-harm, initial encounter; E66.01 Morbid (severe) obesity due to excess calories
CPT/HCPCS: 36415; 80053; 83036; 84134; 85025; 87070; 87077; 87205; 97597

== ENCOUNTER 2022-09-14 15:57 | Outpatient (CLI) | payer OTHER ==
[~2022-09-14] VITALS: Ht 162.5 cm; Wt 110.0 kg
[~2022-09-14 15:57] MED LIST changes: -RIVA20TA PO
[2022-09-14] MEDS ORDERED: RIVA20TA PO (16:13)
[2022-09-15] MEDS ORDERED: HYDR-3817 PO (12:26)
== END 2022-09-14 16:27 | disposition home or self-care (01) ==
LOC: PREOP 15:57
PROVIDERS: ATTEND Surgery
DX: Z01.818 Encounter for other preprocedural examination (principal)

== ENCOUNTER 2022-09-15 10:59 | Day surgery (SDC) | payer OTHER ==
[~2022-09-15] VITALS: Ht 162.5 cm; Wt 110.0 kg
[2022-09-15] VITALS (8 sets, daily range): BP systolic 123–178; BP diastolic 92–113
[~2022-09-15 10:59] MED LIST changes: +RIVA20TA PO
[2022-09-15] MEDS ORDERED: ceFAZolin INJECTION 2,000 MG in NS (IVPB) 50 ML IV ONE (11:45)
[2022-09-15] MEDS ORDERED: fentaNYL INJ 100 MCG/2 ML AMP ONE ×2 (11:56→15:20)
[2022-09-15] MEDS ORDERED: PROPOFOL INJECTION 50 ML IV ONE ×2 (11:56→14:48)
[2022-09-15] MEDS ORDERED: MIDAZOLAM 2 MG/2 ML (VERSED) VIAL ONE (11:56)
[2022-09-15] MEDS ORDERED: BUP/EPI 0.5% 1:200,000 (SENSORCAINE) 30 ML VIAL ONE (12:00)
[2022-09-15] MEDS ORDERED: LIDOCAINE PF 2% 5 ML (XYLOCAINE) VIAL ONE (12:05)
--- NOTE | 2022-09-15 12:24 | Progress Note-Pre Operative ---
Pre-Operative Progress Note Date of Available H&P: Sep 15, 2022 Date H&P Reviewed: Sep 15, 2022 Time H&P Reviewed: 12:00 History & Physical: No changes noted Pre-Operative Diagnosis: retained foreign body abd wall. SOLO SWEENEY MD Sep 15, 2022 12:24
[2022-09-15] MEDS ORDERED: HYDR-3817 PO ×2 (12:26)
--- NOTE | 2022-09-15 12:27 | Discharge Inst-Surgical ---
D/C Lap Instructions-KIDO New, Converted, or Re-Newed RX: RX on Chart Follow Up Appt in 2 weeks Activity as tolerated Wet to dry dressing BID Regular Diet Symptoms to Report: Fever over 101 degree F, Nausea/Vomiting Infection Signs and Symptoms to report: Increased redness, Foul odor of wound, Increased drainage Bathing instructions: May shower Operative Area Clean/Dry; Keep incision clean/dry If any problems/questions: Contact your physician or go to Emergency Room SOLO SWEENEY MD Sep 15, 2022 12:27
[2022-09-15] MEDS ORDERED: ACETAMINOPHEN 325 MG TABLET PO PRN (12:30)
[2022-09-15] MEDS ORDERED: morphine INJ 10 MG/ML 1ML (SYR OR VIAL) IVP PRN (12:30)
[2022-09-15] MEDS ORDERED: ONDANSETRON 4 MG/2 ML (SDV) Z0FRAN IVP PRN (12:30)
[2022-09-15] MEDS ORDERED: fentaNYL INJ 100 MCG/2 ML AMP IVP PRN (12:30)
[2022-09-15] MEDS ORDERED: oxyCODONE/APAP 5/325MG (PERCOCET 5) TABLET PO PRN (12:30)
[2022-09-15] MEDS ORDERED: HEParin (CENTRAL IV FLUSH) 500 UNIT/5 ML SYR ONE (13:01)
[2022-09-15] MEDS ORDERED: 0.9% SODIUM CHLORIDE PF INJ 20 ML VIAL ONE (13:01)
--- NOTE | 2022-09-15 13:34 | Progress Note-Pre Operative ---
Pre-Operative Progress Note Date of Available H&P: Sep 15, 2022 Date H&P Reviewed: Sep 15, 2022 Time H&P Reviewed: 12:00 History & Physical: No changes noted Pre-Operative Diagnosis: retained abd FB, poor peripheral access SOLO SWEENEY MD Sep 15, 2022 13:34
[2022-09-15] MEDS ORDERED: NS IV 500 ML 500 ML IV PRN (14:00)
--- NOTE | 2022-09-15 15:10 | Progress Note-Post Operative ---
Post-Operative Progess Note Surgeon (s)/Household Coordinator (s) Surgeon Dr. Pedro Hicks M.D. Household Coordinator: None Pre-Operative Diagnosis retained abd FB, poor peripheral access Post-Operative Diagnosis Retained abdominal foreign body and porr peripheral access Procedure & Operative Findings Date of Procedure 09/15/22 Procedure Performed/Findings Placement of left subclavian groshong port and debridement of Right lower abdominal wound (6x4 cm) Anesthesia Type MAC with local Estimated Blood Loss Estimated blood loss (mL): Minimal Specimens/Packing Specimens Removed 1) Foreign body abdominal wall Packing: saline soaked kerlix and covered with dry 4x4 gauze and ABD. THOM MONROE APRN Sep 15, 2022 15:10
--- NOTE | 2022-09-15 15:23 | Anesthesia-General Post-Op ---
General Patient Condition Mental Status/LOC: Same as Preop Cardiovascular: Satisfactory Nausea/Vomiting: Absent Respiratory: Satisfactory Pain: Controlled Complications: Absent Post Op Complications Complications None Follow Up Care/Instructions Patient Instructions None needed. Anesthesia/Patient Condition Patient Condition Patient is doing well, no complaints, stable vital signs, no apparent adverse anesthesia problems. No complications reported per nursing. DEEDEE DEE CRNA Sep 15, 2022 15:22
[2022-09-15] MEDS ORDERED: fentaNYL INJ 100 MCG/2 ML AMP IVP ONE (15:30)
--- NOTE | 2022-09-15 15:47 | Diagnostic Imaging Report ---
INDICATION: Post port placement. EXAMINATION: Chest from 09/15/2022. COMPARISON: 08/19/2022. FINDINGS: There is a left-sided chest port with the tip at the junction of the SVC and right atrium. Heart and pulmonary vasculature are normal. Lungs and pleural spaces are clear. No pneumothorax. Artifact overlying the left lung apex however does limit evaluation. IMPRESSION: 1. Left chest port placement with the tip at the junction of the SVC and right atrium with no acute post-procedure sequela appreciated with limitations, as above. Dictated by: Dictated on workstation # [id number]
--- NOTE | 2022-09-15 17:15 | Diagnostic Imaging Report ---
INDICATION: Port-A-Cath placement. TECHNIQUE: Intraoperative fluoro views obtained during Port-A-Cath placement in surgery. Two views are obtained, 7.3 seconds of fluoro time was used. FINDINGS: Intraoperative views demonstrate Port-A-Cath in place from left IJ approach with tip overlying the low SVC. Study is otherwise limited. IMPRESSION: Intraoperative fluoro views demonstrate Port-A-Cath placement, as above. Dictated by: Dictated on workstation # [id number]
--- NOTE | 2022-09-15 21:03 | OPERATIVE REPORT ---
DATE OF SERVICE: 09/15/2022 PREOPERATIVE DIAGNOSES: Retained foreign body, abdominal wall wound. Poor peripheral venous circulation. POSTOPERATIVE DIAGNOSES: Poor peripheral venous circulation, retained foreign body which were remnants of wound VAC sponge located in the edge of the skin as well as the subcutaneous tissue. PROCEDURE: Placement left subclavian Groshong implantable catheter under fluoroscopy, debridement of skin and subcutaneous tissue, 6 x 4 cm in size abdominal wall. SURGEON: Solo Sweeney MD ANESTHESIA: Monitored anesthesia care with local. ESTIMATED BLOOD LOSS: Minimal. FINDINGS: Poor peripheral venous circulation, retained foreign body which were remnants of wound VAC sponge located in the edge of the skin as well as the subcutaneous tissue. DISPOSITION: The patient tolerated the procedure well. INDICATIONS: The patient is a 46-year-old female with multiple medical problems including renal failure secondary to severe nephrolithiasis and hydronephrosis, ultimately resulting in a right nephrectomy approximately 2 months ago. She developed a wound infection requiring incision and drainage as well as a wound VAC. She has done well with healing of the wound. However, upon changing of the VAC, there was retained sponge embedded within the subcutaneous tissue as well as the skin and an open wound approximately 6 x 4 cm in size. The patient has very poor peripheral venous circulation and needs frequent laboratory work as well as IV access for medications and will require a Groshong implantable catheter as well. DESCRIPTION OF PROCEDURE: The patient was brought to the operating room, laid supine on the table. After adequate IV pain and sedative medications and monitored anesthesia care, the chest and neck were prepped and draped in standard surgical fashion. A 1% lidocaine with epinephrine was then used to anesthetize the left subclavian region. The left subclavian vein was then cannulated withdrawing of venous blood. A guidewire was then inserted under fluoroscopy. Skin incision was then made using a #15 blade and the dilator and sheath were then placed over the guidewire. The guidewire and dilator were then removed and the Groshong catheter was placed through the sheath under fluoroscopy until the catheter tip was at the superior vena cava -- right atrial junction. The inner wire within the catheter was then removed. The catheter cut down to size and the port placed onto the catheter. The chest reservoir was then created by extending this incision laterally using a #15 blade. A plane was then created between the subcutaneous fat and the anterior pectoralis fascia using blunt dissection as well as electrocautery with visualization of good hemostasis. The port was then placed into the reservoir and sutured to the anterior pectoralis fascia using 3-0 Vicryl sutures. Subcutaneous tissue was then reapproximated with the same suture in an interrupted manner and the skin was closed using 4-0 Monocryl running subcuticular suture. Wound was then cleaned and covered in Dermabond. The port was accessed with a non-coring Goldstein needle and venous blood drawn and heparinized saline pushed in without any resistance. The abdomen was then prepped and draped in standard surgical fashion. The wound was then anesthetized using 1% lidocaine with epinephrine. We then proceeded with debridement of the entire open portion of the wound including a wedge of skin as well as the subcutaneous tissue dimensions approximately 6 x 4 cm in size, taking with it the entire small remnants of wound VAC sponge until normal healthy subcutaneous tissue identified. This was done using electrocautery with visualization of good hemostasis. The wound was then was then packed wet to dry with sterile gauze, followed by dry gauze and ABD pad and tape. The patient tolerated the procedure well. We will get a post-procedure chest x-ray and also instructed her to proceed with wet-to-dry dressings on a b.i.d. basis to allow the wound to close by secondary intention. Job ID: [id number] DocumentID: [id number] Dictated Date: 09/15/2022 15:26:19 Applications Support Analyst Date: 09/15/2022 21:00:00 Dictated By: SOLO SWEENEY MD [facility]
== END 2022-09-15 16:30 ==
LOC: SDC 10:59
PROVIDERS: ATTEND Surgery
DX: T81.49XA Infection following a procedure, other surgical site, initial encounter (principal); I87.2 Venous insufficiency (chronic) (peripheral); F17.210 Nicotine dependence, cigarettes, uncomplicated; Z18.9 Retained foreign body fragments, unspecified material; Z18.89 Other specified retained foreign body fragments; Y83.8 Other surgical procedures as the cause of abnormal reaction of the patient, or of later complication, without mention of misadventure at the time of the procedure
CPT/HCPCS: 71045; 76000; 84703; 87081

== ENCOUNTER 2022-09-18 10:50 | Emergency (ER) | payer OTHER ==
[~2022-09-18] VITALS: Ht 162 cm; Wt 102.0 kg
[2022-09-18] MEDS ORDERED: HYDROcodone/APAP 5 MG/325 MG (LORTAB) TAB PO ONE (11:30)
[2022-09-18] MEDS ORDERED: cloNIDine 0.1 MG (CATAPRES) TAB PO ONE (11:30)
--- NOTE | 2022-09-18 11:31 | ED Integumentary General ---
General Chief Complaint: Skin/Wound Problems Stated Complaint: INCISION INFECTED Nursing Triage Note: Patient ambulatory to ER w c/o incision pain/drainage. Patient states she had surgery with Dr. Quinn on . "Aug 05 I had a kidney removed. The kidney had pus pockets on it which then made the incision infected. Aug 17 I was septic. I then had surgery Aug 18 to remove the infection, washed it out. Aug 21 washed it out again and then I had a wound vac. My skin grew over the sponge, so on September 15 I had surgery again to remove the sponge." Source: patient Exam Limitations: no limitations History of Present Illness Date Seen by Provider: Sep 18, 2022 Time Seen by Provider: 11:00 Initial Comments 46-year-old female presents to the ED with complaints of drainage from her incision. This incision was initially from a nephrectomy that was completed at in June 2022. Patient has presented several times to this ED for post surgical issues. She developed an abscess after the nephrectomy, that was drained here by Dr. Hicks, surgery. She then had to have a washout later, and last she had to have surgery to remove a pieces of sponge from her wound VAC and placed a Groshong implantable catheter. She reports that they are no longer doing a wound VAC for her wound. She is doing wet-to-dry dressings at home, changing them twice a day. She has appointment with wound care tomorrow at 12:30. She reports worsening abdominal pain, states she is ran out of her pain medication. She reports fatigue starting last night, worse today. Denies fevers, chills, chest pain, shortness of air. Reports some nausea, no vomiting. She was started on doxycycline last week, she is still taking that. Her blood pressure is elevated here today. She endorses a headache. Denies blurry vision or dizziness. Reports she is supposed to take clonidine 0.1 mg when her systolic blood pressure is over 160. She has not taken it today. She did take her morning medications, and she is wearing her clonidine patch. Allergies and Home Medications Allergies Coded Allergies: shellfish derived (Verified Allergy, Severe, ZURDO, 09/15/22) morphine (Verified Allergy, Intermediate, Hives; pt has tolerated diluadid and lortab, 09/15/22) Hives and itching locally at IV site Iodinated Contrast Media (Verified Allergy, Unknown, RASH, 09/15/22) Sulfa (Sulfonamide Antibiotics) (Verified Allergy, Unknown, RASH, 09/15/22) aripiprazole (Verified Allergy, Unknown, SEIZURE, 09/15/22) aspirin (Verified Allergy, Unknown, HTN, 09/15/22) Uncoded Allergies: IODINE CONTRAST (Allergy, Mild, 02/15/22) Patient Home Medication List Home Medication List Reviewed: Yes Amlodipine Besylate (Amlodipine Besylate) 10 Mg Tablet, 10 MG PO HS, (Reported) Entered as Reported by: CHEY CUMMINGS on 08/18/22 1538 Atorvastatin Calcium (Atorvastatin Calcium) 20 Mg Tablet, 20 MG PO DAILY, (Reported) Entered as Reported by: CHEY CUMMINGS on 08/18/22 1537 Clonidine (Clonidine TTS 3 Patch) 0.3 Mg/24 Hour Patch.tdwk, 0.3 MG TD WEEK, (Reported) Entered as Reported by: CHEY CUMMINGS on 08/18/22 1537 Clonidine HCl (Clonidine HCl) 0.2 Mg Tablet, 0.2 MG PO Q6H PRN for SYSTOLIC BLOOD PRESSURE, (Reported) Entered as Reported by: CHEY CUMMINSG on 08/18/22 1537 Desvenlafaxine Succinate (Pristiq ER) 50 Mg Tab.er.24h, 50 MG PO DAILY, (Reported) Entered as Reported by: CHEY CUMMINGS on 08/18/22 153 Gabapentin (Gabapentin) 100 Mg Capsule, 100 MG PO Q8H, (Reported) Entered as Reported by: CHEY CUMMINGS on 08/18/22 1537 Hydrocodone/Acetaminophen (Hydrocodone-Acetamin 7.5-325) 7.5 Mg-325 Mg Tablet, 1 EACH PO Q4H Prescribed by: SOLO HICKS on 08/23/22 1305 Hydrocodone/Acetaminophen (Hydrocodone-Acetamin 7.5-325) 7.5 Mg-325 Mg Tablet, 1 EACH PO Q4H PRN for PAIN-BREAKTHROUGH Prescribed by: SOLO HICKS on 09/15/22 1226 Hydrocodone/Acetaminophen (Hydrocodone-Acetamin 7.5-325) 7.5 Mg-325 Mg Tablet, 1 EACH PO Q6H PRN for PAIN-BREAKTHROUGH Prescribed by: Ana Forrest on 09/18/22 1220 Methocarbamol (Methocarbamol) 750 Mg Tablet, 750 MG PO Q12H PRN for PAIN BREAKTROUGH, (Reported) Entered as Reported by: CHEY CUMMINGS on 08/18/22 1537 Olmesartan Medoxomil (Olmesartan Medoxomil) 20 Mg Tablet, 20 MG PO DAILY, (Reported) Entered as Reported by: CHEY CUMMINGS on 08/18/22 1537 Ondansetron (Ondansetron Odt) 4 Mg Tab.rapdis, 4 MG PO Q8H PRN for NAUSEA/VOMITING-1ST LINE, (Reported) Entered as Reported by: CHEY CUMMINGS on 08/18/22 1537 Rivaroxaban (Xarelto) 20 Mg Tablet, 20 MG PO DAILY, (Reported) Entered as Reported by: LESLEY JIMÉNEZ on 09/14/22 1613 Discontinued Medications Amoxicillin/Potassium Clav (Amox Tr-K Clv 875-125 mg Tab) 875 Mg-125 Mg Tablet, 1 EACH PO BID Discontinued Reason: No Longer Taking Prescribed by: SOLO HICKS on 08/23/22 1305 Oxycodone HCl (Oxycodone HCl) 5 Mg Tablet, 5 MG PO Q6H, (Reported) Discontinued Reason: No Longer Taking Entered as Reported by: CHEY CUMMINGS on 08/18/22 153 Review of Systems Review of Systems Constitutional: see HPI Past Fyxrubo-Khnauc-Bnefna Hx Patient Social History Tobacco Use?: Yes Tobacco type used: Cigarettes Smoking Status: Current Everyday Smoker Substance use?: No Alcohol Use?: No Immunizations Up To Date Tetanus Booster (TDap): Unknown First/Initial COVID19 Vaccinat: unknown Second COVID19 Vaccination Rafita: 02/2021 Third COVID19 Vaccination Date: 09/2021 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 Genitourinary: Yes (RIGHT KIDNEY OBSTRUCTED AND ATROPHIC followed by nephrectomy) Kidney Stones, Dialysis, UTI-Chronic Gastrointestinal: Yes Gastroesophageal Reflux Musculoskeletal: Yes Fibromyalgia Endocrine: Yes (GOITORS) HEENT: Yes Glaucoma Cancer: No Psychosocial: Yes Anxiety, PTSD, Bipolar, Schizophrenia, Depression Integumentary: Yes (ABDOMINAL WOUND) Blood Disorders: No Family Medical History Cancer Physical Exam Vital Signs Vital Signs - First Documented 09/18/22 10:57 Temp 36.4 Pulse 69 Resp 20 Pulse Ox 100 O2 Delivery Room Air Capillary Refill : Less Than 3 Seconds General Appearance: WD/WN, mild distress Neck: supple, normal inspection Cardiovascular: regular rate, rhythm, no edema, no gallop, no JVD, no murmur Respiratory: lungs clear, normal breath sounds, no respiratory distress, no accessory muscle use Gastrointestinal: other (Incision right lower quadrant) Extremities: normal range of motion, normal inspection Neurologic/Psychiatric: alert, normal mood/affect Skin: normal color, warm/dry Skin Problem Location: torso (Right lower abdominal quadrant) Skin Problem Character: other (Incision, appears to be healing, granulation tissue forming, small amount yellow drainage, no odor) Progress/Results/Core Measures Results/Orders My Orders Orders - ANA FORREST APRN Clonidine Tablet (Catapres Tablet) (09/18/22 11:30) Hydrocodone/Apap 5/325 Tablet (Lortab 5 (09/18/22 11:30) Medications Given in ED Current Medications Medications Dose Ordered Sig/Faustino Route Start Time Stop Time Status Last Admin Dose Admin Acetaminophen/ Hydrocodone Bitart 2 ea ONCE ONCE PO 09/18/22 11:30 09/18/22 11:31 DC 09/18/22 11:38 2 EA Clonidine HCl 0.1 mg ONCE ONCE PO 09/18/22 11:30 09/18/22 11:31 DC 09/18/22 11:37 0.1 MG Vital Signs/I&O 09/18/22 10:57 Temp 36.4 Pulse 69 Resp 20 B/P (MAP) Pulse Ox 100 O2 Delivery Room Air Progress Progress Note : Time: 11:44 Progress Note Patient seen and evaluated, resting in bed, mild distress. Wound appears to be healing. Will replace dressing. We will give clonidine and pain medication to help improve blood pressure and pain. Will discharge and have patient follow-up with wound care tomorrow as scheduled. 1217 blood pressure has improved. Patient states she is starting to feel better. Will refill her prescription for Stevenson, and have her follow-up with wound care tomorrow. Patient instructed to continue her doxycycline. Discharge instructions and return precautions provided. Departure Impression Primary Impression: Wound of abdomen Disposition: HOME, SELF-CARE Condition: Stable Departure-Patient Inst. Decision time for Depature: 12:17 Referrals: EUFEMIA OSHEA APRN (PCP/Family) Primary Care Physician Patient Instructions: Wound Care (DC) Add. Discharge Instructions: Continue taking your doxycycline as prescribed. Follow-up with wound care tomorrow as scheduled. Take pain medication as needed. Return for severe pain, fever, increased, odorous drainage, or any other new, concerning, or worsening symptoms. All discharge instructions reviewed with patient and/or family. Voiced understanding. Scripts Hydrocodone/Acetaminophen (Hydrocodone-Acetamin 7.5-325) 7.5 Mg-325 Mg Tablet 1 EACH PO Q6H PRN for PAIN-BREAKTHROUGH, #15 TAB 0 Refills Prov: ANA FORREST APRN 09/18/22 ANA FORREST APRN Sep 18, 2022 11:31
[2022-09-18] MEDS ORDERED: HYDR-3817 PO (12:20)
[2022-09-18 12:25] VITALS: BP 166/94
== END 2022-09-18 12:25 | disposition home or self-care (01) ==
LOC: EDUNIT# 10:50 → ER 10:52
DX: N99.89 Other postprocedural complications and disorders of genitourinary system (principal); R10.31 Right lower quadrant pain; G89.18 Other acute postprocedural pain; I10 Essential (primary) hypertension; F17.210 Nicotine dependence, cigarettes, uncomplicated; Z79.899 Other long term (current) drug therapy

== ENCOUNTER → 2022-09-19 | Outpatient (CLI) | payer OTHER | LOC: WOUNDCARE 12:33 | PROVIDERS: ATTEND Family Medicine | DX: T81.31XA Disruption of external operation (surgical) wound, not elsewhere classified, initial encounter (principal); A49.8 Other bacterial infections of unspecified site; L02.211 Cutaneous abscess of abdominal wall; T65.222A Toxic effect of tobacco cigarettes, intentional self-harm, initial encounter; E66.01 Morbid (severe) obesity due to excess calories; I96 Gangrene, not elsewhere classified | CPT/HCPCS: 99213 ==

== ENCOUNTER → 2022-09-26 | Outpatient (CLI) | payer OTHER | LOC: WOUNDCARE 12:28 | PROVIDERS: ATTEND Family Medicine | DX: T81.31XA Disruption of external operation (surgical) wound, not elsewhere classified, initial encounter (principal); A49.8 Other bacterial infections of unspecified site; L02.211 Cutaneous abscess of abdominal wall; T65.292A Toxic effect of other tobacco and nicotine, intentional self-harm, initial encounter; E66.01 Morbid (severe) obesity due to excess calories; I96 Gangrene, not elsewhere classified | CPT/HCPCS: 11042 ==

== ENCOUNTER → 2022-10-03 | Outpatient (CLI) | payer OTHER | LOC: WOUNDCARE 12:32 | PROVIDERS: ATTEND Family Medicine | DX: I96 Gangrene, not elsewhere classified (principal); T81.31XA Disruption of external operation (surgical) wound, not elsewhere classified, initial encounter; L02.211 Cutaneous abscess of abdominal wall; T65.222A Toxic effect of tobacco cigarettes, intentional self-harm, initial encounter; E66.01 Morbid (severe) obesity due to excess calories; Z68.41 Body mass index [BMI] 40.0-44.9, adult | CPT/HCPCS: 11042 ==

== ENCOUNTER → 2022-10-10 | Outpatient (CLI) | payer OTHER | LOC: WOUNDCARE 12:18 | PROVIDERS: ATTEND Family Medicine | DX: T81.31XA Disruption of external operation (surgical) wound, not elsewhere classified, initial encounter (principal); L02.211 Cutaneous abscess of abdominal wall; T65.292A Toxic effect of other tobacco and nicotine, intentional self-harm, initial encounter; E66.01 Morbid (severe) obesity due to excess calories; I96 Gangrene, not elsewhere classified | CPT/HCPCS: 11042 ==

== ENCOUNTER 2022-10-16 15:14 | Emergency (ER) | payer OTHER ==
--- NOTE | 2022-10-16 16:11 | ED General ---
General Chief Complaint: Abdominal/GI Problems Stated Complaint: RIGHT SIDE PAIN Nursing Triage Note: PT AMB TO RM 3 WITH CC OF R UPPER ABD PAIN. PT STATES HAD R KIDNEY TAKEN OUT Jul AND HAS HAD INCONSISTENT PAIN SINCE. PT STATES PAIN INCREASES AFTER SHE EATS. PT STATES DIARRHEA AND NAUSEA X1WEEK. PT REPORTS POST-OP INFECTION IN AUGUST. PT SEES WOUND CARE FOR SX SITE CLEANINGS. Source of Information: Patient, Old Records Exam Limitations: No Limitations History of Present Illness Date Seen by Provider: Oct 16, 2022 Allergies and Home Medications Allergies Coded Allergies: shellfish derived (Verified Allergy, Severe, ZURDO, 09/15/22) morphine (Verified Allergy, Intermediate, Hives; pt has tolerated diluadid and lortab, 09/15/22) Hives and itching locally at IV site Iodinated Contrast Media (Verified Allergy, Unknown, RASH, 09/15/22) Sulfa (Sulfonamide Antibiotics) (Verified Allergy, Unknown, RASH, 09/15/22) aripiprazole (Verified Allergy, Unknown, SEIZURE, 09/15/22) aspirin (Verified Allergy, Unknown, HTN, 09/15/22) Uncoded Allergies: IODINE CONTRAST (Allergy, Mild, 02/15/22) Patient Home Medication List Amlodipine Besylate (Amlodipine Besylate) 10 Mg Tablet, 10 MG PO HS, (Reported) Entered as Reported by: CHEY CUMMINGS on 08/18/22 1538 Atorvastatin Calcium (Atorvastatin Calcium) 20 Mg Tablet, 20 MG PO DAILY, (Reported) Entered as Reported by: CHEY CUMMINGS on 08/18/22 1537 Clonidine (Clonidine TTS 3 Patch) 0.3 Mg/24 Hour Patch.tdwk, 0.3 MG TD WEEK, (Reported) Entered as Reported by: CHEY CUMMINGS on 08/18/22 1537 Clonidine HCl (Clonidine HCl) 0.2 Mg Tablet, 0.2 MG PO Q6H PRN for SYSTOLIC BLOOD PRESSURE, (Reported) Entered as Reported by: CHEY CUMMINGS on 08/18/22 153 Desvenlafaxine Succinate (Pristiq ER) 50 Mg Tab.er.24h, 50 MG PO DAILY, (Reported) Entered as Reported by: CHEY CUMMINGS on 08/18/22 1537 Gabapentin (Gabapentin) 100 Mg Capsule, 100 MG PO Q8H, (Reported) Entered as Reported by: CHEY CUMMINGS on 08/18/22 1537 Hydrocodone/Acetaminophen (Hydrocodone-Acetamin 7.5-325) 7.5 Mg-325 Mg Tablet, 1 EACH PO Q4H Prescribed by: SOLO SWEENEY on 08/23/22 1305 Hydrocodone/Acetaminophen (Hydrocodone-Acetamin 7.5-325) 7.5 Mg-325 Mg Tablet, 1 EACH PO Q4H PRN for PAIN-BREAKTHROUGH Prescribed by: SOLO SWEENEY on 09/15/22 1226 Hydrocodone/Acetaminophen (Hydrocodone-Acetamin 7.5-325) 7.5 Mg-325 Mg Tablet, 1 EACH PO Q6H PRN for PAIN-BREAKTHROUGH Prescribed by: Ana Patrick on 09/18/22 1220 Methocarbamol (Methocarbamol) 750 Mg Tablet, 750 MG PO Q12H PRN for PAIN BREAKTROUGH, (Reported) Entered as Reported by: CHEY CUMMINGS on 08/18/22 1537 Olmesartan Medoxomil (Olmesartan Medoxomil) 20 Mg Tablet, 20 MG PO DAILY, (Reported) Entered as Reported by: CHEY CUMMINGS on 08/18/22 1537 Ondansetron (Ondansetron Odt) 4 Mg Tab.rapdis, 4 MG PO Q8H PRN for NAUSEA/VOMITING-1ST LINE, (Reported) Entered as Reported by: CHEY CUMMINGS on 08/18/22 1537 Rivaroxaban (Xarelto) 20 Mg Tablet, 20 MG PO DAILY, (Reported) Entered as Reported by: LESLEY JIMÉNEZ on 09/14/22 1613 Past Rmbnxia-Dkvyml-Swikbh Hx Patient Social History Tobacco Use?: Yes Tobacco type used: Cigarettes Smoking Status: Current Everyday Smoker Substance use?: No Alcohol Use?: No Pt feels they are or have been: No Immunizations Up To Date Tetanus Booster (TDap): Unknown First/Initial COVID19 Vaccinat: unknown Second COVID19 Vaccination Rafita: unknown Third COVID19 Vaccination Date: unknown Seasonal Allergies Seasonal Allergies: No Past Medical History Surgery/Hospitalization HX: RT KIDNEY DRAIN, HX OF KIDNEY DISEASE, HYPERTENSION, T&A, LYMPH NODES REMOVED FROM GROIN, GALLBLADDER, TUBAL LIGATION, R NEPHROSTOMY TUBE Surgeries: Yes (GROIN 2 LYMPH NODE, ABD WOUND SX) Adenoidectomy, Gallbladder, Nephrectomy, Renal, Tonsillectomy, Tubal Ligation Respiratory: Yes Sleep Apnea Currently Using CPAP: No Currently Using BIPAP: No Cardiac: Yes (DVT RIGHT ARM IN 2021. 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 Genitourinary: Yes (RIGHT KIDNEY OBSTRUCTED AND ATROPHIC followed by nephrectomy) Kidney Stones, Dialysis, UTI-Chronic Gastrointestinal: Yes Gastroesophageal Reflux Musculoskeletal: Yes Fibromyalgia Endocrine: Yes (GOITORS) HEENT: Yes Glaucoma Cancer: No Psychosocial: Yes Anxiety, PTSD, Bipolar, Schizophrenia, Depression Integumentary: Yes (ABDOMINAL WOUND) Blood Disorders: No Family Medical History Cancer Physical Exam Vital Signs Vital Signs - First Documented 10/16/22 15:21 Temp 37.2 Pulse 66 Resp 18 B/P (MAP) 180/126 (144) Pulse Ox 98 O2 Delivery Room Air Capillary Refill : Less Than 3 Seconds Height, Weight, BMI Height: '" Weight: lbs. oz. kg; 38.00 BMI Method: Progress/Results/Core Measures Suspected Sepsis SIRS Temperature: Pulse: 66 Respiratory Rate: 18 Laboratory Tests 10/16/22 16:50: White Blood Count 9.3 Blood Pressure 180 /126 Mean: 144 Laboratory Tests 10/16/22 16:50: Creatinine 1.02, Platelet Count 306, Total Bilirubin 0.3 Results/Orders Lab Results Laboratory Tests Test 10/16/22 16:09 10/16/22 16:50 Range/Units Urine Color YELLOW Urine Clarity CLOUDY Urine pH 5.5 5-9 Urine Specific [place] >=1.030 1.016-1.022 Urine Protein NEGATIVE NEGATIVE Urine Glucose (UA) NEGATIVE NEGATIVE Urine Ketones NEGATIVE NEGATIVE Urine Nitrite NEGATIVE NEGATIVE Urine Bilirubin NEGATIVE NEGATIVE Urine Urobilinogen 0.2 < = 1.0 MG/DL Urine Leukocyte Esterase NEGATIVE NEGATIVE Urine RBC (Auto) 1+ H NEGATIVE Urine RBC 0-2 /HPF Urine WBC 2-5 /HPF Urine Squamous Epithelial Cells 10-25 H /HPF Urine Crystals NONE /LPF Urine Bacteria FEW H /HPF Urine Casts NONE /LPF Urine Mucus MODERATE H /LPF Urine Culture Indicated NO White Blood Count 9.3 4.3-11.0 10^3/uL Red Blood Count 4.46 3.80-5.11 10^6/uL Hemoglobin 13.0 11.5-16.0 g/dL Hematocrit 38 35-52 % Mean Corpuscular Volume 86 80-99 fL Mean Corpuscular Hemoglobin 29 25-34 pg Mean Corpuscular Hemoglobin Concent 34 32-36 g/dL Red Cell Distribution Width 13.2 10.0-14.5 % Platelet Count 306 130-400 10^3/uL Mean Platelet Volume 9.5 9.0-12.2 fL Immature Granulocyte % (Auto) 0 % Neutrophils (%) (Auto) 57 42-75 % Lymphocytes (%) (Auto) 31 12-44 % Monocytes (%) (Auto) 7 0-12 % Eosinophils (%) (Auto) 5 0-10 % Basophils (%) (Auto) 1 0-10 % Neutrophils # (Auto) 5.3 1.8-7.8 10^3/uL Lymphocytes # (Auto) 2.9 1.0-4.0 10^3/uL Monocytes # (Auto) 0.6 0.0-1.0 10^3/uL Eosinophils # (Auto) 0.5 H 0.0-0.3 10^3/uL Basophils # (Auto) 0.1 0.0-0.1 10^3/uL Immature Granulocyte # (Auto) 0.0 0.0-0.1 10^3/uL Sodium Level 141 135-145 MMOL/L Potassium Level 3.5 L 3.6-5.0 MMOL/L Chloride Level 110 H 98-107 MMOL/L Carbon Dioxide Level 19 L 21-32 MMOL/L Anion Gap 12 5-14 MMOL/L Blood Urea Nitrogen 14 7-18 MG/DL Creatinine 1.02 0.60-1.30 MG/DL Estimat Glomerular Filtration Rate 70 BUN/Creatinine Ratio 14 Glucose Level 97 70-105 MG/DL Calcium Level 8.9 8.5-10.1 MG/DL Corrected Calcium 9.0 8.5-10.1 MG/DL Total Bilirubin 0.3 0.1-1.0 MG/DL Aspartate Amino Transf (AST/SGOT) 24 5-34 U/L Alanine Aminotransferase (ALT/SGPT) 20 0-55 U/L Alkaline Phosphatase 99 40-136 U/L C-Reactive Protein High Sensitivity 1.58 H 0.00-0.50 MG/DL Total Protein 7.4 6.4-8.2 GM/DL Albumin 3.9 3.2-4.5 GM/DL My Orders Orders - KATHI PAK MD Ua Culture If Indicated (10/16/22 15:27) Cbc With Automated Diff (10/16/22 16:20) Comprehensive Metabolic Panel (10/16/22 16:20) Hs C Reactive Protein (10/16/22 16:20) Chest Pa/Lat (2 View) (10/16/22 16:20) Ed Iv/Invasive Line Start (10/16/22 16:20) Fentanyl Inj (Sublimaze Injection) (10/16/22 16:30) Oxycodone/Apap 5/325mg Tablet (Percocet (10/16/22 18:00) Medications Given in ED Current Medications Medications Dose Ordered Sig/Faustino Route Start Time Stop Time Status Last Admin Dose Admin Fentanyl Citrate 50 mcg ONCE ONCE IVP 10/16/22 16:30 10/16/22 16:31 DC 10/16/22 16:53 50 MCG Vital Signs/I&O 10/16/22 15:21 Temp 37.2 Pulse 66 Resp 18 B/P (MAP) 180/126 (144) Pulse Ox 98 O2 Delivery Room Air Capillary Refill : Less Than 3 Seconds Blood Pressure Mean: 144 Departure Impression Primary Impression: Chest wall pain following surgery Disposition: 01 HOME, SELF-CARE Condition: Improved Departure-Patient Inst. Decision time for Depature: 17:53 Referrals: EUFEMIA OSHEA APRN (PCP/Family) Primary Care Physician Patient Instructions: Chronic Pain Add. Discharge Instructions: Follow-up with your primary care provider as soon as possible. Use oxycodone as prescribed for pain control. Return to the ER if you have worsening symptoms despite treating pain. All discharge instructions reviewed with patient and/or family. Voiced understanding. Scripts Oxycodone HCl/Acetaminophen (Percocet 5-325 mg Tablet) 5 Mg-325 Mg Tablet 1 TAB PO Q6H PRN for PAIN-MODERATE (5-7) MDD 6, #10 TAB Prov: KATHI PAK MD 10/16/22 KATHI PAK MD Oct 16, 2022 16:11
[2022-10-16 16:28] LABS: BILIRUBIN,URINE NEGATIVE (NEGATIVE); CLARITY,URINE CLOUDY; COLOR,URINE YELLOW; GLUCOSE, URINE (UA) NEGATIVE (NEGATIVE); KETONES,URINE NEGATIVE (NEGATIVE); LEUKOCYTE ESTERASE ,URINE NEGATIVE (NEGATIVE); NITRITE,URINE NEGATIVE (NEGATIVE); PH,URINE 5.5 (5-9); PROTEIN,URINE NEGATIVE (NEGATIVE)
[2022-10-16] MEDS ORDERED: fentaNYL INJ 100 MCG/2 ML AMP IVP ONE (16:30)
[2022-10-16 16:36] LABS: BACTERIA,URINE FEW /HPF; RBC,URINE 0-2 /HPF
--- NOTE | 2022-10-16 16:40 | Diagnostic Imaging Report ---
INDICATION: Right lower chest pain. TECHNIQUE: Two view chest 4:40 PM CORRELATION STUDY: 09/15/2022 FINDINGS: The heart size and pulmonary vasculature are within normal limits. Left subclavian port catheter tip high right atrium. Tortuous course thoracic aorta. The lungs are clear with no consolidating infiltrate. There is no significant pleural effusion or pneumothorax. Visualized osseous structures are unremarkable. IMPRESSION: 1. Negative for acute abnormality of the chest. Dictated by: Dictated on workstation # [id number]
[2022-10-16 17:05] LABS: BASOPHILS # (AUTO) 0.1 10^3/uL (0.0-0.1); BASOPHILS % (AUTO) 1 % (0-10); EOSINOPHILS # (AUTO) 0.5 10^3/uL (0.0-0.3); EOSINOPHILS % (AUTO) 5 % (0-10); HEMATOCRIT 38 % (35-52); LYMPHOCYTES # (AUTO) 2.9 10^3/uL (1.0-4.0); LYMPHOCYTES % (AUTO) 31 % (12-44); MEAN CORPUSCULAR HEMOGLOBIN 29 pg (25-34); MEAN CORPUSCULAR HGB CONC 34 g/dL (32-36); MEAN CORPUSCULAR VOLUME 86 fL (80-99); MEAN PLATELET VOLUME 9.5 fL (9.0-12.2); MONOCYTES # (AUTO) 0.6 10^3/uL (0.0-1.0); MONOCYTES % (AUTO) 7 % (0-12); NEUTROPHILS # (AUTO) 5.3 10^3/uL (1.8-7.8); NEUTROPHILS % (AUTO) 57 % (42-75); PLATELET COUNT 306 10^3/uL (130-400); WHITE BLOOD COUNT 9.3 10^3/uL (4.3-11.0)
[2022-10-16 17:11] LABS: ALBUMIN 3.9 GM/DL (3.2-4.5); POTASSIUM 3.5 MMOL/L (3.6-5.0)
[2022-10-16 17:12] LABS: CALCIUM 8.9 MG/DL (8.5-10.1)
[2022-10-16 17:13] LABS: TOTAL PROTEIN 7.4 GM/DL (6.4-8.2)
[2022-10-16 17:15] LABS: BILIRUBIN,TOTAL 0.3 MG/DL (0.1-1.0)
[2022-10-16 17:17] LABS: CREATININE SERUM 1.02 MG/DL (0.60-1.30)
[2022-10-16] MEDS ORDERED: OXYC-199 PO (17:55)
[2022-10-16] MEDS ORDERED: oxyCODONE/APAP 5/325MG (PERCOCET 5) TABLET PO ONE (18:00)
[2022-10-16 18:16] VITALS: BP 159/101
== END 2022-10-16 18:16 | disposition home or self-care (01) ==
LOC: EDUNIT# 15:14 → ER 15:17
DX: R07.89 Other chest pain (principal); F17.210 Nicotine dependence, cigarettes, uncomplicated; Z88.5 Allergy status to narcotic agent
CPT/HCPCS: 36415; 71046; 80053; 81000; 85025; 86141

== ENCOUNTER → 2022-10-17 | Outpatient (CLI) | payer OTHER ==
[~2022-10-17] MED LIST changes: +OXYC-199 PO
== END ==
LOC: WOUNDCARE 11:46
PROVIDERS: ATTEND Family Medicine
DX: T81.31XA Disruption of external operation (surgical) wound, not elsewhere classified, initial encounter (principal); T65.292A Toxic effect of other tobacco and nicotine, intentional self-harm, initial encounter; E66.01 Morbid (severe) obesity due to excess calories; L02.211 Cutaneous abscess of abdominal wall; I96 Gangrene, not elsewhere classified
CPT/HCPCS: 11042

== ENCOUNTER 2022-10-23 08:41 | Observation (INO) | payer OTHER ==
[2022-10-23] VITALS (8 sets, daily range): BP systolic 100–141; BP diastolic 58–84
[~2022-10-23] VITALS: Ht 165 cm; Wt 101.7 kg
[2022-10-23] MEDS ORDERED: fentaNYL INJ 100 MCG/2 ML AMP IVP ONE (09:45)
[2022-10-23 09:56] LABS: BASOPHILS # (AUTO) 0.1 10^3/uL (0.0-0.1); BASOPHILS % (AUTO) 1 % (0-10); EOSINOPHILS # (AUTO) 0.4 10^3/uL (0.0-0.3); EOSINOPHILS % (AUTO) 5 % (0-10); HEMATOCRIT 34 % (35-52); LYMPHOCYTES # (AUTO) 2.3 10^3/uL (1.0-4.0); LYMPHOCYTES % (AUTO) 29 % (12-44); MEAN CORPUSCULAR HEMOGLOBIN 29 pg (25-34); MEAN CORPUSCULAR HGB CONC 35 g/dL (32-36); MEAN CORPUSCULAR VOLUME 84 fL (80-99); MONOCYTES # (AUTO) 0.5 10^3/uL (0.0-1.0); MONOCYTES % (AUTO) 7 % (0-12); NEUTROPHILS # (AUTO) 4.4 10^3/uL (1.8-7.8); NEUTROPHILS % (AUTO) 57 % (42-75); PLATELET COUNT 305 10^3/uL (130-400); WHITE BLOOD COUNT 7.7 10^3/uL (4.3-11.0)
[2022-10-23 10:07] LABS: ALBUMIN 3.7 GM/DL (3.2-4.5); POTASSIUM 3.5 MMOL/L (3.6-5.0)
[2022-10-23 10:08] LABS: CALCIUM 8.8 MG/DL (8.5-10.1)
[2022-10-23 10:10] LABS: TOTAL PROTEIN 7.1 GM/DL (6.4-8.2)
[2022-10-23 10:11] LABS: BILIRUBIN,TOTAL 0.2 MG/DL (0.1-1.0)
[2022-10-23 10:13] LABS: CREATININE SERUM 0.81 MG/DL (0.60-1.30)
--- NOTE | 2022-10-23 10:14 | ED Syncope ---
General Chief Complaint: Abdominal/GI Problems Stated Complaint: RIGHT SIDE PAIN Nursing Triage Note: PT STATES RT FLANK PAIN, PT HAD RT KIDNEY REMOVED ON Jul AND HAS HAD INFECTIONS OFF AND ON SINCE, PROCEDURE WAS DONE AT . THINKS SHE MAY HAVE TAKEN TOO MUCH OF HER BP MEDS. STATES SHE PASSED OUT SHE WAS TRYING TO CHANGE THE DRESSING ON OP SITE. DENIES ANY INJURY FROM PASSING OUT. Source of Information: Patient, Old Records Exam Limitations: No Limitations History of Present Illness Date Seen by Provider: Oct 23, 2022 Time Seen by Provider: 08:48 Initial Comments This 46-year-old woman presents to the emergency room with primary complaint of syncope. She reports having concern about high blood pressures last night home that were in excess of 200 systolic. She was placed on amlodipine and Benicar on October 21 and continues on clonidine. She reported taking 2 clonidine 0.2 mg tablets last night. She took the second 1 because she did not think the first 1 satisfactorily controlled her blood pressure. She reports having ringing in her ears today as well. On arrival her heart rate is 54 and blood pressure is 158/100. (It was later revealed after being in the emergency room quite some time that she also had a clonidine 0.3 mg patch on her left arm) patient does not report any injury with her syncopal episode. Syncope occurred upon rising when she got up this morning. She is also complaining of right abdominal and flank pain post nephrectomy. She has had a long course of complications from ureteral obstruction on the right for which nephrostomy tube was placed. She suffered multiple infections related to that nephrostomy tube. Ultimately, she had a nephrectomy performed at [facility]. She subsequently had soft tissue infections of the site as well as a retained sponge from a wound VAC. These issues have been addressed by Dr. Hicks on prior hospitalizations. She is presently on Augmentin. She was seen by me in the emergency room about a week ago. She was out of pain medication at that time and she was given a temporary prescription to hold her over until visit with her primary care provider. Medications for pain control were not renewed at her follow-up appointment. She reports taking amlodipine last night but did not take her morning dose of Benicar. Allergies and Home Medications Allergies Coded Allergies: shellfish derived (Verified Allergy, Severe, ZURDO, 09/15/22) morphine (Verified Allergy, Intermediate, Hives; pt has tolerated diluadid and lortab, 09/15/22) Hives and itching locally at IV site Iodinated Contrast Media (Verified Allergy, Unknown, RASH, 09/15/22) Sulfa (Sulfonamide Antibiotics) (Verified Allergy, Unknown, RASH, 09/15/22) aripiprazole (Verified Allergy, Unknown, SEIZURE, 09/15/22) aspirin (Verified Allergy, Unknown, HTN, 09/15/22) Uncoded Allergies: IODINE CONTRAST (Allergy, Mild, 02/15/22) Patient Home Medication List Home Medication List Reviewed: Yes Amlodipine Besylate (Amlodipine Besylate) 10 Mg Tablet, 10 MG PO HS, (Reported) Entered as Reported by: CHEY CUMMINGS on 08/18/22 153 Atorvastatin Calcium (Atorvastatin Calcium) 20 Mg Tablet, 20 MG PO DAILY, (Reported) Entered as Reported by: CHEY CUMMINGS on 08/18/22 153 Clonidine (Clonidine TTS 3 Patch) 0.3 Mg/24 Hour Patch.tdwk, 0.3 MG TD WEEK, (Reported) Entered as Reported by: CHEY CUMMINGS on 08/18/22 153 Clonidine HCl (Clonidine HCl) 0.2 Mg Tablet, 0.2 MG PO Q6H PRN for SYSTOLIC BLOOD PRESSURE, (Reported) Entered as Reported by: CHEY CUMMINGS on 08/18/22 153 Desvenlafaxine Succinate (Pristiq ER) 50 Mg Tab.er.24h, 50 MG PO DAILY, (R eported) Entered as Reported by: CHEY CUMMINGS on 08/18/22 153 Gabapentin (Gabapentin) 100 Mg Capsule, 100 MG PO Q8H, (Reported) Entered as Reported by: CHEY CUMMINGS on 08/18/22 153 Hydrocodone/Acetaminophen (Hydrocodone-Acetamin 7.5-325) 7.5 Mg-325 Mg Tablet, 1 EACH PO Q4H Prescribed by: SOLO HICKS on 08/23/22 1305 Hydrocodone/Acetaminophen (Hydrocodone-Acetamin 7.5-325) 7.5 Mg-325 Mg Tablet, 1 EACH PO Q4H PRN for PAIN-BREAKTHROUGH Prescribed by: SOLO HICKS on 09/15/22 1226 Hydrocodone/Acetaminophen (Hydrocodone-Acetamin 7.5-325) 7.5 Mg-325 Mg Tablet, 1 EACH PO Q6H PRN for PAIN-BREAKTHROUGH Prescribed by: Ana Patrick on 09/18/22 1220 Methocarbamol (Methocarbamol) 750 Mg Tablet, 750 MG PO Q12H PRN for PAIN BREAKTR OUGH, (Reported) Entered as Reported by: CHEY CUMMINGS on 08/18/22 1537 Olmesartan Medoxomil (Olmesartan Medoxomil) 20 Mg Tablet, 20 MG PO DAILY, (Reported) Entered as Reported by: CHEY CUMMINGS on 08/18/22 1537 Ondansetron (Ondansetron Odt) 4 Mg Tab.rapdis, 4 MG PO Q8H PRN for NAUSEA/VOMITING-1ST LINE, (Reported) Entered as Reported by: CHEY CUMMINGS on 08/18/22 1537 Oxycodone HCl/Acetaminophen (Percocet 5-325 mg Tablet) 5 Mg-325 Mg Tablet, 1 TAB PO Q6H PRN for PAIN-MODERATE (5-7) Prescribed by: KATHI JACKSON on 10/16/22 1756 Rivaroxaban (Xarelto) 20 Mg Tablet, 20 MG PO DAILY, (Reported) Entered as Reported by: LESLEY JIMÉNEZ on 09/14/22 1613 Review of Systems Constitutional: no symptoms reported EENTM: no symptoms reported Respiratory: no symptoms reported Cardiovascular: see HPI Gastrointestinal: see HPI Genitourinary: see HPI : No Musculoskeletal: no symptoms reported Skin: no symptoms reported Psychiatric/Neurological: No Symptoms Reported Past Hydoozs-Mgxzcm-Snsbny Hx Immunizations Up To Date Tetanus Booster (TDap): Unknown First/Initial COVID19 Vaccinat: unknown Second COVID19 Vaccination Rafita: unknown Third COVID19 Vaccination Date: unknown Seasonal Allergies Seasonal Allergies: No Past Medical History Surgery/Hospitalization HX: RT KIDNEY DRAIN AND THEN REMOVAL OF RT KIDNEY, HX OF KIDNEY DISEASE, HYPERTENSION, T&A, LYMPH NODES REMOVED FROM GROIN, GALLBLADDER, TUBAL LIGATION, R NEPHROSTOMY TUBE Surgeries: Yes (GROIN 2 LYMPH NODE, ABD WOUND SX) Adenoidectomy, Gallbladder, Nephrectomy, Renal, Tonsillectomy, Tubal Ligation Respiratory: Yes Sleep Apnea Currently Using CPAP: No Currently Using BIPAP: No Cardiac: Yes (DVT RIGHT ARM IN 2021. 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 Genitourinary: Yes (RIGHT KIDNEY OBSTRUCTED AND ATROPHIC followed by nephrectomy) Kidney Stones, Dialysis, UTI-Chronic Gastrointestinal: Yes Gastroesophageal Reflux Musculoskeletal: Yes Fibromyalgia Endocrine: Yes (GOITORS) HEENT: Yes Glaucoma Cancer: No Psychosocial: Yes Anxiety, PTSD, Bipolar, Schizophrenia, Depression Integumentary: Yes (ABDOMINAL WOUND) Blood Disorders: No Family Medical History Cancer Physical Exam Vital Signs Vital Signs - First Documented 10/23/22 08:51 Temp 35.9 Pulse 54 Resp 20 B/P (MAP) 158/100 (119) Pulse Ox 100 O2 Delivery Room Air Capillary Refill : Less Than 3 Seconds Height, Weight, BMI Height: '" Weight: lbs. oz. kg; 36.00 BMI Method: General Appearance: No Apparent Distress, WD/WN HEENT: Normal ENT Inspection Neck: Normal Inspection Cardiovascular: No Edema, No Murmur, Bradycardia Respiratory: Lungs Clear, Normal Breath Sounds, No Accessory Muscle Use Gastrointestinal: Normal Bowel Sounds, Soft; No Distended; Other (Slowly healing right sided abdominal surgical wound. No new tenderness, erythema, or drainage compared with my prior exam) Extremities: Normal Inspection, No Pedal Edema Neurologic/Psychiatric: Alert, Oriented x3, No Motor/Sensory Deficits, Normal Mood/Affect Cranial Nerves: Normal Hearing, Normal Speech Skin: Normal Color, Warm/Dry, Other (Healing surgical wound in the right abdomen) Progress/Results/Core Measures Results/Orders Lab Results Laboratory Tests Test 10/23/22 09:53 Range/Units White Blood Count 7.7 4.3-11.0 10^3/uL Red Blood Count 4.09 3.80-5.11 10^6/uL Hemoglobin 12.0 11.5-16.0 g/dL Hematocrit 34 L 35-52 % Mean Corpuscular Volume 84 80-99 fL Mean Corpuscular Hemoglobin 29 25-34 pg Mean Corpuscular Hemoglobin Concent 35 32-36 g/dL Red Cell Distribution Width 12.9 10.0-14.5 % Platelet Count 305 130-400 10^3/uL Mean Platelet Volume 9.0 9.0-12.2 fL Immature Granulocyte % (Auto) 0 % Neutrophils (%) (Auto) 57 42-75 % Lymphocytes (%) (Auto) 29 12-44 % Monocytes (%) (Auto) 7 0-12 % Eosinophils (%) (Auto) 5 0-10 % Basophils (%) (Auto) 1 0-10 % Neutrophils # (Auto) 4.4 1.8-7.8 10^3/uL Lymphocytes # (Auto) 2.3 1.0-4.0 10^3/uL Monocytes # (Auto) 0.5 0.0-1.0 10^3/uL Eosinophils # (Auto) 0.4 H 0.0-0.3 10^3/uL Basophils # (Auto) 0.1 0.0-0.1 10^3/uL Immature Granulocyte # (Auto) 0.0 0.0-0.1 10^3/uL Sodium Level 141 135-145 MMOL/L Potassium Level 3.5 L 3.6-5.0 MMOL/L Chloride Level 110 H 98-107 MMOL/L Carbon Dioxide Level 21 21-32 MMOL/L Anion Gap 10 5-14 MMOL/L Blood Urea Nitrogen 12 7-18 MG/DL Creatinine 0.81 0.60-1.30 MG/DL Estimat Glomerular Filtration Rate 92 BUN/Creatinine Ratio 15 Glucose Level 109 H 70-105 MG/DL Calcium Level 8.8 8.5-10.1 MG/DL Corrected Calcium 9.0 8.5-10.1 MG/DL Magnesium Level 1.8 1.6-2.4 MG/DL Total Bilirubin 0.2 0.1-1.0 MG/DL Aspartate Amino Transf (AST/SGOT) 20 5-34 U/L Alanine Aminotransferase (ALT/SGPT) 16 0-55 U/L Alkaline Phosphatase 97 40-136 U/L C-Reactive Protein High Sensitivity 0.94 H 0.00-0.50 MG/DL Total Protein 7.1 6.4-8.2 GM/DL Albumin 3.7 3.2-4.5 GM/DL Lipase 26 8-78 U/L Thyroid Stimulating Hormone (TSH) 2.20 0.35-4.94 UIU/ML Free Thyroxine 0.98 0.70-1.48 NG/DL My Orders Orders - KATHI PAK MD Ekg Tracing (10/23/22 09:12) Cbc With Automated Diff (10/23/22 09:26) Comprehensive Metabolic Panel (10/23/22 09:26) Hs C Reactive Protein (10/23/22 09:26) Lipase (10/23/22 09:26) Orthostatic Vital Signs (Adult (10/23/22 09:26) Magnesium (10/23/22 09:26) Thyroid Stimulating Hormone (10/23/22 09:26) Free T4 (Free Thyroxine) (10/23/22 09:26) Implanted Port: Access (10/23/22 09:39) Fentanyl Inj (Sublimaze Injection) (10/23/22 09:45) Lactated Ringers (Lr 1000 Ml Iv Solution (10/23/22 11:00) Oxycodone/Apap 5/325mg Tablet (Percocet (10/23/22 12:15) Ed Admission (Communication) (10/23/22 12:26) Medications Given in ED Current Medications Medications Dose Ordered Sig/Faustino Route Start Time Stop Time Status Last Admin Dose Admin Fentanyl Citrate 50 mcg ONCE ONCE IVP 10/23/22 09:45 10/23/22 09:46 DC 10/23/22 09:54 50 MCG Lactated Ringer's 1,000 ml @ 0 mls/hr Q0M ONCE IV 10/23/22 11:00 10/23/22 11:01 DC 10/23/22 10:51 1,000 MLS/HR Oxycodone/ Acetaminophen 1 tab ONCE ONCE PO 10/23/22 12:15 10/23/22 12:16 DC 10/23/22 12:16 1 TAB Vital Signs/I&O 10/23/22 10/23/22 10/23/22 10/23/22 08:51 09:13 09:54 12:16 Temp 35.9 35.9 35.9 Pulse 54 45 46 56 Resp 20 B/P (MAP) 158/100 (119) 131/83 (99) 104/74 (84) 121/84 (96) Pulse Ox 100 O2 Delivery Room Air Blood Pressure Mean: 96 Progress Progress Note #1: Time: 12:18 Progress Note Patient's blood pressure and heart rate has been labile. Despite not taking Benicar and not taking any oral clonidine since last night, her heart rate has slowed into the 30s. It was observed to be as low as 36. Blood pressure has also dropped to systolics in the 90s. During initial assessment orthostatic blood pressures were obtained and she did have a notable drop between lying and sitting. She has had no further syncopal episodes. Labs were reviewed and were relatively unremarkable including CBC, CMP, CRP, and thyroid studies. All labs were reviewed in their entirety by me and interpreted by me. Thyroid studies were added as patient reported she has a thyroid nodule under work-up. Thyroid dysfunction was ruled out as a contributing factor to her labile blood pressures. Patient has requested a CT of her abdomen and pelvis. At this time I do not believe a CT is necessary. Her pain is more chronic in nature and has not significantly changed since surgery and her last CT on August 17. Her labs are unremarkable to suggest she has a serious infection. She has remained bradycardic with a heart rate in the 30s and 40s after removing her clonidine patch and blood pressure remains lower. I am concerned that she may have further issues with symptomatic bradycardia and hypotension or rapid acceleration of hypertension when the clonidine effect has worn off. Patient's pain was treated with fentanyl followed by hydrocodone. I reviewed the case with Dr. Azul (hospitalist) who is agreeable to admission for observation to stabilize the blood pressure issue and achieve appropriate medication management. I have concerns about the way a clonidine has been managed with a high dose transcutaneous patch along with misuse of high doses orally. I believe this to be a dangerous scenario that could cause serious and extreme fl uctuations in blood pressure and heart rate. Dr. Azul request consultation with Dr. Martinez. Progress Note #2: Time: 12:40 Progress Note I have discussed the case with Dr. Martinez, time checker on-call. He recommends continuing amlodipine at home dose, continuing Benicar at home dose, stopping clonidine patch, clonidine as needed for systolic blood pressure greater than 170, pain and anxiety control, and telemetry. Recommendations were relayed to Dr. Azul. Departure Communication (Admissions) Time/Spoke to Admitting Phy: 12:05 Dr. Azul Time/Spoke to Consulting Phy: 12:40 Dr. Martinez Impression Primary Impression: Labile blood pressure Additional Impressions: Misuse of medication Chronic abdominal pain Disposition: ADMITTED INPATIENT Condition: Stable Admissions Decision to Admit Reason: Admit from ER (General) Decision to Admit/Date: Oct 23, 2022 Time/Decision to Admit Time: 12:05 Departure-Patient Inst. Referrals: EUFEMIA OSHEA APRN (PCP/Family) Primary Care Physician Copy Copies To 1: [facility] [place] Copies To 2: SOLO HICKS MD, JOSHUA T MD Oct 23, 2022 10:14
[2022-10-23 10:16] LABS: MAGNESIUM 1.8 MG/DL (1.6-2.4)
[2022-10-23 10:37] LABS: FREE T4 (FREE THYROXINE) 0.98 NG/DL (0.70-1.48)
[2022-10-23] MEDS ORDERED: LACTATED RINGERS 1,000 ML IV ONE (11:00)
--- NOTE | 2022-10-23 12:09 | History & Physical-Hospitalist ---
History of Present Illness HPI/Chief Complaint CC: Bradycardia and labile HTN due to Clonidine overuse HPI: This is a 46yoWF clinic patient of [facility] who has a h/o right sided nephrectomy due to recurrent UV reflux and infections and subsequent wound vac tissue penetration requiring Dr Hicks to remove it surgically who has a chronic pain condition with overuse of narcotics causing a termination of care by her PCP who presented to the ER with weakness and found to have bradycardia in the 30's due to overuse of Clonidine so patch was removed and Cardiology recommended close monitoring and admit. Source: patient Exam Limitations: no limitations Date Seen 10/23/22 Time Seen by a Provider: 12:10 Attending Physician Madai Parker Aprn PCP Admitting Physician: Attending Physician: Referring Physician Date of Admission Home Medications & Allergies Home Medications Reviewed patient Home Medication Reconciliation performed by pharmacy medication reconciliations orthodontic technician and/or nursing. Patients Allergies have been reviewed. Allergies Allergies Coded Allergies shellfish derived (Verified Allergy, Severe, ZURDO, 09/15/22) morphine (Verified Allergy, Intermediate, Hives; pt has tolerated diluadid and lortab, 09/15/22) Hives and itching locally at IV site Iodinated Contrast Media (Verified Allergy, Unknown, RASH, 09/15/22) Sulfa (Sulfonamide Antibiotics) (Verified Allergy, Unknown, RASH, 09/15/22) aripiprazole (Verified Allergy, Unknown, SEIZURE, 09/15/22) aspirin (Verified Allergy, Unknown, HTN, 09/15/22) Uncoded Allergies IODINE CONTRAST ( Allergy, Mild, 02/15/22) Past Ikjqiwf-Spvpox-Yqtqjl Hx Patient Social History Marrital Status: single Employed/Student: retired Smoking Status: Never a Smoker Immunizations Up To Date First/Initial COVID19 Vaccinat: unknown Second COVID19 Vaccination Rafita: unknown Tetanus Booster (TDap): Unknown Seasonal Allergies Seasonal Allergies: No Current Status Primary Language: Kosovan Preferred Spoken Language: Kosovan Past Medical History Surgeries: Adenoidectomy, Gallbladder, Nephrectomy, Renal, Tonsillectomy, Tubal Ligation Sleep Apnea Currently Using CPAP: No Currently Using BIPAP: No Deep Vein Thrombosis, High Cholesterol, Hypertension, Irregular Heartbeat Headaches /Migraines, Seizure Disorder 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 oz. kg; 36.00 BMI Method: General Appearance: No Apparent Distress, Chronically ill Eyes: Right Eye Normal Inspection, Right Eye PERRL HEENT: PERRL/EOMI, Normal ENT Inspection, Pharynx Normal, Moist Mucous Membranes Neck: Full Range of Motion, Normal Inspection, Non Tender Respiratory: Chest Non Tender, Lungs Clear, Normal Breath Sounds, No Accessory Muscle Use, No Respiratory Distress Cardiovascular: Regular Rate, Rhythm, No Edema, No Gallop, No JVD, No Murmur, Normal Peripheral Pulses Gastrointestinal: Normal Bowel Sounds, No Organomegaly, No Pulsatile Mass, Non Tender, Soft Back: Normal Inspection, No CVA Tenderness, No Vertebral Tenderness Extremity: Normal Capillary Refill, Normal Inspection, Normal Range of Motion, Non Tender, No Calf Tenderness, No Pedal Edema Neurologic/Psychiatric: Alert, Oriented x3, No Motor/Sensory Deficits, Normal Mood/Affect Skin: Normal Color, Warm/Dry Lymphatic: No Adenopathy Results Results/Procedures Labs Laboratory Tests 10/23/22 09:53 Patient resulted labs reviewed. Assessment/Plan Admission Diagnosis Assessment: Bradycardia and hypotension due to Clonidine overuse Chronic pain from nephrectomy HTN HLP Plan: Monitor closely BP meds Admission Status: Observation FAIZA DURAN DO Oct 23, 2022 12:09
[2022-10-23] MEDS ORDERED: oxyCODONE/APAP 5/325MG (PERCOCET 5) TABLET PO ONE (12:15)
[2022-10-23] MEDS ORDERED: ACETAMINOPHEN 325 MG TABLET PO PRN (13:30)
[2022-10-23] MEDS ORDERED: diphenhydrAMINE 50 MG/ML INJ (BENADRYL) IVP PRN (13:30)
[2022-10-23] MEDS ORDERED: diphenhydrAMINE 25 MG TAB (BENADRYL) PO PRN (13:30)
[2022-10-23] MEDS ORDERED: LACTULOSE SYRUP 10GM/15ML (ENULOSE) 30ML UDC PO PRN (13:30)
[2022-10-23] MEDS ORDERED: ANTACID SUSP 30 ML UDC (MYLANTA) PO PRN (13:30)
[2022-10-23] MEDS ORDERED: ENOXAPARIN 40 MG/0.4 ML (LOVENOX) SYR SC SCH (13:30)
[2022-10-23] MEDS ORDERED: ONDANSETRON 4 MG (ZOFRAN) ORAL DISSOLVE TAB PO PRN (13:30)
[2022-10-23] MEDS ORDERED: MELATONIN 3 MG TABLET PO PRN (13:30)
[2022-10-23] MEDS ORDERED: ALPRAZolam 0.5 MG (XANAX) TAB PO PRN (13:30)
[2022-10-23] MEDS ORDERED: polyethylene glycoL POWDER 17 GM (MIRALAX) PACK PO PRN (13:30)
[2022-10-23] MEDS ORDERED: ONDANSETRON 4 MG/2 ML (SDV) Z0FRAN IV PRN (13:30)
[2022-10-23] MEDS ORDERED: MILK OF MAGNESIA 400 MG/5 ML 30 ML UDC PO PRN (13:30)
[2022-10-23] MEDS ORDERED: cloNIDine 0.1 MG (CATAPRES) TAB PO PRN (13:30)
[2022-10-23] MEDS ORDERED: CALCIUM CARBONATE 500 MG (TUMS) TAB.CHEW PO PRN (13:30)
[2022-10-23] MEDS ORDERED: BISACODYL 10 MG SUPP (DULCOLAX) PR PRN (13:30)
[2022-10-23] MEDS: NS IV 1000 ML 1,000 ML IV SCH (13:55)
[2022-10-23] MEDS ORDERED: RT-ALBUTEROL SULF 2.5 MG/3 ML PRE-MIX VIAL INH PRN (14:00)
[2022-10-23] MEDS ORDERED: amLODIPine 10 MG (NORVASC) TAB PO SCH (20:00)
[2022-10-23] MEDS: SENNOSIDES 8.6 MG (SENOKOT) TAB PO SCH (20:44)
[2022-10-23] MEDS: DOCUSATE SODIUM 100 MG (COLACE) CAP PO SCH (21:47)
[2022-10-24] VITALS: BP 112/67
[2022-10-24] MEDS: NS IV 1000 ML 1,000 ML IV SCH (03:07)
[2022-10-24] MEDS: HYDROmorphone 2 MG/ML VIAL (DILAUDID) IV PRN ×2 (03:15→06:26)
[2022-10-24 03:58] LABS: BASOPHILS # (AUTO) 0.1 10^3/uL (0.0-0.1); BASOPHILS % (AUTO) 1 % (0-10); EOSINOPHILS # (AUTO) 0.4 10^3/uL (0.0-0.3); EOSINOPHILS % (AUTO) 5 % (0-10); HEMATOCRIT 33 % (35-52); HEMOGLOBIN 11.3 g/dL (11.5-16.0); LYMPHOCYTES % (AUTO) 40 % (12-44); MEAN CORPUSCULAR HEMOGLOBIN 29 pg (25-34); MEAN CORPUSCULAR HGB CONC 34 g/dL (32-36); MEAN CORPUSCULAR VOLUME 85 fL (80-99); MEAN PLATELET VOLUME 9.6 fL (9.0-12.2); MONOCYTES # (AUTO) 0.6 10^3/uL (0.0-1.0); MONOCYTES % (AUTO) 8 % (0-12); NEUTROPHILS # (AUTO) 3.5 10^3/uL (1.8-7.8); NEUTROPHILS % (AUTO) 46 % (42-75); PLATELET COUNT 279 10^3/uL (130-400); WHITE BLOOD COUNT 7.5 10^3/uL (4.3-11.0)
[2022-10-24 04:00] VITALS: BP 113/69
[2022-10-24 04:14] LABS: ALBUMIN 3.4 GM/DL (3.2-4.5); BILIRUBIN,TOTAL 0.2 MG/DL (0.1-1.0); CALCIUM 8.3 MG/DL (8.5-10.1); POTASSIUM 3.9 MMOL/L (3.6-5.0); TOTAL PROTEIN 6.5 GM/DL (6.4-8.2)
[2022-10-24 08:00] VITALS: BP 159/97
[2022-10-24] MEDS: DOCUSATE SODIUM 100 MG (COLACE) CAP PO SCH (08:23)
[2022-10-24] MEDS: SENNOSIDES 8.6 MG (SENOKOT) TAB PO SCH (08:23)
--- NOTE | 2022-10-24 08:45 | Consultation-Cardiology ---
HPI-Cardiology Cardiology Consultation: Date of Consultation 10/24/22 Time Seen by a Provider: 08:10 Date of Admission Attending Physician Madai Parker Aprn Admitting Physician Admitting Physician: Robina Azul DO Attending Physician: Robina Azul DO Consulting Physician ERNIE MARTINEZ MD, MA, FACP, FACC, FSCAI, CCDS Physician requesting consult: Dr Azul HPI: Chief Complaint: Reason for Card consult: Hypertension 46 yo woman who was admitted by Dr Azul to her service for syncope. In the ER she was found to have postural hypotension. She has been taking more and more meds at home for hypertension. Report white coat hypertension (seen in each time she goes to the doctor's). 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 She says pain is not well controlled. This has also resulted in elevation of anxiety. She denies cp or palp or shortness of breath at rest. Does have daytime tiredness Review of Systems-Cardiology Review of Systems Constitutional: malaise, tiredness; No weight loss, No weight gain Eyes: No vision change Ears/Nose/Throat: No ear discharge, No nasal drainage, No recent hearing loss Respiratory: As described under HPI Cardiovascular: As described under HPI Gastrointestinal: No diarrhea, No nausea, No vomiting Genitourinary: No dysuria, No hematuria : No Musculoskeletal: back pain, other (R flank pain) Skin: No rash, No ulcerations Psychiatric/Neurological: No seizure, No focal weakness, No syncope Hematologic: No bleeding abnormalities UGE-Ucddhb-Ftcdxt Hx Patient Social History Marrital Status: single Employed/Student: retired Smoking Status: Never a Smoker Have you traveled recently?: No Alcohol Use?: No Pt feels they are or have been: Yes Tobacco type used: Cigarettes Immunizations Up To Date Tetanus Booster (TDap): Unknown Past Medical History PMH As described under Assessment. Family Medical History Family Medical History: She does no report fam h/o early CAD Allergies and Home Medications Allergies Coded Allergies: shellfish derived (Verified Allergy, Severe, ZURDO, 09/15/22) morphine (Verified Allergy, Intermediate, Hives; pt has tolerated diluadid and lortab, 09/15/22) Hives and itching locally at IV site Iodinated Contrast Media (Verified Allergy, Unknown, RASH, 09/15/22) Sulfa (Sulfonamide Antibiotics) (Verified Allergy, Unknown, RASH, 09/15/22) aripiprazole (Verified Allergy, Unknown, SEIZURE, 09/15/22) aspirin (Verified Allergy, Unknown, HTN, 09/15/22) Uncoded Allergies: IODINE CONTRAST (Allergy, Mild, 02/15/22) Patient Home Medication List Home Medication List Reviewed: Yes Amlodipine Besylate (Amlodipine Besylate) 10 Mg Tablet, 10 MG PO HS, (Reported) Entered as Reported by: CHEY CUMMINGS on 08/18/22 1538 Atorvastatin Calcium (Atorvastatin Calcium) 20 Mg Tablet, 20 MG PO DAILY, (Reported) Entered as Reported by: CHEY CUMMINGS on 08/18/22 1537 Clonidine (Clonidine TTS 3 Patch) 0.3 Mg/24 Hour Patch.tdwk, 0.3 MG TD WEEK, (Reported) Entered as Reported by: CHEY CUMMINGS on 08/18/22 1537 Clonidine HCl (Clonidine HCl) 0.2 Mg Tablet, 0.2 MG PO Q6H PRN for SYSTOLIC BLOOD PRESSURE, (Reported) Entered as Reported by: CHEY CUMMINGS on 08/18/22 1537 Desvenlafaxine Succinate (Pristiq ER) 50 Mg Tab.er.24h, 50 MG PO DAILY, (Reported) Entered as Reported by: CHEY CUMMINGS on 08/18/22 1537 Gabapentin (Gabapentin) 100 Mg Capsule, 100 MG PO Q8H, (Reported) Entered as Reported by: CHEY CUMMINGS on 08/18/22 1537 Hydrocodone/Acetaminophen (Hydrocodone-Acetamin 7.5-325) 7.5 Mg-325 Mg Tablet, 1 EACH PO Q4H Prescribed by: SOLO SWEENEY on 08/23/22 1305 Hydrocodone/Acetaminophen (Hydrocodone-Acetamin 7.5-325) 7.5 Mg-325 Mg Tablet, 1 EACH PO Q4H PRN for PAIN-BREAKTHROUGH Prescribed by: SOLO SWEENEY on 09/15/22 1226 Hydrocodone/Acetaminophen (Hydrocodone-Acetamin 7.5-325) 7.5 Mg-325 Mg Tablet, 1 EACH PO Q6H PRN for PAIN-BREAKTHROUGH Prescribed by: Ana Patrick on 09/18/22 1220 Methocarbamol (Methocarbamol) 750 Mg Tablet, 750 MG PO Q12H PRN for PAIN BREAKTROUGH, (Reported) Entered as Reported by: CHEY CUMMINGS on 08/18/22 1537 Olmesartan Medoxomil (Olmesartan Medoxomil) 20 Mg Tablet, 20 MG PO DAILY, (Reported) Entered as Reported by: CHEY CUMMINGS on 08/18/22 1537 Ondansetron (Ondansetron Odt) 4 Mg Tab.rapdis, 4 MG PO Q8H PRN for NAUSEA/VOMITING-1ST LINE, (Reported) Entered as Reported by: CHEY CUMMINGS on 08/18/22 1537 Oxycodone HCl/Acetaminophen (Percocet 5-325 mg Tablet) 5 Mg-325 Mg Tablet, 1 TAB PO Q6H PRN for PAIN-MODERATE (5-7) Prescribed by: KATHI JACKSON on 10/16/22 1756 Rivaroxaban (Xarelto) 20 Mg Tablet, 20 MG PO DAILY, (Reported) Entered as Reported by: LESLEY JIMÉNEZ on 09/14/22 1613 Physical Exam-Cardiology Physical Exam Vital Signs/I&O 10/23/22 10/23/22 10/23/22 10/24/22 21:00 22:00 23:52 00:00 Temp 35.9 Pulse 42 43 47 Resp 14 17 B/P (MAP) 107/69 (84) 114/65 (88) 112/67 (82) Pulse Ox 94 93 91 O2 Delivery Room Air Room Air Room Air 10/24/22 10/24/22 10/24/22 10/24/22 01:00 04:00 04:10 07:08 Temp 36.6 Pulse 45 44 46 Resp 11 B/P (MAP) 113/69 (84) Pulse Ox 93 O2 Delivery Room Air 10/24/22 08:00 Temp 36.2 Pulse 53 Resp 16 B/P (MAP) 159/97 (117) Pulse Ox 96 O2 Delivery Room Air 10/24/22 00:00 Intake Total 1500 ml Balance 1500 ml Capillary Refill : Less Than 3 Seconds Constitutional: AAO x 3, well-developed, well-nourished HEENT: EOMI, hearing is well preserved; No xanthelasmas are seen Neck: carotid pulses are 2 + bilaterally Respiratory: No accessory muscle use; chest expansion is symmetric, chest is bilaterally symmetric, other (good, bilateral air entry) Cardiovascular: regular rate-rhythm, S1 and S2, systolic murmur (soft RY at card base) Gastrointestinal: No tender; soft; No guarding, No rebound; audible bowel sounds Extremities: No clubbing, No cyanosis, No significant edema Neurologic/Psychiatric: oriented x 3, other (moves all limbs equally) Skin: No rash, No ulcerations Data Review Labs Laboratory Tests 10/23/22 09:53: White Blood Count 7.7, Red Blood Count 4.09, Hemoglobin 12.0, Hematocrit 34L, Mean Corpuscular Volume 84, Mean Corpuscular Hemoglobin 29, Mean Corpuscular Hemoglobin Concent 35, Red Cell Distribution Width 12.9, Platelet Count 305, Mean Platelet Volume 9.0, Immature Granulocyte % (Auto) 0, Neutrophils (%) (Auto) 57, Lymphocytes (%) (Auto) 29, Monocytes (%) (Auto) 7, Eosinophils (%) (Auto) 5, Basophils (%) (Auto) 1, Neutrophils # (Auto) 4.4, Lymphocytes # (Auto) 2.3, Monocytes # (Auto) 0.5, Eosinophils # (Auto) 0.4H, Basophils # (Auto) 0.1, Immature Granulocyte # (Auto) 0.0, Sodium Level 141, Potassium Level 3.5L, Chl oride Level 110H, Carbon Dioxide Level 21, Anion Gap 10, Blood Urea Nitrogen 12, Creatinine 0.81, Estimat Glomerular Filtration Rate 92, BUN/Creatinine Ratio 15, Glucose Level 109H, Calcium Level 8.8, Corrected Calcium 9.0, Magnesium Level 1.8, Total Bilirubin 0.2, Aspartate Amino Transf (AST/SGOT) 20, Alanine Aminotransferase (ALT/SGPT) 16, Alkaline Phosphatase 97, C-Reactive Protein High Sensitivity 0.94H, Total Protein 7.1, Albumin 3.7, Lipase 26, Thyroid Stimulating Hormone (TSH) 2.20, Free Thyroxine 0.98 10/24/22 03:46: White Blood Count 7.5, Red Blood Count 3.92, Hemoglobin 11.3L, Hematocrit 33L, Mean Corpuscular Volume 85, Mean Corpuscular Hemoglobin 29, Mean Corpuscular Hemoglobin Concent 34, Red Cell Distribution Width 12.9, Platelet Count 279, Mean Platelet Volume 9.6, Immature Granulocyte % (Auto) 1, Neutrophils (%) (Auto) 46, Lymphocytes (%) (Auto) 40, Monocytes (%) (Auto) 8, Eosinophils (%) (Auto) 5, Basophils (%) (Auto) 1, Neutrophils # (Auto) 3.5, Lymphocytes # (Auto) 3.0, Monocytes # (Auto) 0.6, Eosinophils # (Auto) 0.4H, Basophils # (Auto) 0.1, Immature Granulocyte # (Auto) 0.0, Sodium Level 141, Potassium Level 3.9, Ch loride Level 111H, Carbon Dioxide Level 23, Anion Gap 7, Blood Urea Nitrogen 16, Creatinine 1.00, Estimat Glomerular Filtration Rate 71, BUN/Creatinine Ratio 16, Glucose Level 107H, Calcium Level 8.3L, Corrected Calcium 8.8, Total Bilirubin 0.2, Aspartate Amino Transf (AST/SGOT) 17, Alanine Aminotransferase (ALT/SGPT) 18, Alkaline Phosphatase 90, Total Protein 6.5, Albumin 3.4 Laboratory Tests 10/23/22 09:53 10/24/22 03:46 A/P-Cardiology Assessment/Admission Diagnosis Hypertension, essential and white-coat, exacerbated by inadequate pain control Lower back and R flank pain following recent (Jul 2022) R nephrectomy for obstructive uropathy complicated by post-op complications including infections - managed by her surgeon and pcp Elevated BMI of approx 37 Suspected AMADO 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 Pt says she has been on it for several years apparently because of DVT. Continue * Echo today * Advised outpt f/u at our office for hypertension * Pain control and management of multiple other medical issues is with her pcp. We also recommend sleep studies. She will check with her pcp ERINE MARTINEZ MD [facility] CCDS October 24, 2022 08:45
[2022-10-24] MEDS ORDERED: MELA5TAB14 PO ×2 (09:24)
[2022-10-24] MEDS ORDERED: HYDR-700 PO ×2 (09:24)
[2022-10-24] MEDS ORDERED: DESV50TA18 PO ×2 (09:24)
[2022-10-24] MEDS ORDERED: CARI3CAP PO ×2 (09:24)
[2022-10-24] MEDS ORDERED: AMOX1TAB12 PO ×2 (09:24)
[2022-10-24] MEDS ORDERED: amLODIPine 10 MG (NORVASC) TAB PO NR (09:30)
[2022-10-24] MEDS ORDERED: OXC5T PO ×2 (11:06)
[2022-10-24] MEDS ORDERED: CLN.1T PO ×2 (11:06)
--- NOTE | 2022-10-24 11:07 | Discharge Summary ---
Discharge Summary Hospital Course Was the Problem List Reviewed?: Yes Problems/Dx: (1) Bradycardia (2) Labile blood pressure Status: Acute (3) Chronic abdominal pain Status: Acute (4) Misuse of medication Status: Acute Hospital Course Date of Admission: Oct 23, 2022 at 13:13 Admission Diagnosis : Family Physician/Provider: [facility] Date of Discharge: 10/24/22 Discharge Diagnosis: [ ] Hospital Course: Short course after she was admitted for bradycardia due to Clonidine overuse. Cardiology consulted due to severity of her bradycardia so that med was held and clonidine patch DC. Overall she was ready for DC and will establish pain management with Dr Malave. Labs and Pending Lab Test: Laboratory Tests 10/24/22 03:46: White Blood Count 7.5, Red Blood Count 3.92, Hemoglobin 11.3L, Hematocrit 33L, Mean Corpuscular Volume 85, Mean Corpuscular Hemoglobin 29, Mean Corpuscular Hemoglobin Concent 34, Red Cell Distribution Width 12.9, Platelet Count 279, Mean Platelet Volume 9.6, Immature Granulocyte % (Auto) 1, Neutrophils (%) (Auto) 46, Lymphocytes (%) (Auto) 40, Monocytes (%) (Auto) 8, Eosinophils (%) (Auto) 5, Basophils (%) (Auto) 1, Neutrophils # (Auto) 3.5, Lymphocytes # (Auto) 3.0, Monocytes # (Auto) 0.6, Eosinophils # (Auto) 0.4H, Basophils # (Auto) 0.1, Immature Granulocyte # (Auto) 0.0, Sodium Level 141, Potassium Level 3.9, Chloride Level 111H, Carbon Dioxide Level 23, Anion Gap 7, Blood Urea Nitrogen 16, Creatinine 1.00, Estimat Glomerular Filtration Rate 71, BUN/Creatinine Ratio 16, Glucose Level 107H, Calcium Level 8.3L, Corrected Calcium 8.8, Total Bilirubin 0.2, Aspartate Amino Transf (AST/SGOT) 17, Alanine Aminotransferase (ALT/SGPT) 18, Alkaline Phosphatase 90, Total Protein 6.5, Albumin 3.4 Home Meds Active Clonidine HCl 0.1 Mg Tablet 0.1 Mg PO Q4HR PRN Reported Vraylar (Cariprazine Hydrochloride) 3 Mg Capsule 3 Mg PO HS Melatonin 5 Mg Tablet 5 Mg PO HS Hydroxyzine HCl 25 Mg Tablet 25 Mg PO Q6H PRN Desvenlafaxine Succinate ER (Desvenlafaxine Succinate) 50 Mg Tab.er.24h 50 Mg PO HS Amox Tr-K Clv 875-125 mg Tab (Amoxicillin/Potassium Clav) 875 Mg-125 Mg Tablet 1 Each PO BID FILLED 10-21-2022 #14/7 DAY SUPPLY Xarelto (Rivaroxaban) 20 Mg Tablet 20 Mg PO HS Amlodipine Besylate 10 Mg Tablet 10 Mg PO HS Clonidine HCl 0.2 Mg Tablet 0.2 Mg PO Q6H PRN Clonidine TTS 3 Patch (Clonidine) 0.3 Mg/24 Hour Patch.tdwk 0.3 Mg TD MON Atorvastatin Calcium 20 Mg Tablet 20 Mg PO DAILY Olmesartan Medoxomil 20 Mg Tablet 40 Mg PO DAILY TAKES 2 (20MG) TABS Assessment/Pt Instructions PCP 1 weeks for pain management Discharge Planning: <30 minutes discharge planning Discharge Instructions Discharge Diet: No Restrictions Discharge Physical Examination Vital Signs Vital Signs Date Time Temp Pulse Resp B/P (MAP) Pulse Ox O2 Delivery O2 Flow Rate FiO2 10/24/22 08:00 36.2 53 16 159/97 (117) 96 Room Air 10/23/22 13:50 21 General Appearance: No Apparent Distress, WD/WN, Chronically ill Allergies: Coded Allergies: shellfish derived (Verified Allergy, Severe, ZURDO, 09/15/22) morphine (Verified Allergy, Intermediate, Hives; pt has tolerated diluadid and lortab, 09/15/22) Hives and itching locally at IV site Iodinated Contrast Media (Verified Allergy, Unknown, RASH, 09/15/22) Sulfa (Sulfonamide Antibiotics) (Verified Allergy, Unknown, RASH, 09/15/22) aripiprazole (Verified Allergy, Unknown, SEIZURE, 09/15/22) aspirin (Verified Allergy, Unknown, HTN, 09/15/22) Uncoded Allergies: IODINE CONTRAST (Allergy, Mild, 02/15/22) Discharge Summary Date of Admission Oct 23, 2022 at 13:13 Date of Discharge Discharge Date: October 24, 2022 Admission Diagnosis Assessment: Bradycardia and hypotension due to Clonidine overuse Chronic pain from nephrectomy HTN HLP Plan: Monitor closely BP meds FAIZA DURAN DO October 24, 2022 11:07
[2022-10-24] MEDS ORDERED: hydrOXYzine (VISTARIL/ATARAX) 25 MG capsule/tablet PO PRN (11:15)
[2022-10-24] MEDS ORDERED: cloNIDine 0.2 MG (CATAPRES) TAB PO PRN (11:15)
[2022-10-24 11:30] VITALS: BP 152/113
[2022-10-24] MEDS ORDERED: NON-FORMULARY MEDICATION 1 EA EA (Cariprazine Hydrochloride (Vraylar) 3 MG) PO SCH (21:00)
[2022-10-24] MEDS ORDERED: VENlafaxine XR 75 MG (EFFEXOR XR) CAP PO SCH (21:00)
[2022-10-24] MEDS ORDERED: NON-FORMULARY MEDICATION 1 EA EA (Desvenlafaxine Succinate (Desvenlafaxine Succinate ER) 5 PO SCH (21:00)
[2022-10-24] MEDS ORDERED: AUGMENTIN 875 MG TAB (AMOXICILLIN/CLAVULANATE) PO SCH (21:00)
[2022-10-24] MEDS ORDERED: amLODIPine 10 MG (NORVASC) TAB PO SCH (21:00)
[2022-10-24] MEDS ORDERED: MELATONIN 10 MG TABLET PO SCH (21:00)
[2022-10-24] MEDS ORDERED: RIVAROXABAN 20 MG TABLET (XARELTO) PO SCH (21:00)
[2022-10-25] MEDS ORDERED: amLODIPine 10 MG (NORVASC) TAB PO SCH (09:00)
[2022-10-25] MEDS ORDERED: NON-FORMULARY MEDICATION 1 EA EA (Olmesartan Medoxomil 40 MG) PO SCH (09:00)
[2022-10-25] MEDS ORDERED: VALSARTAN 80 MG (DIOVAN) TAB PO SCH (09:00)
== END 2022-10-24 11:55 | disposition home or self-care (01) ==
LOC: ER 08:41 → EDUNIT# 08:41 → CSD 13:13
PROVIDERS: ADMIT Internal Medicine; ATTEND Internal Medicine
DX: I95.2 Hypotension due to drugs (principal); G89.18 Other acute postprocedural pain; I10 Essential (primary) hypertension; E78.5 Hyperlipidemia, unspecified; Z90.5 Acquired absence of kidney
CPT/HCPCS: 36415; 80053; 83690; 83735; 84439; 84443; 85025; 86141; 93005; 93306; 94760; 96361; 96372; 96375; 96376

== ENCOUNTER → 2022-10-24 | Outpatient (CLI) | payer OTHER ==
[~2022-10-24] MED LIST changes: +CARI3CAP PO; +CLN.1T PO; +DESV50TA18 PO; +HYDR-700 PO; +MELA5TAB14 PO; +OXC5T PO
== END ==
LOC: WOUNDCARE 12:08
PROVIDERS: ATTEND Family Medicine
DX: T81.31XA Disruption of external operation (surgical) wound, not elsewhere classified, initial encounter (principal); L02.211 Cutaneous abscess of abdominal wall; T65.292A Toxic effect of other tobacco and nicotine, intentional self-harm, initial encounter; E66.01 Morbid (severe) obesity due to excess calories
CPT/HCPCS: 11042

== ENCOUNTER 2022-11-01 10:06 | Emergency (ER) | payer OTHER ==
[~2022-11-01] VITALS: Ht 162 cm; Wt 98.0 kg
[2022-11-01] MEDS ORDERED: hydrOXYzine (VISTARIL/ATARAX) 25 MG capsule/tablet PO ONE (10:30)
--- NOTE | 2022-11-01 10:37 | ED Psychosocial ---
General Chief Complaint: Psych/Social Disorder Stated Complaint: ANXIETY Nursing Triage Note: PT STATES THEY INCREASED HER PSYCH MEDS LAST WEEK AND SHE IS VERY ANXIOUS, STATES SHE SMOKED SOME WEED MONDAY BUT IT DIDN'T HELP. DENIES TAKING ANY MEDS TODAY. PAIN IN RT SIDE FROM KIDNEY REMOVAL 08/05 AND HAS HAD INFECTION A FEW TIMES SINCE Source: patient Exam Limitations: clinical condition History of Present Illness Date Seen by Provider: November 01, 2022 Time Seen by Provider: 10:20 Initial Comments Patient is a 46-year-old female who presents to the emergency department today with a chief complaint of anxiety/panic. Patient has a long history of mental illness. She was recently in the hospital for surgery to remove a wound VAC. She states since discharge and running out of her pain medicines she has become more and more anxious. She had some medication adjustment at [facility] but she states its not helping. She has smoked some marijuana 3 to 4 days ago but it did not help. She states that she is both hearing voices and seeing things. She states that she hears voices talking about her outside of her room. She also states that they say bad things about her. She is also seeing red paint on epstein and other things on the epstein. She is pacing around the room, crying, tachycardic. Patient is stating "I cannot take this anymore". She does have a history of remote suicide attempt. She has tried to overdose. She states that she is no longer a patient at [facility] as she violated a pain contract by filling a prescription for pain medication from her surgeon after discharge. Timing/Duration: week, getting worse Severity: severe Associated Symptoms: anxiety, impaired concentration, insomnia Allergies and Home Medications Allergies Coded Allergies: shellfish derived (Verified Allergy, Severe, ZURDO, 09/15/22) morphine (Verified Allergy, Intermediate, Hives; pt has tolerated diluadid and lortab, 09/15/22) Hives and itching locally at IV site Iodinated Contrast Media (Verified Allergy, Unknown, RASH, 09/15/22) Sulfa (Sulfonamide Antibiotics) (Verified Allergy, Unknown, RASH, 09/15/22) aripiprazole (Verified Allergy, Unknown, SEIZURE, 09/15/22) aspirin (Verified Allergy, Unknown, HTN, 09/15/22) Uncoded Allergies: IODINE CONTRAST (Allergy, Mild, 02/15/22) Patient Home Medication List Home Medication List Reviewed: Yes Amlodipine Besylate (Amlodipine Besylate) 10 Mg Tablet, 10 MG PO HS, (Reported) Entered as Reported by: CHEY CUMMINGS on 08/18/22 1538 Amoxicillin/Potassium Clav (Amox Tr-K Clv 875-125 mg Tab) 875 Mg-125 Mg Tablet, 1 EACH PO BID, (Reported) Entered as Reported by: CHEY CUMMINGS on 10/24/22 09 Atorvastatin Calcium (Atorvastatin Calcium) 20 Mg Tablet, 20 MG PO DAILY, (Reported) Entered as Reported by: CHEY CUMMINGS on 08/18/22 153 Cariprazine Hydrochloride (Vraylar) 3 Mg Capsule, 3 MG PO HS, (Reported) Entered as Reported by: CHEY CUMMINGS on 10/24/22 09 Clonidine HCl (Clonidine HCl) 0.1 Mg Tablet, 0.1 MG PO Q4HR PRN for sbp>170 Prescribed by: FAIZA DURAN on 10/24/22 110 Desvenlafaxine Succinate (Desvenlafaxine Succinate ER) 50 Mg Tab.er.24h, 50 MG PO HS, (Reported) Entered as Reported by: CHEY CUMMINGS on 10/24/22 09 Hydroxyzine HCl (Hydroxyzine HCl) 25 Mg Tablet, 25 MG PO Q6H PRN for ANXIETY, (Reported) Entered as Reported by: CHEY CUMMINGS on 10/24/22 09 Melatonin (Melatonin) 5 Mg Tablet, 5 MG PO HS, (Reported) Entered as Reported by: CHEY CUMMINGS on 10/24/22 09 Olmesartan Medoxomil (Olmesartan Medoxomil) 20 Mg Tablet, 40 MG PO DAILY, (Reported) Entered as Reported by: CHEY CUMMINGS on 08/18/22 153 Oxycodone Hcl (Oxyir Tablet) 5 Mg Tab, 10 MG PO Q8HR PRN for PAIN-SEE DOSE INSTRUCTIONS Prescribed by: FAIZA DURAN on 10/24/22 1106 Rivaroxaban (Xarelto) 20 Mg Tablet, 20 MG PO HS, (Reported) Entered as Reported by: LESLEY JIMÉNEZ on 09/14/22 1613 Review of Systems Constitutional: see HPI EENTM: no symptoms reported Respiratory: no symptoms reported Cardiovascular: no symptoms reported Gastrointestinal: nausea, vomiting Genitourinary: no symptoms reported Musculoskeletal: no symptoms reported Skin: no symptoms reported Psychiatric/Neurological: Anxiety All Other Systems Reviewed Negative Unless Noted: Yes Past Gjyfmpw-Iflzai-Mpjxfi Hx Patient Social History Tobacco Use?: Yes Tobacco type used: Cigarettes Smoking Status: Current Everyday Smoker Substance use?: Yes Substance type: Marijuana Alcohol Use?: No Immunizations Up To Date Tetanus Booster (TDap): Unknown First/Initial COVID19 Vaccinat: unknown Second COVID19 Vaccination Rafita: unknown Third COVID19 Vaccination Date: unknown Seasonal Allergies Seasonal Allergies: No Past Medical History Surgery/Hospitalization HX: RT KIDNEY DRAIN AND THEN REMOVAL OF RT KIDNEY, HX OF KIDNEY DISEASE, HYPERTENSION, T&A, LYMPH NODES REMOVED FROM GROIN, GALLBLADDER, TUBAL LIGATION, R NEPHROSTOMY TUBE. ANXIETY Surgeries: Yes (GROIN 2 LYMPH NODE, ABD WOUND SX) Adenoidectomy, Gallbladder, Nephrectomy, Renal, Tonsillectomy, Tubal Ligation Respiratory: Yes Sleep Apnea Currently Using CPAP: No Currently Using BIPAP: No Cardiac: Yes (DVT RIGHT ARM IN 2021. 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: Tubal Ligation Genitourinary: Yes (RIGHT KIDNEY OBSTRUCTED AND ATROPHIC followed by nephr ectomy) Kidney Stones, Dialysis, UTI-Chronic Gastrointestinal: Yes Gastroesophageal Reflux Musculoskeletal: Yes Fibromyalgia Endocrine: Yes (GOITORS) HEENT: Yes Glaucoma Cancer: No Psychosocial: Yes Anxiety, PTSD, Bipolar, Schizophrenia, Depression Integumentary: Yes (ABDOMINAL WOUND) Blood Disorders: No Family Medical History Cancer Physical Exam Vital Signs - First Documented 11/01/22 10:10 Temp 36.7 Pulse 127 Resp 24 B/P (MAP) 130/72 (91) Pulse Ox 95 O2 Delivery Room Air Capillary Refill : Height, Weight, BMI Height: '" Weight: lbs. oz. kg; 37.00 BMI Method: General Appearance: WD/WN, severe distress HEENT: PERRL/EOMI Neck: full range of motion Respiratory: lungs clear, normal breath sounds, no respiratory distress, no accessory muscle use Cardiovascular: regular rate, rhythm Gastrointestinal: normal bowel sounds, non tender, soft Extremities: normal range of motion, non-tender, normal inspection, no pedal edema, no calf tenderness Neurologic/Psychiatric: alert, normal mood/affect, oriented x 3 Appearance/Memory: disheveled Behavior/Eye Contact: increased rate of speech Thoughts/Hallucinations: no apparent hallucination, obsessive Skin: normal color, warm/dry Progress/Results/Core Measures Results/Orders Lab Results My Orders Medications Given in ED Vital Signs/I&O Blood Pressure Mean: 91 Progress Progress Note #1: Time: 15:08 Progress Note Mehul Altman in [place] is reviewing her records for admission at this time. Patient c/o anxiety again. 1mg of ativan PO ordered. Progress Note #2: Progress Note Patient seen and evaluated by me. Evaluation today includes physical exam, "psych "work-up to include CBC, Chem-12, urine drug screen, urinalysis, toxicology, aspirin acetaminophen and alcohol levels, COVID test. Physical exam pertinent for well-developed well-nourished 46-year-old female in moderate distress due to anxiety, pacing the room, agitated with pressured speech. Heart is regular, tachycardic, lungs are clear, abdomen is soft. Former wound examined and noted to be closed and healing well. No drainage, erythema or signs of cellulitis or infection. Her vital signs are otherwise unremarkable. No focal neurologic deficits. Patient is not endorsing homicidal or suicidal ideations but she is endorsing active auditory and visual hallucinations telling her that she is "bad". Quite agitated. Differential diagnosis based on history and physical, acute psychosis, panic /anxiety attack, intoxication. Labs reviewed by me include CBC shows a white count of 15.1 without left shift, stable hemoglobin and hematocrit at 13.8 and 41. Platelet count of 405. Chemistry shows a sodium of 142, potassium of 3.3. BUN of 13, creatinine of 1.15 serum glucose 153. Urine drug screen is positive for oxycodone and THC. Alcohol aspirin and Tylenol levels are negative. Urinalysis shows 5-10 red blood cells with 10-25 squamous epithelial cells, 2+ protein. Specific gravity is 1.025. Her COVID test is negative. Patient is treated in the emergency department with a milligram of Ativan p.o. [facility] has been present the entire time in the department and had recommended inpatient care for her acute psychosis/hallucinations. There may be a component of intoxication complicating her clinical picture. No concerns for active infection. Patient improved after Ativan. Medical record and labs were faxed to [facility] in [place]. They have accepted the patient for admission. Initial ECG Impression Date: November 01, 2022 Initial ECG Impression Time: 10:45 Initial ECG Rate: 107 Initial ECG Rhythm: S.Tach Initial ECG Intervals: Normal Initial ECG Impression: Normal Departure Impression Primary Impression: Psychosis Qualified Codes: F29 - Unspecified psychosis not due to a substance or known physiological condition Additional Impression: Anxiety Disposition: 02 XFER SHT-TRM HOSP Condition: Stable Transfer Transfer Reason: Exceeds level of care Time Spoke to Accepting Phy: 16:20 Transfer Progress Notes accepted on behalf of Dr Newman Transfer Facility: [facility] Method of Transfer: Private Vehicle Departure-Patient Inst. Referrals: EUFEMIA OSHEA APRN (PCP/Family) Primary Care Physician LINH POLLOCK MD November 01, 2022 10:37
[2022-11-01 10:50] LABS: BASOPHILS # (AUTO) 0.1 10^3/uL (0.0-0.1); BASOPHILS % (AUTO) 1 % (0-10); EOSINOPHILS # (AUTO) 0.6 10^3/uL (0.0-0.3); EOSINOPHILS % (AUTO) 4 % (0-10); HEMATOCRIT 41 % (35-52); HEMOGLOBIN 13.8 g/dL (11.5-16.0); LYMPHOCYTES % (AUTO) 26 % (12-44); MEAN CORPUSCULAR HEMOGLOBIN 29 pg (25-34); MEAN CORPUSCULAR HGB CONC 34 g/dL (32-36); MEAN CORPUSCULAR VOLUME 85 fL (80-99); MEAN PLATELET VOLUME 9.2 fL (9.0-12.2); MONOCYTES # (AUTO) 1.1 10^3/uL (0.0-1.0); MONOCYTES % (AUTO) 7 % (0-12); NEUTROPHILS # (AUTO) 9.4 10^3/uL (1.8-7.8); NEUTROPHILS % (AUTO) 62 % (42-75); PLATELET COUNT 405 10^3/uL (130-400); WHITE BLOOD COUNT 15.1 10^3/uL (4.3-11.0)
[2022-11-01 11:18] LABS: ALANINE AMINOTRANSFERASE 17 U/L (0-55); ALBUMIN 4.5 GM/DL (3.2-4.5); ALKALINE PHOSPHATASE 116 U/L (40-136); BILIRUBIN,TOTAL 0.3 MG/DL (0.1-1.0); BUN/CREATININE RATIO 11; CALCIUM 9.3 MG/DL (8.5-10.1); CARBON DIOXIDE 21 MMOL/L (21-32); CHLORIDE 108 MMOL/L (98-107); CREATININE SERUM 1.15 MG/DL (0.60-1.30); EOSINOPHILS % (MANUAL) 5 %; GFR ESTIMATED 60; GLUCOSE 153 MG/DL (70-105); LYMPHOCYTES % (MANUAL) 26 %; MONOCYTES % (MANUAL) 9 %; NEUTROPHILS % (MANUAL) 60 %; POTASSIUM 3.3 MMOL/L (3.6-5.0); RBC MORPH NORMAL; SALICYLATE < 5.0 MG/DL (5.0-20.0); SODIUM 142 MMOL/L (135-145); TOTAL PROTEIN 8.2 GM/DL (6.4-8.2)
[2022-11-01 11:30] LABS: ACETAMINOPHEN < 10 UG/ML (10-30)
[2022-11-01 11:35] LABS: BILIRUBIN,URINE NEGATIVE (NEGATIVE); CLARITY,URINE CLEAR; COLOR,URINE YELLOW; GLUCOSE, URINE (UA) NEGATIVE (NEGATIVE); KETONES,URINE TRACE (NEGATIVE); LEUKOCYTE ESTERASE ,URINE NEGATIVE (NEGATIVE); NITRITE,URINE NEGATIVE (NEGATIVE); PROTEIN,URINE 2+ (NEGATIVE)
[2022-11-01 11:46] LABS: BACTERIA,URINE NEGATIVE /HPF; WBC,URINE RARE /HPF
[2022-11-01 11:47] LABS: AMPHETAMINE SCREEN, URINE NEGATIVE (NEGATIVE); BENZODIAZEPINES SCREEN URINE NEGATIVE (NEGATIVE); COCAINE SCREEN URINE NEGATIVE (NEGATIVE)
[2022-11-01 11:48] LABS: BARBITURATE SCREEN URINE NEGATIVE (NEGATIVE); CANNABINOID SCREEN, URINE POSITIVE (NEGATIVE); METHADONE STAT NEGATIVE (NEGATIVE); OPIATE SCREEN URINE NEGATIVE (NEGATIVE); OXYCODONE STAT POSITIVE (NEGATIVE); PROPOXYPHENE STAT NEGATIVE (NEGATIVE); TRICYCLIC ANTIDEPRESSANTS SCRE NEGATIVE (NEGATIVE)
[2022-11-01] MEDS ORDERED: oxyCODONE/APAP 10/325MG (PERCOCET 10) TABLET PO ONE ×2 (12:00→17:30)
[2022-11-01] MEDS ORDERED: LORazepam 0.5 MG (ATIVAN) TABLET PO STA (15:08)
[2022-11-01 16:47] VITALS: BP 130/72
== END 2022-11-01 17:15 | disposition short-term general hospital (02) ==
LOC: EDUNIT# 10:06 → ER 10:08
DX: F41.9 Anxiety disorder, unspecified (principal); F29 Unspecified psychosis not due to a substance or known physiological condition; F17.210 Nicotine dependence, cigarettes, uncomplicated; Z20.822 Contact with and (suspected) exposure to COVID-19
CPT/HCPCS: 36415; 80053; 80306; 80320; 80329; 81000; 85007; 85027; 87636; 93005; 93041

== ENCOUNTER 2022-11-05 18:09 | Emergency (ER) | payer OTHER ==
[~2022-11-05] VITALS: Ht 165 cm; Wt 100.0 kg
[2022-11-05] MEDS ORDERED: LACTATED RINGERS 1,000 ML IV ONE (18:15)
--- NOTE | 2022-11-05 18:34 | ED Psychosocial ---
General Chief Complaint: Suicidal Ideation Risk Stated Complaint: POSS OVERDOSE Nursing Triage Note: PT TO RM 8 PER W/C. PT OVERDOSED ON KLONIPIN, PT WAS RELEASED FROM [facility] 3 DAYS AGO Source: patient History of Present Illness Date Seen by Provider: November 05, 2022 Time Seen by Provider: 18:14 Initial Comments PT ARRIVES VIA POV FROM HOME, WANTS WHEELCHAIR ON ARRIVAL PT STATES SHE LIVES WITH HER GRANDMOTHER AND HER GRANDMOTHER BROUGHT HER HERE. PT WAS JUST RELEASED YESTERDAY FROM [facility]--HAD BEEN THERE 3 DAYS, FOR SUICIDAL IDEATION/ATTEMPT. 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 SHE HAD A NEPROSTOMY TUBE PRIOR TO NEPHRECTOMY. SHE STATES SHE HAS HAD TO BE "OPENED BACK UP 3 TIMES TO CLEAN OUT ALL THE INFECTION" AT HER SURGICAL SITE TO RIGHT ABDOMEN. SHE IS STILL WEARING A DRESSING OVER THAT SITE SHE STATES THAT SHE WAS ON FLEXERIL AND OXYCODONE FOR THIS CHRONIC PAIN COMPLAINT, AND SHE HAS BEEN OUT AND HAS NOT HAD IT REFILLED. SHE HAS NOT HAD ANY FOR AT LEAST A WEEK--HAD RAN OUT A FEW DAYS PRIOR TO HER ADMIT TO [facility] THIS WEEK SHE HAD REPORTED THAT [facility] WOULD NO LONGER SEE HER DUE TO HER VIOLATING HER PAIN CONTRACT WITH THEM, SHE RECEIVED RX FOR NARCOTIC PAIN MEDICATION FROM HER SURGEON. ON REVIEW OF PRIOR RECORDS, PT HAS RECEIVED A NULTITUDE OF RX'S FOR OXYCODONE AND HYDROCODONE FROM PRIOR ER VISITS AND ADMITS HERE WELL. SHE HAS AN EXTENSIVE PSYCHIATRIC HISTORY AND HAS OVERDOSED IN THE PAST. PCP: [facility], TODD OSHEA Allergies and Home Medications Allergies Coded Allergies: shellfish derived (Verified Allergy, Severe, ZURDO, 09/15/22) morphine (Verified Allergy, Intermediate, Hives; pt has tolerated diluadid and lortab, 09/15/22) Hives and itching locally at IV site Iodinated Contrast Media (Verified Allergy, Unknown, RASH, 09/15/22) Sulfa (Sulfonamide Antibiotics) (Verified Allergy, Unknown, RASH, 09/15/22) aripiprazole (Verified Allergy, Unknown, SEIZURE, 09/15/22) aspirin (Verified Allergy, Unknown, HTN, 09/15/22) Uncoded Allergies: IODINE CONTRAST (Allergy, Mild, 02/15/22) Patient Home Medication List Amlodipine Besylate (Amlodipine Besylate) 10 Mg Tablet, 10 MG PO HS, (Reported) Entered as Reported by: CHEY CUMMINGS on 08/18/22 153 Amoxicillin/Potassium Clav (Amox Tr-K Clv 875-125 mg Tab) 875 Mg-125 Mg Tablet, 1 EACH PO BID, (Reported) Entered as Reported by: CHEY CUMMINGS on 10/24/22 09 Atorvastatin Calcium (Atorvastatin Calcium) 20 Mg Tablet, 20 MG PO DAILY, (Reported) Entered as Reported by: CHEY CUMMINGS on 08/18/22 153 Cariprazine Hydrochloride (Vraylar) 3 Mg Capsule, 3 MG PO HS, (Reported) Entered as Reported by: CHEY CUMMINGS on 10/24/22923 Clonidine HCl (Clonidine HCl) 0.1 Mg Tablet, 0.1 MG PO Q4HR PRN for sbp>170 Prescribed by: FAIZA DURAN on 10/24/22 1106 Desvenlafaxine Succinate (Desvenlafaxine Succinate ER) 50 Mg Tab.er.24h, 50 MG PO HS, (Reported) Entered as Reported by: CHEY CUMMINGS on 10/24/22923 Hydroxyzine HCl (Hydroxyzine HCl) 25 Mg Tablet, 25 MG PO Q6H PRN for ANXIETY, (Reported) Entered as Reported by: CHEY CUMMINGS on 10/24/22 09 Melatonin (Melatonin) 5 Mg Tablet, 5 MG PO HS, (Reported) Entered as Reported by: CHEY CUMMINGS on 10/24/22923 Olmesartan Medoxomil (Olmesartan Medoxomil) 20 Mg Tablet, 40 MG PO DAILY, (Reported) Entered as Reported by: CHEY CUMMINGS on 08/18/22 153 Oxycodone Hcl (Oxyir Tablet) 5 Mg Tab, 10 MG PO Q8HR PRN for PAIN-SEE DOSE INSTRUCTIONS Prescribed by: FAIZA DURAN on 10/24/22 1106 Rivaroxaban (Xarelto) 20 Mg Tablet, 20 MG PO HS, (Reported) Entered as Reported by: LESLEY JIMÉNEZ on 09/14/22 1613 Past Bigsnnk-Agvgja-Mujtut Hx Immunizations Up To Date Tetanus Booster (TDap): Unknown First/Initial COVID19 Vaccinat: unknown Second COVID19 Vaccination Rafita: unknown Third COVID19 Vaccination Date: unknown Seasonal Allergies Seasonal Allergies: No Past Medical History Surgery/Hospitalization HX: RT KIDNEY DRAIN AND THEN REMOVAL OF RT KIDNEY, HX OF KIDNEY DISEASE, HYPERTENSION, T&A, LYMPH NODES REMOVED FROM GROIN, GALLBLADDER, TUBAL LIGATION, R NEPHROSTOMY TUBE. ANXIETY Surgeries: Yes (GROIN 2 LYMPH NODE, ABD WOUND SX) Adenoidectomy, Gallbladder, Nephrectomy, Renal, Tonsillectomy, Tubal Ligation Respiratory: Yes Sleep Apnea Currently Using CPAP: No Currently Using BIPAP: No Cardiac: Yes (DVT RIGHT ARM IN 2021. 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 Ligation Genitourinary: Yes (RIGHT KIDNEY OBSTRUCTED AND ATROPHIC followed by nephrectomy) Kidney Stones, Dialysis, UTI-Chronic Gastrointestinal: Yes Gastroesophageal Reflux Musculoskeletal: Yes Fibromyalgia Endocrine: Yes (GOITORS) HEENT: Yes Glaucoma Cancer: No Psychosocial: Yes Anxiety, PTSD, Bipolar, Schizophrenia, Depression Integumentary: Yes (ABDOMINAL WOUND) Blood Disorders: No Family Medical History Cancer Physical Exam Vital Signs - First Documented 11/05/22 11/05/22 18:17 23:40 Temp 36.8 Pulse 73 Resp 20 B/P (MAP) 117/94 (102) Pulse Ox 94 O2 Delivery Room Air Capillary Refill : Less Than 3 Seconds Height, Weight, BMI Height: '" Weight: lbs. oz. kg; 36.00 BMI Method: Progress/Results/Core Measures Results/Orders Lab Results Laboratory Tests Test 11/05/22 18:30 11/05/22 18:42 11/05/22 19:15 Range/Units White Blood Count 10.6 4.3-11.0 10^3/uL Red Blood Count 3.89 3.80-5.11 10^6/uL Hemoglobin 11.3 L 11.5-16.0 g/dL Hematocrit 33 L 35-52 % Mean Corpuscular Volume 86 80-99 fL Mean Corpuscular Hemoglobin 29 25-34 pg Mean Corpuscular Hemoglobin Concent 34 32-36 g/dL Red Cell Distribution Width 13.4 10.0-14.5 % Platelet Count 292 130-400 10^3/uL Mean Platelet Volume 9.4 9.0-12.2 fL Immature Granulocyte % (Auto) 0 % Neutrophils (%) (Auto) 56 42-75 % Lymphocytes (%) (Auto) 32 12-44 % Monocytes (%) (Auto) 7 0-12 % Eosinophils (%) (Auto) 4 0-10 % Basophils (%) (Auto) 1 0-10 % Neutrophils # (Auto) 5.9 1.8-7.8 10^3/uL Lymphocytes # (Auto) 3.4 1.0-4.0 10^3/uL Monocytes # (Auto) 0.8 0.0-1.0 10^3/uL Eosinophils # (Auto) 0.4 H 0.0-0.3 10^3/uL Basophils # (Auto) 0.1 0.0-0.1 10^3/uL Immature Granulocyte # (Auto) 0.0 0.0-0.1 10^3/uL Sodium Level 142 135-145 MMOL/L Potassium Level 3.9 3.6-5.0 MMOL/L Chloride Level 107 98-107 MMOL/L Carbon Dioxide Level 23 21-32 MMOL/L Anion Gap 12 5-14 MMOL/L Blood Urea Nitrogen 20 H 7-18 MG/DL Creatinine 1.27 0.60-1.30 MG/DL Estimat Glomerular Filtration Rate 53 BUN/Creatinine Ratio 16 Glucose Level 175 H 70-105 MG/DL Calcium Level 9.1 8.5-10.1 MG/DL Corrected Calcium 9.3 8.5-10.1 MG/DL Magnesium Level 2.1 1.6-2.4 MG/DL Total Bilirubin 0.2 0.1-1.0 MG/DL Aspartate Amino Transf (AST/SGOT) 18 5-34 U/L Alanine Aminotransferase (ALT/SGPT) 16 0-55 U/L Alkaline Phosphatase 99 40-136 U/L Total Protein 6.7 6.4-8.2 GM/DL Albumin 3.7 3.2-4.5 GM/DL Serum Test, Qualitative NEGATIVE NEGATIVE Salicylates Level < 5.0 L 5.0-20.0 MG/DL Acetaminophen Level < 10 L 10-30 UG/ML Serum Alcohol < 10 <10 MG/DL SARS-CoV-2 RNA (RT-PCR) Not Detected Not Detecte Urine Color YELLOW Urine Clarity CLEAR Urine pH 6.0 5-9 Urine Specific [place] 1.020 1.016-1.022 Urine Protein TRACE H NEGATIVE Urine Glucose (UA) NEGATIVE NEGATIVE Urine Ketones TRACE H NEGATIVE Urine Nitrite NEGATIVE NEGATIVE Urine Bilirubin NEGATIVE NEGATIVE Urine Urobilinogen 1.0 < = 1.0 MG/DL Urine Leukocyte Esterase NEGATIVE NEGATIVE Urine RBC (Auto) NEGATIVE NEGATIVE Urine RBC NONE /HPF Urine WBC 2-5 /HPF Urine Squamous Epithelial Cells 5-10 /HPF Urine Crystals PRESENT H /LPF Urine Calcium Oxalate Crystals MODERATE H /LPF Urine Bacteria MODERATE H /HPF Urine Casts PRESENT /LPF Urine Hyaline Casts 10-25 H /LPF Urine Mucus SMALL H /LPF Urine Culture Indicated YES Urine Opiates Screen NEGATIVE NEGATIVE Urine Oxycodone Screen POSITIVE H NEGATIVE Urine Methadone Screen NEGATIVE NEGATIVE Urine Propoxyphene Screen NEGATIVE NEGATIVE Urine Barbiturates Screen NEGATIVE NEGATIVE Ur Tricyclic Antidepressants Screen POSITIVE H NEGATIVE Urine Phencyclidine Screen NEGATIVE NEGATIVE Urine Amphetamines Screen NEGATIVE NEGATIVE Urine Methamphetamines Screen NEGATIVE NEGATIVE Urine Benzodiazepines Screen POSITIVE H NEGATIVE Urine Cocaine Screen NEGATIVE NEGATIVE Urine Cannabinoids Screen POSITIVE H NEGATIVE My Orders Orders - JOSEFINA,SHANNON K DO Acetaminophen (11/05/22 18:15) Alcohol (11/05/22 18:15) Cbc With Automated Diff (11/05/22 18:15) Comprehensive Metabolic Panel (11/05/22 18:15) Drug Screen Stat (Urine) (11/05/22 18:15) Hcg,Qualitative Serum (11/05/22 18:15) Salicylate (11/05/22 18:15) Ua Culture If Indicated (11/05/22 18:15) Covid 19 Inhouse Test (11/05/22 18:15) Ekg Tracing (11/05/22 18:15) Monitor-Rhythm Ecg Trace Only (11/05/22 18:15) Ed Iv/Invasive Line Start (11/05/22 18:15) Lactated Ringers (Lr 1000 Ml Iv Solution (11/05/22 18:15) Magnesium (11/05/22 18:48) Urine Culture (11/05/22 19:15) Cefdinir Capsule (Omnicef Capsule) (11/05/22 20:00) Acetaminophen Tablet (Tylenol Tablet) (11/05/22 20:00) Medications Given in ED Current Medications Medications Dose Ordered Sig/Faustino Route Start Time Stop Time Status Last Admin Dose Admin Acetaminophen 1,000 mg ONCE ONCE PO 11/05/22 20:00 11/05/22 20:01 DC 11/05/22 20:10 1,000 MG Cefdinir 300 mg ONCE ONCE PO 11/05/22 20:00 11/05/22 20:01 DC 11/05/22 20:10 300 MG Lactated Ringer's 1,000 ml @ 0 mls/hr Q0M ONCE IV 11/05/22 18:15 11/05/22 18:17 DC 11/05/22 18:32 1,000 MLS/HR Vital Signs/I&O 11/05/22 11/05/22 11/05/22 11/05/22 18:17 21:40 22:40 23:40 Temp 36.8 36.6 36.6 36.6 Pulse 73 54 47 55 Resp 20 14 16 15 B/P (MAP) 117/94 (102) 123/77 (92) 118/72 (87) 129/79 (96) Pulse Ox 94 95 97 96 O2 Delivery Room Air Blood Pressure Mean: 102 Progress Progress Note : Progress Note POISON CONTROL CONTACTED, AND RECOMMENDATIONS NOTED. REPORTED CLONIDINE INGESTION IS MAIN CONCERN. EXPECT ANY SYMPTOMS TO MANIFEST IN 30-90 MINUTES AFTER INGESTION. THEY RECOMMEND OBSERVATION FOR AT LEAST 6 HOURS AND IF PT HAS NO SYMPTOMS OF TOXICITY, MAY BE CLEARED. PT BEING EXTREMELY MANIPULATIVE SHORTLY AFTER ARRIVAL, WANTING PAIN MEDICATIONS AND "SOMETHING TO CALM ME DOWN AND KNOCK ME OUT" ADVISED HER THAT SHE WOULD NOT BE GETTING ANYTHING FOR PAIN SHE HAS OVERDOSED. SHE THEN STATES "THEN I'LL JUST LEAVE THEN" ADVISED PT THAT WAS NOT AN OPTION AT THIS POINT, AND WILL HAVE TO HAVE POLICE INVOLVED IF SHE TRIES TO LEAVE. PT RAPIDLY ESCALATES AND RIPS OUT HER IV FROM HER PORT, BEING VERBALLY AND PHYSICALLY AGGRESSIVE, TRYING TO LEAVE, HITTING THE DOOR, HITTING THE ER CART, ETC. POLICE CONTACTED PT HAS REPEATEDLY BEEN ADVISED THAT SHE WOULD NOT BE GETTING ANYTHING TO "KNOCK HER OUT" AT THIS POINT DUE TO THE MEDICATIONS SHE STATES SHE HAS OVERDOSED ON. 1900--[place] [employer] HERE. PT IS NO LONGER BEING AGGRESSIVE AND TRYING TO LEAVE. PT REPEATEDLY WANTING / YELLING FOR PAIN MEDICATION--REPEATEDLY STATING "HYDRO'S OR OXY'S OR SOMETHING" SHE CLAIMS SHE HAS NOT TAKEN ANYTHING FOR PAIN "IN OVER A WEEK" UDS IS + FOR OXYCODONE. PT NOW STATES SHE "HAD A FEW LEFTOVER AND TOOK ONE TODAY" TYLENOL ORDERED FOR PAIN . PT THEN REPEATEDLY WANTING SOMETHING FOR HER ANXIETY, AGAIN ADVISED PT THAT SHE WOULD NOT BE GETTING ANYTHING FOR ANXIETY SHE REPORTED SHE TOOK 4 HYDROXYZINE THIS EVENING PRIOR TO ARRIVAL. SHE CONTINUES TO BE VERY MANIPULATIVE AND ARGUMENTATIVE. BP REMAINS STABLE IN 120'S/70'S-80'S, HR IS UPPER 40'S-50'S--PT STATES THIS IS NORMAL FOR HER, AND ON REVIEW FROM PRIOR VISITS, SHE HAS CONSISTENTLY HAD HEART RATES IN 40'S-50'S ON MULTIPLE PRIOR VISITS. SHE IS ASYMPTOMATIC FROM THE MISTY YCARDIA. 2300--PT HAS BEEN CLEARED MEDICALLY AT THIS POINT, SHE HAS SHOWN NO SIGNS OF DRUG TOXICITY. HER MENTATION AND BEHAVIOR IS UNCHANGED. RN IS CONTACTING [employer] [facility] / [email or web address] [facility] FOR MENTAL HEALTH SCREEN. 9235--HAVE BEEN INFORMED THAT PT HAS COMPLETED HER MENTAL HEALTH SCREEN, AND THEY RECOMMEND SENDING PT HOME WITH A SAFETY PLAN, WITH MENTAL HEALTH FOLLOW UP OUTPATIENT. THEY WILL BE FAXING SAFETY PLAN SHORTLY. Departure Impression Primary Impression: Intentional overdose of drug in tablet form Additional Impressions: Suicide attempt Urinary tract infection Disposition: HOME, SELF-CARE Condition: Stable Departure-Patient Inst. Decision time for Depature: 01:57 Referrals: EUFEMIA OSHEA APRN (PCP/Family) Primary Care Physician Patient Instructions: OUTPT MENTAL HEALTH SERVICES, SUICIDE CONTRACT, Suicide Prevention, Urinary Tract Infection, Adult (DC) Add. Discharge Instructions: FOLLOW THE SAFETY PLAN ARRANGED BY MENTAL HEALTH TAKE YOUR MEDICATIONS EXACTLY PRESCRIBED TO YOU BY YOUR DR FOLLOW UP WITH YOUR REGULAR DR WELL MENTAL HEALTH All discharge instructions reviewed with patient and/or family. Voiced understanding. Scripts Nitrofurantoin Monohyd/M-Cryst (Macrobid 100 mg Capsule) 100 Mg Capsule 1 TAB PO BID, #20 CAP Prov: SHANNON ROCHA DO 11/06/22 SHANNON ROCHA DO November 05, 2022 18:34
[2022-11-05 18:38] LABS: BASOPHILS # (AUTO) 0.1 10^3/uL (0.0-0.1); BASOPHILS % (AUTO) 1 % (0-10); EOSINOPHILS # (AUTO) 0.4 10^3/uL (0.0-0.3); EOSINOPHILS % (AUTO) 4 % (0-10); HEMATOCRIT 33 % (35-52); HEMOGLOBIN 11.3 g/dL (11.5-16.0); LYMPHOCYTES # (AUTO) 3.4 10^3/uL (1.0-4.0); LYMPHOCYTES % (AUTO) 32 % (12-44); MEAN CORPUSCULAR HEMOGLOBIN 29 pg (25-34); MEAN CORPUSCULAR HGB CONC 34 g/dL (32-36); MEAN CORPUSCULAR VOLUME 86 fL (80-99); MEAN PLATELET VOLUME 9.4 fL (9.0-12.2); MONOCYTES # (AUTO) 0.8 10^3/uL (0.0-1.0); MONOCYTES % (AUTO) 7 % (0-12); NEUTROPHILS # (AUTO) 5.9 10^3/uL (1.8-7.8); NEUTROPHILS % (AUTO) 56 % (42-75); PLATELET COUNT 292 10^3/uL (130-400); WHITE BLOOD COUNT 10.6 10^3/uL (4.3-11.0)
[2022-11-05 18:50] LABS: ALBUMIN 3.7 GM/DL (3.2-4.5); CHLORIDE 107 MMOL/L (98-107); POTASSIUM 3.9 MMOL/L (3.6-5.0); SODIUM 142 MMOL/L (135-145)
[2022-11-05 18:51] LABS: CALCIUM 9.1 MG/DL (8.5-10.1)
[2022-11-05 18:52] LABS: GLUCOSE 175 MG/DL (70-105)
[2022-11-05 18:53] LABS: TOTAL PROTEIN 6.7 GM/DL (6.4-8.2)
[2022-11-05 18:54] LABS: BILIRUBIN,TOTAL 0.2 MG/DL (0.1-1.0); CARBON DIOXIDE 23 MMOL/L (21-32)
[2022-11-05 18:56] LABS: ALKALINE PHOSPHATASE 99 U/L (40-136); CREATININE SERUM 1.27 MG/DL (0.60-1.30); GFR ESTIMATED 53
[2022-11-05 18:57] LABS: BUN/CREATININE RATIO 16
[2022-11-05 18:59] LABS: ALANINE AMINOTRANSFERASE 16 U/L (0-55)
[2022-11-05 19:00] LABS: SALICYLATE < 5.0 MG/DL (5.0-20.0)
[2022-11-05 19:12] LABS: ACETAMINOPHEN < 10 UG/ML (10-30)
[2022-11-05 19:19] LABS: BILIRUBIN,URINE NEGATIVE (NEGATIVE); CLARITY,URINE CLEAR; COLOR,URINE YELLOW; GLUCOSE, URINE (UA) NEGATIVE (NEGATIVE); KETONES,URINE TRACE (NEGATIVE); LEUKOCYTE ESTERASE ,URINE NEGATIVE (NEGATIVE); NITRITE,URINE NEGATIVE (NEGATIVE); PROTEIN,URINE TRACE (NEGATIVE)
[2022-11-05 19:32] LABS: BACTERIA,URINE MODERATE /HPF; CALCIUM OXALATE CRYSTALS,UR MODERATE /LPF
[2022-11-05 19:43] LABS: AMPHETAMINE SCREEN, URINE NEGATIVE (NEGATIVE); BARBITURATE SCREEN URINE NEGATIVE (NEGATIVE); BENZODIAZEPINES SCREEN URINE POSITIVE (NEGATIVE); CANNABINOID SCREEN, URINE POSITIVE (NEGATIVE); COCAINE SCREEN URINE NEGATIVE (NEGATIVE); METHADONE STAT NEGATIVE (NEGATIVE); OPIATE SCREEN URINE NEGATIVE (NEGATIVE); PROPOXYPHENE STAT NEGATIVE (NEGATIVE); TRICYCLIC ANTIDEPRESSANTS SCRE POSITIVE (NEGATIVE)
[2022-11-05 19:44] LABS: OXYCODONE STAT POSITIVE (NEGATIVE)
[2022-11-05] MEDS ORDERED: ACETAMINOPHEN 500 MG TAB (TYLENOL) PO ONE (20:00)
[2022-11-05] MEDS ORDERED: CEFDINIR 300 MG (OMNICEF) CAP PO ONE (20:00)
[2022-11-06] MEDS ORDERED: NITR-65 PO (02:01)
[2022-11-06 02:40] VITALS: BP 119/71
== END 2022-11-06 02:40 | disposition home or self-care (01) ==
LOC: EDUNIT# 18:09 → ER 18:11
DX: T46.5X2A Poisoning by other antihypertensive drugs, intentional self-harm, initial encounter (principal); T42.4X2A Poisoning by benzodiazepines, intentional self-harm, initial encounter; R10.11 Right upper quadrant pain; R07.81 Pleurodynia; G89.29 Other chronic pain; I10 Essential (primary) hypertension; F41.9 Anxiety disorder, unspecified; F31.9 Bipolar disorder, unspecified; F20.9 Schizophrenia, unspecified; N39.0 Urinary tract infection, site not specified; Z79.891 Long term (current) use of opiate analgesic; Z79.899 Other long term (current) drug therapy; Z20.822 Contact with and (suspected) exposure to COVID-19; Z88.2 Allergy status to sulfonamides; Y92.009 Unspecified place in unspecified non-institutional (private) residence as the place of occurrence of the external cause
CPT/HCPCS: 36415; 80053; 80306; 80320; 80329; 81000; 83735; 84703; 85025; 87088; 87636; 93005; 93041

== ENCOUNTER 2022-11-09 12:44 | Emergency (ER) | payer OTHER ==
[~2022-11-09] VITALS: Ht 162 cm; Wt 100.0 kg
[~2022-11-09 12:44] MED LIST changes: +NITR-65 PO
[2022-11-09] MEDS ORDERED: fentaNYL INJ 100 MCG/2 ML AMP IM STA (13:15)
[2022-11-09] MEDS ORDERED: LORazepam 1 MG (ATIVAN) TAB PO ONE (13:15)
--- NOTE | 2022-11-09 13:20 | ED General ---
General Chief Complaint: Psych/Social Disorder Stated Complaint: ANXIETY Nursing Triage Note: PT AMB TO TRIAGE CO OF ANXIETY AND R SIDE HURTING 03/05. PT STATES HAS TAKEN 2 HYDROXAZINE AND A KLONIPINE FOR ANXIETY, HAS TAKEN 1 5MG OXYCODONE FOR PAIN AT 0830 THIS AM Source of Information: Patient Exam Limitations: No Limitations History of Present Illness Date Seen by Provider: November 09, 2022 Time Seen by Provider: 13:17 Initial Comments Patient is a 46-year-old female presents ED with chronic pain in her right sided abdomen right flank, and anxiety. She states she has been feeling anxious over the past week. Currently being managed by [facility] for her anxiety. She believes it is secondary to the Remeron but her provider does not want to take her off. She states she gets anxious when her pain increases of her abdomen. At home she took a dose of Klonopin, hydroxyzine and oxycodone without much improvement. She is currently being managed by [facility]. Was seen in the ER on Monday at [facility] had a CT abdomen and pelvis and lab work and was discharged with [facility] with GI follow-up. She has not follow-up with GI. She was seen here November 05 secondary to a overdose of her clonidine, Klonopin and hydroxyzine. She was safely discharged with a safety plan. Patient denies fever, chills, chest pain, cough or shortness of breath. Denies drug use or alcohol use Allergies and Home Medications Allergies Coded Allergies: shellfish derived (Verified Allergy, Severe, ZURDO, 09/15/22) morphine (Verified Allergy, Intermediate, Hives; pt has tolerated diluadid and lortab, 09/15/22) Hives and itching locally at IV site Iodinated Contrast Media (Verified Allergy, Unknown, RASH, 09/15/22) Sulfa (Sulfonamide Antibiotics) (Verified Allergy, Unknown, RASH, 09/15/22) aripiprazole (Verified Allergy, Unknown, SEIZURE, 09/15/22) aspirin (Verified Allergy, Unknown, HTN, 09/15/22) Uncoded Allergies: IODINE CONTRAST (Allergy, Mild, 02/15/22) Patient Home Medication List Home Medication List Reviewed: Yes Amlodipine Besylate (Amlodipine Besylate) 10 Mg Tablet, 10 MG PO HS, (Reported) Entered as Reported by: CHEY CUMMINGS on 08/18/22 153 Amoxicillin/Potassium Clav (Amox Tr-K Clv 875-125 mg Tab) 875 Mg-125 Mg Tablet, 1 EACH PO BID, (Reported) Entered as Reported by: CHEY CUMMINGS on 10/24/22 09 Atorvastatin Calcium (Atorvastatin Calcium) 20 Mg Tablet, 20 MG PO DAILY, (Reported) Entered as Reported by: CHEY CUMMINGS on 08/18/22 153 Cariprazine Hydrochloride (Vraylar) 3 Mg Capsule, 3 MG PO HS, (Reported) Entered as Reported by: CHEY CUMMINGS on 10/24/22 09 Clonidine HCl (Clonidine HCl) 0.1 Mg Tablet, 0.1 MG PO Q4HR PRN for sbp>170 Prescribed by: FAIZA DURAN on 10/24/22 110 Desvenlafaxine Succinate (Desvenlafaxine Succinate ER) 50 Mg Tab.er.24h, 50 MG PO HS, (Reported) Entered as Reported by: CHEY CUMMINGS on 10/24/22 09 Hydroxyzine HCl (Hydroxyzine HCl) 25 Mg Tablet, 25 MG PO Q6H PRN for ANXIETY, (Reported) Entered as Reported by: CHEY CUMMINGS on 10/24/22 09 Melatonin (Melatonin) 5 Mg Tablet, 5 MG PO HS, (Reported) Entered as Reported by: CHEY CUMMINGS on 10/24/22923 Nitrofurantoin Monohyd/M-Cryst (Macrobid 100 mg Capsule) 100 Mg Capsule, 1 TAB PO BID Prescribed by: SHANNON ROCHA on 11/06/22 0201 Olmesartan Medoxomil (Olmesartan Medoxomil) 20 Mg Tablet, 40 MG PO DAILY, (Reported) Entered as Reported by: CHEY CUMMINGS on 08/18/22 153 Oxycodone Hcl (Oxyir Tablet) 5 Mg Tab, 10 MG PO Q8HR PRN for PAIN-SEE DOSE INSTRUCTIONS Prescribed by: FAIZA DURAN on 10/24/22 110 Rivaroxaban (Xarelto) 20 Mg Tablet, 20 MG PO HS, (Reported) Entered as Reported by: LESLEY JIMÉNEZ on 09/14/22 1613 Review of Systems Review of Systems Constitutional: No chills, No diaphoresis, No malaise, No weakness EENTM: No ear pain, No blurred vision, No double vision Respiratory: No cough, No dyspnea on exertion Cardiovascular: No chest pain Gastrointestinal: No abdominal pain, No diarrhea, No nausea, No vomiting Genitourinary: No decreased output, No discharge Musculoskeletal: No back pain, No joint pain Skin: No change in color, No change in hair/nails Psychiatric/Neurological: Denies Anxiety, Denies Depressed All Other Systems Reviewed Negative Unless Noted: Yes Past Looewpf-Lwtwgn-Dnrjnv Hx Patient Social History Tobacco Use?: Yes Tobacco type used: Cigarettes Smoking Status: Current Everyday Smoker Substance use?: No Alcohol Use?: No Pt feels they are or have been: No Immunizations Up To Date Tetanus Booster (TDap): Unknown First/Initial COVID19 Vaccinat: unknown Second COVID19 Vaccination Rafita: unknown Third COVID19 Vaccination Date: unknown Seasonal Allergies Seasonal Allergies: No Past Medical History Surgery/Hospitalization HX: RT KIDNEY DRAIN AND THEN REMOVAL OF RT KIDNEY, HX OF KIDNEY DISEASE, HYPERTENSION, T&A, LYMPH NODES REMOVED FROM GROIN, GALLBLADDER, TUBAL LIGATION, R NEPHROSTOMY TUBE. ANXIETY Surgeries: Yes (GROIN 2 LYMPH NODE, ABD WOUND SX) Adenoidectomy, Gallbladder, Nephrectomy, Renal, Tonsillectomy, Tubal Ligation Respiratory: Yes Sleep Apnea Currently Using CPAP: No Currently Using BIPAP: No Cardiac: Yes (DVT RIGHT ARM IN 2021. 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 Genitourinary: Yes (RIGHT KIDNEY OBSTRUCTED AND ATROPHIC followed by nephelna mcbride) Kidney Stones, Dialysis, UTI-Chronic Gastrointestinal: Yes Gastroesophageal Reflux Musculoskeletal: Yes Fibromyalgia Endocrine: Yes (GOITORS) HEENT: Yes Glaucoma Cancer: No Psychosocial: Yes Anxiety, PTSD, Bipolar, Schizophrenia, Depression Integumentary: Yes (ABDOMINAL WOUND) Blood Disorders: No Family Medical History Cancer Physical Exam Vital Signs Vital Signs - First Documented 11/09/22 11/09/22 12:52 14:29 Temp 36.9 Pulse 149 Resp 18 B/P (MAP) 188/121 (143) Pulse Ox 99 O2 Delivery Room Air Capillary Refill : Less Than 3 Seconds Height, Weight, BMI Height: '" Weight: lbs. oz. kg; 38.00 BMI Method: General Appearance: No Apparent Distress, WD/WN Eyes: Bilateral Eye Normal Inspection, Bilateral Eye PERRL, Bilateral Eye EOMI HEENT: PERRL/EOMI, TMs Normal, Normal ENT Inspection, Pharynx Normal Neck: Full Range of Motion, Normal Inspection, Non Tender, Supple Respiratory: Chest Non Tender, Lungs Clear, Normal Breath Sounds, No Accessory Muscle Use, No Respiratory Distress Cardiovascular: Regular Rate, Rhythm, No Edema, No Gallop, No JVD, No Murmur Gastrointestinal: Normal Bowel Sounds, No Organomegaly, No Pulsatile Mass, Non Tender, Soft Back: Normal Inspection, No CVA Tenderness Extremity: Normal Capillary Refill, Normal Inspection, Normal Range of Motion, Non Tender Neurologic/Psychiatric: Alert, Oriented x3, No Motor/Sensory Deficits, Normal 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, 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 Norm as Tested Skin: Normal Color, Warm/Dry Progress/Results/Core Measures Suspected Sepsis SIRS Temperature: Pulse: 149 Respiratory Rate: 18 Blood Pressure 188 /121 Mean: 143 Results/Orders Lab Results Laboratory Tests Test 11/09/22 13:43 Range/Units Urine Color YELLOW Urine Clarity CLEAR Urine pH 6.0 5-9 Urine Specific [place] <=1.005 1.016-1.022 Urine Protein NEGATIVE NEGATIVE Urine Glucose (UA) NEGATIVE NEGATIVE Urine Ketones NEGATIVE NEGATIVE Urine Nitrite NEGATIVE NEGATIVE Urine Bilirubin NEGATIVE NEGATIVE Urine Urobilinogen 0.2 < = 1.0 MG/DL Urine Leukocyte Esterase NEGATIVE NEGATIVE Urine RBC (Auto) TRACE-I H NEGATIVE Urine RBC 0-2 /HPF Urine WBC 0-2 /HPF Urine Squamous Epithelial Cells 10-25 H /HPF Urine Crystals NONE /LPF Urine Bacteria TRACE /HPF Urine Casts NONE /LPF Urine Mucus NEGATIVE /LPF Urine Culture Indicated NO My Orders Orders - WAYNE NEGRETE Lorazepam Tablet (Ativan Tablet) (11/09/22 13:15) Fentanyl Inj (Sublimaze Injection) (11/09/22 13:15) Ua Culture If Indicated (11/09/22 13:43) Medications Given in ED Current Medications Medications Dose Ordered Sig/Faustino Route Start Time Stop Time Status Last Admin Dose Admin Lorazepam 1 mg ONCE ONCE PO 11/09/22 13:15 11/09/22 13:17 DC 11/09/22 13:51 1 MG Vital Signs/I&O 5/17/23 5/17/23 12:52 14:29 Temp 36.9 Pulse 149 128 Resp 18 20 B/P (MAP) 188/121 (143) 154/116 Pulse Ox 99 97 O2 Delivery Room Air Capillary Refill : Less Than 3 Seconds Blood Pressure Mean: 143 Departure Communication (PCP) Patient presents to ED for anxiety and right-sided abdominal pain, right flank pain. This pain has been ongoing since her surgery July 2021 secondary to a right nephrectomy. patient has been seen several times for this pain with multiple work-ups. Patient Was seen at [facility] on Monday had a CT abdomen pelvis which did not show any evidence of intra-abdominal abscess, obstruction, acute findings. Patient Was discharged with Keflex for uti. Patient Was seen here on November 05 for concern for overdose of her medication. She had reassuring lab work. Safety plan was provided and was discharged safely. Increased anxiety over the past 2 weeks. Currently being managed by mental health. She is unsure if anxiety is secondary to the pain or her medication Remeron. Due to the recent multiple work-ups that were unremarkable no imaging or lab work was done at this time. She states this feels very similar to her chronic pain. She does have oxycodone that [facility] provided her on Monday. Feel that this is more chronic pain. Concern for opiate addiction. she would likely benefit with pain specialist to help control her pain. Anxiety likely result from the pain. She has no suicidal homicidal thoughts. No drug use or alcohol use. She did receive a dose of Ativan and fentanyl here with improvement of her symptoms. Patient is safely discharged at this time. She was tachycardic but crying and tearful. Recheck of her heart rate did improve some but was still in the 120s. She states she feels much better at this time. Reassessed abdomen without any pain. Denies chest pain, cough, shortness of breath, headache, dizziness. Urinalysis was obtained due to recent UTI. Small amount of hematuria without evidence of infection. She is currently on Keflex continue taking. Working to get patient set up with pain specialist and to follow-up with her GI. Mental health was contacted as well. Patient is well known to mental health. [facility] and discharged after 3 days. Patient received oral Ativan to help with anxiety and a dose of fentanyl for her pain. Improvement of pain. Patient has oxycodone at home. Impression Primary Impression: Anxiety Additional Impression: Chronic abdominal pain Disposition: HOME, SELF-CARE Condition: Stable Departure-Patient Inst. Referrals: EUFEMIA OSHEA APRN (PCP/Family) Primary Care Physician Patient Instructions: Anxiety, Adult (DC) Add. Discharge Instructions: Need to follow-up with your GI specialist. Follow-up with mental health. Will be receiving a call from pain specialist for further evaluation All discharge instructions reviewed with patient and/or family. Voiced understanding. WAYNE NEGRETE November 09, 2022 13:20
[2022-11-09 13:51] LABS: BILIRUBIN,URINE NEGATIVE (NEGATIVE); CLARITY,URINE CLEAR; COLOR,URINE YELLOW; GLUCOSE, URINE (UA) NEGATIVE (NEGATIVE); KETONES,URINE NEGATIVE (NEGATIVE); LEUKOCYTE ESTERASE ,URINE NEGATIVE (NEGATIVE); NITRITE,URINE NEGATIVE (NEGATIVE); PROTEIN,URINE NEGATIVE (NEGATIVE)
[2022-11-09 14:00] LABS: BACTERIA,URINE TRACE /HPF; RBC,URINE 0-2 /HPF; WBC,URINE 0-2 /HPF
[2022-11-09 14:29] VITALS: BP 154/116
== END 2022-11-09 14:30 | disposition home or self-care (01) ==
LOC: EDUNIT# 12:44 → ER 12:45
DX: F41.9 Anxiety disorder, unspecified (principal); G89.29 Other chronic pain; R10.9 Unspecified abdominal pain; N39.0 Urinary tract infection, site not specified; R31.9 Hematuria, unspecified; F17.200 Nicotine dependence, unspecified, uncomplicated; Z28.310 Unvaccinated for COVID-19; Z87.19 Personal history of other diseases of the digestive system; Z98.890 Other specified postprocedural states; Z88.2 Allergy status to sulfonamides
CPT/HCPCS: 81000

== ENCOUNTER → 2022-12-12 | Outpatient (CLI) | payer OTHER ==
--- NOTE | 2022-12-12 16:11 | Diagnostic Imaging Report ---
PROCEDURE: MRI lumbar spine. TECHNIQUE: Multiplanar, multisequence MRI of the lumbar spine was performed without contrast. INDICATION: Chronic back pain. COMPARISON: No priors for direct comparison study. CORRELATED with abdominal pelvic CT and reconstruction views 02/15/2022. Lumbar statures stable and normal. There are mild mixed fatty and edematous Modic type I-type II degenerative changes at the L3-L4 opposing endplates and fatty type II changes at the L5-S1 opposing endplates. Alignment is stable with trace 1 to 2 mm degenerative grade 1 retrolisthesis L3 on L4. No acute bony abnormality. Not convincingly changed from prior. There is peripherally calcified bulging disc posteriorly at T11-T12 resulting in mild canal stenosis. T12-L1: This level and disc unremarkable, no stenosis. L1-L2: Very slight anterior disc bulge results in no stenosis. L2-L3: Slight disc stature loss and desiccation but no significant canal, foraminal or recess stenosis. L3-L4: Disc desiccation, stature loss, bulge and endplate osteophytes are present. There is a mild degree of right foraminal narrowing. The canal and recesses patent. L4-L5: Small midline focal disc protrusion indents the ventral thecal sac. Canal stenosis is very mild and there is mild left greater than right foraminal stenosis. L5-S1: Disc desiccation, stature loss and endplate osteophytes are present. There is a very slight indentation of the ventral thecal sac from osteophyte disc material. There is moderate right and [id number] left foraminal stenosis. The recesses showed no significant narrowing. IMPRESSION: Relatively mild multilevel degenerative changes without high-grade stenosis, stable trace grade 1 listhesis, some chronic degenerative Modic endplate changes with no acute bony pathology. Dictated by: Dictated on workstation # [id number]
== END ==
LOC: RAD 12:45
PROVIDERS: ATTEND Pain Medicine Interventional Pain Medicine
DX: M47.816 Spondylosis without myelopathy or radiculopathy, lumbar region (principal)
CPT/HCPCS: 72148